=== PATIENT | male | born 1985 | race Caucasian/White ===

== ENCOUNTER → 2016-06-12 | Outpatient (CLI) | payer OTHER ==
[~2016-06-12] MED LIST: AMIT100T2 PO; AMIT25TA9 PO; AMT100 PO; AZITTAB PO; CMP/10 PO; DICY20TA10 PO; FLM4 PO; HYDR1CAP85 PO; LXP10 PO; MELO15TA4 PO; OMEP40CA41 PO; OXYC1TAB3 PO; PRED20TA PO; PROM25TA9 PO; PROP10TA7 PO; PRT/40 PO; TRAM-10 PO; VNTHFA/IN INH; XNX25 PO
[2016-06-12 18:51] LABS: THYROID STIMULATING HORMONE 0.351 uIu/ml (0.300-4.500)
== END | disposition home or self-care (01) ==
LOC: C.LAB 17:46
PROVIDERS: ATTEND Family Medicine
DX: R63.5 Abnormal weight gain (principal)

== ENCOUNTER 2016-07-05 07:12 | Emergency (ER) | payer OTHER ==
[~2016-07-05] VITALS: Ht 177.8 cm; Wt 118.7 kg
[~2016-07-05 07:12] MED LIST changes: -AMIT100T2 PO; -AMIT25TA9 PO; -AZITTAB PO; -OXYC1TAB3 PO; -PRED20TA PO; -PROM25TA9 PO; -TRAM-10 PO; -VNTHFA/IN INH
[2016-07-05 07:16] VITALS: TEMP 36.8; Ht 177.8 cm; Wt 118.7 kg
--- NOTE | 2016-07-05 07:59 | EMERGENCY ROOM VISIT NOTE ---
ED Visit Note First contact with patient: 07:20 Chief Complaint: Fall Injury, Back RIGHT Knee Pain History of Present Illness: Patient is a 30-year-old male who presents to the emergency room this morning for evaluation of pain in his lower back and RIGHT knee. He reports that he slipped on ice this morning while shoveling off the sidewalk. He felt a pop in his knee prior to falling to the ground. He struck his lower back on the ground. He did not strike his head. He did not lose consciousness. He reports persistent pain to lateral aspect of the RIGHT knee. He denies numbness or tingling into the distal tremor. He denies any loss of control bowel/bladder saddle anesthesia. He rates his current discomfort as a 6 /10. He is tried one ibuprofen for symptoms to this point. He denies any headaches, dizziness, chest pain, abdominal pain, or other extremity injury. Medications: Reviewed in discussed with the patient. Allergies: Multiple allergies listed above. PMH: No pertinent past medical history. SHx: Patient is a 30-year-old male who lives locally. ROS: All pertinent positive and negative review of systems are appropriately documented in the History of Present Illness. Physical Exam: VITAL SIGNS - Vital signs and nursing notes were reviewed. GENERAL - 30-year-old male appearing his stated age and in noticeable discomfort throughout the exam. NECK - FROM of the cervical spine. ABDOMEN - Abdominal contour obese without pulsations or visible masses. BS normoactive all four quadrants. No tenderness, palpable masses, hepatosplenomegaly, or ascites noted. MUSCULOSKELETAL - ROM of the lumbar spine region was assessed as full. Pt was seated on the exam table. Pt made fluent movements when asked to change position. No step-off deformities were palpated down the thoracolumbar spines. Mild Tenderness to Palpation experienced at the level of the lumbar paraspinal muscle distribution. No reproducible tenderness to palpation across the iliac spine. NEUROLOGIC - REFLEXES: +3/4 patellar reflexes B/L. SENSORY: Spinothalamic tract was found to be intact with ability to discriminate sharp versus dull sensation at the level of hip joint down do the great toe. No sensory defects of the dorsal column were appreciated utilizing light touch for evaluation. CEREBELLAR: Pt able to perform rapid alternating movements of the feet. EXTREMITIES - Range of Motion - No tremors, ticks, or fasciculations of the lower extremities noticed during inspection. Reproducible tenderness to palpation of the lateral aspect of the RIGHT knee. Lateral pain with medial force applied. Limited range of motion in flexion secondary to discomfort. VASCULAR - Capillary refill of the great toe was brisk. No mottling or blanching of the extremities present. +3/5 dorsalis pedis pulses palpated bilaterally. IMAGING: RIGHT KNEE 3 VIEWS HISTORY: Right knee pain/sprain s/p fall Right COMPARISON: None. FINDINGS: There is no fracture or dislocation. Soft tissues are unremarkable. No radiopaque foreign bodies. No knee effusion. IMPRESSION: No fractures. LUMBAR SPINE 5 VIEWS HISTORY: Trauma. Pain. back pain s/p fall COMPARISON: None. FINDINGS: There is no fracture. No subluxation. Disc spaces are preserved. IMPRESSION: No fracture or subluxation within the lumbar spine. ED Course: Patient was seen and evaluated by myself. X-ray of the lumbar spine and RIGHT knee were obtained. Imaging results above. Imaging results were reviewed with the patient who acknowledges understanding. Patient was provided a knee immobilizer for comfort. He was provided one Ultram for breakthrough pain. The patient was encouraged to follow-up with his primary care provider from today's visit. The patient declines the use of crutches. The patient was educated on worrisome symptoms for return visit to the emergency department. Patient discharged home in good condition. In the evaluation and treatment of this patient, the following differential diagnoses were considered: Patellar Fracture, Tibial Plateau Fracture, Distal Femur Fracture, ACL Injury, PCL Injury, Collateral Ligament Injury, Pes Anserine Bursitis, Maisonneuve Fracture. Impression: RIGHT Knee Sprain, Lumbar Contusion, Mechanical Fall Discharge Instructions: You have been treated in the Emergency Department for Knee Sprain. You have received pain medicine in the emergency department which impairs your ability to operate a vehicle. It is illegal for you to drive after receiving these medicines. You have been prescribed Ultram to be used for pain control. You cannot drive or consume alcohol while on this medicine. This medicine should only be used for pain that cannot be controlled with ecbt-xdh-[id number] pain medicines. For pain control, you can use the following qojk-vgz-wgwhetj medicines (if >12 yo): - Regular strength (325mg/tab) Tylenol (acetaminophen) 2 tabs every 4-6 hours as needed. Do not exceed 12 tablets in a 24 hour period. Avoid taking more than 4 grams (4000 mg) of Tylenol per day. This includes any other sources of acetaminophen you may take on a regular basis. - Regular strength (200 mg/tab) Advil (ibuprofen) 1-2 tabs every 4-6 hours as needed. Do not exceed a dose of 3200 mg per day. If this is a recent injury (<24 hrs), ice can be applied to the area of pain for the first 3 days to help decrease pain and inflammation. Ice massages can be performed by freezing water in a paper cup, peeling back the cup to expose the ice and then massaging over the affected area. You have been provided the number for an Orthopaedic Surgeon. You should call this number as soon as possible to establish a follow-up visit from today's Emergency Department visit. Use the knee brace for comfort for the next week. Return to the Emergency Department if your current symptoms worsen despite treatment course outlined above. Problem List Medical Problems: (1) Asperger's disorder Status: Chronic (2) Asthma Status: Chronic (3) Chronic abdominal pain Status: Chronic (4) Colitis Status: Resolved (5) Complete tear, knee, anterior cruciate ligament Status: Resolved (6) History of reconstruction of anterior cruciate ligament tear Status: Resolved (7) IBS (irritable bowel syndrome) Status: Chronic (8) Irritable colon Status: Chronic (9) Migraines Status: Chronic (10) Neck strain Status: Resolved (11) UNSP GASTRITIS & GASTRODUODENITIS W/O MENTN HEMORG Status: Chronic Current/Historical Medications Scheduled Amitriptyline HCl (Amitriptyline HCl), 100 MG PO HS Escitalopram Oxalate (Escitalopram Oxalate), 10 MG PO DAILY Omeprazole (Prilosec), 40 MG PO DAILY Pantoprazole (Pantoprazole Sodium), 40 MG PO BID Tamsulosin HCl (Tamsulosin HCl), 0.4 MG PO DAILY Scheduled PRN Alprazolam (Alprazolam), 0.25 MG PO TID PRN for Anxiety Dicyclomine Hcl (Dicyclomine Hcl), 20 MG PO Q6H PRN for Abdominal Pain Hydroxyzine Pamoate (Vistaril), 25-50 MG PO Q8 PRN for Anxiety/Insomnia Meloxicam (Meloxicam), 15 MG PO DAILY PRN for Pain Prochlorperazine Maleate (Prochlorperazine Maleate), 10 MG PO Q6H PRN for Nausea or Vomiting Propranolol (Inderal), 10 MG PO TID PRN for Panic Attack Tramadol (Ultram), 1-2 TAB PO Q4H PRN for Pain Allergies Coded Allergies: Mold (Blue) Cheese (Verified Allergy, Severe, "BLUE CHEESE" -- ANAPHYLAXIS , 05/22/16) BEE STING (Verified Allergy, Mild, 05/22/16) Latex1 -Allergic Contact Dermititis (Verified Allergy, Mild, 05/22/16) Dust (Verified Allergy, Unknown, MILD RESP DISCOMFORT, 05/22/16) POLLEN (Verified Allergy, Unknown, MILD RESP DISCOMFORT, 05/22/16) Olives (Verified Adverse Reaction, Mild, Black olives trigger IBS, ) Hydromorphone (Verified Adverse Reaction, Unknown, Headache, 06/17/16) Uncoded Allergies: ONIONS (Allergy, Intermediate, N/V/DIARRHEA, 11/19/15) MUSHROOMS (Adverse Reaction, Intermediate, N/V/DIARRHEA, 11/19/15) Vital Signs Date Time Temp Pulse Resp B/P Pulse Ox O2 Delivery O2 Flow Rate FiO2 07/05/16 09:47 88 16 146/105 99 07/05/16 07:16 36.8 130 18 143/91 97 Room Air Medications Administered Medications (Trade) Dose Ordered Sig/Jaycob Route Start Time Stop Time Status Last Admin Dose Admin Tramadol HCl (Ultram Tab) 50 mg ONE STAT PO 07/05/16 09:14 07/05/16 09:16 DC 07/05/16 09:33 50 MG Departure Information Impression Primary Impression: Knee sprain Additional Impressions: Lumbar contusion Fall Dispostion Home / Self-Care Condition GOOD Prescriptions Tramadol (Ultram) 50 Mg Tab 1-2 TAB PO Q4H Y for Pain, #14 TAB For Initial Treatment Prov: Sourav Hollis, JOEY 07/05/16 Referrals Jhon [place]uel[facility]onsuelo (PCP) Patient Instructions ED Sprain Knee, My [facility] Additional Instructions You have been treated in the Emergency Department for Knee Sprain. You have received pain medicine in the emergency department which impairs your ability to operate a vehicle. It is illegal for you to drive after receiving these medicines. You have been prescribed Ultram to be used for pain control. You cannot drive or consume alcohol while on this medicine. This medicine should only be used for pain that cannot be controlled with zine-fan-irwhphd pain medicines. For pain control, you can use the following wsev-xzc-qgazyrm medicines (if >12 yo): - Regular strength (325mg/tab) Tylenol (acetaminophen) 2 tabs every 4-6 hours as needed. Do not exceed 12 tablets in a 24 hour period. Avoid taking more than 4 grams (4000 mg) of Tylenol per day. This includes any other sources of acetaminophen you may take on a regular basis. - Regular strength (200 mg/tab) Advil (ibuprofen) 1-2 tabs every 4-6 hours as needed. Do not exceed a dose of 3200 mg per day. If this is a recent injury (<24 hrs), ice can be applied to the area of pain for the first 3 days to help decrease pain and inflammation. Ice massages can be performed by freezing water in a paper cup, peeling back the cup to expose the ice and then massaging over the affected area. You have been provided the number for an Orthopaedic Surgeon. You should call this number as soon as possible to establish a follow-up visit from today's Emergency Department visit. Use the knee brace for comfort for the next week. Return to the Emergency Department if your current symptoms worsen despite treatment course outlined above. Problem Qualifiers Primary Impression: Knee sprain Encounter type: initial encounter Involved ligament of knee: lateral collateral ligament Laterality: right Qualified Codes: S83.421A - Sprain of lateral collateral ligament of right knee, initial encounter Additional Impressions: Lumbar contusion Encounter type: initial encounter Qualified Codes: S30.0XXA - Contusion of lower back and pelvis, initial encounter Fall Encounter type: initial encounter Qualified Codes: W19.XXXA - Unspecified fall, initial encounter
--- NOTE | 2016-07-05 08:56 | DIAGNOSTIC IMAGING REPORT ---
RIGHT KNEE 3 VIEWS HISTORY: Right knee pain/sprain s/p fall Right COMPARISON: None. FINDINGS: There is no fracture or dislocation. Soft tissues are unremarkable. No radiopaque foreign bodies. No knee effusion. IMPRESSION: No fractures. Electronically signed by: Conrad Carlson M.D. 07/05/2016 8:55 AM Dictated Date/Time: 07/05/2016 8:54 AM
--- NOTE | 2016-07-05 09:01 | DIAGNOSTIC IMAGING REPORT ---
LUMBAR SPINE 5 VIEWS HISTORY: Trauma. Pain. back pain s/p fall COMPARISON: None. FINDINGS: There is no fracture. No subluxation. Disc spaces are preserved. IMPRESSION: No fracture or subluxation within the lumbar spine. Electronically signed by: Austin Acosta M.D. 07/05/2016 8:59 AM Dictated Date/Time: 07/05/2016 8:59 AM
[2016-07-05] MEDS ORDERED: TRAMADOL HCL 50 MG TAB PO STA (09:14)
[2016-07-05] MEDS ORDERED: TRAM-10 PO (09:21)
[2016-07-05 09:47] VITALS: BP 146/105; PULSE 88; O2SAT 99
== END 2016-07-05 09:40 | disposition home or self-care (01) ==
LOC: C.EDB 07:14
DX: S30.0XXA Contusion of lower back and pelvis, initial encounter (principal); S83.91XA Sprain of unspecified site of right knee, initial encounter; W00.0XXA Fall on same level due to ice and snow, initial encounter; E66.9 Obesity, unspecified; Z68.37 Body mass index [BMI] 37.0-37.9, adult; F84.5 Asperger's syndrome; J45.909 Unspecified asthma, uncomplicated; K58.9 Irritable bowel syndrome, unspecified; Z79.899 Other long term (current) drug therapy

== ENCOUNTER 2016-07-13 12:17 | Emergency (ER) | payer OTHER ==
[~2016-07-13] VITALS: Ht 177.8 cm; Wt 117.7 kg
[~2016-07-13 12:17] MED LIST changes: +TRAM-10 PO
[2016-07-13 12:22] VITALS: TEMP 36.5; Ht 177.8 cm; Wt 117.7 kg
[2016-07-13 13:34] LABS: BASO % 0.3 %; BASO ABS # 0.02 K/uL (0-0.2); COMPLETE YES; HEMATOCRIT 45.7 % (42-52); IG% 0.2 %; LYMPH % 31.9 %; LYMPH ABS # 2.06 K/uL (1.2-3.4); MEAN CELL VOLUME 82.8 fL (80-100); MEAN CORPUSCULAR HEMOGLOBIN 30.4 pg (25-34); MEAN CORPUSCULAR HGB CONC 36.8 g/dl (32-36); MEAN PLATELET VOLUME 10.3 fL (7.4-10.4); NEUT % 54.6 %; PLATELET COUNT 249 K/uL (130-400); RED BLOOD COUNT 5.52 M/uL (4.7-6.1); WHITE BLOOD COUNT 6.46 K/uL (4.8-10.8)
[2016-07-13 13:37] LABS: BUN/CREATININE RATIO 7.5 (10-20); CALCIUM 8.6 mg/dl (8.5-10.1); CREATININE 0.99 mg/dl (0.60-1.40); POTASSIUM 3.7 mmol/L (3.5-5.1)
[2016-07-13] MEDS ORDERED: TRAMADOL/ACETAMINOPHEN 37.5/325MG TAB PO ONE (13:45)
[2016-07-13 13:47] LABS: URINE APPEARANCE CLEAR (CLEAR); URINE BILIRUBIN NEG (NEG); URINE COLOR YELLOW; URINE EPITHELIAL CELL AUTO 0-5 /lpf (0-5); URINE NITRITE NEG (NEG); URINE PH 6.5 (4.5-7.5); URINE SPECIFIC GRAVITY 1.015 (1.000-1.030); UROBILINOGEN NEG (NEG); ZZUR CULT IF INDIC CLEAN CATCH NO
--- NOTE | 2016-07-13 13:47 | EMERGENCY ROOM VISIT NOTE ---
History Report prepared by Padma: Michael Cortez Under the Supervision of: Dr. Paolo Gage M.D. First contact with patient: 13:25 Chief Complaint: URINARY SYMPTOMS Stated Complaint: STOMACH PAIN Nursing Triage Summary: PT C/O URINARY FREQUENCY AND BURNING. REPORTS HX OF IBS BUT "IT DOESN'T FEEL LIKE THAT", LAST BM LAST EVENING. PT C/O LOWER ABDOMINAL PAIN WHEN STRAINING OR LAUGHING .PT ALSO REPORTS RECENT NEW GYM USE. PT SEEN AT PCP FOR LOWER ABDOMINAL PAIN. PT ALSO REPORTS HX OF KIDNEY STONES. History of Present Illness The patient is a 30 year old male who presents to the Emergency Room with complaints of worsening lower bilateral abdominal pain for the past three weeks. The pain shoots into the groin area, and is mostly on the left side. The pain is rated 8/10 in severity. The patient's pain is exacerbated with coughing , movement, defecation, and urination. He has taken Ibuprofen for pain. The patient also complains of urinary frequency and burning. He has a history of IBS , and notes that his current pain is unlike any pain he has felt before. The patient started going to the gym this year. Source of History: patient Onset: three weeks Position: abdomen (bilateral lower) Symptom Intensity: 8/10 Timing: worsening Modifying Factors (Worsening): movement, urination, defecation, other ( coughing) Associated Symptoms: + urinary symptoms Review of Systems All systems have been listed, reviewed, and are negative other than those previously mentioned. Please see Additional Medical History Sheet. Past Medical & Surgical Medical Problems: (1) Asperger's disorder (2) Asthma (3) Chronic abdominal pain (4) Colitis (5) Complete tear, knee, anterior cruciate ligament (6) History of reconstruction of anterior cruciate ligament tear (7) IBS (irritable bowel syndrome) (8) Irritable colon (9) Migraines (10) Neck strain (11) UNSP GASTRITIS & GASTRODUODENITIS W/O MENTN HEMORG Family History Heart disease Social History Smoking Status: Current Every Day Smoker Alcohol Use: occasionally Drug Use: none Marital Status: single Housing Status: lives with family Occupation Status: employed Current/Historical Medications Scheduled Amitriptyline HCl (Amitriptyline HCl), 100 MG PO HS Escitalopram Oxalate (Escitalopram Oxalate), 10 MG PO DAILY Omeprazole (Prilosec), 40 MG PO DAILY Pantoprazole (Pantoprazole Sodium), 40 MG PO BID Tamsulosin HCl (Tamsulosin HCl), 0.4 MG PO DAILY Scheduled PRN Alprazolam (Alprazolam), 0.25 MG PO TID PRN for Anxiety Dicyclomine Hcl (Dicyclomine Hcl), 20 MG PO Q6H PRN for Abdominal Pain Hydroxyzine Pamoate (Vistaril), 25-50 MG PO Q8 PRN for Anxiety/Insomnia Meloxicam (Meloxicam), 15 MG PO DAILY PRN for Pain Prochlorperazine Maleate (Prochlorperazine Maleate), 10 MG PO Q6H PRN for Nausea or Vomiting Propranolol (Inderal), 10 MG PO TID PRN for Panic Attack Tramadol (Ultram), 50 MG PO Q4H PRN for Pain Allergies Coded Allergies: Mold (Blue) Cheese (Verified Allergy, Severe, "BLUE CHEESE" -- ANAPHYLAXIS , 07/13/16) BEE STING (Verified Allergy, Mild, 07/13/16) Latex1 -Allergic Contact Dermititis (Verified Allergy, Mild, 07/13/16) Dust (Verified Allergy, Unknown, MILD RESP DISCOMFORT, 07/13/16) POLLEN (Verified Allergy, Unknown, MILD RESP DISCOMFORT, 05/22/16) Olives (Verified Adverse Reaction, Mild, Black olives trigger IBS, ) Hydromorphone (Verified Adverse Reaction, Unknown, Headache, 06/17/16) Uncoded Allergies: ONIONS (Allergy, Intermediate, N/V/DIARRHEA, 11/19/15) MUSHROOMS (Adverse Reaction, Intermediate, N/V/DIARRHEA, 11/19/15) Physical Exam Vital Signs Date Time Temp Pulse Resp B/P Pulse Ox O2 Delivery O2 Flow Rate FiO2 07/13/16 15:00 98 20 146/93 96 Room Air 07/13/16 12:22 36.5 128 18 144/88 95 Room Air Physical Exam GENERAL: Patient awake, alert, oriented x 3. Patient appears to be in moderate distress. Patient follows commands. Patient does not appear toxic. Patient is adequately hydrated and well-nourished. SKIN: No erythema, pallor, cyanosis or rash HEENT: Normal head, pupils equal, reactive to light and accommodation. Ears normal. Oral cavity and posterior pharynx appear normal. Neck: Without adenopathy, no neck vein distention. LUNGS: Clear to auscultation. No wheezes, no rales, no rhonchi. HEART: No murmurs. No gallops. No rubs ABDOMEN: Tenderness along the left lower quadrant and suprapubically. No hernias or masses palpated. No rebound or guarding. : No hernias palpated. EXTREMITIES: No signs of trauma or infection. NEUROLOGIC: Cranial nerves II-XII within normal limits. No gross motor sensory function deficits. Medical Decision & Procedures Laboratory Results 07/13/16 13:18 Red Blood Count 5.52, Mean Corpuscular Volume 82.8, Mean Corpuscular Hemoglobin 30.4, Mean Corpuscular Hemoglobin Concent 36.8, Mean Platelet Volume 10.3, Neutrophils (%) (Auto) 54.6, Lymphocytes (%) (Auto) 31.9, Monocytes (%) (Auto) 11.0, Eosinophils (%) (Auto) 2.0, Basophils (%) (Auto) 0.3, Neutrophils # (Auto ) 3.53, Lymphocytes # (Auto) 2.06, Monocytes # (Auto) 0.71, Eosinophils # (Auto ) 0.13, Basophils # (Auto) 0.02 07/13/16 13:18 Test 07/13/16 13:15 07/13/16 13:18 Urine Color YELLOW Urine Appearance CLEAR (CLEAR) Urine pH 6.5 (4.5-7.5) Urine Specific [place] 1.015 (1.000-1.030) Urine Protein NEG (NEG) Urine Glucose (UA) NEG (NEG) Urine Ketones NEG (NEG) Urine Occult Blood NEG (NEG) Urine Nitrite NEG (NEG) Urine Bilirubin NEG (NEG) Urine Urobilinogen NEG (NEG) Urine Leukocyte Esterase SMALL (NEG) Urine WBC (Auto) 1-5 /hpf (0-5) Urine RBC (Auto) 0-4 /hpf (0-4) Urine Hyaline Casts (Auto) 0 /lpf (0-5) Urine Epithelial Cells (Auto) 0-5 /lpf (0-5) Urine Bacteria (Auto) NEG (NEG) White Blood Count 6.46 K/uL (4.8-10.8) Red Blood Count 5.52 M/uL (4.7-6.1) Hemoglobin 16.8 g/dL (14.0-18.0) Hematocrit 45.7 % (42-52) Mean Corpuscular Volume 82.8 fL (80-100) Mean Corpuscular Hemoglobin 30.4 pg (25-34) Mean Corpuscular Hemoglobin Concent 36.8 g/dl (32-36) Platelet Count 249 K/uL (130-400) Mean Platelet Volume 10.3 fL (7.4-10.4) Neutrophils (%) (Auto) 54.6 % Lymphocytes (%) (Auto) 31.9 % Monocytes (%) (Auto) 11.0 % Eosinophils (%) (Auto) 2.0 % Basophils (%) (Auto) 0.3 % Neutrophils # (Auto) 3.53 K/uL (1.4-6.5) Lymphocytes # (Auto) 2.06 K/uL (1.2-3.4) Monocytes # (Auto) 0.71 K/uL (0.11-0.59) Eosinophils # (Auto) 0.13 K/uL (0-0.5) Basophils # (Auto) 0.02 K/uL (0-0.2) RDW Standard Deviation 37.6 fL (36.4-46.3) RDW Coefficient of Variation 12.5 % (11.5-14.5) Immature Granulocyte % (Auto) 0.2 % Immature Granulocyte # (Auto) 0.01 K/uL (0.00-0.02) Anion Gap 10.0 mmol/L (3-11) Est Creatinine Clear Calc Drug Dose 141.5 ml/min Estimated GFR () 118.8 Estimated GFR (Non- 102.5 BUN/Creatinine Ratio 7.5 (10-20) Calcium Level 8.6 mg/dl (8.5-10.1) Total Bilirubin 0.5 mg/dl (0.2-1) Aspartate Amino Transf (AST/SGOT) 23 U/L (15-37) Alanine Aminotransferase (ALT/SGPT) 54 U/L (12-78) Alkaline Phosphatase 106 U/L (45-117) Total Protein 7.3 gm/dl (6.4-8.2) Albumin 3.6 gm/dl (3.4-5.0) Globulin 3.7 gm/dl (2.5-4.0) Albumin/Globulin Ratio 1.0 (0.9-2) Lipase 76 U/L (73-393) Laboratory results as stated above per my review. Medications Administered Medications (Trade) Dose Ordered Sig/Jaycob Route Start Time Stop Time Status Last Admin Dose Admin Tramadol/ Acetaminophen (Ultracet Tab) 1 tab ONE ONCE PO 07/13/16 13:45 07/13/16 13:46 DC 07/13/16 13:49 1 TAB ED Course 1327: Past medical records reviewed. The patient was evaluated in room C4. A complete history and physical examination was performed. 1345: Ultracet tab PO. 1451: Upon reevaluation, the patient appeared to have improvement of his symptoms. I discussed today's findings with him. He verbalized agreement of the treatment plan. He was discharged home. 1500: The [place] Prescription Drug Monitoring Program was reviewed regarding this patient. Medical Decision I considered multiple diagnoses including abdominal muscular strain, hernia, UTI , IBS, testicular torsion, kidney stone. Blood work and urinalysis were evaluated. The patient has no elevation of his white count. He does not appear to have a urinary tract infection. I do not think he has a kidney stone or testicular torsion. Pain seems most consistent with musculoskeletal origin. [place] Drug Monitoring Program Search Results: patient reviewed within database, no issues identified Impression Primary Impression: Muscular abdominal pain in left lower quadrant Scribe Attestation The scribe's documentation has been prepared under my direction and personally reviewed by me in its entirety. I confirm that the note above accurately reflects all work, treatment, procedures, and medical decision making performed by me. Departure Information Dispostion Home / Self-Care Prescriptions Tramadol (Ultram) 50 Mg Tab 50 MG PO Q4H Y for Pain, #20 TAB Prov: Paolo Gage M.D. 07/13/16 Referrals Jhon [place] D.O. (PCP) Forms HOME CARE DOCUMENTATION FORM, IMPORTANT VISIT INFORMATION Patient Instructions My [facility] Additional Instructions 1 tramadol every 4 hours as needed for pain. Follow-up with your family physician within the next 2 weeks. Avoid any lifting greater than 10 pounds for the next 2 weeks.
[2016-07-13 13:52] LABS: MANUAL MICROSCOPIC REQUIRED? NO; REVIEW REQ? NO
[2016-07-13] MEDS ORDERED: TRAM-10 PO (14:56)
[2016-07-13 15:44] VITALS: BP 133/91; PULSE 78; O2SAT 98
== END 2016-07-13 15:46 | disposition home or self-care (01) ==
LOC: C.EDB 12:18 → C.EDC 15:46
DX: R10.32 Left lower quadrant pain (principal); J45.909 Unspecified asthma, uncomplicated; K58.9 Irritable bowel syndrome, unspecified; F17.210 Nicotine dependence, cigarettes, uncomplicated; Z79.899 Other long term (current) drug therapy

== ENCOUNTER 2016-09-01 23:02 | Emergency (ER) | payer OTHER ==
[~2016-09-01] VITALS: Ht 177.8 cm; Wt 115.2 kg
[~2016-09-01 23:02] MED LIST changes: +PANT40TA2 PO; -PRT/40 PO
[2016-09-01 23:23] VITALS: TEMP 37.1; Ht 177.8 cm; Wt 115.2 kg
[2016-09-01] MEDS ORDERED: DiphenhydrAMINE HCL 50 MG/ML VIAL IV STA (23:34)
[2016-09-01] MEDS ORDERED: KETOROLAC TROMETHAMINE 30 MG/ML VIAL IV STA (23:34)
[2016-09-01] MEDS ORDERED: SODIUM CHLORIDE 0.9% 1000ML 1,000 ML IV STA (23:34)
[2016-09-01] MEDS ORDERED: PROCHLORPERAZINE 5 MG/ML 2 ML VIAL IV STA (23:34)
[2016-09-01 23:59] LABS: URINE APPEARANCE CLEAR (CLEAR); URINE BILIRUBIN NEG (NEG); URINE COLOR YELLOW; URINE NITRITE NEG (NEG); URINE PH 5.5 (4.5-7.5); URINE SPECIFIC GRAVITY 1.024 (1.000-1.030); UROBILINOGEN NEG (NEG); ZZUR CULT IF INDIC CLEAN CATCH NO
[2016-09-02 00:02] LABS: MANUAL MICROSCOPIC REQUIRED? NO; REVIEW REQ? NO
[2016-09-02 00:02] LABS: BASO % 0.4 %; BASO ABS # 0.03 K/uL (0-0.2); COMPLETE YES; EOS % 1.5 %; HEMATOCRIT 48.3 % (42-52); IG% 0.3 %; LYMPH % 31.3 %; LYMPH ABS # 2.45 K/uL (1.2-3.4); MEAN CELL VOLUME 82.4 fL (80-100); MEAN CORPUSCULAR HEMOGLOBIN 30.4 pg (25-34); MEAN CORPUSCULAR HGB CONC 36.9 g/dl (32-36); MEAN PLATELET VOLUME 10.2 fL (7.4-10.4); MONO % 9.1 %; NEUT % 57.4 %; PLATELET COUNT 263 K/uL (130-400); RED BLOOD COUNT 5.86 M/uL (4.7-6.1); WHITE BLOOD COUNT 7.82 K/uL (4.8-10.8)
[2016-09-02 00:18] LABS: BENZODIAZEPINE, URINE NEG (NEG); COCAINE,URINE NEG (NEG); PHENCYCLIDINE, URINE NEG (NEG)
[2016-09-02 00:36] LABS: CALCIUM 8.7 mg/dl (8.5-10.1); CREATININE 0.92 mg/dl (0.60-1.40); MAGNESIUM 2.1 mg/dl (1.8-2.4); POTASSIUM 3.8 mmol/L (3.5-5.1)
[2016-09-02] MEDS ORDERED: PROM25TA9 PO (00:57)
--- NOTE | 2016-09-02 00:58 | EMERGENCY ROOM VISIT NOTE ---
History First contact with patient: 23:26 Chief Complaint: ABDOMINAL PAIN Stated Complaint: STOMACH PAIN, NAUSEA, DIARRHEA Nursing Triage Summary: pt states he has been sick for one week. reports abd pain, diarrhea, nausea, and vomiting. states he ran out of nausea medication tonight. was treating at home with ibuprofen. reports tonight pain and nausea became worse. vomited 1x "since I got to the ER." reports pain "comes in waves." hx IBS. alert and oriented x4. breathing WNL. abd soft, nontender. ambulatory independently History of Present Illness The patient is a 30 year old male who presents to the Emergency Department by private vehicle for evaluation of his nausea, vomiting, diarrhea, abdominal pain. He reports his symptoms have been ongoing for approximately one week. He reports that his abdominal pain has worsened tonight with associated vomiting as he ran out of his Phenergan. He is treated for IBS by Dr. Reyez. He rates his current discomfort as a 5/10. He denies a previous abdominal surgeries. He denies any fevers, chills, headaches, dizziness, numbness, chest pain, palpitations, short of breath, hematemesis, hematochezia, melena, hematuria, or dysuria. Review of Systems A complete 10-point Review of Systems was discussed with the patient, with pertinent positives and negatives listed in the History of Present Illness. All remaining Review of Systems questions can be considered negative unless otherwise specified. Past Medical/Surgical History Medical Problems: (1) Asperger's disorder (2) Asthma (3) Chronic abdominal pain (4) Colitis (5) Complete tear, knee, anterior cruciate ligament (6) History of reconstruction of anterior cruciate ligament tear (7) IBS (irritable bowel syndrome) (8) Irritable colon (9) Migraines (10) Neck strain (11) UNSP GASTRITIS & GASTRODUODENITIS W/O MENTN HEMORG Family History Heart disease Social History Smoking Status: Current Every Day Smoker Smokeless Tobacco Use: No Alcohol Use: occasionally Drug Use: none Marital Status: single Housing Status: lives with family Occupation Status: employed Current/Historical Medications Scheduled Amitriptyline HCl (Amitriptyline HCl), 100 MG PO HS Escitalopram Oxalate (Escitalopram Oxalate), 10 MG PO DAILY Omeprazole (Prilosec), 40 MG PO DAILY Pantoprazole (Pantoprazole Sodium), 40 MG PO BID Tamsulosin HCl (Tamsulosin HCl), 0.4 MG PO DAILY Scheduled PRN Alprazolam (Alprazolam), 0.25 MG PO TID PRN for Anxiety Dicyclomine Hcl (Dicyclomine Hcl), 20 MG PO Q6H PRN for Abdominal Pain Hydroxyzine Pamoate (Vistaril), 25-50 MG PO Q8 PRN for Anxiety/Insomnia Meloxicam (Meloxicam), 15 MG PO DAILY PRN for Pain Prochlorperazine Maleate (Prochlorperazine Maleate), 10 MG PO Q6H PRN for Nausea or Vomiting Promethazine Hcl (Phenergan), 25 MG PO Q6H PRN for Nausea Propranolol (Inderal), 10 MG PO TID PRN for Panic Attack Allergies Coded Allergies: Mold (Blue) Cheese (Verified Allergy, Severe, "BLUE CHEESE" -- ANAPHYLAXIS , 09/01/16) BEE STING (Verified Allergy, Mild, 09/01/16) Latex1 -Allergic Contact Dermititis (Verified Allergy, Mild, 09/01/16) Dust (Verified Allergy, Unknown, MILD RESP DISCOMFORT, 09/01/16) POLLEN (Verified Allergy, Unknown, MILD RESP DISCOMFORT, 09/01/16) Olives (Verified Adverse Reaction, Mild, Black olives trigger IBS, 09/01/16 ) Hydromorphone (Verified Adverse Reaction, Unknown, Headache, 09/01/16) Uncoded Allergies: ONIONS (Allergy, Intermediate, N/V/DIARRHEA, 11/19/15) MUSHROOMS (Adverse Reaction, Intermediate, N/V/DIARRHEA, 11/19/15) Physical Exam Vital Signs Date Time Temp Pulse Resp B/P Pulse Ox O2 Delivery O2 Flow Rate FiO2 09/02/16 01:07 90 18 127/83 96 09/02/16 00:11 104 18 131/91 95 Room Air 09/01/16 23:23 37.1 126 20 148/96 95 Room Air Pain Rating (0-10): 5 Physical Exam VITAL SIGNS - Vital signs and nursing notes were reviewed. GENERAL - 30-year-old male appearing his stated age who is in no acute distress. Communicates well with provider and answers questions appropriately. LUNGS - Chest wall symmetric without accessory muscle use, intercostals retractions, or central cyanosis. Normal vesicular breath sounds CTA B/L. No wheezes, rales, or rhonchi appreciated. CARDIAC - RRR with S1/S2. No murmur, rubs, or gallops appreciated. ABDOMEN - Abdominal contour flat and without pulsations or visible masses. BS normoactive all four quadrants. Mild tenderness to palpation appreciated in the epigastrium. No guarding. No Rebound Tenderness. Negative Rovsing's. Negative Palacio's. No palpable masses, hepatosplenomegaly, or ascites noted. PSYCH - A&Ox3 and cooperates fully with examiner. Pt is very pleasant and interacts well with examiner. Medical Decision & Procedures Laboratory Results 09/01/16 23:48 Red Blood Count 5.86, Mean Corpuscular Volume 82.4, Mean Corpuscular Hemoglobin 30.4, Mean Corpuscular Hemoglobin Concent 36.9, Mean Platelet Volume 10.2, Neutrophils (%) (Auto) 57.4, Lymphocytes (%) (Auto) 31.3, Monocytes (%) (Auto) 9.1, Eosinophils (%) (Auto) 1.5, Basophils (%) (Auto) 0.4, Neutrophils # (Auto) 4.49, Lymphocytes # (Auto) 2.45, Monocytes # (Auto) 0.71, Eosinophils # (Auto) 0.12, Basophils # (Auto) 0.03 09/01/16 23:48 Test 09/01/16 23:40 09/01/16 23:48 Urine Color YELLOW Urine Appearance CLEAR (CLEAR) Urine pH 5.5 (4.5-7.5) Urine Specific [place] 1.024 (1.000-1.030) Urine Protein NEG (NEG) Urine Glucose (UA) NEG (NEG) Urine Ketones NEG (NEG) Urine Occult Blood NEG (NEG) Urine Nitrite NEG (NEG) Urine Bilirubin NEG (NEG) Urine Urobilinogen NEG (NEG) Urine Leukocyte Esterase NEG (NEG) Urine Opiates Screen NEG (NEG) Urine Methadone, Qualitative NEG (NEG) Urine Barbiturates NEG (NEG) Urine Phencyclidine (PCP) Level NEG (NEG) Ur Amphetamine/Methamphetamine NEG (NEG) MDMA (Ecstasy) Screen NEG (NEG) Urine Benzodiazepines Screen NEG (NEG) Urine Cocaine Metabolite NEG (NEG) Urine Marijuana (THC) NEG (NEG) White Blood Count 7.82 K/uL (4.8-10.8) Red Blood Count 5.86 M/uL (4.7-6.1) Hemoglobin 17.8 g/dL (14.0-18.0) Hematocrit 48.3 % (42-52) Mean Corpuscular Volume 82.4 fL (80-100) Mean Corpuscular Hemoglobin 30.4 pg (25-34) Mean Corpuscular Hemoglobin Concent 36.9 g/dl (32-36) Platelet Count 263 K/uL (130-400) Mean Platelet Volume 10.2 fL (7.4-10.4) Neutrophils (%) (Auto) 57.4 % Lymphocytes (%) (Auto) 31.3 % Monocytes (%) (Auto) 9.1 % Eosinophils (%) (Auto) 1.5 % Basophils (%) (Auto) 0.4 % Neutrophils # (Auto) 4.49 K/uL (1.4-6.5) Lymphocytes # (Auto) 2.45 K/uL (1.2-3.4) Monocytes # (Auto) 0.71 K/uL (0.11-0.59) Eosinophils # (Auto) 0.12 K/uL (0-0.5) Basophils # (Auto) 0.03 K/uL (0-0.2) RDW Standard Deviation 37.4 fL (36.4-46.3) RDW Coefficient of Variation 12.5 % (11.5-14.5) Immature Granulocyte % (Auto) 0.3 % Immature Granulocyte # (Auto) 0.02 K/uL (0.00-0.02) Anion Gap 8.0 mmol/L (3-11) Est Creatinine Clear Calc Drug Dose 150.6 ml/min Estimated GFR () 129.8 Estimated GFR (Non- 112.0 BUN/Creatinine Ratio 13.0 (10-20) Calcium Level 8.7 mg/dl (8.5-10.1) Magnesium Level 2.1 mg/dl (1.8-2.4) Total Bilirubin 0.4 mg/dl (0.2-1) Aspartate Amino Transf (AST/SGOT) 23 U/L (15-37) Alanine Aminotransferase (ALT/SGPT) 54 U/L (12-78) Alkaline Phosphatase 124 U/L (45-117) Total Protein 7.5 gm/dl (6.4-8.2) Albumin 3.7 gm/dl (3.4-5.0) Globulin 3.8 gm/dl (2.5-4.0) Albumin/Globulin Ratio 1.0 (0.9-2) Lipase 88 U/L (73-393) Medications Administered Medications (Trade) Dose Ordered Sig/Jaycob Route Start Time Stop Time Status Last Admin Dose Admin Sodium Chloride (Nss 1000ml) 1,000 ml @ 999 mls/hr Q1H1M STAT IV 09/01/16 23:34 09/02/16 00:34 DC 09/02/16 00:04 999 MLS/HR Ketorolac Tromethamine (Toradol Inj) 30 mg NOW STAT IV 09/01/16 23:34 09/01/16 23:37 DC 09/02/16 00:08 30 MG Prochlorperazine Edisylate (Compazine Inj) 10 mg NOW STAT IV 09/01/16 23:34 09/01/16 23:37 DC 09/02/16 00:08 10 MG Diphenhydramine HCl (Benadryl Inj) 25 mg NOW STAT IV 09/01/16 23:34 09/01/16 23:37 DC 09/02/16 00:06 25 MG Promethazine HCl (Phenergan 25MG Home Pack) 1 homepack UD ONCE PO 09/02/16 01:00 09/02/16 01:01 DC 09/02/16 01:03 1 HOMEPACK ED Course Patient was seen and evaluated by myself. Labs were drawn, saline lock in place. The patient was hydrated with 1000 mL normal saline bolus. He received 30 mg Toradol, 10 mg Compazine, and 25 mg Benadryl intravenously. Laboratory results demonstrate no acute leukocytosis, worrisome anemia, or bandemia. The patient has no significant electrolyte abnormalities. Urinalysis suggests infection. On review the patient, he reports feeling moderately better at this time. Patient was provided a home pack for Phenergan as well as a short prescription. He was encouraged to follow up with his wiper blender from today's visit. He was educated on worrisome symptoms for return visit to the emergency department. Patient discharged home afebrile and in good condition. Medical Decision Given the patient's presentation and stated complaints, I did elect to perform the above-mentioned workup. The patient presents today with nausea, vomiting, diarrhea as well as abdominal pain. He has a history of IBS. He reports his symptoms feel the exact same. His abdomen is soft and minimally tender to palpation. He is no rebound rigidity or guarding. He has no fever leukocytosis. He responded to the above mentioned cocktail. He feels much better at this time. The patient was provided Phenergan for home. He will follow-up with the specialist. He'll return for changing/worsening symptoms. Patient discharged home afebrile and in good condition. In the evaluation and treatment of this patient, the following differential diagnoses were considered: Appendicitis, Diverticulitis, Diverticulosis, Colitis , Ischemic Colitis, Inflammatory Bowel Disease, Irritable Bowel Disease, Testicular Torsion, Kidney Stone, Pyelonephritis, Hydronephrosis, Cholecystitis , Ascending Cholangitis, Choledocholithiasis, GERD. Impression Primary Impression: Abdominal pain Additional Impressions: IBS (irritable bowel syndrome) Vomiting and diarrhea Departure Information Dispostion Home / Self-Care Condition GOOD Prescriptions Promethazine Hcl (Phenergan) 25 Mg Tab 25 MG PO Q6H Y for Nausea for 3 Days, #12 TAB Prov: Sourav Hollis PA-C 09/02/16 Referrals Jhon [place] D.O. (PCP) Patient Instructions My [facility] Additional Instructions You have been treated in the Emergency Department your Nausea, Vomiting, and Abdominal Pain. You have been prescribed Phenergan to be used for any nausea or vomiting. Take as prescribed. For pain control, you can use the following [id number] medicines (if >12 yo): - Regular strength (325mg/tab) Tylenol (acetaminophen) 2 tabs every 4-6 hours as needed. Do not exceed 12 tablets in a 24 hour period. Avoid taking more than 4 grams (4000 mg) of Tylenol per day. This includes any other sources of acetaminophen you may take on a regular basis. - Regular strength (200 mg/tab) Advil (ibuprofen) 1-2 tabs every 4-6 hours as needed. Do not exceed a dose of 3200 mg per day. Drink plenty of water and stay well hydrated. As with any trip to the Emergency Department, you should follow-up with your Primary Care Provider from today's visit. Return to the emergency department if your symptoms persist despite treatment plan outlined above or if the following symptoms occur: increased fevers, chills , worsening nausea/vomiting, blood in your stool or urine. Problem Qualifiers Primary Impression: Abdominal pain Abdominal location: generalized Qualified Codes: R10.84 - Generalized abdominal pain Additional Impressions: IBS (irritable bowel syndrome) Irritable bowel syndrome type: with diarrhea Qualified Codes: K58.0 - Irritable bowel syndrome with diarrhea
[2016-09-02] MEDS ORDERED: PHENERGAN 25MG HOMEPACK PO ONE (01:00)
[2016-09-02 01:07] VITALS: BP 127/83; PULSE 90; O2SAT 96
== END 2016-09-02 01:10 | disposition home or self-care (01) ==
LOC: C.EDB 23:03 → C.EDC 09-02 01:10
DX: R10.9 Unspecified abdominal pain (principal); K58.9 Irritable bowel syndrome, unspecified; R11.10 Vomiting, unspecified; R19.7 Diarrhea, unspecified; J45.909 Unspecified asthma, uncomplicated; F84.5 Asperger's syndrome; Z86.19 Personal history of other infectious and parasitic diseases; Z87.19 Personal history of other diseases of the digestive system; F17.200 Nicotine dependence, unspecified, uncomplicated; Z79.899 Other long term (current) drug therapy; Z88.5 Allergy status to narcotic agent; Z91.030 Bee allergy status; Z91.040 Latex allergy status

== ENCOUNTER 2016-12-12 19:56 | Emergency (ER) | payer OTHER ==
[~2016-12-12] VITALS: Ht 177.8 cm; Wt 118.6 kg
[~2016-12-12 19:56] MED LIST changes: -PANT40TA2 PO; +PRT/40 PO; -TRAM-10 PO
[2016-12-12 20:03] VITALS: TEMP 37.4; Ht 177.8 cm; Wt 118.6 kg
[2016-12-12] MEDS ORDERED: VNTHFA/IN INH (20:22)
[2016-12-12] MEDS ORDERED: AMIT100T2 PO (20:22)
[2016-12-12] MEDS ORDERED: AMIT25TA9 PO (20:22)
[2016-12-12] MEDS ORDERED: PRED20TA PO (20:22)
[2016-12-12] MEDS ORDERED: HYDROCODONE/HOMATROPINE SYRUP 5MG/1.5MG 5ML UDP PO STA (20:51)
[2016-12-12] MEDS ORDERED: SODIUM CHLORIDE 0.9% 1000ML 1,000 ML IV STA (20:51)
[2016-12-12] MEDS ORDERED: ALBUT/IPRATROP 3MG/0.5MG NEB 3 ML VIAL INH ONE (21:00)
--- NOTE | 2016-12-12 21:22 | EMERGENCY ROOM VISIT NOTE ---
History Report prepared by Padma: Sukumar Tirado Under the Supervision of: Dr. Kermit Ayon M.D. First contact with patient: 20:46 Chief Complaint: CHEST PAIN Stated Complaint: SHARP PAIN IN LWR R CHEST,BRONCHITIS History of Present Illness The patient is a 31 year old male who presents to the Emergency Room with complaints of intermittent sharp chest pain being yesterday. The patient states that he went to his doctor yesterday and was diagnosis with bronchitis. He reports that he was put on an inhaler and prednisone. The patient notes that his symptoms are present, and worsen upon cough. He states that he used to smoke a pack of cigarettes every 4-5 days, and he decided to quit yesterday. The patient denies recent travel, vomiting, and hematochezia. Source of History: patient Onset: yesterday Position: chest Quality: sharp Timing: intermittent Modifying Factors (Worsening): other (coughing) Associated Symptoms: + cough, No vomiting, No hematochezia Review of Systems See HPI for pertinent positives & negatives. A total of 10 systems reviewed and were otherwise negative. Past Medical & Surgical Medical Problems: (1) Asperger's disorder (2) Asthma (3) Chronic abdominal pain (4) Colitis (5) Complete tear, knee, anterior cruciate ligament (6) History of reconstruction of anterior cruciate ligament tear (7) IBS (irritable bowel syndrome) (8) Irritable colon (9) Migraines (10) Neck strain (11) UNSP GASTRITIS & GASTRODUODENITIS W/O MENTN HEMORG Family History Heart disease Social History Smoking Status: Former Smoker Alcohol Use: occasionally Drug Use: none Marital Status: single Housing Status: lives with family Occupation Status: employed Current/Historical Medications Scheduled Amitriptyline Hcl (Elavil), 25 MG PO HS Amitriptyline Hcl (Elavil), 100 MG PO HS Azithromycin (Zithromax Z-Antony), 1 PKT PO UD Escitalopram Oxalate (Escitalopram Oxalate), 10 MG PO DAILY Omeprazole (Prilosec), 40 MG PO DAILY Pantoprazole (Pantoprazole Sodium), 40 MG PO BID Prednisone (Prednisone), 40 MG PO DAILY Tamsulosin HCl (Tamsulosin HCl), 0.4 MG PO DAILY Scheduled PRN Albuterol Hfa (Ventolin Hfa), 1-2 PUFFS INH Q4H PRN for SOB/Wheezing Alprazolam (Alprazolam), 0.25 MG PO TID PRN for Anxiety Dicyclomine Hcl (Dicyclomine Hcl), 20 MG PO Q6H PRN for Abdominal Pain Hydroxyzine Pamoate (Vistaril), 25-50 MG PO Q8 PRN for Anxiety/Insomnia Meloxicam (Meloxicam), 15 MG PO DAILY PRN for Pain Prochlorperazine Maleate (Prochlorperazine Maleate), 10 MG PO Q6H PRN for Nausea or Vomiting Propranolol (Inderal), 10 MG PO TID PRN for Panic Attack Allergies Coded Allergies: Mold (Blue) Cheese (Verified Allergy, Severe, "BLUE CHEESE" -- ANAPHYLAXIS , 12/12/16) BEE STING (Verified Allergy, Mild, 12/12/16) Latex1 -Allergic Contact Dermititis (Verified Allergy, Mild, 09/01/16) Dust (Verified Allergy, Unknown, MILD RESP DISCOMFORT, 12/12/16) POLLEN (Verified Allergy, Unknown, MILD RESP DISCOMFORT, 12/12/16) Olives (Verified Adverse Reaction, Mild, Black olives trigger IBS, 12/12/16 ) Hydromorphone (Verified Adverse Reaction, Unknown, Headache, 12/12/16) Uncoded Allergies: ONIONS (Allergy, Intermediate, N/V/DIARRHEA, 11/19/15) MUSHROOMS (Adverse Reaction, Intermediate, N/V/DIARRHEA, 11/19/15) Physical Exam Vital Signs Date Time Temp Pulse Resp B/P (MAP) Pulse Ox O2 Delivery O2 Flow Rate FiO2 12/12/16 22:46 119 16 150/85 95 Room Air 12/12/16 22:00 88 16 132/84 96 12/12/16 21:56 100 20 96 Room Air 12/12/16 21:23 98 Room Air 12/12/16 20:03 37.4 110 18 132/78 96 Room Air Physical Exam GENERAL: Patient is anxious appearing and in moderate distress. Persistent cough. HEENT: No acute trauma, normocephalic atraumatic, mucous membranes moist, no nasal congestion, no scleral icterus. NECK: No stridor, no adenopathy, no meningismus, trachea is midline. LUNGS: No dyspnea. Clear to auscultation and equal bilaterally. No wheeze, no rhonchi. HEART: Regular rate and rhythm. No murmurs, rubs, gallops appreciated. ABDOMEN: Soft, right lower ribs are tender to palpation, bowel sounds positive, no masses appreciated, no peritonitis. BACK: No midline tenderness, no CVA tenderness EXTREMITIES: Normal motion all extremities, no cyanosis, no edema. NEUROLOGIC: Alert and oriented, no acute motor or sensory deficits, no focal weakness, cranial nerves grossly intact. SKIN: No rash, no jaundice, no diaphoresis. Medical Decision & Procedures ER Provider Diagnostic Interpretation: X ray results are stated below per my interpretation and the radiologist's interpretation. CHEST ONE VIEW PORTABLE CLINICAL HISTORY: Chest pain and cough. COMPARISON STUDY: Chest radiograph May 22, 2016. FINDINGS: Lung volumes are normal. There is no pneumothorax or pleural effusion. There is no consolidation to suggest pneumonia. Cardiac size is normal. Mediastinal contours are normal. There is no evidence of pulmonary edema. IMPRESSION: No acute cardiopulmonary findings. Electronically signed by: Tj Castillo M.D. 12/12/2016 9:43 PM Dictated Date/Time: 12/12/2016 9:43 PM Laboratory Results 12/12/16 21:15 Red Blood Count 5.70, Mean Corpuscular Volume 84.2, Mean Corpuscular Hemoglobin 29.6, Mean Corpuscular Hemoglobin Concent 35.2, Mean Platelet Volume 9.9, Neutrophils (%) (Auto) 81.6, Lymphocytes (%) (Auto) 12.3, Monocytes (%) (Auto) 5.2, Eosinophils (%) (Auto) 0.5, Basophils (%) (Auto) 0.1, Neutrophils # (Auto) 11.03, Lymphocytes # (Auto) 1.67, Monocytes # (Auto) 0.71, Eosinophils # (Auto) 0.07, Basophils # (Auto) 0.02 12/12/16 21:15 Test 12/12/16 21:15 White Blood Count 13.54 K/uL (4.8-10.8) Red Blood Count 5.70 M/uL (4.7-6.1) Hemoglobin 16.9 g/dL (14.0-18.0) Hematocrit 48.0 % (42-52) Mean Corpuscular Volume 84.2 fL (80-100) Mean Corpuscular Hemoglobin 29.6 pg (25-34) Mean Corpuscular Hemoglobin Concent 35.2 g/dl (32-36) Platelet Count 274 K/uL (130-400) Mean Platelet Volume 9.9 fL (7.4-10.4) Neutrophils (%) (Auto) 81.6 % Lymphocytes (%) (Auto) 12.3 % Monocytes (%) (Auto) 5.2 % Eosinophils (%) (Auto) 0.5 % Basophils (%) (Auto) 0.1 % Neutrophils # (Auto) 11.03 K/uL (1.4-6.5) Lymphocytes # (Auto) 1.67 K/uL (1.2-3.4) Monocytes # (Auto) 0.71 K/uL (0.11-0.59) Eosinophils # (Auto) 0.07 K/uL (0-0.5) Basophils # (Auto) 0.02 K/uL (0-0.2) RDW Standard Deviation 40.8 fL (36.4-46.3) RDW Coefficient of Variation 13.5 % (11.5-14.5) Immature Granulocyte % (Auto) 0.3 % Immature Granulocyte # (Auto) 0.04 K/uL (0.00-0.02) D-Dimer < 190 ug/L FEU (0-500) Anion Gap 9.0 mmol/L (3-11) Est Creatinine Clear Calc Drug Dose 126.7 ml/min Estimated GFR () 103.9 Estimated GFR (Non- 89.6 BUN/Creatinine Ratio 8.0 (10-20) Calcium Level 9.1 mg/dl (8.5-10.1) Troponin I < 0.015 ng/ml (0-0.045) Laboratory results as reviewed by me. Medications Administered Medications (Trade) Dose Ordered Sig/Jaycob Route Start Time Stop Time Status Last Admin Dose Admin Albuterol/ Ipratropium (Duoneb) 12 ml ONE ONCE INH 12/12/16 21:00 12/12/16 21:01 DC 12/12/16 21:00 12 ML Hydrocodone Bit/ Homatropine Methylb (Hycodan Syrup) 10 ml NOW STAT PO 12/12/16 20:51 12/12/16 20:52 DC 12/12/16 20:51 10 ML Sodium Chloride 1,000 ml @ 999 mls/hr Q1H1M STAT IV 12/12/16 20:51 12/12/16 21:51 DC 12/12/16 20:51 999 MLS/HR Azithromycin (Zithromax Tab) 500 mg NOW STAT PO 12/12/16 22:16 12/12/16 22:18 DC 12/12/16 22:51 500 MG Hydrocodone Bit/ Homatropine Methylb (Hycodan Elix Homepack 5/1.5MG/ 5ML) 1 homepack UD ONCE PO 12/12/16 22:30 12/12/16 22:31 DC 12/12/16 22:30 1 HOMEPACK ECG Indication: SOB/dyspnea Rate (beats per minute): 107 Rhythm: sinus tachycardia Findings: no acute ischemic change, no ectopy ED Course 2046: The patient was evaluated in room B12B. A complete history and physical exam was performed. 2050: Ordered Sodium Chloride 1000 ml @ 999 mls/hr IV, Hycodan Syrup 10 ml PO 2099: Ordered Duoneb 12 ml INH 2215: Ordered Zithromax Tab 500 mg PO 2229: Ordered Hydrocodone Bit/Homatropine Methylb 1 homepack PO 2231: Reevaluated the patient. He feels much better and wants to go home. He will follow up with his PCP. Discussed results and discharge instructions: he verbalized understanding and agreement. The patient is ready for discharge. Medical Decision Differential: Infectious, Reactive Airway Disease, Pneumonia, Pneumothorax, COPD , CHF, ACS, Pulmonary Embolism, MSK, GI, Dissection, amongst other etiologies entertained. Medication Reconciliation: I attest that I have personally reviewed the patient 's current medication list. 31 yr old male smoker with persistent cough/bronchitis who just started steroids and inhaler by PCP. Now with right lower rib pain, worse with coughing and deep inspiration. No significant PE risk factors though with pleuritic pain felt dimer reasonable which was fortunately negative. CXR unremarkable. No clear evidence of rib fracture. Suspect he has rib strain from coughing. No evidence this is cardiac. Is going on vacation this weekend thus will go ahead and start abx with him being a smoker. Hycodan for cough and discomfort. Reviewed restrictions of this medication. Stable and feeling much improved after above. RTED if worsening or other concerns. Impression Primary Impression: Persistent cough Additional Impression: Rib pain on right side Scribe Attestation The scribe's documentation has been prepared under my direction and personally reviewed by me in its entirety. I confirm that the note above accurately reflects all work, treatment, procedures, and medical decision making performed by me. Departure Information Dispostion Home / Self-Care Prescriptions Azithromycin (ZITHROMAX Z-ANTONY) 250 Mg Tab 1 PKT PO UD, #1 PKT Prov: Kermit Ayon M.D. 12/12/16 Referrals Jhon [place] D.O. (PCP) Patient Instructions ED Chest Pain Pleurisy, My [facility] Additional Instructions You have received a narcotic cough medication. These medications may cause drowsiness and should not be used with other sedative medications. Do not drive , drink alcohol, perform dangerous activities, nor make important decisions after taking these medications. USP use or inappropriate use may lead to addiction. Problem Qualifiers
[2016-12-12 21:31] LABS: BASO % 0.1 %; BASO ABS # 0.02 K/uL (0-0.2); COMPLETE YES; EOS % 0.5 %; IG% 0.3 %; LYMPH % 12.3 %; LYMPH ABS # 1.67 K/uL (1.2-3.4); MEAN CELL VOLUME 84.2 fL (80-100); MEAN CORPUSCULAR HEMOGLOBIN 29.6 pg (25-34); MEAN CORPUSCULAR HGB CONC 35.2 g/dl (32-36); MEAN PLATELET VOLUME 9.9 fL (7.4-10.4); MONO % 5.2 %; NEUT % 81.6 %; PLATELET COUNT 274 K/uL (130-400); WHITE BLOOD COUNT 13.54 K/uL (4.8-10.8)
--- NOTE | 2016-12-12 21:45 | DIAGNOSTIC IMAGING REPORT ---
CHEST ONE VIEW PORTABLE CLINICAL HISTORY: Chest pain and cough. COMPARISON STUDY: Chest radiograph May 22, 2016. FINDINGS: Lung volumes are normal. There is no pneumothorax or pleural effusion. There is no consolidation to suggest pneumonia. Cardiac size is normal. Mediastinal contours are normal. There is no evidence of pulmonary edema. IMPRESSION: No acute cardiopulmonary findings. Electronically signed by: Tj Castillo M.D. 12/12/2016 9:43 PM Dictated Date/Time: 12/12/2016 9:43 PM
[2016-12-12 21:49] LABS: BLOOD UREA NITROGEN 9 mg/dl (7-18); CALCIUM 9.1 mg/dl (8.5-10.1); CARBON DIOXIDE 24 mmol/L (21-32); CHLORIDE 107 mmol/L (98-107); GLUCOSE 141 mg/dl (70-99); POTASSIUM 3.9 mmol/L (3.5-5.1); SODIUM 140 mmol/L (136-145)
[2016-12-12 21:56] VITALS: PULSE 100; O2SAT 96
[2016-12-12] MEDS ORDERED: AZITHROMYCIN 250 MG TAB PO STA (22:16)
[2016-12-12] MEDS ORDERED: AZITTAB PO (22:19)
[2016-12-12] MEDS ORDERED: HYCODAN 60ML BOTTLE HOMEPACK PO ONE (22:30)
[2016-12-12 22:46] VITALS: BP 150/85; PULSE 119; O2SAT 95
== END 2016-12-12 22:54 | disposition home or self-care (01) ==
LOC: C.EDB 19:59
DX: R07.81 Pleurodynia (principal); R05 Cough; R00.0 Tachycardia, unspecified; J45.909 Unspecified asthma, uncomplicated; K58.9 Irritable bowel syndrome, unspecified; Z87.19 Personal history of other diseases of the digestive system; Z87.828 Personal history of other (healed) physical injury and trauma; Z87.891 Personal history of nicotine dependence; Z79.899 Other long term (current) drug therapy; Z88.5 Allergy status to narcotic agent; Z88.8 Allergy status to other drugs, medicaments and biological substances; Z91.018 Allergy to other foods; Z91.030 Bee allergy status; Z91.040 Latex allergy status; Z91.09 Other allergy status, other than to drugs and biological substances; Z82.49 Family history of ischemic heart disease and other diseases of the circulatory system

== ENCOUNTER 2017-01-20 00:55 | Emergency (ER) | payer OTHER ==
[~2017-01-20] VITALS: Ht 177.8 cm; Wt 110.9 kg
[~2017-01-20 00:55] MED LIST changes: +AMIT100T2 PO; +AMIT25TA9 PO; -AMT100 PO; +PRED20TA PO; +VNTHFA/IN INH
[2017-01-20 01:01] VITALS: TEMP 36.6; Ht 177.8 cm; Wt 110.9 kg
[2017-01-20] MEDS ORDERED: HYDROCODONE/ACETAMOPHEN 5/325MG TAB PO ONE (01:30)
[2017-01-20 03:15] VITALS: BP 138/82; PULSE 94; O2SAT 98
[2017-01-20] MEDS ORDERED: NORCO 5/325MG HOME PACK PO ONE (03:15)
--- NOTE | 2017-01-20 05:55 | EMERGENCY ROOM VISIT NOTE ---
History First contact with patient: 01:15 Chief Complaint: FALL Stated Complaint: BACK PAIN DUE TO FALL History of Present Illness The patient is a 31 year old male who presents to the Emergency Room with complaints of head and back pain after falling down several steps at a friend's house 3 or 4 hours ago. The patient states that he has a history of back pain and injury. Patient was going down stairs, when he tripped over a cat, and lost his balance. The patient did not lose consciousness in the fall. He does not report extremity pain, numbness, or paresthesias. He went home, showered, and attempted to ice his head and back. This did not significantly improve his symptoms. The patient now presents to the emergency department for evaluation. He rates his overall pain an 8/10. Review of Systems More than 10 systems were reviewed and otherwise negative with the exception of history of present illness. Past Medical/Surgical History Medical Problems: (1) Asperger's disorder (2) Asthma (3) Chronic abdominal pain (4) Colitis (5) Complete tear, knee, anterior cruciate ligament (6) History of reconstruction of anterior cruciate ligament tear (7) IBS (irritable bowel syndrome) (8) Irritable colon (9) Migraines (10) Neck strain (11) UNSP GASTRITIS & GASTRODUODENITIS W/O MENTN HEMORG Family History Heart disease Social History Smoking Status: Former Smoker Alcohol Use: occasionally Drug Use: none Marital Status: single Housing Status: lives with family Occupation Status: employed Current/Historical Medications Scheduled Amitriptyline Hcl (Elavil), 25 MG PO HS Amitriptyline Hcl (Elavil), 100 MG PO HS Escitalopram Oxalate (Escitalopram Oxalate), 10 MG PO DAILY Omeprazole (Prilosec), 40 MG PO DAILY Pantoprazole (Pantoprazole Sodium), 40 MG PO BID Prednisone (Prednisone), 40 MG PO DAILY Tamsulosin HCl (Tamsulosin HCl), 0.4 MG PO DAILY Scheduled PRN Albuterol Hfa (Ventolin Hfa), 1-2 PUFFS INH Q4H PRN for SOB/Wheezing Alprazolam (Alprazolam), 0.25 MG PO TID PRN for Anxiety Dicyclomine Hcl (Dicyclomine Hcl), 20 MG PO Q6H PRN for Abdominal Pain Hydroxyzine Pamoate (Vistaril), 25-50 MG PO Q8 PRN for Anxiety/Insomnia Meloxicam (Meloxicam), 15 MG PO DAILY PRN for Pain Prochlorperazine Maleate (Prochlorperazine Maleate), 10 MG PO Q6H PRN for Nausea or Vomiting Propranolol (Inderal), 10 MG PO TID PRN for Panic Attack Physical Exam Vital Signs Date Time Temp Pulse Resp B/P (MAP) Pulse Ox O2 Delivery O2 Flow Rate FiO2 01/20/17 03:15 94 18 138/82 98 01/20/17 03:01 104 18 140/85 97 Room Air 01/20/17 01:01 36.6 129 20 139/93 98 Room Air Pain Rating (0-10): 4.0 Physical Exam VITALS: Vitals are noted on the nurse's note and reviewed by myself. Vital signs stable. GENERAL: Well-developed, well-nourished, white male who is moderately uncomfortable but cooperative HEAD: Normocephalic atraumatic. EARS: External ear normal. External auditory canals clear, tympanic membranes pearly braswell without erythema or effusion bilaterally. No hemotympanum EYES: Pupils equal round and reactive to light and accommodation. Conjunctivae without injection, sclerae without icterus. Extraocular movements intact. No hyphema NOSE: Patent, turbinates without inflammation or discharge. No epistaxis or septal hematoma MOUTH: Mucous membranes moist. Tonsils are not enlarged. Pharynx without erythema, blood, or exudate. Uvula midline. Airway patent. NECK: Supple without nuchal rigidity. No lymphadenopathy. No thyromegaly. Cervical spine is nontender. HEART: Regular rate and rhythm without murmurs gallops or rubs. LUNGS: Clear to auscultation bilaterally without wheezes, rales or rhonchi. No retractions or accessory muscle use. ABDOMEN: Positive normal bowel sounds x 4. Soft, nontender, without masses or organomegaly. No guarding or rebound tenderness. MUSCULOSKELETAL: No muscle atrophy, erythema, or edema noted. Full range of motion without joint tenderness in all extremities. Positive lower lumbar tenderness without step-off or significant paravertebral spasm. Negative straight leg raise bilateral. Medical Decision & Procedures ER Provider Diagnostic Interpretation: Preliminary Findings Only See Final Report For Complete Findings CT HEAD: Compared to 11/11/16 No acute brain or skull injury. CT C SPINE: No fracture CT L SPINE: No fracture Medications Administered Medications (Trade) Dose Ordered Sig/Jaycob Route Start Time Stop Time Status Last Admin Dose Admin Acetaminophen/ Hydrocodone Bitart ([place] 5/325 Tab) 2 tab NOW ONCE PO 01/20/17 01:30 01/20/17 01:31 DC 01/20/17 01:34 2 TAB Acetaminophen/ Hydrocodone Bitart ([place] 5/325mg Home Pack) 1 homepack UD ONCE PO 01/20/17 03:15 01/20/17 03:16 DC 01/20/17 03:09 1 HOMEPACK ED Course Physical exam and history were performed. Nursing notes, EMR, and Medication List were personally reviewed. Patient appears to have fallen down steps with reported head and back pain. On examination the patient does not appear toxic. He does not appear to have extremity injury or significant signs of trauma. There is no neurologic deficit. I discussed options of care with the patient, and elected to provide him [address] scans of the head, neck, and back were performed. The patient CT scans are as above and do not show evidence of acute traumatic findings. The patient did have relief with Vicodin here in the department. He was able to rest much more comfortably and did feel well for discharge home. I suspect much of his injuries are related to the contusions and a fall. The patient will be given a home pack of Vicodin and instructions to follow with his PCP in the next 2-3 days. He may otherwise use [id number] analgesics and was invited back to the emergency department with any new or worsening, or concerning symptoms. The chart was completed utilizing [employer] Speech Voice Recognition Software. Grammatical errors, random word insertions, pronoun errors, and incomplete sentences are an occasional consequence of this system due to software limitations, ambient noise, and hardware issues. Any formal questions or concerns about the content, text, or information contained within the body of this dictation should be directly addressed to the provider for clarification. . Medical Decision Differential diagnosis includes, but is not limited to: Sprain, strain, fracture , dislocation, subluxation, contusion, and other traumatic etiologies were considered Medication Reconcilliation Current Medication List: was personally reviewed by me Blood Pressure Screening Blood pressure disposition: Elevated BP felt to be situational Impression Primary Impression: Fall down stairs Additional Impression: Contusion of multiple sites Departure Information Dispostion Home / Self-Care Condition GOOD Forms HOME CARE DOCUMENTATION FORM, IMPORTANT VISIT INFORMATION Patient Instructions My [facility] Additional Instructions You were seen and evaluated today on an emergency basis only. This is not a substitute for, or an effort to provide, complete comprehensive medical care. It is not possible to recognize and treat all injuries or illnesses in a single emergency department visit. For this reason it is recommended that you followup with your primary care physician on Sunday or Sunday for recheck of your injuries. For baseline pain relief you may alternate ibuprofen and acetaminophen every 4 hours for pain control. Take 600 mg ibuprofen (Advil) and then 4 hours later take 1000 mg acetaminophen (Tylenol). Do not take more than 3000 mg acetaminophen in a single day. [place] (hydrocodone/acetaminophen) 5/325 mg (homepack). Take one by mouth every 6 hours as needed for worsening breakthrough pain. Do not drink or drive on [place]. This medication will likely make you tired. Do not take [place] and Tylenol at the same time as both contain acetaminophen. [place] may cause constipation. You may wish to take an [id number]-ciimaee stool softener like Colace if this occurs. You are welcome to return to the emergency department anytime with new, worsening, or concerning symptoms. Problem Qualifiers
--- NOTE | 2017-01-20 08:55 | DIAGNOSTIC IMAGING REPORT ---
CT OF THE HEAD WITHOUT CONTRAST CLINICAL HISTORY: Fall down stairs COMPARISON STUDY: Head CT April 14, 2016. CT DOSE: 1145.70 mGy.cm TECHNIQUE: Helical axial images of the head were obtained without IV contrast. Automated exposure control was utilized for the study. A dose lowering technique was utilized adhering to the principles of ALARA. FINDINGS: No acute intracranial hemorrhage, midline shift or mass effect is present. Ventricular system is normal. Basilar cisterns are patent. There are no extra-axial collections. Rios-white differentiation is maintained. There is no calvarial fracture. There is minimal mucosal thickening of the ethmoid sinuses. IMPRESSION: 1. No acute intracranial findings. 2. No calvarial fracture. Electronically signed by: Tj Castillo M.D. 01/20/2017 8:53 AM Dictated Date/Time: 01/20/2017 8:52 AM
--- NOTE | 2017-01-20 08:57 | DIAGNOSTIC IMAGING REPORT ---
CT OF THE CERVICAL SPINE WITHOUT CONTRAST CLINICAL HISTORY: Fall down stairs. COMPARISON STUDY: Cervical spine CT April 14, 2016. TECHNIQUE: Helical axial images of the cervical spine were obtained without IV contrast. Sagittal and coronal reconstructions were viewed. A dose lowering technique was utilized adhering to the principles of ALARA. FINDINGS: Craniocervical junction is intact. There is slight reversal of the normal cervical lordosis. There is no acute cervical spine fracture. There is mild multilevel disc space narrowing and anterior osteophytosis. No prevertebral edema is noted. IMPRESSION: No acute cervical spine fracture or subluxation. Electronically signed by: Tj Castillo M.D. 01/20/2017 8:56 AM Dictated Date/Time: 01/20/2017 8:54 AM
--- NOTE | 2017-01-20 09:02 | DIAGNOSTIC IMAGING REPORT ---
LUMBAR SPINE WITHOUT CLINICAL HISTORY: Fall down stairs. COMPARISON STUDY: Lumbar spine radiographs July 05, 2016. FINDINGS: Alignment of the lumbar spine is anatomic. Vertebral body heights are maintained. There is no acute fracture. Central canal and neural foramen are suboptimally assessed by CT. Paravertebral soft tissues are unremarkable. Disc spaces are preserved. Facet joints are intact. There is minimal multilevel facet arthrosis and endplate osteophytosis. IMPRESSION: No acute lumbar spine fracture or subluxation. Electronically signed by: Tj Castillo M.D. 01/20/2017 9:00 AM Dictated Date/Time: 01/20/2017 8:58 AM
== END 2017-01-20 03:16 | disposition home or self-care (01) ==
LOC: C.EDB 00:57
DX: T14.8 Other injury of unspecified body region (principal); W10.9XXA Fall (on) (from) unspecified stairs and steps, initial encounter; Y92.89 Other specified places as the place of occurrence of the external cause; F84.5 Asperger's syndrome; J45.909 Unspecified asthma, uncomplicated; K58.9 Irritable bowel syndrome, unspecified; G43.909 Migraine, unspecified, not intractable, without status migrainosus; Z82.49 Family history of ischemic heart disease and other diseases of the circulatory system; Z87.891 Personal history of nicotine dependence; Z79.899 Other long term (current) drug therapy

== ENCOUNTER → 2017-01-23 | Outpatient (CLI) | payer OTHER ==
[~2017-01-23] MED LIST changes: +CLON0.5T PO
--- NOTE | 2017-01-25 10:58 | PULMONARY FUNCTION TEST ---
Spirometry and flow volume loops are normal.
== END | disposition home or self-care (01) ==
LOC: C.RC 13:42
PROVIDERS: ATTEND Family Medicine
DX: Z72.0 Tobacco use (principal); J39.3 Upper respiratory tract hypersensitivity reaction, site unspecified

== ENCOUNTER 2017-03-18 06:15 | Emergency (ER) | payer OTHER ==
[~2017-03-18] VITALS: Ht 177.8 cm; Wt 121.8 kg
[~2017-03-18 06:15] MED LIST changes: -CLON0.5T PO
[2017-03-18 06:22] VITALS: TEMP 36.9; Ht 177.8 cm; Wt 121.8 kg
[2017-03-18] MEDS ORDERED: ACETAMINOPHEN 325 MG TAB PO STA (06:47)
--- NOTE | 2017-03-18 07:20 | EMERGENCY ROOM VISIT NOTE ---
History Report prepared by Padma: Jose Aragon Under the Supervision of: Dr. Meryl Sharp M.D. First contact with patient: 06:34 Chief Complaint: FALL Stated Complaint: FALL AT WORK RT ANKLE,KNEE AND BACK PAIN History of Present Illness The patient is a 31 year old male who presents to the Emergency Room with complaints of constant back pain following a fall last night. 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 He notes that he is also experiencing symptoms of right knee and right ankle pain. He reports that his knee pain worsens with walking. The patient states that he also has constant neck pain due to bone spurs and spinal stenosis in his neck. He notes taking Ibuprofen three hours ago with no relief to his symptoms. Source of History: patient Onset: constant Position: back Timing: constant Note: he notes right ankle and right knee pain that worsens with walking as well as neck pain Review of Systems See HPI for pertinent positives & negatives. A total of 10 systems reviewed and were otherwise negative. Past Medical & Surgical Medical Problems: (1) Asperger's disorder (2) Asthma (3) Chronic abdominal pain (4) Colitis (5) Complete tear, knee, anterior cruciate ligament (6) History of reconstruction of anterior cruciate ligament tear (7) IBS (irritable bowel syndrome) (8) Irritable colon (9) Migraines (10) Neck strain (11) UNSP GASTRITIS & GASTRODUODENITIS W/O MENTN HEMORG Family History Heart disease Social History Smoking Status: Former Smoker Alcohol Use: occasionally Drug Use: none Marital Status: single Housing Status: lives with family Occupation Status: employed Current/Historical Medications Scheduled Amitriptyline Hcl (Elavil), 25 MG PO HS Amitriptyline Hcl (Elavil), 100 MG PO HS Clonazepam (Klonopin), 1 TAB PO PRN Escitalopram Oxalate (Escitalopram Oxalate), 10 MG PO DAILY Omeprazole (Prilosec), 40 MG PO DAILY Pantoprazole (Pantoprazole Sodium), 40 MG PO BID Prednisone (Prednisone), 40 MG PO DAILY Tamsulosin HCl (Tamsulosin HCl), 0.4 MG PO DAILY Scheduled PRN Albuterol Hfa (Ventolin Hfa), 1-2 PUFFS INH Q4H PRN for SOB/Wheezing Alprazolam (Alprazolam), 0.25 MG PO TID PRN for Anxiety Dicyclomine Hcl (Dicyclomine Hcl), 20 MG PO Q6H PRN for Abdominal Pain Hydroxyzine Pamoate (Vistaril), 25-50 MG PO Q8 PRN for Anxiety/Insomnia Meloxicam (Meloxicam), 15 MG PO DAILY PRN for Pain Prochlorperazine Maleate (Prochlorperazine Maleate), 10 MG PO Q6H PRN for Nausea or Vomiting Propranolol (Inderal), 10 MG PO TID PRN for Panic Attack Allergies Coded Allergies: Mold (Blue) Cheese (Verified Allergy, Severe, "BLUE CHEESE" -- ANAPHYLAXIS , 03/18/17) BEE STING (Verified Allergy, Mild, 03/18/17) Latex1 -Allergic Contact Dermititis (Verified Allergy, Mild, 03/18/17) Dust (Verified Allergy, Unknown, MILD RESP DISCOMFORT, 03/18/17) POLLEN (Verified Allergy, Unknown, MILD RESP DISCOMFORT, 03/18/17) Olives (Verified Adverse Reaction, Mild, Black olives trigger IBS, ) Hydromorphone (Verified Adverse Reaction, Unknown, Headache, 03/18/17) Uncoded Allergies: ONIONS (Allergy, Intermediate, N/V/DIARRHEA, 11/19/15) MUSHROOMS (Adverse Reaction, Intermediate, N/V/DIARRHEA, 11/19/15) Physical Exam Vital Signs Date Time Temp Pulse Resp B/P (MAP) Pulse Ox O2 Delivery O2 Flow Rate FiO2 03/18/17 08:59 83 18 145/86 90 Room Air 03/18/17 07:57 78 20 150/82 98 Room Air 03/18/17 06:22 36.9 93 18 159/111 100 Room Air Physical Exam Vital signs reviewed. General: Well-appearing, in no significant distress. Musculoskeletal: Tenderness diffusely to lumbar spine without stepoff or deformity, tenderness to medial right knee, no significant tenderness to valgus or varus stress, no appreciable ligamentous laxity, no significant swelling or tenderness to right ankle, no peripheral edema. Neurologic: Patient awake alert and oriented x 3 Skin: Warm, dry, no rash Medical Decision & Procedures ER Provider Diagnostic Interpretation: Radiology results as stated below per my review and radiologist interpretation: RIGHT ANKLE 3 VIEWS HISTORY: Right ankle pain after fall COMPARISON: None. FINDINGS: There is no fracture or dislocation. Soft tissues are unremarkable. No radiopaque foreign bodies. IMPRESSION: No fractures. Electronically signed by: Conrad Carlson M.D. 03/18/2017 8:15 AM RIGHT KNEE 2 VIEWS HISTORY: Fall. R knee pain COMPARISON: None. FINDINGS: There is no fracture or dislocation. Soft tissues are unremarkable. No radiopaque foreign bodies. No knee effusion. IMPRESSION: No fractures. Electronically signed by: Conrad Carlson M.D. 03/18/2017 8:16 AM LUMBAR SPINE 5 VIEWS HISTORY: low back pain after fall COMPARISON: Lumbar spine 07/05/2016. FINDINGS: There is no fracture. No subluxation. Disc spaces are preserved. IMPRESSION: No fracture or subluxation within the lumbar spine. Electronically signed by: Conrad Carlson M.D. 03/18/2017 8:14 AM Medications Administered Medications (Trade) Dose Ordered Sig/Jaycob Route Start Time Stop Time Status Last Admin Dose Admin Acetaminophen (Tylenol Tab) 650 mg NOW STAT PO 03/18/17 06:47 03/18/17 06:50 DC 03/18/17 06:55 650 MG Ketorolac Tromethamine (Toradol Inj) 60 mg NOW STAT IM 03/18/17 08:40 03/18/17 08:46 DC 03/18/17 08:57 60 MG ED Course 0647: Past medical records reviewed. The patient was evaluated in room B8. A complete history and physical examination was performed. 0647: Tylenol Tab 650mg PO 0840: Toradol Inj 60mg IM 0927: Upon reevaluation, the patient appeared to have improvement of his symptoms. I discussed findings with him. He verbalized agreement of the treatment plan. He was discharged home. Medical Decision Differential diagnosis: Etiologies such as fracture, dislocation, intra-abdominal, pneumothorax, intrathoracic , intracranial, neurologic, as well as other traumatic pathologies were entertained. This patient was evaluated and appeared to be in no significant distress. Physical examination is fairly unrevealing. She has some mild tenderness along the lumbar back as well as the right knee and right ankle. X-rays were obtained and are negative for acute fracture or dislocation. The patient was informed of the findings. He was given Tylenol 650 mg orally. He will continue to complain of discomfort was given Toradol 60 mg IM. The patient was reassured and discharged follow-up with his PCP. He will return to the ER for worsening of symptoms or any medical concerns. Medication Reconcilliation Current Medication List: was personally reviewed by me Blood Pressure Screening Patient's blood pressure: Elevated blood pressure Blood pressure disposition: Elevated BP felt to be situational Impression Primary Impression: Fall (on)(from) sidewalk curb, initial encounter Additional Impressions: Lumbar back sprain Right ankle strain Scribe Attestation The scribe's documentation has been prepared under my direction and personally reviewed by me in its entirety. I confirm that the note above accurately reflects all work, treatment, procedures, and medical decision making performed by me. Departure Information Dispostion Home / Self-Care Referrals Jhon [place] D.O. (PCP) Forms HOME CARE DOCUMENTATION FORM, IMPORTANT VISIT INFORMATION Patient Instructions My [facility] Additional Instructions Diagnosis: Fall onto the sidewalk, right ankle strain, lumbar back strain Ibuprofen 600mg every 6 hours as needed for pain with food. Warm compresses and gentle stretching. Follow up with your physician this week for reevaluation. Return to the ER for worsening of symptoms or any medical concerns. Problem Qualifiers
[2017-03-18] MEDS ORDERED: CLON0.5T PO (07:26)
--- NOTE | 2017-03-18 08:15 | DIAGNOSTIC IMAGING REPORT ---
LUMBAR SPINE 5 VIEWS HISTORY: low back pain after fall COMPARISON: Lumbar spine 07/05/2016. FINDINGS: There is no fracture. No subluxation. Disc spaces are preserved. IMPRESSION: No fracture or subluxation within the lumbar spine. Electronically signed by: Conrad Carlson M.D. 03/18/2017 8:14 AM Dictated Date/Time: 03/18/2017 8:12 AM
--- NOTE | 2017-03-18 08:16 | DIAGNOSTIC IMAGING REPORT ---
RIGHT ANKLE 3 VIEWS HISTORY: Right ankle pain after fall COMPARISON: None. FINDINGS: There is no fracture or dislocation. Soft tissues are unremarkable. No radiopaque foreign bodies. IMPRESSION: No fractures. Electronically signed by: Conrad Carlson M.D. 03/18/2017 8:15 AM Dictated Date/Time: 03/18/2017 8:14 AM
--- NOTE | 2017-03-18 08:17 | DIAGNOSTIC IMAGING REPORT ---
RIGHT KNEE 2 VIEWS HISTORY: Fall. R knee pain COMPARISON: None. FINDINGS: There is no fracture or dislocation. Soft tissues are unremarkable. No radiopaque foreign bodies. No knee effusion. IMPRESSION: No fractures. Electronically signed by: Conrad Carlson M.D. 03/18/2017 8:16 AM Dictated Date/Time: 03/18/2017 8:15 AM
[2017-03-18] MEDS ORDERED: KETOROLAC TROMETHAMINE 60 MG/2 ML VIAL IM STA (08:40)
[2017-03-18 08:59] VITALS: BP 145/86; PULSE 83; O2SAT 90
== END 2017-03-18 09:31 | disposition home or self-care (01) ==
LOC: C.EDB 06:16
DX: S33.5XXA Sprain of ligaments of lumbar spine, initial encounter (principal); S96.911A Strain of unspecified muscle and tendon at ankle and foot level, right foot, initial encounter; W01.0XXA Fall on same level from slipping, tripping and stumbling without subsequent striking against object, initial encounter; Y92.480 Sidewalk as the place of occurrence of the external cause; Y99.0 Civilian activity done for income or pay; M54.2 Cervicalgia; M46.02 Spinal enthesopathy, cervical region; M48.02 Spinal stenosis, cervical region; F84.5 Asperger's syndrome; J45.909 Unspecified asthma, uncomplicated; R10.9 Unspecified abdominal pain; G89.29 Other chronic pain; K58.9 Irritable bowel syndrome, unspecified

== ENCOUNTER 2017-04-17 03:26 | Emergency (ER) | payer OTHER ==
[~2017-04-17] VITALS: Ht 177.8 cm; Wt 125.3 kg
[~2017-04-17 03:26] MED LIST changes: +CLON0.5T PO; +PANT40TA2 PO; -PRT/40 PO
[2017-04-17 03:29] VITALS: TEMP 36.6; Ht 177.8 cm; Wt 125.3 kg
[2017-04-17] MEDS ORDERED: PENICILLIN HOME PACK 500MG (4 DOSES)BTL PO ONE (03:45)
[2017-04-17] MEDS ORDERED: PENI-82 PO (03:49)
[2017-04-17 03:56] VITALS: BP 155/103; PULSE 90; O2SAT 98
--- NOTE | 2017-04-17 06:27 | EMERGENCY ROOM VISIT NOTE ---
ED Visit Note First contact with patient: 03:33 CHIEF COMPLAINT: Toothache HISTORY OF PRESENT ILLNESS: This 31-year-old male patient presented to the emergency department with a progressive toothache for past one to 2 days. The patient believes it is coming from a right lower molar. The pain is now steady and severe and radiates to the face. The patient contacted, but does not have a dentist appointment set up. They rate their pain a 9/10 and the ibuprofen and Tylenol they have been taking has not relieved the pain. Denies facial swelling or fever. The patient denies any discharge from the mouth. REVIEW OF SYSTEMS: A 6 system review of systems was completed with positives and pertinent negatives listed in the HPI. ALLERGIES: See EMR MEDICATIONS: See EMR PMH: See EMR SOCIAL HISTORY: Lives locally PHYSICAL EXAM: Vitals are noted on the nurse's note and reviewed by myself. Vital signs stable. GENERAL: White male, in no acute distress, nondiaphoretic, well-developed well- nourished. Mouth: The right lower molar #32 tooth is tender and the gum is swollen and tender around it, without any discharge or signs of an abscess. The remainder of the pharynx and tonsils are without erythema, edema, or exudate. The airway is patent. There is no facial swelling, cervical or submandibular lymphadenopathy. The patient appears uncomfortable and in pain. The patient has overall fair dental hygiene. EARS: External auditory canals clear, tympanic membranes pearly braswell without erythema or effusion bilaterally. HEART: Regular rate and rhythm without murmur gallop or rub LUNG: Clear to auscultation bilateral ED COURSE: Physical exam and history were performed. Nursing notes and EMR were reviewed. The patient presented to pain for the past few days. He states that he has contacted his dentist, but does not yet have an appointment. He will be given a home pack of Pen-Vee K and continuation prescription. He is to use wasf-ciq-[id number] analgesics. He was otherwise invited back to the ER with any new, worsening, or concerning symptoms. Problem List Medical Problems: (1) Asperger's disorder Status: Chronic (2) Asthma Status: Chronic (3) Chronic abdominal pain Status: Chronic (4) Colitis Status: Resolved (5) Complete tear, knee, anterior cruciate ligament Status: Resolved (6) History of reconstruction of anterior cruciate ligament tear Status: Resolved (7) IBS (irritable bowel syndrome) Status: Chronic (8) Irritable colon Status: Chronic (9) Migraines Status: Chronic (10) Neck strain Status: Resolved (11) UNSP GASTRITIS & GASTRODUODENITIS W/O MENTN HEMORG Status: Chronic Current/Historical Medications Scheduled Amitriptyline Hcl (Elavil), 25 MG PO HS Amitriptyline Hcl (Elavil), 100 MG PO HS Clonazepam (Klonopin), 1 TAB PO PRN Escitalopram Oxalate (Escitalopram Oxalate), 10 MG PO DAILY Omeprazole (Prilosec), 40 MG PO DAILY Pantoprazole (Pantoprazole Sodium), 40 MG PO BID Penicillin V Potassium (Veetids), 500 MG PO QID Tamsulosin HCl (Tamsulosin HCl), 0.4 MG PO DAILY Scheduled PRN Albuterol Hfa (Ventolin Hfa), 1-2 PUFFS INH Q4H PRN for SOB/Wheezing Alprazolam (Alprazolam), 0.25 MG PO TID PRN for Anxiety Dicyclomine Hcl (Dicyclomine Hcl), 20 MG PO Q6H PRN for Abdominal Pain Hydroxyzine Pamoate (Vistaril), 25-50 MG PO Q8 PRN for Anxiety/Insomnia Meloxicam (Meloxicam), 15 MG PO DAILY PRN for Pain Propranolol (Inderal), 10 MG PO TID PRN for Panic Attack Allergies Coded Allergies: Mold (Blue) Cheese (Verified Allergy, Severe, "BLUE CHEESE" -- ANAPHYLAXIS , 04/17/17) BEE STING (Verified Allergy, Mild, 04/17/17) Latex1 -Allergic Contact Dermititis (Verified Allergy, Mild, 04/17/17) Dust (Verified Allergy, Unknown, MILD RESP DISCOMFORT, 04/17/17) POLLEN (Verified Allergy, Unknown, MILD RESP DISCOMFORT, 04/17/17) Olives (Verified Adverse Reaction, Mild, Black olives trigger IBS, ) Hydromorphone (Verified Adverse Reaction, Unknown, Headache, 04/17/17) Uncoded Allergies: ONIONS (Allergy, Intermediate, N/V/DIARRHEA, 11/19/15) MUSHROOMS (Adverse Reaction, Intermediate, N/V/DIARRHEA, 11/19/15) Vital Signs Date Time Temp Pulse Resp B/P (MAP) Pulse Ox O2 Delivery O2 Flow Rate FiO2 04/17/17 03:56 90 20 155/103 98 04/17/17 03:29 36.6 90 20 155/103 98 Room Air Medications Administered Medications (Trade) Dose Ordered Sig/Jaycob Route Start Time Stop Time Status Last Admin Dose Admin Penicillin V Potassium (Pen-Vk 500MG Home Pack) 1 homepack UD ONCE PO 04/17/17 03:45 04/17/17 03:47 DC 04/17/17 03:54 1 HOMEPACK Departure Information Impression Primary Impression: Pain, dental Dispostion Home / Self-Care Condition GOOD Prescriptions Penicillin V Potassium (Veetids) 500 Mg Tab 500 MG PO QID, #40 TAB Prov: Alfredo Arenas PA-C 04/17/17 Forms HOME CARE DOCUMENTATION FORM, IMPORTANT VISIT INFORMATION Patient Instructions My [facility] Additional Instructions You were seen and evaluated today on an emergency basis only. This is not a substitute for, or an effort to provide, complete comprehensive medical care. It is not possible to recognize and treat all injuries or illnesses in a single emergency department visit. For this reason it is recommended that you followup with your dentist as soon as possible for definitive care. For baseline pain relief you may alternate ibuprofen and acetaminophen every 4 hours for pain control. Take 600 mg ibuprofen (Advil) and then 4 hours later take 1000 mg acetaminophen (Tylenol). Do not take more than 3000 mg acetaminophen in a single day. Take Pen-Vee K 500 mg 4 times daily for the next 10 days You are welcome to return to the emergency department anytime with new, worsening, or concerning symptoms.
== END 2017-04-17 03:58 | disposition home or self-care (01) ==
LOC: C.EDB 03:26
DX: K08.89 Other specified disorders of teeth and supporting structures (principal); J45.909 Unspecified asthma, uncomplicated; K58.9 Irritable bowel syndrome, unspecified; F84.5 Asperger's syndrome; Z87.19 Personal history of other diseases of the digestive system; Z87.828 Personal history of other (healed) physical injury and trauma; Z79.899 Other long term (current) drug therapy; Z88.5 Allergy status to narcotic agent; Z91.018 Allergy to other foods; Z91.030 Bee allergy status; Z91.040 Latex allergy status; Z91.09 Other allergy status, other than to drugs and biological substances

== ENCOUNTER 2017-04-19 04:41 | Emergency (ER) | payer OTHER ==
[~2017-04-19] VITALS: Ht 177.8 cm; Wt 126.6 kg
[~2017-04-19 04:41] MED LIST changes: +PENI-82 PO
[2017-04-19 04:42] VITALS: Ht 177.8 cm; Wt 126.6 kg
[2017-04-19] MEDS ORDERED: BENZOCAINE 20% (ORAJEL) 11.9 GM TUBE MT STA (04:56)
[2017-04-19] MEDS ORDERED: OXYCODONE IR HOME PACK PO ONE (05:00)
[2017-04-19 05:18] VITALS: BP 161/113; PULSE 105; TEMP 36.9; O2SAT 94
--- NOTE | 2017-04-19 05:21 | EMERGENCY ROOM VISIT NOTE ---
History First contact with patient: 04:49 Chief Complaint: DENTAL PAIN Stated Complaint: PAIN IN BACK RIGHT TOOTH Nursing Triage Summary: Pt reports he was here 2 nights ago for dental pain. To dentist yesterday and has to see a specialist for tooth extraction. Dentist to call center recruiter today to schedule appointment for pt. Pt given vicodin and antibiotics here in ER for pain and has more pain medications left at home. Last dose 0330. History of Present Illness The patient is a 31 year old male who presents to the Emergency Room with complaints of ongoing dental pain for the past few days who saw the dentist yesterday and is trying to get in with Dr. Lara who is his oral surgeon who pulled out all his other upper teeth. Patient is currently on penicillin and Vicodin. He states the Vicodin is not helping. Pain: 9 out of 10. Nothing makes it better or worse. Patient denies fevers, facial swelling, sore throat, chest pain, dyspnea. Patient is out of his oral gel. Review of Systems See HPI for pertinent positives & negatives. A total of 10 systems reviewed and were otherwise negative. Past Medical/Surgical History Medical Problems: (1) Asperger's disorder (2) Asthma (3) Chronic abdominal pain (4) Colitis (5) Complete tear, knee, anterior cruciate ligament (6) History of reconstruction of anterior cruciate ligament tear (7) IBS (irritable bowel syndrome) (8) Irritable colon (9) Migraines (10) Neck strain (11) UNSP GASTRITIS & GASTRODUODENITIS W/O MENTN HEMORG Family History Heart disease Social History Smoking Status: Former Smoker Alcohol Use: occasionally Drug Use: none Marital Status: single Housing Status: lives with family Occupation Status: employed Current/Historical Medications Scheduled Amitriptyline Hcl (Elavil), 25 MG PO HS Amitriptyline Hcl (Elavil), 100 MG PO HS Clonazepam (Klonopin), 1 TAB PO PRN Escitalopram Oxalate (Escitalopram Oxalate), 10 MG PO DAILY Omeprazole (Prilosec), 40 MG PO DAILY Pantoprazole (Pantoprazole Sodium), 40 MG PO BID Penicillin V Potassium (Veetids), 500 MG PO QID Tamsulosin HCl (Tamsulosin HCl), 0.4 MG PO DAILY Scheduled PRN Albuterol Hfa (Ventolin Hfa), 1-2 PUFFS INH Q4H PRN for SOB/Wheezing Alprazolam (Alprazolam), 0.25 MG PO TID PRN for Anxiety Dicyclomine Hcl (Dicyclomine Hcl), 20 MG PO Q6H PRN for Abdominal Pain Hydroxyzine Pamoate (Vistaril), 25-50 MG PO Q8 PRN for Anxiety/Insomnia Meloxicam (Meloxicam), 15 MG PO DAILY PRN for Pain Propranolol (Inderal), 10 MG PO TID PRN for Panic Attack Physical Exam Vital Signs Date Time Temp Pulse Resp B/P (MAP) Pulse Ox O2 Delivery O2 Flow Rate FiO2 04/19/17 04:42 36.9 105 18 161/113 94 Room Air Physical Exam VITALS: Vitals are noted on the nurse's note and reviewed by myself. Vital signs hypertensive GENERAL: White male crying with his mother present, in no acute distress, nondiaphoretic, well-developed well-nourished. SKIN: The skin was without rashes, erythema, edema, or bruising. There is no tenting of the skin. Capillary reflex less than 2 seconds. HEAD: Normocephalic atraumatic. EARS: External auditory canals clear, tympanic membranes pearly braswell without erythema or effusion bilaterally. EYES: Pupils equal round and reactive to light and accommodation. Conjunctivae without injection, sclerae without icterus. Extraocular movements intact. NOSE: Patent, turbinates without inflammation or discharge. No sinus tenderness. MOUTH: Mucous membranes moist. No Nate's angina Pharynx without erythema or exudate. Uvula midline. Airway patent. Tongue does not deviate. Dental exam: Multiple missing teeth. Right lower molar with dental decay and gum is erythematous without palpable abscess. Overall dental hygiene fair. NECK: Supple without nuchal rigidity. No lymphadenopathy. No thyromegaly. Cervical spine is nontender. No JVD. HEART: Regular rate and rhythm without murmurs gallops or rubs. LUNGS: Clear to auscultation bilaterally without wheezes, rales or rhonchi. No dullness to percussion. No retractions or accessory muscle use. MUSCULOSKELETAL: No muscle atrophy, erythema, or edema noted. NEURO: Patient was alert and oriented to person place and time. Normal sensation to light and sharp touch. No focal neurological deficits. Medical Decision & Procedures Medications Administered Medications (Trade) Dose Ordered Sig/Jaycob Route Start Time Stop Time Status Last Admin Dose Admin Oxycodone HCl (Roxicodone Immediate Rel 5MG Home Pack) 1 homepack UD ONCE PO 04/19/17 05:00 04/19/17 05:01 DC 04/19/17 05:12 1 HOMEPACK Benzocaine (Orajel 20% Oral Gel) 1 appln NOW STAT MT 04/19/17 04:56 04/19/17 04:59 DC 04/19/17 05:12 1 APPLN ED Course Prior records reviewed and summarized as above. Triage Nursing notes reviewed. Additional history obtained from mother. The patient's history was concerning for dental pain. Differential diagnosis: Etiologies such as cellulitis, abscess, Nate angina, gingivitis eruption, as well as others were entertained.. Physical examination: The physical examination was consistent with dental pain from dental cavity ER treatment provided: Home pack of OxyIR, Orajel On reassessment the patient felt better. Diagnostics interpreted by me: Deferred This appears to be dental pain and dental caries. Patient had no signs of abscess. No signs Nate angina. He was advised to call Dr. Lara's office morning for definitive care for his ongoing dental issues. He was advised to continue medications as prescribed by his dentist. He was advised to return to the ER immediately for fevers, facial swelling, worsening signs or symptoms or as needed. By the evaluation outlined above emergent etiologies such as abscess, Nate angina, as well as others were deemed relatively unlikely. The pt informed about the findings as listed above. All questions were answered and pleased with the treatment. Return instructions were outlined and the patient was discharged in stable condition. Referral: The patient was referred back to his oral surgeon for follow-up in 2 to 3 days for a recheck of the current condition. Medical Decision As above [place] Drug Monitoring Program Search Results: patient reviewed within database, see additional documentation (no recent narcotics dispensed besides the Vicodin that he brought in with him.) Medication Reconcilliation Current Medication List: was personally reviewed by me Blood Pressure Screening Patient's blood pressure: Elevated blood pressure Blood pressure disposition: Elevated BP felt to be situational Impression Primary Impression: Pain, dental Additional Impression: Dental caries Departure Information Dispostion Home / Self-Care Condition GOOD Forms HOME CARE DOCUMENTATION FORM, IMPORTANT VISIT INFORMATION Patient Instructions My [facility] Additional Instructions Continue your antibiotics as prescribed by your dentist. Do not take Vicodin with Tylenol or the OxyIR. Oxycodone (OxyIR) 5mg: Take 1-2 pills every four hours for breakthrough pain. Avoid alcohol, operating machinery or dangerous equipment, working on ladders or roofs, DRIVING, or situations where being under the influence may be dangerous. It is recommended to use an lfkq-vfv-jhvwcqv stool softener such as Colace, 100mg twice daily while taking this medication to avoid constipation. Ibuprofen(Motrin, Advil) may be used for fever or pain. Use 600mg every six hours as needed. Take with food. Avoid using more than 2400mg in a 24 hour period. Do not use 2400mg per day for more than three consecutive days without physician direction. Prolonged inappropriate use can lead to stomach upset or ulcers. This medication can be taken if you need to drive, work, or perform activities which may be dangerous when taking narcotic pain medication. (AND/OR) Acetaminophen(Tylenol) may be used for fever or pain. Use 1000mg every six hours as needed. Avoid using more than 3000mg in a 24 hour period. This medication can be taken if you need to drive, work, or perform activities which may be dangerous when taking narcotic pain medication. [place] teeth twice a day, floss daily and do warm saltwater gargles 3 times a day. See your oral surgeon as soon as possible for definitive care for your dental problem. Return to ER sooner for facial swelling, fever, redness, worsening signs or symptoms or as needed. Problem Qualifiers
== END 2017-04-19 05:18 | disposition home or self-care (01) ==
LOC: C.EDB 04:41 → C.EDA 05:18
DX: K08.89 Other specified disorders of teeth and supporting structures (principal); K02.9 Dental caries, unspecified; J45.909 Unspecified asthma, uncomplicated; F84.5 Asperger's syndrome; Z87.891 Personal history of nicotine dependence; Z98.890 Other specified postprocedural states

== ENCOUNTER 2017-06-02 22:27 | Emergency (ER) | payer OTHER ==
[~2017-06-02] VITALS: Ht 177.8 cm; Wt 107.9 kg
[~2017-06-02 22:27] MED LIST changes: +ALPR0.254 PO; -CMP/10 PO; -DICY20TA10 PO; -FLM4 PO; -MELO15TA4 PO; -OMEP40CA41 PO; -PANT40TA2 PO; -PRED20TA PO; -XNX25 PO
[2017-06-02 22:31] VITALS: TEMP 37; Ht 177.8 cm; Wt 107.9 kg
[2017-06-02] MEDS ORDERED: DiphenhydrAMINE HCL 50 MG/ML VIAL IV STA (22:59)
[2017-06-02] MEDS ORDERED: SODIUM CHLORIDE 0.9% 1000ML 2,000 ML IV STA (22:59)
[2017-06-02] MEDS ORDERED: METOCLOPRAMIDE HCL INJ 5 MG/ML 2 ML VIAL IV STA (22:59)
--- NOTE | 2017-06-02 23:04 | EMERGENCY ROOM VISIT NOTE ---
History Report prepared by Padma: Benito Wagner Under the Supervision of: Dr. Luis Payan M.D. First contact with patient: 22:51 Chief Complaint: HEADACHE Stated Complaint: MIGRAINE HEADACHE,SPOTS BEFORE EYES History of Present Illness The patient is a 31 year old male who presents to the Emergency Room with complaints of a constant headache that began 2 hours ago after the patient finished eating dinner. He describes the pain as "hitting him like a freight train". He feels "like the floor is trying to move out from underneath him". He states associated symptoms of difficulty seeing and dizziness. He denies having nausea. He states he has a history of migraines but has not had one in at least 10 years. Patient notes that his previous migraines did not last as long as the current episode. He states he took 600mg ibuprofen prior to arrival but it did not resolve the symptoms. Patient adds that he had a cold over the holidays. Pertinent medical history of spinal stenosis, back spurs, insomnia, depression, and generalized anxiety. He currently takes Lexapro, Mobic, Protonix, Flomax, Prilosec, and Amitriptyline. Source of History: patient Onset: 2 hours ago Position: head Timing: constant Associated Symptoms: No nausea Note: He has associated symptoms of difficulty seeing and dizziness. Review of Systems See HPI for pertinent positives and negatives. A total of ten systems were reviewed and were otherwise negative. Past Medical & Surgical Medical Problems: (1) Asperger's disorder (2) Asthma (3) Chronic abdominal pain (4) Colitis (5) Complete tear, knee, anterior cruciate ligament (6) History of reconstruction of anterior cruciate ligament tear (7) IBS (irritable bowel syndrome) (8) Irritable colon (9) Migraines (10) Neck strain (11) UNSP GASTRITIS & GASTRODUODENITIS W/O MENTN HEMORG Family History Heart disease Social History Smoking Status: Former Smoker Alcohol Use: occasionally Drug Use: none Marital Status: single Housing Status: lives with family Occupation Status: employed Current/Historical Medications Scheduled Amitriptyline Hcl (Elavil), 25 MG PO HS Amitriptyline Hcl (Elavil), 100 MG PO HS Clonazepam (Klonopin), 1 TAB PO PRN Escitalopram Oxalate (Escitalopram Oxalate), 10 MG PO DAILY Omeprazole (Prilosec), 40 MG PO DAILY Pantoprazole (Pantoprazole Sodium), 40 MG PO BID Tamsulosin HCl (Tamsulosin HCl), 0.4 MG PO DAILY Scheduled PRN Albuterol Hfa (Ventolin Hfa), 1-2 PUFFS INH Q4H PRN for SOB/Wheezing Alprazolam (Alprazolam), 0.25 MG PO TID PRN for Anxiety Dicyclomine Hcl (Dicyclomine Hcl), 20 MG PO Q6H PRN for Abdominal Pain Hydroxyzine Pamoate (Vistaril), 25-50 MG PO Q8 PRN for Anxiety/Insomnia Meloxicam (Meloxicam), 15 MG PO DAILY PRN for Pain Propranolol (Inderal), 10 MG PO TID PRN for Panic Attack Allergies Coded Allergies: Mold (Blue) Cheese (Verified Allergy, Severe, "BLUE CHEESE" -- ANAPHYLAXIS , 06/02/17) BEE STING (Verified Allergy, Mild, 06/02/17) Latex1 -Allergic Contact Dermititis (Verified Allergy, Mild, 06/02/17) Dust (Verified Allergy, Unknown, MILD RESP DISCOMFORT, 06/02/17) POLLEN (Verified Allergy, Unknown, MILD RESP DISCOMFORT, 06/02/17) Olives (Verified Adverse Reaction, Mild, Black olives trigger IBS, ) Hydromorphone (Verified Adverse Reaction, Unknown, Headache, 06/02/17) Uncoded Allergies: ONIONS (Allergy, Intermediate, N/V/DIARRHEA, 11/19/15) MUSHROOMS (Adverse Reaction, Intermediate, N/V/DIARRHEA, 11/19/15) Physical Exam Vital Signs Date Time Temp Pulse Resp B/P (MAP) Pulse Ox O2 Delivery O2 Flow Rate FiO2 06/03/17 01:05 91 25 96 06/03/17 01:00 153/101 06/03/17 00:57 87 22 96 06/03/17 00:32 100 18 176/90 94 Room Air 06/03/17 00:31 150/95 06/03/17 00:00 146/87 06/02/17 23:57 98 22 94 06/02/17 23:47 176/90 06/02/17 23:30 166/98 06/02/17 23:30 104 06/02/17 23:16 139/100 06/02/17 22:31 37.0 130 24 155/94 95 Room Air Physical Exam GENERAL: Awake, alert, uncomfortable-appearing, in no distress HENT: Normocephalic, atraumatic. Oropharynx unremarkable. Dry, cracked mucous membranes. EYES: Normal conjunctiva. Sclera non-icteric. NECK: Supple. No nuchal rigidity. FROM. No JVD. RESPIRATORY: Clear to auscultation. CARDIAC: Regular rate, normal rhythm. Extremities warm and well perfused. Pulses equal. ABDOMEN: Soft, non-distended. No tenderness to palpation. No rebound or guarding. No masses. RECTAL: Deferred. MUSCULOSKELETAL: Chest examination reveals no tenderness. The back is symmetrical on inspection without obvious abnormality. There is no CVA tenderness to palpation. No joint edema. LOWER EXTREMITIES: Calves are equal size bilaterally and non-tender. No edema. No discoloration. NEURO: Neurologically intact. Normal sensorium. No sensory or motor deficits noted. normal cerebellar function with [id number], alternating palms, heel- to-benitez SKIN: No rash or jaundice noted. Medical Decision & Procedures ER Provider Diagnostic Interpretation: Radiology results as stated below per my review and radiologist interpretation: CT HEAD No ICH, mass effect or edema. No evidence of acute cortical stroke. No midline shift or hydrocephalus. Visualized sinuses show a small mucous retention cyst in the right maxillary. Mastoid air cells are clear. Radiologist: Cristopher Elkins M.D. Medications Administered Medications (Trade) Dose Ordered Sig/Jaycob Route Start Time Stop Time Status Last Admin Dose Admin Sodium Chloride 2,000 ml @ 999 mls/hr Q2H1M STAT IV 06/02/17 22:59 06/03/17 00:59 DC 06/02/17 23:09 999 MLS/HR Metoclopramide HCl (Reglan Inj) 10 mg NOW STAT IV 06/02/17 22:59 06/02/17 23:01 DC 06/02/17 23:09 10 MG Diphenhydramine HCl (Benadryl Inj) 25 mg NOW STAT IV 06/02/17 22:59 06/02/17 23:01 DC 06/02/17 23:09 25 MG Dexamethasone Sodium Phosphate (Dexamethasone Inj Pf) 10 mg NOW ONCE IV 06/03/17 00:30 06/03/17 00:32 DC 06/03/17 00:39 10 MG ED Course 2255: The patient was evaluated in room A9. A complete history and physical exam was performed. 0118: I reevaluated the patient. Discussed results and discharge instructions. He verbalized understanding and agreement. The patient is ready for discharge. Medical Decision I reviewed the patient's past medical history, medications, and the nursing notes as described above. 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 On arrival the patient is uncomfortable but in NAD. Neuro intact including normal cerebellar function with finger-to- nose, alternating palms, [id number] CT head negative. Given sx occuring within six hours unlikely to have SAH. Patient given Migraine cocktail with minimal effect. I did explain to the patient that I would not give him narcotics for his migraine and that narcotics are an effective pain medication for acute severe pain such as from a bone fracture or after surgery, however, they are not recommended for chronic pain such as for headaches or back pain as they have the potential to promote rebound hyperalgesia resulting in increased severity of the initial chronic pain when not taking narcotics. Patient was subsequently IV dose of dexamethasone with complete resolution of sx. Patient thankful and OK for d/c. Findings and plan for follow-up reviewed with patient. Patient agreeable and d/c'd per discharge instructions. . Medication Reconcilliation Current Medication List: was personally reviewed by me Blood Pressure Screening Patient's blood pressure: Normal blood pressure Blood pressure disposition: Did not require urgent referral Impression Primary Impression: Migraine headache Scribe Attestation The scribe's documentation has been prepared under my direction and personally reviewed by me in its entirety. I confirm that the note above accurately reflects all work, treatment, procedures, and medical decision making performed by me. Departure Information Dispostion Home / Self-Care Referrals Jhon [place] D.O. (PCP) Forms HOME CARE DOCUMENTATION FORM, IMPORTANT VISIT INFORMATION Patient Instructions ED Headache Migraine, My [facility] Additional Instructions Please follow up with your primary care physician in the next 1-3 days for re- evaluation. Your symptoms are most likely due to a migraine headache. Otherwise, your exam and CT scan did not show signs of an emergent condition at this time. Acetaminophen and Ibuprofen for pain as needed. Drink plenty of fluids to ensure hydration. Return to the emergency department for worsening symptoms as described in the accompanying instructions.
[2017-06-03] MEDS ORDERED: DEXAMETHASONE **PF** INJ 10 MG/ML VIAL IV ONE (00:30)
[2017-06-03 01:00] VITALS: BP 153/101
[2017-06-03 01:05] VITALS: PULSE 91; O2SAT 96
--- NOTE | 2017-06-03 05:21 | DIAGNOSTIC IMAGING REPORT ---
HEAD WITHOUT CONTRAST (CT) CT DOSE: 614.27 mGy.cm HISTORY: Mental status change STOUT, blurred vision TECHNIQUE: Multiaxial CT images of the head were performed without the use of intravenous contrast. A dose lowering technique was utilized adhering to the principles of ALARA. Comparison: 01/20/2017 Findings: The paranasal sinuses and mastoid air cells are clear. The calvarium and skull base are intact. The ventricles and sulci are within normal limits. There is no mass, hematoma, midline shift, or acute infarct. Impression: No acute intracranial abnormality. The above report was generated using voice recognition software. It may contain grammatical, syntax or spelling errors. Electronically signed by: Austin Acosta M.D. 06/03/2017 5:20 AM Dictated Date/Time: 06/03/2017 5:19 AM
[2017-09-25] MEDS ORDERED: OXYC-737 PO (01:43)
[2017-11-09] MEDS ORDERED: ONDA4TAB10 SL (19:53)
[2017-11-11] MEDS ORDERED: NRN300 PO (00:42)
[2017-11-11] MEDS ORDERED: TRAZ50TA35 PO (00:42)
[2017-11-11] MEDS ORDERED: CLON2TAB PO (16:26)
[2017-11-11] MEDS ORDERED: PANT40TA2 PO (22:26)
[2017-11-11] MEDS ORDERED: PRZ1 PO (22:37)
[2017-11-11] MEDS ORDERED: AMT/50 PO (22:37)
[2017-11-11] MEDS ORDERED: OMEP40CA41 PO (22:47)
[2017-11-11] MEDS ORDERED: MELO-83 PO (22:47)
[2017-11-11] MEDS ORDERED: FLM4 PO (23:09)
[2017-11-11] MEDS ORDERED: FLNIN/ NAE (23:50)
[2017-11-12] MEDS ORDERED: DICY10CA55 PO (01:09)
[2017-11-12] MEDS ORDERED: PROM12.57 PO (01:09)
[2017-11-14] MEDS ORDERED: TAMS0.4C38 PO (08:58)
[2017-11-14] MEDS ORDERED: CLON2TAB10 PO (08:58)
[2017-11-14] MEDS ORDERED: PRAZ1CAP PO (08:58)
[2017-11-14] MEDS ORDERED: FLUT50SP45 NAE (08:58)
[2017-11-14] MEDS ORDERED: OMEP40CA41 PO (08:58)
[2017-11-14] MEDS ORDERED: MELO-84 PO (08:58)
[2017-11-14] MEDS ORDERED: PANT40TA PO (08:58)
[2017-11-14] MEDS ORDERED: GABA-113 PO (08:58)
[2017-11-19] MEDS ORDERED: DOXY100C76 PO (09:34)
[2017-11-19] MEDS ORDERED: IBUP200C80 (09:35)
[2017-12-04] MEDS ORDERED: PRED50TA PO (04:09)
== END 2017-06-03 01:43 | disposition home or self-care (01) ==
LOC: C.EDB 22:28 → C.EDA 06-03 01:43
DX: G43.909 Migraine, unspecified, not intractable, without status migrainosus (principal); M48.00 Spinal stenosis, site unspecified; G47.00 Insomnia, unspecified; F32.9 Major depressive disorder, single episode, unspecified; F41.1 Generalized anxiety disorder; F84.5 Asperger's syndrome; J45.909 Unspecified asthma, uncomplicated; K58.9 Irritable bowel syndrome, unspecified; Z87.891 Personal history of nicotine dependence; Z82.49 Family history of ischemic heart disease and other diseases of the circulatory system

== ENCOUNTER → 2017-07-10 | Outpatient (CLI) | payer OTHER ==
[~2017-07-10] MED LIST changes: -ALPR0.254 PO; +DICY20TA10 PO; +FLM4 PO; +MELO-83 PO; +OMEP40CA41 PO; +PANT40TA2 PO; -PENI-82 PO; +XNX25 PO
[2017-07-10 13:05] LABS: BASO % 0.3 %; BASO ABS # 0.03 K/uL (0-0.2); EOS % 2.1 %; EOS ABS # 0.21 K/uL (0-0.5); HEMATOCRIT 47.3 % (42-52); HEMOGLOBIN 17.1 g/dL (14.0-18.0); IG# 0.03 K/uL (0.00-0.02); LYMPH % 38.7 %; LYMPH ABS # 3.87 K/uL (1.2-3.4); MEAN CELL VOLUME 82.3 fL (80-100); MEAN CORPUSCULAR HEMOGLOBIN 29.7 pg (25-34); MEAN CORPUSCULAR HGB CONC 36.2 g/dl (32-36); MEAN PLATELET VOLUME 9.7 fL (7.4-10.4); MONO % 8.7 %; MONO ABS # 0.87 K/uL (0.11-0.59); NEUT % 49.9 %; PLATELET COUNT 243 K/uL (130-400); RED CELL DISTRIBUTION WIDTH CV 12.9 % (11.5-14.5); RED CELL DISTRIBUTION WIDTH SD 38.3 fL (36.4-46.3); WHITE BLOOD COUNT 10.01 K/uL (4.8-10.8)
[2017-07-10 13:39] LABS: ALBUMIN 3.7 gm/dl (3.4-5.0); ALT/SGPT 48 U/L (12-78); AST/SGOT 19 U/L (15-37); BLOOD UREA NITROGEN 14 mg/dl (7-18); CALCIUM 9.3 mg/dl (8.5-10.1); CARBON DIOXIDE 27 mmol/L (21-32); CREATININE 1.11 mg/dl (0.60-1.40); GLUCOSE 142 mg/dl (70-99); LIPASE 84 U/L (73-393); POTASSIUM 4.1 mmol/L (3.5-5.1); SODIUM 136 mmol/L (136-145)
[2017-07-10 13:41] LABS: ALKALINE PHOSPHATASE 109 U/L (45-117); TOTAL PROTEIN 7.8 gm/dl (6.4-8.2)
--- NOTE | 2017-07-10 14:26 | DIAGNOSTIC IMAGING REPORT ---
BILIARY ABDOMEN LIMITED CLINICAL HISTORY: R10.33 Abdominal pain, [id number] Nausea without vomitin pain. Nausea. TECHNIQUE: Ultrasound COMPARISON STUDY: None FINDINGS: Fatty infiltration of the liver. Poor visibility of the pancreas due to overlying bowel content. Mildly contracted gallbladder due to a recent meal. Common bile duct 4 mm. Right kidney is negative for hydronephrosis. IMPRESSION: Fatty infiltration of liver. Mildly contracted gallbladder secondary to a recent meal. Otherwise negative study. The above report was generated using voice recognition software. It may contain grammatical, syntax or spelling errors. Electronically signed by: Austin Acosta M.D. 07/10/2017 2:25 PM Dictated Date/Time: 07/10/2017 2:22 PM
== END | disposition home or self-care (01) ==
LOC: C.ULTRBC 12:05
PROVIDERS: ATTEND Registered Nurse
DX: R10.33 Periumbilical pain (principal); R11.0 Nausea; K76.0 Fatty (change of) liver, not elsewhere classified

== ENCOUNTER 2017-08-20 15:31 | Emergency (ER) | payer OTHER ==
[~2017-08-20] VITALS: Ht 177.8 cm; Wt 131.0 kg
[~2017-08-20 15:31] MED LIST changes: -DICY20TA10 PO; -FLM4 PO; -MELO-83 PO; -OMEP40CA41 PO; -PANT40TA2 PO
[2017-08-20 15:49] VITALS: TEMP 36.9; Ht 177.8 cm; Wt 131.0 kg
[2017-08-20] MEDS ORDERED: ONDANSETRON INJ 2 MG/ML 2 ML VIAL IV PRN (16:15)
[2017-08-20] MEDS ORDERED: DICYCLOMINE HCL 20 MG TAB PO ONE (16:15)
[2017-08-20] MEDS ORDERED: SODIUM CHLORIDE 0.9% 1000ML 1,000 ML IV ONE ×2 (16:15)
[2017-08-20] MEDS ORDERED: DICYCLOMINE HCL 10 MG CAP ONE (16:19)
[2017-08-20] MEDS ORDERED: CLON2TAB PO (16:26)
[2017-08-20] MEDS ORDERED: PROM12.57 PO (16:26)
[2017-08-20] MEDS ORDERED: CYM/60 PO (16:26)
[2017-08-20] MEDS ORDERED: AMT100 PO (16:26)
[2017-08-20] MEDS ORDERED: AMT25 PO (16:26)
[2017-08-20] MEDS ORDERED: NRN100 PO (16:26)
[2017-08-20 16:31] LABS: BASO % 0.2 %; BASO ABS # 0.02 K/uL (0-0.2); EOS % 1.7 %; EOS ABS # 0.16 K/uL (0-0.5); HEMATOCRIT 45.6 % (42-52); HEMOGLOBIN 16.3 g/dL (14.0-18.0); IG# 0.01 K/uL (0.00-0.02); LYMPH % 25.6 %; LYMPH ABS # 2.36 K/uL (1.2-3.4); MEAN CELL VOLUME 80.9 fL (80-100); MEAN CORPUSCULAR HEMOGLOBIN 28.9 pg (25-34); MEAN CORPUSCULAR HGB CONC 35.7 g/dl (32-36); MEAN PLATELET VOLUME 9.3 fL (7.4-10.4); MONO % 7.4 %; MONO ABS # 0.68 K/uL (0.11-0.59); NEUT ABS # 5.98 K/uL (1.4-6.5); PLATELET COUNT 265 K/uL (130-400); RED CELL DISTRIBUTION WIDTH SD 38.6 fL (36.4-46.3); WHITE BLOOD COUNT 9.21 K/uL (4.8-10.8)
[2017-08-20 16:55] LABS: ALBUMIN 3.6 gm/dl (3.4-5.0); CALCIUM 8.8 mg/dl (8.5-10.1); CREATININE 0.93 mg/dl (0.60-1.40); POTASSIUM 3.6 mmol/L (3.5-5.1)
[2017-08-20 16:58] LABS: TOTAL PROTEIN 7.8 gm/dl (6.4-8.2)
--- NOTE | 2017-08-20 16:58 | DIAGNOSTIC IMAGING REPORT ---
ABDOMEN 2VIEW W/PA CHEST RTN CLINICAL HISTORY: Abdominal pain, nausea, vomiting, diarrhea COMPARISON STUDY: 04/27/2016 FINDINGS: The erect chest reveals no free intraperitoneal air. There is stable linear scarring/atelectasis at the left lung base. There is no lobar consolidation. Erect and supine views the abdomen reveal no abnormally dilated loops of large or small bowel. There are no transition zones to indicate bowel obstruction. There is a mild amount stool within the right colon. IMPRESSION: No evidence of bowel obstruction. No evidence of free air. Electronically signed by: Joshua Gan M.D. 08/20/2017 4:57 PM Dictated Date/Time: 08/20/2017 4:55 PM
--- NOTE | 2017-08-20 17:23 | EMERGENCY ROOM VISIT NOTE ---
History First contact with patient: 15:58 Chief Complaint: ABDOMINAL PAIN Stated Complaint: ADB PAIN, DIARREHA,NAUSEA Nursing Triage Summary: patient c/o constant Diarrhea x 5 days, abdominal pain, burping (sulfur taste), nauseated and bloated. patient called GI and was not able to see MD today. Hx IBS. History of Present Illness The patient is a 31 year old male who presents to the Emergency Room with complaints of nausea, vomiting, diarrhea and abdominal cramping for the last 5 days. The patient took his nausea medication at home, which seemed to help. He is still having copious amounts of diarrhea. Patient has a history of IBS. He tried to get him with his GI doctor today. They were unable to see him. He denies any blood in his stool. He did not take his temperature at home. He was on amoxicillin for a tooth procedure 4 weeks ago. Review of Systems 10 system review performed and negative unless noted in HPI or below Past Medical/Surgical History Medical Problems: (1) Asperger's disorder (2) Asthma (3) Chronic abdominal pain (4) Colitis (5) Complete tear, knee, anterior cruciate ligament (6) History of reconstruction of anterior cruciate ligament tear (7) IBS (irritable bowel syndrome) (8) Irritable colon (9) Migraines (10) Neck strain (11) UNSP GASTRITIS & GASTRODUODENITIS W/O MENTN HEMORG Family History Heart disease Social History Smoking Status: Current Every Day Smoker Alcohol Use: occasionally Drug Use: none Marital Status: single Housing Status: lives with family Occupation Status: employed Current/Historical Medications Scheduled Amitriptyline HCl (Amitriptyline HCl), 25 MG PO HS Amitriptyline HCl (Amitriptyline HCl), 100 MG PO HS Clonazepam (Klonopin), 2 MG PO HS Duloxetine HCl (Cymbalta), 60 MG PO DAILY Gabapentin (Gabapentin), 100 MG PO BID Omeprazole (Prilosec), 40 MG PO QAM Pantoprazole (Pantoprazole Sodium), 40 MG PO BID Tamsulosin HCl (Tamsulosin HCl), 0.4 MG PO DAILY Scheduled PRN Dicyclomine Hcl (Dicyclomine Hcl), 20 MG PO Q6H PRN for Abdominal Pain Meloxicam (Meloxicam), 15 MG PO DAILY PRN for Pain Promethazine (Phenergan ), 12.5 MG PO Q6H PRN for Nausea Physical Exam Vital Signs Date Time Temp Pulse Resp B/P (MAP) Pulse Ox O2 Delivery O2 Flow Rate FiO2 08/20/17 19:40 95 20 157/93 96 Room Air 08/20/17 19:29 86 20 157/93 97 Room Air 08/20/17 18:26 91 20 156/95 96 Room Air 08/20/17 17:37 95 20 135/88 97 Room Air 08/20/17 15:49 36.9 124 18 148/92 97 Room Air Physical Exam VITALS: Vitals are noted on the nurse's note and reviewed by myself. Vital signs stable. GENERAL: 31-year-old male, in no acute distress, nondiaphoretic, well-developed well-nourished. SKIN: The skin was without rashes, erythema, edema, or bruising. HEAD: Normocephalic atraumatic. MOUTH: Mucous membranes very dry NECK: Supple without nuchal rigidity. No lymphadenopathy. Cervical spine is nontender. No JVD. HEART: Regular rate and rhythm without murmurs gallops or rubs. LUNGS: Clear to auscultation bilaterally without wheezes, rales or rhonchi. No accessory muscle use. ABDOMEN: Positive bowel sounds x 4.Soft, mild diffuse tenderness noted. No focal tenderness.. No guarding or rebound tenderness. MUSCULOSKELETAL: No muscle atrophy, erythema, or edema noted. Strength 5/5 throughout. NEURO: Patient was alert and oriented to person place and time. Normal sensation to touch. No focal neurological deficits. Medical Decision & Procedures ER Provider Diagnostic Interpretation: Chest and abdominal films IMPRESSION: No evidence of bowel obstruction. No evidence of free air. Electronically signed by: Joshua Gan M.D. 08/20/2017 4:57 PM Dictated Date/Time: 08/20/2017 4:55 PM The status of this report is Signed. Draft = Not yet reviewed or approved by Radiologist. Signed = Reviewed and approved by Radiologist. <AttendingPhy></AttendingPhy> <FamilyPhy>Jhon Colorado D.O.</FamilyPhy> < PrimaryPhy>Jhon Colorado D.O.</PrimaryPhy> <UnitNumber>[id number]</ UnitNumber> <VisitNumber>[id number]</VisitNumber> <PatientName>DOMINICK DE LA O</ PatientName> <DateOfBirth>1985</DateOfBirth> <Location>[facility]</Location> < ServiceDate>08/20/17</ServiceDate> <MNE>ESINDI</MNE> <OrderingPhy>GiovanniKadi Neftaly COOK</OrderingPhy> <OrderingPhyMNE>f rep ord dr wall</OrderingPhyMNE> < DictatingPhyMNE>f rep dict dr wall</DictatingPhyMNE> <CCListMNE>f rep ct mne</ CCListMNE> <AdmittingPhyMNE>f pt admit dr wall</AdmittingPhyMNE> <AttendingPhyMNE >f pt attend dr wall</AttendingPhyMNE> <ConsultingPhyMNE>f pt consult dr wall</ConsultingPhyMNE> <FamilyPhyMNE>f pt fam dr wall</FamilyPhyMNE> <OtherPhyMNE>f pt other dr wall</OtherPhyMNE> < PrimaryPhyMNE>f pt prim care dr wall</PrimaryPhyMNE> <ReferringPhyMNE>f pt referring dr wall</ReferringPhyMNE> Laboratory Results 08/20/17 16:14 Red Blood Count 5.64, Mean Corpuscular Volume 80.9, Mean Corpuscular Hemoglobin 28.9, Mean Corpuscular Hemoglobin Concent 35.7, Mean Platelet Volume 9.3, Neutrophils (%) (Auto) 65.0, Lymphocytes (%) (Auto) 25.6, Monocytes (%) (Auto) 7.4, Eosinophils (%) (Auto) 1.7, Basophils (%) (Auto) 0.2, Neutrophils # (Auto) 5.98, Lymphocytes # (Auto) 2.36, Monocytes # (Auto) 0.68, Eosinophils # (Auto) 0.16, Basophils # (Auto) 0.02 08/20/17 16:14 Test 08/20/17 16:01 08/20/17 16:14 Urine Color YELLOW Urine Appearance CLEAR (CLEAR) Urine pH 7.0 (4.5-7.5) Urine Specific [place] 1.006 (1.000-1.030) Urine Protein NEG (NEG) Urine Glucose (UA) NEG (NEG) Urine Ketones NEG (NEG) Urine Occult Blood NEG (NEG) Urine Nitrite NEG (NEG) Urine Bilirubin NEG (NEG) Urine Urobilinogen NEG (NEG) Urine Leukocyte Esterase TRACE (NEG) Urine WBC (Auto) 1-5 /hpf (0-5) Urine RBC (Auto) 0-4 /hpf (0-4) Urine Hyaline Casts (Auto) 0 /lpf (0-5) Urine Epithelial Cells (Auto) 0-5 /lpf (0-5) Urine Bacteria (Auto) NEG (NEG) White Blood Count 9.21 K/uL (4.8-10.8) Red Blood Count 5.64 M/uL (4.7-6.1) Hemoglobin 16.3 g/dL (14.0-18.0) Hematocrit 45.6 % (42-52) Mean Corpuscular Volume 80.9 fL (80-100) Mean Corpuscular Hemoglobin 28.9 pg (25-34) Mean Corpuscular Hemoglobin Concent 35.7 g/dl (32-36) Platelet Count 265 K/uL (130-400) Mean Platelet Volume 9.3 fL (7.4-10.4) Neutrophils (%) (Auto) 65.0 % Lymphocytes (%) (Auto) 25.6 % Monocytes (%) (Auto) 7.4 % Eosinophils (%) (Auto) 1.7 % Basophils (%) (Auto) 0.2 % Neutrophils # (Auto) 5.98 K/uL (1.4-6.5) Lymphocytes # (Auto) 2.36 K/uL (1.2-3.4) Monocytes # (Auto) 0.68 K/uL (0.11-0.59) Eosinophils # (Auto) 0.16 K/uL (0-0.5) Basophils # (Auto) 0.02 K/uL (0-0.2) RDW Standard Deviation 38.6 fL (36.4-46.3) RDW Coefficient of Variation 13.0 % (11.5-14.5) Immature Granulocyte % (Auto) 0.1 % Immature Granulocyte # (Auto) 0.01 K/uL (0.00-0.02) Anion Gap 9.0 mmol/L (3-11) Est Creatinine Clear Calc Drug Dose 158.0 ml/min Estimated GFR () 127.2 Estimated GFR (Non- 109.8 BUN/Creatinine Ratio 6.8 (10-20) Calcium Level 8.8 mg/dl (8.5-10.1) Magnesium Level 2.2 mg/dl (1.8-2.4) Total Bilirubin 0.4 mg/dl (0.2-1) Aspartate Amino Transf (AST/SGOT) 28 U/L (15-37) Alanine Aminotransferase (ALT/SGPT) 65 U/L (12-78) Alkaline Phosphatase 125 U/L (45-117) Total Protein 7.8 gm/dl (6.4-8.2) Albumin 3.6 gm/dl (3.4-5.0) Globulin 4.2 gm/dl (2.5-4.0) Albumin/Globulin Ratio 0.9 (0.9-2) Lipase 87 U/L (73-393) Date/Time Source Procedure Growth Status 08/20/17 16:01 Stool C.difficile Toxin B Gene (PCR) - Final No C. difficile toxin B gene detected Complete Medications Administered Medications (Trade) Dose Ordered Sig/Jaycob Route Start Time Stop Time Status Last Admin Dose Admin Sodium Chloride 1,000 ml @ 999 mls/hr Q1H1M ONCE IV 08/20/17 16:15 08/20/17 17:15 DC 08/20/17 16:21 999 MLS/HR Sodium Chloride 1,000 ml @ 999 mls/hr Q1H1M ONCE IV 08/20/17 16:15 08/20/17 17:15 DC 08/20/17 16:21 999 MLS/HR Ondansetron HCl (Zofran Inj) 4 mg Q2H PRN IV 08/20/17 16:15 08/20/17 20:43 DC 08/20/17 16:21 4 MG Dicyclomine HCl (Bentyl Cap) 20 mg STK-MED ONCE .ROUTE 08/20/17 16:19 08/20/17 16:20 DC 08/20/17 16:21 20 MG Morphine Sulfate (MoRPHine SULFATE INJ) 4 mg Q1H PRN IV 08/20/17 17:45 08/20/17 20:43 DC 3/19/18 17:47 4 MG Promethazine HCl 25 mg/Sodium Chloride 51 ml @ 204 mls/hr NOW STAT IV 08/20/17 17:34 08/20/17 17:48 DC 08/20/17 17:47 204 MLS/HR Diphenhydramine HCl (Benadryl Inj) 25 mg NOW STAT IV 08/20/17 18:01 08/20/17 18:02 DC 08/20/17 18:22 25 MG Acetaminophen/ Hydrocodone Bitart ([place] 5/325mg Home Pack) 1 homepa UD ONCE PO 08/20/17 19:00 08/20/17 19:01 DC 08/20/17 19:29 1 HOMEPACK ED Course Patient was seen and examined Vital signs including blood pressure were reviewed medications list was verified with patient Labs were obtained, and a saline lock was established The patient was medicated with Zofran 4 mg IV and Bentyl 20 mg by mouth. He was hydrated with 2 L normal saline. Imaging was performed and reviewed The patient was having more pain. He was ordered morphine. Shortly thereafter , he developed a rash. This is treated with Benadryl. The patient was also complaining of nausea. He was medicated with Phenergan 25 mg IV. We discussed his results. He voiced understanding. He was feeling much better and tolerating liquids. He was comfortable being discharged home. He was given a half pack of [place] I reviewed discharge instructions the patient. They voiced understanding and had no further questions. Medical Decision Differential diagnosis: IBS flare, viral GI illness, bacterial GI illness, bowel obstruction This patient is a 31-year-old male presents to the emergency department complaining of nausea, vomiting and diarrhea with abdominal cramping over the last several days. He has a history of IBS. On exam, he was significantly dehydrated. He did not have any focal tenderness or rebound in his abdomen. I do not suspect an acute abdomen. There is no leukocytosis. Abdominal films were obtained. No abnormalities were noted. His LFTs are generally within normal limits in addition to his lipase. I believe this is likely a viral GI illness exacerbating his IBS. The patient had good symptomatic relief in the emergency department, and is tolerating liquids. I believe he is stable to be discharged home. He already has a follow-up appointment scheduled with his GI doctor in the morning. He will continue his Phenergan as prescribed. He was given a home pack of [place] for added pain control overnight. He agrees to return with worsening symptoms. This chart was completed in part utilizing [employer] Speech Voice Recognition software. Attempts were made to minimize the grammatical errors, random word insertions, pronoun errors and incomplete sentences. Any formal questions or concerns about the content, text or information contained within the body of this dictation should be directly addressed to the provider for clarification. Medication Reconcilliation Current Medication List: was personally reviewed by me Blood Pressure Screening Patient's blood pressure: Elevated blood pressure Blood pressure disposition: Did not require urgent referral Impression Primary Impression: Nausea, vomiting, and diarrhea Departure Information Dispostion Home / Self-Care Condition GOOD Referrals Jhon Colorado D.O. (PCP) Joel Reyez D.O. Patient Instructions My [facility] Additional Instructions You were evaluated in the emergency department for nausea, vomiting, abdominal pain and diarrhea. There were no significant abnormalities in your labs today. X-rays were normal. Please follow a clear liquid diet tonight such as chicken broth, water and Gatorade If you are feeling better tomorrow, please advance to a bland diet Please take [place] 1 tab every 4 hours as needed for severe abdominal pain. Please do not drink alcohol or drive while taking this medication. Please take Phenergan as directed for nausea Follow-up with your GI doctor as scheduled tomorrow Please do not hesitate to return to the emergency department with any new, worsening or concerning symptoms It was a pleasure participating in your care this evening Work Instructions Return To Work: 1 day
[2017-08-20] MEDS ORDERED: PROMETHAZINE HCL INJ 25 MG in SODIUM CHLORIDE 0.9% 50ML 50 ML IV STA (17:34)
[2017-08-20] MEDS ORDERED: MoRPHine SULFATE 4 MG/ML 1 ML CARP\\VIAL IV PRN (17:45)
[2017-08-20] MEDS ORDERED: DiphenhydrAMINE HCL 50 MG/ML VIAL IV STA (18:01)
[2017-08-20] MEDS ORDERED: NORCO 5/325MG HOME PACK PO ONE (19:00)
[2017-08-20 19:40] VITALS: BP 157/93; PULSE 95; O2SAT 96
[2017-08-20] MEDS ORDERED: PANT40TA2 PO (22:26)
[2017-08-20] MEDS ORDERED: DICY20TA10 PO (22:26)
[2017-08-20] MEDS ORDERED: OMEP40CA41 PO (22:47)
[2017-08-20] MEDS ORDERED: MELO-83 PO (22:47)
[2017-08-20] MEDS ORDERED: FLM4 PO (23:09)
== END 2017-08-20 19:43 | disposition home or self-care (01) ==
LOC: C.EDB 15:32 → C.EDA 19:43
DX: K58.0 Irritable bowel syndrome with diarrhea (principal); R11.2 Nausea with vomiting, unspecified; R21 Rash and other nonspecific skin eruption; Z98.818 Other dental procedure status; F84.5 Asperger's syndrome; J45.909 Unspecified asthma, uncomplicated; G89.29 Other chronic pain; F17.210 Nicotine dependence, cigarettes, uncomplicated; Z79.899 Other long term (current) drug therapy

== ENCOUNTER 2017-08-24 16:24 | Emergency (ER) | payer OTHER ==
[~2017-08-24] VITALS: Ht 177.8 cm; Wt 131.0 kg
[~2017-08-24 16:24] MED LIST changes: -AMIT100T2 PO; -AMIT25TA9 PO; +AMT100 PO; +AMT25 PO; -CLON0.5T PO; +CLON2TAB PO; +CYM/60 PO; +DICY20TA10 PO; +FLM4 PO; -HYDR1CAP85 PO; -LXP10 PO; +MELO-83 PO; +NRN100 PO; +OMEP40CA41 PO; +PANT40TA2 PO; +PROM12.57 PO; -PROP10TA7 PO; -VNTHFA/IN INH; -XNX25 PO
[2017-08-24 16:41] VITALS: TEMP 37.1; Ht 177.8 cm; Wt 131.0 kg
[2017-08-24] MEDS ORDERED: ONDANSETRON INJ 2 MG/ML 2 ML VIAL IV STA (17:14)
[2017-08-24] MEDS ORDERED: SODIUM CHLORIDE 0.9% 1000ML 1,000 ML IV STA (17:14)
[2017-08-24] MEDS ORDERED: MoRPHine SULFATE 10 MG/ML CARP/VIAL IV STA ×2 (17:17→18:28)
[2017-08-24] MEDS ORDERED: MoRPHine SULFATE 2 MG/ML CARP ONE ×2 (17:25→18:39)
[2017-08-24] MEDS ORDERED: MoRPHine SULFATE 4 MG/ML 1 ML CARP\\VIAL ONE ×2 (17:26→18:40)
[2017-08-24] MEDS ORDERED: OPTIRAY 320 IV PRN (17:30)
[2017-08-24 17:41] LABS: BASO % 0.3 %; BASO ABS # 0.03 K/uL (0-0.2); EOS % 2.6 %; EOS ABS # 0.24 K/uL (0-0.5); HEMATOCRIT 49.9 % (42-52); HEMOGLOBIN 18.4 g/dL (14.0-18.0); IG# 0.02 K/uL (0.00-0.02); LYMPH % 32.2 %; LYMPH ABS # 2.97 K/uL (1.2-3.4); MEAN CELL VOLUME 81.1 fL (80-100); MEAN CORPUSCULAR HEMOGLOBIN 29.9 pg (25-34); MEAN CORPUSCULAR HGB CONC 36.9 g/dl (32-36); MEAN PLATELET VOLUME 9.4 fL (7.4-10.4); MONO % 8.8 %; MONO ABS # 0.81 K/uL (0.11-0.59); NEUT % 55.9 %; NEUT ABS # 5.14 K/uL (1.4-6.5); PLATELET COUNT 257 K/uL (130-400); RED CELL DISTRIBUTION WIDTH CV 12.9 % (11.5-14.5); RED CELL DISTRIBUTION WIDTH SD 38.4 fL (36.4-46.3); WHITE BLOOD COUNT 9.21 K/uL (4.8-10.8)
[2017-08-24 17:47] LABS: ALBUMIN 3.7 gm/dl (3.4-5.0); ALT/SGPT 61 U/L (12-78); AST/SGOT 23 U/L (15-37); BLOOD UREA NITROGEN 11 mg/dl (7-18); CALCIUM 9.5 mg/dl (8.5-10.1); CARBON DIOXIDE 28 mmol/L (21-32); CREATININE 0.96 mg/dl (0.60-1.40); GLUCOSE 107 mg/dl (70-99); LIPASE 73 U/L (73-393); SODIUM 137 mmol/L (136-145)
[2017-08-24 17:50] LABS: ALKALINE PHOSPHATASE 124 U/L (45-117); TOTAL PROTEIN 8.4 gm/dl (6.4-8.2)
--- NOTE | 2017-08-24 18:11 | DIAGNOSTIC IMAGING REPORT ---
ABD/PELVIS IV CONTRAST ONLY CT DOSE: 1896.51 mGy.cm HISTORY: Periumbilical pain Periumbilical abdominal pain TECHNIQUE: Multiaxial CT images of the abdomen and pelvis were performed following the use of intravenous contrast. A dose lowering technique was utilized adhering to the principles of ALARA. COMPARISON STUDY: 01/20/2016 FINDINGS: Lung bases are clear. Mild fatty infiltration of liver. Spleen is uniform. Pancreas is unremarkable. Kidneys enhance uniformly. Bowel pattern is nonobstructive. Several scattered colonic diverticuli with no evidence for diverticulitis. Anterior abdominal wall is intact. No periumbilical pathology is present. Bladder is midline. There is no free fluid within the pelvic cul-de-sac. Inguinal regions are unremarkable. The appendix is normal. IMPRESSION: Negative study The above report was generated using voice recognition software. It may contain grammatical, syntax or spelling errors. Electronically signed by: Austin Acosta M.D. 08/24/2017 6:10 PM Dictated Date/Time: 08/24/2017 6:06 PM
[2017-08-24] MEDS ORDERED: DiphenhydrAMINE HCL 50 MG/ML VIAL ONE (18:55)
[2017-08-24] MEDS ORDERED: NURSING VERBAL MED ORDER ONE (19:00)
[2017-08-24 19:30] VITALS: BP 126/80; PULSE 78; O2SAT 98
--- NOTE | 2017-08-25 00:30 | EMERGENCY ROOM VISIT NOTE ---
ED Visit Note First contact with patient: 16:59 Chief Complaint: Abdominal pain. History of Present Illness: Mr. Schultz is a 31 year-old white male who ambulates into the ED accompanied by his mother complaining of abdominal pain. Historically patient reports has a history of irritable bowel syndrome and chronic abdominal pain for the last 7-8 years. Patient was seen in the emergency department on August 20 for similar symptoms. No cause was identified for his pain and he was encouraged to follow-up with his loss control manager. Today he was at his loss control manager's office and just prior to discharge he had return of abdominal pain with nausea and was encouraged to come to the ED for further evaluation and care. Patient reports a acute onset of diffuse abdominal pain with prominence in the lower abdomen just inferior to the umbilicus. This started approximately 1 hour prior to arrival at the hospital. He describes his pain as a spasm-like pain; indicating he has mild discomfort and then it gradually builds in intensity until it releases. He currently rates his discomfort that started approximately hours ago. Since that time the pain has been . The pain is currently described as 8/10. His pain is nonradiating. He has not identified any aggravating or alleviating factors related to the pain. He has not had a medication for pain prior to arrival at the hospital. Associated with his pain he reports he has been nauseated since its onset today but has not vomited. He does report that he has been having ongoing diarrhea but has not had any since the onset of this pain. Additionally he reports he has been tested for C. difficile and his testing has been negative but his loss control manager will be rechecking his C. difficile. Patient denies fevers, chills, sweats, skin eruptions, skin color changes, upper respiratory tract symptoms, shortness of breath, chest pain, rectal bleeding, black/tarry stools, urinary symptoms, hematuria, back/flank pain. Review of Systems: As noted above in history of present illness. All body systems were reviewed and found to be negative as noted above. Past Medical History: As previously noted (1) Asperger's disorder (2) Asthma (3) Chronic abdominal pain (4) Colitis (5) Complete tear, knee, anterior cruciate ligament (6) History of reconstruction of anterior cruciate ligament tear (7) IBS (irritable bowel syndrome) (8) Irritable colon (9) Migraines (10) Neck strain (11) UNSP GASTRITIS & GASTRODUODENITIS W/O MENTN HEMORG Current Medications: Medications Dose Route/Sig Max Daily Dose Days Date Category Dose Instructions Phenergan (Promethazine HCl) 12.5 Mg Tab 12.5 Mg PO Q6H PRN 08/20/17 Reported Klonopin (Clonazepam) 2 Mg Tab 2 Mg PO HS 08/20/17 Reported Amitriptyline HCl 100 Mg Tab 100 Mg PO HS 08/20/17 Reported TAKE ONE 100 MG TABLET ALONG WITH ONE 125 MG TABLET TO EQUAL BEDTIME DOSE OF 125 MG Amitriptyline HCl 25 Mg Tab 25 Mg PO HS 08/20/17 Reported TAKE ONE 25 MG TABLET ALONG WITH ONE 100 MG TABLET TO EQUAL BEDTIME DOSE OF 125 MG Cymbalta (Duloxetine HCl) 60 Mg Cap 60 Mg PO DAILY 08/20/17 Reported Gabapentin 100 Mg Cap 100 Mg PO BID 08/20/17 Reported TAKE THIS MEDICATION EVERY MORNING AND AFTERNOON Dicyclomine Hcl 20 Mg Tab 20 Mg PO Q6H PRN 05/22/16 Reported Pantoprazole Sodium (Pantoprazole) 40 Mg Tab 40 Mg PO BID 05/22/16 Reported Tamsulosin HCl 0.4 Mg Cap 0.4 Mg PO DAILY 01/28/16 Reported Meloxicam 15 Mg Tab 15 Mg PO DAILY PRN 01/11/16 Reported Prilosec (Omeprazole) 40 Mg Cap 40 Mg PO QAM 01/11/16 Reported Allergies to Medications: Hydromorphone, latex. Social History: Patient is currently employed; he feels safe in his home environment; he denies tobacco and alcohol use. Physical Examination: Vital Signs: Date Time Temp Pulse Resp B/P (MAP) Pulse Ox O2 Delivery O2 Flow Rate FiO2 08/24/17 19:30 78 16 126/80 98 08/24/17 17:54 99 145/101 92 08/24/17 17:46 103 08/24/17 16:41 37.1 106 20 153/104 96 GENERAL: 31-year-old male in mild to moderate distress due to pain, nontoxic- appearing, afebrile and hemodynamically stable. NEUROLOGICAL: Awake, alert and oriented to person, place and time. Answering questions appropriately and following commands. Normal gait. Good hand eye coordination. SKIN: Warm, dry and pink. No soft tissue eruptions or trauma noted. HEENT: Atraumatic and normocephalic. PERRL. Sclera white and conjunctiva pink. Oral cavity moist and pink. Pharynx is nonerythematous or edematous. Speech normal. No lymphadenopathy. Trachea midline. No jugular venous distention. BACK: No tenderness over the bony spine. No CVA tenderness. THORAX: Lungs sounds are clear to auscultation and equal bilaterally with symmetrical chest wall. No wheezing, rales or rhonchi. No crepitus, tenderness , subcutaneous air or deformities noted. HEART: Regular rate and rhythm. No gallops, rubs or murmurs are appreciated. ABDOMEN: Obese and soft with moderate tenderness in the left upper quadrant and right lower quadrant, just superior to McBurney's point. Decreased bowel sounds in all quadrants. No guarding, rigidity or organomegaly. EXTREMITIES: Moves all extremities well on command and with purpose. All distal neurovascular statuses are intact and equal bilaterally. ED Course: Patient is assessed as noted above. Laboratory Testing: Test 08/24/17 17:10 08/24/17 17:35 Range/Units White Blood Count 9.21 4.8-10.8 K/uL Red Blood Count 6.15 4.7-6.1 M/uL Hemoglobin 18.4 14.0-18.0 g/dL Hematocrit 49.9 42-52 % Mean Corpuscular Volume 81.1 80-100 fL Mean Corpuscular Hemoglobin 29.9 25-34 pg Mean Corpuscular Hemoglobin Concent 36.9 32-36 g/dl Platelet Count 257 130-400 K/uL Mean Platelet Volume 9.4 7.4-10.4 fL Neutrophils (%) (Auto) 55.9 % Lymphocytes (%) (Auto) 32.2 % Monocytes (%) (Auto) 8.8 % Eosinophils (%) (Auto) 2.6 % Basophils (%) (Auto) 0.3 % Neutrophils # (Auto) 5.14 1.4-6.5 K/uL Lymphocytes # (Auto) 2.97 1.2-3.4 K/uL Monocytes # (Auto) 0.81 0.11-0.59 K/uL Eosinophils # (Auto) 0.24 0-0.5 K/uL Basophils # (Auto) 0.03 0-0.2 K/uL RDW Standard Deviation 38.4 36.4-46.3 fL RDW Coefficient of Variation 12.9 11.5-14.5 % Immature Granulocyte % (Auto) 0.2 % Immature Granulocyte # (Auto) 0.02 0.00-0.02 K/uL Sodium Level 137 136-145 mmol/L Potassium Level 4.0 3.5-5.1 mmol/L Chloride Level 102 98-107 mmol/L Carbon Dioxide Level 28 21-32 mmol/L Anion Gap 7.0 3-11 mmol/L Blood Urea Nitrogen 11 7-18 mg/dl Creatinine 0.96 0.60-1.40 mg/dl Est Creatinine Clear Calc Drug Dose 153.1 ml/min Estimated GFR () 122.4 Estimated GFR (Non- 105.6 BUN/Creatinine Ratio 11.5 10-20 Random Glucose 107 70-99 mg/dl Calcium Level 9.5 8.5-10.1 mg/dl Total Bilirubin 0.3 0.2-1 mg/dl Direct Bilirubin < 0.1 0-0.2 mg/dl Aspartate Amino Transf (AST/SGOT) 23 15-37 U/L Alanine Aminotransferase (ALT/SGPT) 61 12-78 U/L Alkaline Phosphatase 124 45-117 U/L Total Protein 8.4 6.4-8.2 gm/dl Albumin 3.7 3.4-5.0 gm/dl Lipase 73 73-393 U/L Urine Color YELLOW Urine Appearance CLEAR CLEAR Urine pH 8.0 4.5-7.5 Urine Specific [place] 1.012 1.000-1.030 Urine Protein NEG NEG Urine Glucose (UA) NEG NEG Urine Ketones NEG NEG Urine Occult Blood NEG NEG Urine Nitrite NEG NEG Urine Bilirubin NEG NEG Urine Urobilinogen NEG NEG Urine Leukocyte Esterase NEG NEG C.difficile Toxin B Gene (PCR): No C. difficile toxin B gene detected IV Contrast Abdominal/Pelvic CT: Was reviewed by myself and read by the radiologist showing no acute intra-abdominal processes with a normal-appearing appendix. Patient was hydrated with normal saline and he received a total of 12 mg of morphine IV for pain and 4 mg of Zofran IV. After his first dose of morphine and before his second he reports he noticed a small erythematous itchy patch of skin on his anterior chest and reports this is normal but expresses concerns about possible allergic reaction so he was given 50 mg of Benadryl IV. Patient was reassessed multiple times during his stay in the emergency department. Patient's case was reviewed with Dr. Ayon; we agreed on diagnostic approach , treatment, disposition and plan. Patient and mother were educated about today's findings and instructed on his treatment plan; they verbalized understanding and agreement with this plan. Clinical Impression: Acute on chronic abdominal pain. Decision-Making: Initially my differential diagnosis I considered appendicitis, bowel obstruction, constipation, perforated viscus, pancreatitis and other causes. Disposition: Patient discharged home in stable condition accompanied by his mother; prior to departure he was reassessed and subjectively reported he was feeling better and rated his discomfort 5/10. Plan: Patient was encouraged to continue his current medications as prescribed including his recent prescription for Bentyl. Patient was encouraged alternate ibuprofen and acetaminophen every 3 hours. Patient was encouraged to stay well-hydrated. Patient was encouraged to follow-up with gastroenterology. Patient was encouraged to return the ED for worsening pain, vomiting, bloody vomitus, bloody stools, fevers or any new/concerning symptoms.
== END 2017-08-24 19:31 | disposition home or self-care (01) ==
LOC: C.EDB 16:28 → C.EDA 19:31
DX: R10.0 Acute abdomen (principal); K58.0 Irritable bowel syndrome with diarrhea; F84.5 Asperger's syndrome; G89.29 Other chronic pain; Z79.899 Other long term (current) drug therapy

== ENCOUNTER 2017-08-28 23:13 | Emergency (ER) | payer OTHER ==
[~2017-08-28] VITALS: Ht 177.8 cm; Wt 130.9 kg
[2017-08-28 23:31] VITALS: TEMP 36.2; Ht 177.8 cm; Wt 130.9 kg
[2017-08-28] MEDS ORDERED: FAMOTIDINE 20MG/5ML IV PUSH IV STA (23:45)
[2017-08-28] MEDS ORDERED: DiphenhydrAMINE HCL 50 MG/ML VIAL IV STA (23:45)
[2017-08-28] MEDS ORDERED: METOCLOPRAMIDE HCL INJ 5 MG/ML 2 ML VIAL IV STA (23:45)
[2017-08-28] MEDS ORDERED: SODIUM CHLORIDE 0.9% 1000ML 2,000 ML IV STA (23:45)
[2017-08-28] MEDS ORDERED: FLNIN/ NAE (23:50)
[2017-08-29 00:13] LABS: BASO % 0.3 %; BASO ABS # 0.02 K/uL (0-0.2); EOS % 2.6 %; HEMATOCRIT 47.1 % (42-52); IG# 0.01 K/uL (0.00-0.02); LYMPH % 32.9 %; LYMPH ABS # 2.51 K/uL (1.2-3.4); MEAN CELL VOLUME 80.7 fL (80-100); MEAN CORPUSCULAR HEMOGLOBIN 29.1 pg (25-34); MEAN CORPUSCULAR HGB CONC 36.1 g/dl (32-36); MEAN PLATELET VOLUME 9.3 fL (7.4-10.4); MONO % 7.9 %; NEUT % 56.2 %; NEUT ABS # 4.29 K/uL (1.4-6.5); PLATELET COUNT 215 K/uL (130-400); RED CELL DISTRIBUTION WIDTH CV 13.1 % (11.5-14.5); RED CELL DISTRIBUTION WIDTH SD 37.8 fL (36.4-46.3); WHITE BLOOD COUNT 7.63 K/uL (4.8-10.8)
[2017-08-29 00:17] VITALS: O2SAT 95
[2017-08-29 00:33] LABS: ALBUMIN 3.5 gm/dl (3.4-5.0); CREATININE 0.98 mg/dl (0.60-1.40); POTASSIUM 3.6 mmol/L (3.5-5.1)
[2017-08-29 00:36] LABS: TOTAL PROTEIN 7.7 gm/dl (6.4-8.2)
[2017-08-29] MEDS ORDERED: KETOROLAC TROMETHAMINE 30 MG/ML VIAL IV STA (00:58)
[2017-08-29] MEDS ORDERED: DICYCLOMINE HCL 10 MG/ML 2 ML AMP IM ONE (01:00)
--- NOTE | 2017-08-29 01:58 | EMERGENCY ROOM VISIT NOTE ---
History First contact with patient: 23:36 Chief Complaint: ABDOMINAL PAIN Stated Complaint: STOMACH AND BOWL ISSUES Nursing Triage Summary: abdominal pain, nausea and vomitting, diarrhea X 2 weeks History of Present Illness The patient is a 31 year old male who presents to the Emergency Room with complaints of intermittent abdominal cramping with nausea vomiting and diarrhea for the past 2 weeks. Patient states he is currently being weaned off his Cymbalta. He states he had a similar episode 2 years ago when he was on Cymbalta. Patient is seeing a different therapist and apparently did not know about the problem with the Cymbalta in the past. Patient saw his GI doctor today, PAULA Mendoza and gave him some Bentyl. Patient's been seen here twice this week and had a CAT scan that was negative. He had a C. difficile test that was negative. No recent antibiotics. No well water. Patient denies chest pain, dyspnea, fever, chills, blood or black in the vomit or stool, back pain, urinary symptoms. Review of Systems An 10 system review of systems was completed with positives and pertinent negatives listed in the HPI. Past Medical/Surgical History Medical Problems: (1) Asperger's disorder (2) Asthma (3) Chronic abdominal pain (4) Colitis (5) Complete tear, knee, anterior cruciate ligament (6) History of reconstruction of anterior cruciate ligament tear (7) IBS (irritable bowel syndrome) (8) Irritable colon (9) Migraines (10) Neck strain (11) UNSP GASTRITIS & GASTRODUODENITIS W/O MENTN HEMORG Family History Heart disease Social History Smoking Status: Current Some Day Smoker Alcohol Use: occasionally Drug Use: none Marital Status: single Housing Status: lives with family Occupation Status: employed Current/Historical Medications Scheduled Amitriptyline HCl (Amitriptyline HCl), 25 MG PO HS Amitriptyline HCl (Amitriptyline HCl), 100 MG PO HS Clonazepam (Klonopin), 2 MG PO HS Duloxetine HCl (Cymbalta), 60 MG PO DAILY Fluticasone Propionate (Fluticasone Propionate), 1 SPRAY ROSS DAILY Gabapentin (Gabapentin), 100 MG PO BID Omeprazole (Prilosec), 40 MG PO QAM Pantoprazole (Pantoprazole Sodium), 40 MG PO BID Tamsulosin HCl (Tamsulosin HCl), 0.4 MG PO DAILY Scheduled PRN Dicyclomine Hcl (Dicyclomine Hcl), 20 MG PO Q6H PRN for Abdominal Pain Meloxicam (Meloxicam), 15 MG PO DAILY PRN for Pain Promethazine (Phenergan ), 12.5 MG PO Q6H PRN for Nausea Physical Exam Vital Signs Date Time Temp Pulse Resp B/P (MAP) Pulse Ox O2 Delivery O2 Flow Rate FiO2 08/29/17 00:25 91 08/29/17 00:17 95 Room Air 08/28/17 23:31 36.2 121 20 137/86 97 Room Air Physical Exam VITALS: Vitals are noted on the nurse's note and reviewed by myself. Vital signs mildly tachycardic. GENERAL: White male well known to this ER, in no acute distress, nondiaphoretic , well-developed well-nourished. SKIN: The skin was without rashes, erythema, edema, or bruising. There is no tenting of the skin. Capillary reflex less than 2 seconds. HEAD: Normocephalic atraumatic. EARS: External auditory canals clear, tympanic membranes pearly braswell without erythema or effusion bilaterally. EYES: Pupils equal round and reactive to light and accommodation. Conjunctivae without injection, sclerae without icterus. Extraocular movements intact. NOSE: Patent, turbinates without inflammation or discharge. No sinus tenderness. MOUTH: Mucous membranes mildly dry. Pharynx without erythema or exudate. Uvula midline. Airway patent. Tongue does not deviate. NECK: Supple without nuchal rigidity. No lymphadenopathy. No thyromegaly. Cervical spine is nontender. No JVD. HEART: Regular rate and rhythm without murmurs gallops or rubs. LUNGS: Clear to auscultation bilaterally without wheezes, rales or rhonchi. No retractions or accessory muscle use. ABDOMEN: Positive bowel sounds x 4. Normal tympanic percussion. Soft, nontender, without masses or organomegaly. Palacio sign negative. No guarding or rebound tenderness. No CVA tenderness MUSCULOSKELETAL: No muscle atrophy, erythema, or edema noted. NEURO: Patient was alert and oriented to person place and time. Normal sensation to light and sharp touch. No focal neurological deficits. Medical Decision & Procedures Laboratory Results 08/28/17 23:55 Red Blood Count 5.84, Mean Corpuscular Volume 80.7, Mean Corpuscular Hemoglobin 29.1, Mean Corpuscular Hemoglobin Concent 36.1, Mean Platelet Volume 9.3, Neutrophils (%) (Auto) 56.2, Lymphocytes (%) (Auto) 32.9, Monocytes (%) (Auto) 7.9, Eosinophils (%) (Auto) 2.6, Basophils (%) (Auto) 0.3, Neutrophils # (Auto) 4.29, Lymphocytes # (Auto) 2.51, Monocytes # (Auto) 0.60, Eosinophils # (Auto) 0.20, Basophils # (Auto) 0.02 08/28/17 23:55 Test 08/28/17 23:55 White Blood Count 7.63 K/uL (4.8-10.8) Red Blood Count 5.84 M/uL (4.7-6.1) Hemoglobin 17.0 g/dL (14.0-18.0) Hematocrit 47.1 % (42-52) Mean Corpuscular Volume 80.7 fL (80-100) Mean Corpuscular Hemoglobin 29.1 pg (25-34) Mean Corpuscular Hemoglobin Concent 36.1 g/dl (32-36) Platelet Count 215 K/uL (130-400) Mean Platelet Volume 9.3 fL (7.4-10.4) Neutrophils (%) (Auto) 56.2 % Lymphocytes (%) (Auto) 32.9 % Monocytes (%) (Auto) 7.9 % Eosinophils (%) (Auto) 2.6 % Basophils (%) (Auto) 0.3 % Neutrophils # (Auto) 4.29 K/uL (1.4-6.5) Lymphocytes # (Auto) 2.51 K/uL (1.2-3.4) Monocytes # (Auto) 0.60 K/uL (0.11-0.59) Eosinophils # (Auto) 0.20 K/uL (0-0.5) Basophils # (Auto) 0.02 K/uL (0-0.2) RDW Standard Deviation 37.8 fL (36.4-46.3) RDW Coefficient of Variation 13.1 % (11.5-14.5) Immature Granulocyte % (Auto) 0.1 % Immature Granulocyte # (Auto) 0.01 K/uL (0.00-0.02) Anion Gap 7.0 mmol/L (3-11) Est Creatinine Clear Calc Drug Dose 149.9 ml/min Estimated GFR () 119.4 Estimated GFR (Non- 103.0 BUN/Creatinine Ratio 9.2 (10-20) Calcium Level 9.0 mg/dl (8.5-10.1) Magnesium Level 2.1 mg/dl (1.8-2.4) Total Bilirubin 0.4 mg/dl (0.2-1) Direct Bilirubin 0.1 mg/dl (0-0.2) Aspartate Amino Transf (AST/SGOT) 27 U/L (15-37) Alanine Aminotransferase (ALT/SGPT) 54 U/L (12-78) Alkaline Phosphatase 114 U/L (45-117) Total Protein 7.7 gm/dl (6.4-8.2) Albumin 3.5 gm/dl (3.4-5.0) Lipase 65 U/L (73-393) Medications Administered Medications (Trade) Dose Ordered Sig/Jaycob Route Start Time Stop Time Status Last Admin Dose Admin Sodium Chloride 2,000 ml @ 999 mls/hr Q2H1M STAT IV 08/28/17 23:45 08/29/17 01:45 DC 08/28/17 23:45 999 MLS/HR Metoclopramide HCl (Reglan Inj) 10 mg NOW STAT IV 08/28/17 23:45 08/28/17 23:47 DC 08/28/17 23:45 10 MG Diphenhydramine HCl (Benadryl Inj) 12.5 mg NOW STAT IV 08/28/17 23:45 08/28/17 23:47 DC 08/28/17 23:45 12.5 MG Famotidine (Pepcid 20mg Iv Push) 20 mg ONE STAT IV 08/28/17 23:45 08/28/17 23:47 DC 08/28/17 23:45 20 MG Ketorolac Tromethamine (Toradol Inj) 15 mg NOW STAT IV 08/29/17 00:58 08/29/17 00:59 DC 08/29/17 01:04 15 MG Dicyclomine HCl (Bentyl Inj) 20 mg NOW ONCE IM 08/29/17 01:00 08/29/17 01:01 DC 08/29/17 01:03 20 MG ED Course Prior records/ancillary studies reviewed. Triage Nursing notes reviewed. Additional history obtained from the family. The patient's history was concerning for nausea, vomiting, diarrhea, and abdominal pain. Differential diagnosis: Etiologies such as gastroenteritis, side effect of tapering off Cymbalta, food borne illness, infections, appendicitis, diverticulitis, inflammatory bowel disease, obstruction, GI bleed, biliary pathology, as well as others were entertained. Physical examination findings: As above. Abdominal examination revealed no localized tenderness. Vital signs reviewed and revealed mildly tachycardic. ER treatment provided: IV hydration 2 L NSS. Reglan, Benadryl, Pepcid, Bentyl, Toradol On reassessment the patient felt better. Patient was tolerating p.o. intake. Diagnostics interpretation by me: The labs revealed no worrisome leukocytosis or electrolyte abnormality. C. difficile from a few days ago was negative Imaging studies: ABD/PELVIS IV CONTRAST ONLY CT DOSE: 1896.51 mGy.cm HISTORY: Periumbilical pain Periumbilical abdominal pain TECHNIQUE: Multiaxial CT images of the abdomen and pelvis were performed following the use of intravenous contrast. A dose lowering technique was utilized adhering to the principles of ALARA. COMPARISON STUDY: 01/20/2016 FINDINGS: Lung bases are clear. Mild fatty infiltration of liver. Spleen is uniform. Pancreas is unremarkable. Kidneys enhance uniformly. Bowel pattern is nonobstructive. Several scattered colonic diverticuli with no evidence for diverticulitis. Anterior abdominal wall is intact. No periumbilical pathology is present. Bladder is midline. There is no free fluid within the pelvic cul-de-sac. Inguinal regions are unremarkable. The appendix is normal. IMPRESSION: Negative study The above report was generated using voice recognition software. It may contain grammatical, syntax or spelling errors. Electronically signed by: Austin Acosta M.D. This appears to be consistent with vomiting and diarrhea with abdominal cramping which is a recurrent problem for this patient. Patient is a history of IBS. He states symptoms are similar. He states since his been tapering off his Cymbalta the symptoms have worsened. Patient saw his GI doctor yesterday. He was placed on Bentyl. Patient had a CAT scan a few days ago which was unremarkable. Patient did not have acute abdomen on exam. He was tolerating fluids. He stated he felt much better after being medicated as above. He was advised to rest, stay well hydrated, do a bland diet and to take medications as directed. Patient was advised to follow-up with his family care doctor and GI doctor in a few days or here in the ER sooner for abdominal pain, fevers, vomiting, worsening signs or symptoms or as needed. By the evaluation outlined above emergent etiologies such as appendicitis, diverticulitis, obstruction, cardiac sources, mesenteric ischemia, aortic pathology, inflammatory bowel disease, renal colic, PUD, biliary pathology, UTI, as well as others were deemed relatively unlikely. The pt informed about the findings as listed above. All questions were answered and pleased with the treatment. Return instructions were outlined and the patient was discharged in stable condition. Outpatient prescription management: Phenergan, Bentyl Referral: The patient was referred to their primary care physician for follow-up in 2 to 3 days for a recheck of the current condition. The chart was completed utilizing [employer] voice recognition software. Grammatical errors, random word insertions, pronoun errors, and incomplete sentences are an occassional consequence of this system due to software limitations, ambient noise, and hardware issues. Any formal questions or concerns about the content, text, or information contained within the body of this dictation should be directly addressed to the physician assistant men's lacrosse coach for clarification. Medical Decision As above Medication Reconcilliation Current Medication List: was personally reviewed by me Blood Pressure Screening Patient's blood pressure: Normal blood pressure Impression Primary Impression: Vomiting and diarrhea Additional Impression: Abdominal cramping Departure Information Dispostion Home / Self-Care Condition GOOD Referrals Jhon [place] D.OConsuelo (PCP) Patient Instructions My [facility] Additional Instructions DO NOT drive, drink alcohol, operate machinery, or perform dangerous activities today. You were given medications in the ER that can affect your ability to safely function or operate a vehicle. Phenergan(promethazine) tablets 25mg: Take one every six hours as needed for nausea. Avoid alcohol, operating machinery or dangerous equipment, working on ladders or roofs, DRIVING, or situations where being under the influence may be dangerous. Bentyl 10 mg: Take one tablet every 6-8 hours as needed for abdominal cramping. Rest and drink plenty of fluids as tolerated. Slow sips of water or sports drinks are recommended instead of large amounts all at once. Continue current medications. Once your stomach is settled start with a clear liquid diet (jello, soup broth, etc.) and then advance as tolerated. You should avoid full, heavy meals for about 24 hrs from the time your symptoms resolved. Return to the ER for persistent vomiting, fevers, abdominal pain, chest pains, difficulty breathing, black or bloody stools, worsening of your condition, or as needed. Follow up with your primary physician in 2-3 days for a recheck of your current condition. Problem Qualifiers
[2017-08-29] MEDS ORDERED: DICY10CA55 PO (02:00)
[2017-08-29] MEDS ORDERED: PHENERGAN 25MG HOMEPACK PO ONE (02:00)
[2017-08-29] MEDS ORDERED: PROM1SUP19 PR (02:00)
[2017-08-29] MEDS ORDERED: BENTYL HOME PACK 10 MG VIAL PO ONE (02:00)
[2017-08-29 02:20] VITALS: BP 128/72; PULSE 78; O2SAT 98
== END 2017-08-29 02:22 | disposition home or self-care (01) ==
LOC: C.EDB 23:16 → C.EDA 08-29 02:22
DX: R11.2 Nausea with vomiting, unspecified (principal); R19.7 Diarrhea, unspecified; R10.9 Unspecified abdominal pain; F84.5 Asperger's syndrome; J45.909 Unspecified asthma, uncomplicated; K58.9 Irritable bowel syndrome, unspecified; F17.200 Nicotine dependence, unspecified, uncomplicated

== ENCOUNTER 2017-09-24 23:28 | Emergency (ER) | payer OTHER ==
[~2017-09-24] VITALS: Ht 177.8 cm; Wt 135.0 kg
[~2017-09-24 23:28] MED LIST changes: +DICY10CA55 PO; +FLNIN/ NAE; +PROM1SUP19 PR
[2017-09-24 23:32] VITALS: TEMP 37.1; Ht 177.8 cm; Wt 135.0 kg
[2017-09-25] MEDS ORDERED: TRAMADOL HCL 50 MG TAB PO STA (00:11)
[2017-09-25] MEDS ORDERED: RIFA550T2 PO (00:42)
[2017-09-25] MEDS ORDERED: NRN300 PO (00:42)
[2017-09-25] MEDS ORDERED: TRAZ50TA35 PO (00:42)
[2017-09-25] MEDS ORDERED: PRED50TA PO (01:43)
[2017-09-25] MEDS ORDERED: CYCL10TA6 PO (01:43)
[2017-09-25] MEDS ORDERED: OXYC1TAB3 PO (01:43)
[2017-09-25] MEDS ORDERED: OXYCODONE IR HOME PACK PO ONE (01:45)
[2017-09-25] MEDS ORDERED: FLEXERIL HOME PACK 10 MG VIAL PO ONE (01:45)
[2017-09-25 01:53] VITALS: BP 152/93; PULSE 78; O2SAT 95
--- NOTE | 2017-09-25 06:31 | DIAGNOSTIC IMAGING REPORT ---
LUMBAR SPINE WITHOUT CT DOSE: 2178.44 mGy.cm HISTORY: Trauma. Pain. Fall down stairs. Mid and low back pain. TECHNIQUE: Multiaxial CT images of the lumbar spine were performed and reformatted in the sagittal and coronal plane without the use of contrast. A dose lowering technique was utilized adhering to the principles of ALARA. COMPARISON: None. FINDINGS: No fractures. No subluxation. Paraspinal soft tissues are unremarkable. IMPRESSION: No fractures within the lumbar spine. The above report was generated using voice recognition software. It may contain grammatical, syntax or spelling errors. Electronically signed by: Austin Acosta M.D. 09/25/2017 6:29 AM Dictated Date/Time: 09/25/2017 6:28 AM
--- NOTE | 2017-09-25 06:33 | DIAGNOSTIC IMAGING REPORT ---
THORACIC SPINE WITHOUT CT DOSE: HISTORY: Trauma Fall down stairs. Mid and low back pain. TECHNIQUE: Multiaxial CT images of the thoracic spine were performed and reformatted in the sagittal and coronal plane without the use of contrast. A dose lowering technique was utilized adhering to the principles of ALARA. COMPARISON: None. FINDINGS: No fractures. No subluxation. Paraspinal soft tissues are unremarkable. IMPRESSION: No fractures within the thoracic spine. The above report was generated using voice recognition software. It may contain grammatical, syntax or spelling errors. Electronically signed by: Austin Acosta M.D. 09/25/2017 6:32 AM Dictated Date/Time: 09/25/2017 6:31 AM
--- NOTE | 2017-09-25 07:12 | EMERGENCY ROOM VISIT NOTE ---
History First contact with patient: 23:34 Chief Complaint: FALL Stated Complaint: FELL DOWN STAIRS History of Present Illness The patient is a 32 year old male who presents to the Emergency Room with complaints of mid and low back pain after falling downstairs just prior to arrival. The patient states that he was walking out of his home, slipped, and fell down 4 or 5 stairs. He was able to stand after the injury but states that he has pain in his back. He did not strike his head or neck did not lose consciousness. No numbness or paresthesias. He did not urinate himself. He rates his discomfort a 7/10 without radiation. Review of Systems More than 10 systems were reviewed and otherwise negative with the exception of history of present illness. Past Medical/Surgical History Medical Problems: (1) Asperger's disorder (2) Asthma (3) Chronic abdominal pain (4) Colitis (5) Complete tear, knee, anterior cruciate ligament (6) History of reconstruction of anterior cruciate ligament tear (7) IBS (irritable bowel syndrome) (8) Irritable colon (9) Migraines (10) Neck strain (11) UNSP GASTRITIS & GASTRODUODENITIS W/O MENTN HEMORG Family History Heart disease Social History Smoking Status: Current Every Day Smoker Alcohol Use: occasionally Drug Use: none Marital Status: single Housing Status: lives with family Occupation Status: employed Current/Historical Medications Scheduled Amitriptyline HCl (Amitriptyline HCl), 100 MG PO HS Clonazepam (Klonopin), 2 MG PO HS Cyclobenzaprine Hcl (Flexeril), 10 MG PO TID Fluticasone Propionate (Fluticasone Propionate), 2 SPRAY ROSS BID Gabapentin (Gabapentin), 300 MG PO AMPM Meloxicam (Meloxicam), 15 MG PO QAM Omeprazole (Prilosec), 40 MG PO QPM Oxycodone Immediate Rel Tab (Roxicodone Ir), 5 MG PO Q6H Pantoprazole (Pantoprazole Sodium), 40 MG PO BID Prednisone (Prednisone), 50 MG PO DAILY Rifaximin (Xifaxan), 550 MG PO TID Tamsulosin HCl (Tamsulosin HCl), 0.4 MG PO QAM Trazodone Hcl (Trazodone), 50 MG PO HS Physical Exam Vital Signs Date Time Temp Pulse Resp B/P (MAP) Pulse Ox O2 Delivery O2 Flow Rate FiO2 09/25/17 01:53 78 20 152/93 95 09/25/17 00:46 94 18 152/93 97 Room Air 09/24/17 23:32 37.1 120 18 143/89 95 Room Air Physical Exam VITALS: Vitals are noted on the nurse's note and reviewed by myself. Vital signs stable. GENERAL: White male who appears uncomfortable on examination. HEAD: Normocephalic atraumatic. EARS: External ear normal. External auditory canals clear, tympanic membranes pearly braswell without erythema or effusion bilaterally. EYES: Pupils equal round and reactive to light and accommodation. Conjunctivae without injection, sclerae without icterus. Extraocular movements intact. NOSE: Patent, turbinates without inflammation or discharge. MOUTH: Mucous membranes moist. Tonsils are not enlarged. Pharynx without erythema, blood, or exudate. Uvula midline. Airway patent. NECK: Supple without nuchal rigidity. No lymphadenopathy. No thyromegaly. Cervical spine is nontender. HEART: Regular rate and rhythm without murmurs gallops or rubs. LUNGS: Clear to auscultation bilaterally without wheezes, rales or rhonchi. No retractions or accessory muscle use. ABDOMEN: Positive normal bowel sounds x 4. Soft, nontender, without masses or organomegaly. No guarding or rebound tenderness. MUSCULOSKELETAL: Positive tenderness throughout the mid and low thoracic spine into the upper lumbar spine. No step-off or significant paravertebral spasm noted. No significant bruising. No saddle paresthesias. The patient has full sensation and range of motion to the extremities. NEURO: Patient was alert and oriented to person place and time. CN II through XII grossly intact Medical Decision & Procedures ER Provider Diagnostic Interpretation: LUMBAR SPINE WITHOUT CT DOSE: 2178.44 mGy.cm HISTORY: Trauma. Pain. Fall down stairs. Mid and low back pain. TECHNIQUE: Multiaxial CT images of the lumbar spine were performed and reformatted in the sagittal and coronal plane without the use of contrast. A dose lowering technique was utilized adhering to the principles of ALARA. COMPARISON: None. FINDINGS: No fractures. No subluxation. Paraspinal soft tissues are unremarkable. IMPRESSION: No fractures within the lumbar spine. THORACIC SPINE WITHOUT CT DOSE: HISTORY: Trauma Fall down stairs. Mid and low back pain. TECHNIQUE: Multiaxial CT images of the thoracic spine were performed and reformatted in the sagittal and coronal plane without the use of contrast. A dose lowering technique was utilized adhering to the principles of ALARA. COMPARISON: None. FINDINGS: No fractures. No subluxation. Paraspinal soft tissues are unremarkable. IMPRESSION: No fractures within the thoracic spine. Medications Administered Medications (Trade) Dose Ordered Sig/Jaycob Route Start Time Stop Time Status Last Admin Dose Admin Tramadol HCl (Ultram Tab) 50 mg NOW STAT PO 09/25/17 00:11 09/25/17 00:12 DC 09/25/17 00:18 50 MG Oxycodone HCl (Roxicodone Immediate Rel 5MG Home Pack) 1 homepack UD ONCE PO 09/25/17 01:45 09/25/17 01:46 DC 09/25/17 01:50 1 HOMEPACK Cyclobenzaprine HCl (FLEXERIL 10MG Home Pack) 1 homepack UD ONCE PO 09/25/17 01:45 09/25/17 01:46 DC 09/25/17 01:49 1 HOMEPACK ED Course Physical exam and history were performed. Nursing notes, EMR, and Medication List were personally reviewed. Patient appears to have pain after falling down his steps today. He is tender throughout the midthoracic spine into the superior lumbar spine. He does not appear to have neurologic deficit on examination. Patient was given tramadol here in the department. Because of his injuries I elected to perform CT scan of his thoracolumbar spine. CT scan is as above and was reviewed by myself and radiology showing no acute fracture or additional process. I discussed options of care with the patient, and he continued to have persistent pain despite the tramadol. I will give him a very short course of oxycodone, Flexeril, and prednisone. The patient will need to follow with his primary care physician for further care management. She was otherwise invited back to the ER with any new, worsening, or concerning symptoms. The chart was completed utilizing [employer] Voice Recognition Software. Grammatical errors, random word insertions, pronoun errors, and incomplete sentences are an occasional consequence of this system due to software limitations, ambient noise, and hardware issues. Any formal questions or concerns about the content, text, or information contained within the body of this dictation should be directly addressed to the provider for clarification. . Medical Decision Differential diagnosis includes, but is not limited to: Sprain, strain, fracture , dislocation, subluxation, contusion, spinal cord injury, and others Impression Primary Impression: Fall Additional Impression: Contusion of multiple sites Departure Information Dispostion Home / Self-Care Condition GOOD Prescriptions Prednisone (Prednisone) 50 Mg Tab 50 MG PO DAILY for 4 Days, #4 TAB Prov: Alfredo Arenas PA-C 09/25/17 Cyclobenzaprine Hcl (FLEXERIL) 10 Mg Tab 10 MG PO TID for 5 Days, #15 TAB Prov: Alfredo Arenas PA-C 09/25/17 Oxycodone Immediate Rel Tab (ROXICODONE IR) 5 Mg Tab 5 MG PO Q6H for Pain for 3 Days, #12 TAB Prov: Alfredo Arenas PA-C 09/25/17 Referrals Jhon [place] D.O. (PCP) Forms HOME CARE DOCUMENTATION FORM, IMPORTANT VISIT INFORMATION Patient Instructions My [facility] Additional Instructions You were seen and evaluated today on an emergency basis only. This is not a substitute for, or an effort to provide, complete comprehensive medical care. It is not possible to recognize and treat all injuries or illnesses in a single emergency department visit. For this reason it is recommended that you followup with your primary care physician the next 2-3 days for recheck of your injury. For baseline pain relief you may alternate ibuprofen and acetaminophen every 4 hours for pain control. Take 600 mg ibuprofen (Advil) and then 4 hours later take 1000 mg acetaminophen (Tylenol). Do not take more than 3000 mg acetaminophen in a single day. Oxycodone (OxyIR) 5mg: Take ONE pill every SIX hours for breakthrough pain. Avoid alcohol, operating machinery or dangerous equipment, working on ladders or roofs, DRIVING, or situations where being under the influence may be dangerous. It is recommended to use an [id number] stool softener such as Colace, 100mg twice daily while taking this medication to avoid constipation. Flexeril 1 tablet up to 3 times a day as needed for muscle spasms. No driving, working, or alcohol use with Flexeril. Take prednisone daily for the next 4 days You are welcome to return to the emergency department anytime with new, worsening, or concerning symptoms. Problem Qualifiers
== END 2017-09-25 01:54 | disposition home or self-care (01) ==
LOC: C.EDB 23:28 → C.EDA 09-25 01:54
DX: T14.8XXA Other injury of unspecified body region, initial encounter (principal); W10.9XXA Fall (on) (from) unspecified stairs and steps, initial encounter; Y92.009 Unspecified place in unspecified non-institutional (private) residence as the place of occurrence of the external cause; F84.5 Asperger's syndrome; J45.909 Unspecified asthma, uncomplicated; R10.9 Unspecified abdominal pain; G89.29 Other chronic pain; K58.9 Irritable bowel syndrome, unspecified; F17.200 Nicotine dependence, unspecified, uncomplicated; Z79.52 Long term (current) use of systemic steroids; Z79.1 Long term (current) use of non-steroidal anti-inflammatories (NSAID); Z79.2 Long term (current) use of antibiotics; Z79.899 Other long term (current) drug therapy

== ENCOUNTER 2017-10-18 17:52 | Emergency (ER) | payer OTHER ==
[~2017-10-18] VITALS: Ht 177.8 cm; Wt 132.5 kg
[~2017-10-18 17:52] MED LIST changes: -AMT25 PO; -CYM/60 PO; -DICY10CA55 PO; -DICY20TA10 PO; -NRN100 PO; +NRN300 PO; -PROM12.57 PO; -PROM1SUP19 PR; +RIFA550T2 PO; +TRAZ50TA35 PO
[2017-10-18 17:56] VITALS: TEMP 36.6; Ht 177.8 cm; Wt 132.5 kg
[2017-10-18] MEDS ORDERED: KETOROLAC TROMETHAMINE 30 MG/ML VIAL IV STA (18:00)
[2017-10-18] MEDS ORDERED: ONDANSETRON 4MG OD TAB PO ONE (18:00)
[2017-10-18] MEDS ORDERED: SODIUM CHLORIDE 0.9% 1000ML 500 ML IV STA (18:00)
[2017-10-18] MEDS ORDERED: MoRPHine SULFATE 4 MG/ML 1 ML CARP\\VIAL IV PRN (18:00)
--- NOTE | 2017-10-18 18:30 | EMERGENCY ROOM VISIT NOTE ---
History Report prepared by Padma: Sukumar Tirado Under the Supervision of: Dr. Holger Payan M.D. First contact with patient: 17:59 Chief Complaint: KIDNEY STONE Stated Complaint: KIDNEY STONES History of Present Illness The patient is a 32 year old male who presents to the Emergency Room with complaints of worsening right sided flank and abdominal pain beginning two days ago. He currently rates his discomfort a 6/10 in severity. The patient states he has a history of kidney stones, and this feels very similar to his previous stones. He reports his symptoms started in the right flank and have moved to his abdomen, and he started having difficulty urinating and slight nausea today. The patient notes he also has pain with urination and denies blood with urination. He states he has not required surgery for his kidney stones because he has passed them naturally. The patient reports he tried ibuprofen, and it is not helping. He notes laying down helps his symptoms, and sitting, urinating, or standing worsens his symptoms. The patient notes he thought he tweaked his back while moving furniture the other day. He states he currently takes Flomax for a narrow urethra. The patient denies fevers and vomiting. Source of History: patient Onset: two days ago Position: abdomen (right), other (Right flank) Symptom Intensity: 6/10 Timing: worsening Modifying Factors (Worsening): movement (standing or sitting), urination Modifying Factors (Relieving): other (laying down) Associated Symptoms: + nausea, No fevers, No vomiting Note: Associated symptoms: pain with urination, trouble with urination Denies: blood in urine Review of Systems See HPI for pertinent positives & negatives. A total of 10 systems reviewed and were otherwise negative. Past Medical & Surgical Medical Problems: (1) Asperger's disorder (2) Asthma (3) Chronic abdominal pain (4) Colitis (5) Complete tear, knee, anterior cruciate ligament (6) History of reconstruction of anterior cruciate ligament tear (7) IBS (irritable bowel syndrome) (8) Irritable colon (9) Migraines (10) Neck strain (11) UNSP GASTRITIS & GASTRODUODENITIS W/O MENTN HEMORG Family History Heart disease Social History Smoking Status: Current Every Day Smoker Alcohol Use: occasionally Drug Use: none Marital Status: single Housing Status: lives with family Occupation Status: employed Current/Historical Medications Scheduled Amitriptyline HCl (Amitriptyline HCl), 100 MG PO HS Clonazepam (Klonopin), 2 MG PO HS Fluticasone Propionate (Fluticasone Propionate), 2 SPRAY ROSS BID Gabapentin (Gabapentin), 300 MG PO AMPM Meloxicam (Meloxicam), 15 MG PO QAM Omeprazole (Prilosec), 40 MG PO QPM Pantoprazole (Pantoprazole Sodium), 40 MG PO BID Rifaximin (Xifaxan), 550 MG PO TID Tamsulosin HCl (Tamsulosin HCl), 0.4 MG PO QAM Trazodone Hcl (Trazodone), 50 MG PO HS Scheduled PRN Cyclobenzaprine Hcl (Flexeril), 10 MG PO TID PRN for Muscle Spasms Allergies Coded Allergies: Mold (Blue) Cheese (Verified Allergy, Severe, "BLUE CHEESE" -- ANAPHYLAXIS , 10/18/17) BEE STING (Verified Allergy, Mild, 10/18/17) Latex1 -Allergic Contact Dermititis (Verified Allergy, Mild, 10/18/17) Dust (Verified Allergy, Unknown, MILD RESP DISCOMFORT, 10/18/17) POLLEN (Verified Allergy, Unknown, MILD RESP DISCOMFORT, 10/18/17) Olives (Verified Adverse Reaction, Mild, Black olives trigger IBS, 10/18/17 ) Hydromorphone (Verified Adverse Reaction, Unknown, Headache, 10/18/17) Uncoded Allergies: ONIONS (Allergy, Intermediate, N/V/DIARRHEA, 11/19/15) MUSHROOMS (Adverse Reaction, Intermediate, N/V/DIARRHEA, 11/19/15) Physical Exam Vital Signs Date Time Temp Pulse Resp B/P (MAP) Pulse Ox O2 Delivery O2 Flow Rate FiO2 10/18/17 20:15 84 138/88 94 10/18/17 19:41 89 140/90 95 Room Air 10/18/17 17:56 36.6 111 22 170/106 96 Room Air Physical Exam GENERAL: Patient is in no acute distress. HEENT: No acute trauma, normocephalic atraumatic, mucous membranes moist, no nasal congestion, no scleral icterus. NECK: No stridor, no adenopathy, no meningismus, trachea is midline. LUNGS: Clear to auscultation bilaterally, no wheeze, no rhonchi, breath sounds equal. HEART: Without murmurs gallops or rubs, regular rate and rhythm. ABDOMEN: Soft, moderately tender along the entire right side, bowel sounds positive, no hernias, no peritonitis. BACK: Right flank discomfort with percussion. Right lumbar muscle tenderness to palpation. Pain seems to worsen with movement. EXTREMITIES: No cyanosis or edema, full range of motion of all the joints without pain or difficulty, no signs for acute trauma. NEUROLOGIC: Oriented x 3, no acute motor or sensory deficits, no focal weakness. SKIN: No rash, no jaundice, no diaphoresis. Medical Decision & Procedures ER Provider Diagnostic Interpretation: Radiology results as stated below per my review and radiologist interpretation: ULTRASOUND KIDNEYS AND BLADDER CLINICAL HISTORY: Flank pain. COMPARISON STUDY: Abdominal CT dated 08/24/2017. TECHNIQUE: Real-time, grayscale, and color flow sonography of the kidneys and bladder is performed. Images are reviewed in the transverse and longitudinal planes. FINDINGS: Kidneys: The kidneys are normal in size and echotexture. The right kidney measures 11.4 cm in length and the left kidney measures 11.3 cm in length. There is no hydronephrosis. No shadowing renal calculi are identified. There is no sonographic evidence of contour deforming renal mass lesion. No perinephric fluid is identified. Bladder: The bladder is normal in appearance. Only the left ureteral jet was seen. Upper abdomen: Survey images of the liver show evidence of hepatomegaly and hepatic steatosis. IMPRESSION: 1. Unremarkable sonographic assessment of the kidneys and bladder. 2. Hepatomegaly and hepatic steatosis. Electronically signed by: Holger Sherwood M.D. 10/18/2017 7:40 PM Dictated Date/Time: 10/18/2017 7:39 PM Laboratory Results 10/18/17 18:21 10/18/17 18:21 Test 10/18/17 18:21 10/18/17 18:44 Red Blood Count 5.97 M/uL (4.7-6.1) Mean Corpuscular Volume 79.7 fL (80-100) Mean Corpuscular Hemoglobin 28.8 pg (25-34) Mean Corpuscular Hemoglobin Concent 36.1 g/dl (32-36) RDW Standard Deviation 36.6 fL (36.4-46.3) RDW Coefficient of Variation 12.7 % (11.5-14.5) Mean Platelet Volume 9.7 fL (7.4-10.4) Anion Gap 7.0 mmol/L (3-11) Est Creatinine Clear Calc Drug Dose 157.6 ml/min Estimated GFR () 126.3 Estimated GFR (Non- 109.0 BUN/Creatinine Ratio 9.4 (10-20) Calcium Level 8.7 mg/dl (8.5-10.1) Total Bilirubin 0.2 mg/dl (0.2-1) Aspartate Amino Transf (AST/SGOT) 30 U/L (15-37) Alanine Aminotransferase (ALT/SGPT) 54 U/L (12-78) Alkaline Phosphatase 117 U/L (45-117) Total Protein 7.6 gm/dl (6.4-8.2) Albumin 3.7 gm/dl (3.4-5.0) Globulin 3.9 gm/dl (2.5-4.0) Albumin/Globulin Ratio 1.0 (0.9-2) Lipase 87 U/L (73-393) Urine Color YELLOW Urine Appearance CLEAR (CLEAR) Urine pH 7.5 (4.5-7.5) Urine Specific [place] 1.009 (1.000-1.030) Urine Protein NEG (NEG) Urine Glucose (UA) NEG (NEG) Urine Ketones NEG (NEG) Urine Occult Blood NEG (NEG) Urine Nitrite NEG (NEG) Urine Bilirubin NEG (NEG) Urine Urobilinogen NEG (NEG) Urine Leukocyte Esterase NEG (NEG) Laboratory results reviewed by me. Medications Administered Medications (Trade) Dose Ordered Sig/Jaycob Route Start Time Stop Time Status Last Admin Dose Admin Sodium Chloride 500 ml @ 999 mls/hr Q31M STAT IV 18 18:00 10/18/17 18:30 DC 10/18/17 18:40 999 MLS/HR Ondansetron HCl (Zofran Odt) 4 mg ONE ONCE PO 10/18/17 18:00 10/18/17 18:05 DC 10/18/17 18:41 4 MG Morphine Sulfate (MoRPHine SULFATE INJ) 4 mg Q15M PRN IV 10/18/17 18:00 10/18/17 20:43 DC 10/18/17 18:40 4 MG Ketorolac Tromethamine (Toradol Inj) 30 mg NOW STAT IV 10/18/17 18:00 10/18/17 18:05 DC 10/18/17 18:40 30 MG ED Course 175: The patient was evaluated in room C10. A complete history and physical exam was performed. 1799: Ordered Toradol 30mg IV, Morphine Sulfate 4mg IV, Zofran 4mg PO, Sodium Chloride 500 ml @ 999 mls/hr IV 1953: Reevaluated the patient. Discussed results and discharge instructions: he verbalized understanding and agreement. The patient is ready for discharge when he receives his medication. 1999: Ordered Cyclobenzaprine 1 homepack PO, Oxycodone HCl 1 homepack PO Medical Decision The patient is a 32 year old male who presents to the ED with complaints of worsening right sided flank and abdominal pain. Differential diagnoses considered include renal colic, hydronephrosis, hematuria, renal failure, UTI, pancreatitis, musculoskeletal, hepatitis. There is no leukocytosis or concerning anemia. No significant electrolyte abnormality, kidney failure, hepatitis or pancreatitis. Urinalysis does not show infection or hematuria. Renal ultrasound does not show hydronephrosis or any suggestion of a ureteral stone. The patient received IV Toradol, IV Zofran, IV saline and IV morphine. He still has pain but is feeling improved. The patient appears to have musculoskeletal pain. The pain is worse with palpation and movement. He is being discharged with Flexeril and a few oxycodone. Nonsteroidals, heat, rest were also advised. If worsening, he can return. [place] Drug Monitoring Program Search Results: patient reviewed within database, see additional documentation Drug Monitoring Findings: Pt received a prescription for 12 oxycodone on the 25 of September. Medication Reconcilliation Current Medication List: was personally reviewed by me Blood Pressure Screening Patient's blood pressure: Elevated blood pressure Blood pressure disposition: Elevated BP felt to be situational Impression Primary Impression: Right flank pain Scribe Attestation The scribe's documentation has been prepared under my direction and personally reviewed by me in its entirety. I confirm that the note above accurately reflects all work, treatment, procedures, and medical decision making performed by me. Departure Information Dispostion Home / Self-Care Prescriptions Cyclobenzaprine Hcl (FLEXERIL) 10 Mg Tab 10 MG PO TID Y for Muscle Spasms, #12 TAB Prov: Holger Payan M.D. 10/18/17 Referrals Jhon [place] D.O. (PCP) Forms HOME CARE DOCUMENTATION FORM, IMPORTANT VISIT INFORMATION Patient Instructions My [facility] [email or web address] Additional Instructions use motrin for pain may the oxy ir for severe pain flexeril 1 tab up to 3x per day for muscle relaxation heat to the back will help no heavy lifting rest return for fever, vomiting, uncontrolled pain follow with kary dominguez and urology no evidence for kidney stone today by testing
[2017-10-18 19:04] LABS: HEMATOCRIT 47.6 % (42-52); HEMOGLOBIN 17.2 g/dL (14.0-18.0); MEAN CELL VOLUME 79.7 fL (80-100); MEAN CORPUSCULAR HEMOGLOBIN 28.8 pg (25-34); MEAN CORPUSCULAR HGB CONC 36.1 g/dl (32-36); MEAN PLATELET VOLUME 9.7 fL (7.4-10.4); PLATELET COUNT 266 K/uL (130-400); RED CELL DISTRIBUTION WIDTH CV 12.7 % (11.5-14.5); RED CELL DISTRIBUTION WIDTH SD 36.6 fL (36.4-46.3); WHITE BLOOD COUNT 7.12 K/uL (4.8-10.8)
[2017-10-18 19:17] LABS: ALBUMIN 3.7 gm/dl (3.4-5.0); CALCIUM 8.7 mg/dl (8.5-10.1); CREATININE 0.93 mg/dl (0.60-1.40); POTASSIUM 3.8 mmol/L (3.5-5.1); TOTAL PROTEIN 7.6 gm/dl (6.4-8.2)
--- NOTE | 2017-10-18 19:41 | DIAGNOSTIC IMAGING REPORT ---
ULTRASOUND KIDNEYS AND BLADDER CLINICAL HISTORY: Flank pain. COMPARISON STUDY: Abdominal CT dated 08/24/2017. TECHNIQUE: Real-time, grayscale, and color flow sonography of the kidneys and bladder is performed. Images are reviewed in the transverse and longitudinal planes. FINDINGS: Kidneys: The kidneys are normal in size and echotexture. The right kidney measures 11.4 cm in length and the left kidney measures 11.3 cm in length. There is no hydronephrosis. No shadowing renal calculi are identified. There is no sonographic evidence of contour deforming renal mass lesion. No perinephric fluid is identified. Bladder: The bladder is normal in appearance. Only the left ureteral jet was seen. Upper abdomen: Survey images of the liver show evidence of hepatomegaly and hepatic steatosis. IMPRESSION: 1. Unremarkable sonographic assessment of the kidneys and bladder. 2. Hepatomegaly and hepatic steatosis. Electronically signed by: Holger Sherwood M.D. 10/18/2017 7:40 PM Dictated Date/Time: 10/18/2017 7:39 PM
[2017-10-18] MEDS ORDERED: OXYCODONE IR HOME PACK PO ONE (20:00)
[2017-10-18] MEDS ORDERED: FLEXERIL HOME PACK 10 MG VIAL PO ONE (20:00)
[2017-10-18] MEDS ORDERED: CYCL10TA6 PO (20:02)
[2017-10-18 20:15] VITALS: BP 138/88; PULSE 84; O2SAT 94
== END 2017-10-18 20:15 | disposition home or self-care (01) ==
LOC: C.EDB 17:54 → C.EDC 20:15
DX: R10.9 Unspecified abdominal pain (principal); Z87.442 Personal history of urinary calculi; J45.909 Unspecified asthma, uncomplicated; F84.5 Asperger's syndrome; F17.200 Nicotine dependence, unspecified, uncomplicated; Z98.890 Other specified postprocedural states; Z91.030 Bee allergy status; Z91.040 Latex allergy status; Z91.018 Allergy to other foods; Z88.5 Allergy status to narcotic agent; Z91.09 Other allergy status, other than to drugs and biological substances

== ENCOUNTER 2017-10-20 14:38 | Emergency (ER) | payer OTHER ==
[~2017-10-20] VITALS: Ht 177.8 cm; Wt 132.6 kg
[~2017-10-20 14:38] MED LIST changes: +CYCL10TA6 PO
[2017-10-20 14:43] VITALS: TEMP 36.4; Ht 177.8 cm; Wt 132.6 kg
[2017-10-20] MEDS ORDERED: MoRPHine SULFATE 10 MG/ML CARP/VIAL IV STA (15:00)
[2017-10-20] MEDS ORDERED: ONDANSETRON INJ 2 MG/ML 2 ML VIAL IV STA (15:00)
[2017-10-20 15:51] LABS: BASO % 0.2 %; BASO ABS # 0.02 K/uL (0-0.2); EOS ABS # 0.17 K/uL (0-0.5); HEMATOCRIT 45.8 % (42-52); HEMOGLOBIN 16.7 g/dL (14.0-18.0); IG# 0.02 K/uL (0.00-0.02); LYMPH % 28.7 %; LYMPH ABS # 2.41 K/uL (1.2-3.4); MEAN CELL VOLUME 79.7 fL (80-100); MEAN CORPUSCULAR HGB CONC 36.5 g/dl (32-36); MEAN PLATELET VOLUME 9.6 fL (7.4-10.4); MONO % 9.5 %; NEUT % 59.4 %; NEUT ABS # 4.99 K/uL (1.4-6.5); PLATELET COUNT 258 K/uL (130-400); RED CELL DISTRIBUTION WIDTH CV 12.7 % (11.5-14.5); RED CELL DISTRIBUTION WIDTH SD 36.4 fL (36.4-46.3); WHITE BLOOD COUNT 8.41 K/uL (4.8-10.8)
--- NOTE | 2017-10-20 16:02 | DIAGNOSTIC IMAGING REPORT ---
CT SCAN OF THE ABDOMEN AND PELVIS WITHOUT CONTRAST CLINICAL HISTORY: Severe right flank pain COMPARISON STUDY: 08/24/2017 TECHNIQUE: CT scan of the abdomen and pelvis was performed from the lung bases to the proximal femurs. Images are reviewed in the axial, sagittal, and coronal planes. IV contrast was not administered for this examination. A dose lowering technique was utilized adhering to the principles of ALARA. CT DOSE: 1879.19 mGy.cm FINDINGS: Lower chest: There are dependent atelectatic changes present. Liver: There is hepatic steatosis. No focal masses are visualized. Gallbladder: Unremarkable. Spleen: Normal in size and attenuation. Pancreas: Unremarkable. Adrenal glands: Unremarkable. Kidneys: There is a punctate nonobstructing right renal calculus. No ureteral or bladder calculi are visualized. There is no significant hydronephrosis. Bowel: There are no transition zones indicate bowel obstruction. The appendix appears normal. There is no acute diverticulitis. There are scattered colonic diverticula present. Peritoneum: There is no intraperitoneal free air or abdominal ascites. Vasculature: The abdominal aorta is normal in course and caliber. Adenopathy: None. Pelvic viscera: The bladder, and pelvic viscera are unremarkable. Skeletal structures: No destructive osseous lesions are seen. IMPRESSION: 1. No evidence of bowel obstruction. No evidence of free air 2. Normal appendix. No evidence of diverticulitis 3. Nonobstructing punctate right renal calculus. No ureteral or bladder calculi identified. 4. Hepatic steatosis Electronically signed by: Joshua Gan M.D. 10/20/2017 4:01 PM Dictated Date/Time: 10/20/2017 3:57 PM
[2017-10-20 16:15] LABS: ALBUMIN 3.7 gm/dl (3.4-5.0); CALCIUM 8.8 mg/dl (8.5-10.1); CREATININE 0.93 mg/dl (0.60-1.40); TOTAL PROTEIN 7.8 gm/dl (6.4-8.2)
[2017-10-20] MEDS ORDERED: MoRPHine SULFATE 4 MG/ML 1 ML CARP\\VIAL IV STA (16:42)
--- NOTE | 2017-10-20 18:50 | DIAGNOSTIC IMAGING REPORT ---
BILIARY ULTRASOUND CLINICAL HISTORY: Severe right upper quadrant abdominal pain COMPARISON STUDY: CT scan dated 10/20/2017 FINDINGS: The study is limited from a technical standpoint due to the patient's large body habitus. The pancreas was not visualized. There is hepatic steatosis. No focal hepatic masses are visualized. The gallbladder appears sonographically normal. There is no ductal dilatation. The common bile duct measures 4 mm. There is no right-sided hydronephrosis. IMPRESSION: 1. Nondiagnostic evaluation the pancreas 2. Hepatic steatosis 3. Ultrasonographically normal gallbladder. No evidence of ductal dilatation. Electronically signed by: Joshua Gan M.D. 10/20/2017 6:49 PM Dictated Date/Time: 10/20/2017 6:48 PM
[2017-10-20 19:05] VITALS: BP 165/89; PULSE 86; O2SAT 99
--- NOTE | 2017-10-20 21:27 | EMERGENCY ROOM VISIT NOTE ---
History Report prepared by Scribe: Ade Gonzalez Under the Supervision of: Dr. Caden Lo D.O. First contact with patient: 14:48 Chief Complaint: GI ASSESSMENT Stated Complaint: RIGHT FLANK PAIN,NAUSEA,SOB,PAIN DURING BM & URINA History of Present Illness The patient is a 32 year old male who presents to the Emergency Room with complaints of worsening RLQ abdominal pain for the past 3 days. He rates his discomfort as an 8/10 in severity. Movement worsens his pain. He was seen here in the ED 3 days ago and had an ultrasound of the kidneys that came back unremarkable. The patient states he has a history of kidney stones and his pain originally felt like his usual kidney stone, but "now it doesn't anymore". He admits to nausea but has not vomited. He experienced pain with his last BM that was about 1 hour [employer]. He denies any recent trauma or falls. Pt denies fevers, cough, runny nose, headache, change in vision, fevers, chest pain, shortness of breath, vomiting, diarrhea, pain with urination, and melena. Source of History: patient Onset: 3 days [employer] Position: abdomen (RLQ) Symptom Intensity: 8/10 Timing: worsening Modifying Factors (Worsening): movement Associated Symptoms: + nausea, No fevers, No headache, No cough, No chest pain, No SOB, No vomiting, No melena, No diarrhea, No urinary symptoms Review of Systems See HPI for pertinent positives & negatives. A total of 10 systems reviewed and were otherwise negative. Past Medical & Surgical Medical Problems: (1) Asperger's disorder (2) Asthma (3) Chronic abdominal pain (4) Colitis (5) Complete tear, knee, anterior cruciate ligament (6) History of reconstruction of anterior cruciate ligament tear (7) IBS (irritable bowel syndrome) (8) Irritable colon (9) Migraines (10) Neck strain (11) UNSP GASTRITIS & GASTRODUODENITIS W/O MENTN HEMORG Family History Heart disease Social History Smoking Status: Current Every Day Smoker Alcohol Use: occasionally Drug Use: none Marital Status: single Housing Status: lives with family Occupation Status: employed Current/Historical Medications Scheduled Amitriptyline HCl (Amitriptyline HCl), 100 MG PO HS Clonazepam (Klonopin), 2 MG PO HS Fluticasone Propionate (Fluticasone Propionate), 2 SPRAY ROSS BID Gabapentin (Gabapentin), 300 MG PO AMPM Meloxicam (Meloxicam), 15 MG PO QAM Omeprazole (Prilosec), 40 MG PO QPM Pantoprazole (Pantoprazole Sodium), 40 MG PO BID Rifaximin (Xifaxan), 550 MG PO TID Tamsulosin HCl (Tamsulosin HCl), 0.4 MG PO QAM Trazodone Hcl (Trazodone), 50 MG PO HS Scheduled PRN Cyclobenzaprine Hcl (Flexeril), 10 MG PO TID PRN for Muscle Spasms Allergies Coded Allergies: Mold (Blue) Cheese (Verified Allergy, Severe, "BLUE CHEESE" -- ANAPHYLAXIS , 10/20/17) BEE STING (Verified Allergy, Mild, 10/20/17) Latex1 -Allergic Contact Dermititis (Verified Allergy, Mild, 10/20/17) Dust (Verified Allergy, Unknown, MILD RESP DISCOMFORT, 10/20/17) POLLEN (Verified Allergy, Unknown, MILD RESP DISCOMFORT, 10/20/17) Olives (Verified Adverse Reaction, Mild, Black olives trigger IBS, 10/20/17 ) Hydromorphone (Verified Adverse Reaction, Unknown, Headache, 10/20/17) Uncoded Allergies: ONIONS (Allergy, Intermediate, N/V/DIARRHEA, 11/19/15) MUSHROOMS (Adverse Reaction, Intermediate, N/V/DIARRHEA, 11/19/15) Physical Exam Vital Signs Date Time Temp Pulse Resp B/P (MAP) Pulse Ox O2 Delivery O2 Flow Rate FiO2 10/20/17 19:05 86 16 165/89 99 10/20/17 17:25 90 144/82 93 Room Air 10/20/17 14:43 36.4 107 18 160/99 93 Room Air Physical Exam GENERAL: Sitting up in bed, alert, well nourished, in moderate distress, holding RUQ, non-toxic EYE EXAM: normal conjunctiva. OROPHARYNX: no exudate, no erythema, lips, buccal mucosa, and tongue normal and mucous membranes are moist NECK: supple, no nuchal rigidity, no adenopathy, non-tender LUNGS: Clear to auscultation. Normal chest wall mechanics HEART: Tachycardic heart rate, no murmurs, S1 normal and S2 normal ABDOMEN: abdomen soft, tender to palpation in RUQ, normo-active bowel sounds, no masses, no rebound or guarding. RECTAL: Heme negative. BACK: Back is symmetrical on inspection and there is no deformity, no midline tenderness, no CVA tenderness. SKIN: no rashes and no bruising UPPER EXTREMITIES: upper extremities are grossly normal. LOWER EXTREMITIES: No pitting edema. NEURO EXAM: Normal sensorium, cranial nerves II-XII grossly intact, normal speech, no gross weakness of arms, no gross weakness of legs. Gross sensation intact. Medical Decision & Procedures ER Provider Diagnostic Interpretation: Radiology results as stated below per my review and the radiologist's interpretation: CT SCAN OF THE ABDOMEN AND PELVIS WITHOUT CONTRAST CLINICAL HISTORY: Severe right flank pain COMPARISON STUDY: 08/24/2017 TECHNIQUE: CT scan of the abdomen and pelvis was performed from the lung bases to the proximal femurs. Images are reviewed in the axial, sagittal, and coronal planes. IV contrast was not administered for this examination. A dose lowering technique was utilized adhering to the principles of ALARA. CT DOSE: 1879.19 mGy.cm FINDINGS: Lower chest: There are dependent atelectatic changes present. Liver: There is hepatic steatosis. No focal masses are visualized. Gallbladder: Unremarkable. Spleen: Normal in size and attenuation. Pancreas: Unremarkable. Adrenal glands: Unremarkable. Kidneys: There is a punctate nonobstructing right renal calculus. No ureteral or bladder calculi are visualized. There is no significant hydronephrosis. Bowel: There are no transition zones indicate bowel obstruction. The appendix appears normal. There is no acute diverticulitis. There are scattered colonic diverticula present. Peritoneum: There is no intraperitoneal free air or abdominal ascites. Vasculature: The abdominal aorta is normal in course and caliber. Adenopathy: None. Pelvic viscera: The bladder, and pelvic viscera are unremarkable. Skeletal structures: No destructive osseous lesions are seen. IMPRESSION: 1. No evidence of bowel obstruction. No evidence of free air 2. Normal appendix. No evidence of diverticulitis 3. Nonobstructing punctate right renal calculus. No ureteral or bladder calculi identified. 4. Hepatic steatosis Electronically signed by: Joshua Gan M.D. 10/20/2017 4:01 PM BILIARY ULTRASOUND CLINICAL HISTORY: Severe right upper quadrant abdominal pain COMPARISON STUDY: CT scan dated 10/20/2017 FINDINGS: The study is limited from a technical standpoint due to the patient's large body habitus. The pancreas was not visualized. There is hepatic steatosis. No focal hepatic masses are visualized. The gallbladder appears sonographically normal. There is no ductal dilatation. The common bile duct measures 4 mm. There is no right-sided hydronephrosis. IMPRESSION: 1. Nondiagnostic evaluation the pancreas 2. Hepatic steatosis 3. Ultrasonographically normal gallbladder. No evidence of ductal dilatation. Electronically signed by: Joshua Gan M.D. 10/20/2017 6:49 PM Laboratory Results 10/20/17 15:35 Red Blood Count 5.75, Mean Corpuscular Volume 79.7, Mean Corpuscular Hemoglobin 29.0, Mean Corpuscular Hemoglobin Concent 36.5, Mean Platelet Volume 9.6, Neutrophils (%) (Auto) 59.4, Lymphocytes (%) (Auto) 28.7, Monocytes (%) (Auto) 9.5, Eosinophils (%) (Auto) 2.0, Basophils (%) (Auto) 0.2, Neutrophils # (Auto) 4.99, Lymphocytes # (Auto) 2.41, Monocytes # (Auto) 0.80, Eosinophils # (Auto) 0.17, Basophils # (Auto) 0.02 10/20/17 15:35 Test 10/20/17 15:05 10/20/17 15:35 Urine Color YELLOW Urine Appearance CLEAR (CLEAR) Urine pH 7.0 (4.5-7.5) Urine Specific Boelus 1.008 (1.000-1.030) Urine Protein NEG (NEG) Urine Glucose (UA) NEG (NEG) Urine Ketones NEG (NEG) Urine Occult Blood NEG (NEG) Urine Nitrite NEG (NEG) Urine Bilirubin NEG (NEG) Urine Urobilinogen NEG (NEG) Urine Leukocyte Esterase NEG (NEG) Urine WBC (Auto) 0 /hpf (0-5) Urine RBC (Auto) 0-4 /hpf (0-4) Urine Hyaline Casts (Auto) 0 /lpf (0-5) Urine Epithelial Cells (Auto) 0-5 /lpf (0-5) Urine Bacteria (Auto) NEG (NEG) White Blood Count 8.41 K/uL (4.8-10.8) Red Blood Count 5.75 M/uL (4.7-6.1) Hemoglobin 16.7 g/dL (14.0-18.0) Hematocrit 45.8 % (42-52) Mean Corpuscular Volume 79.7 fL (80-100) Mean Corpuscular Hemoglobin 29.0 pg (25-34) Mean Corpuscular Hemoglobin Concent 36.5 g/dl (32-36) Platelet Count 258 K/uL (130-400) Mean Platelet Volume 9.6 fL (7.4-10.4) Neutrophils (%) (Auto) 59.4 % Lymphocytes (%) (Auto) 28.7 % Monocytes (%) (Auto) 9.5 % Eosinophils (%) (Auto) 2.0 % Basophils (%) (Auto) 0.2 % Neutrophils # (Auto) 4.99 K/uL (1.4-6.5) Lymphocytes # (Auto) 2.41 K/uL (1.2-3.4) Monocytes # (Auto) 0.80 K/uL (0.11-0.59) Eosinophils # (Auto) 0.17 K/uL (0-0.5) Basophils # (Auto) 0.02 K/uL (0-0.2) RDW Standard Deviation 36.4 fL (36.4-46.3) RDW Coefficient of Variation 12.7 % (11.5-14.5) Immature Granulocyte % (Auto) 0.2 % Immature Granulocyte # (Auto) 0.02 K/uL (0.00-0.02) Anion Gap 6.0 mmol/L (3-11) Est Creatinine Clear Calc Drug Dose 157.6 ml/min Estimated GFR () 126.3 Estimated GFR (Non- 109.0 BUN/Creatinine Ratio 8.6 (10-20) Calcium Level 8.8 mg/dl (8.5-10.1) Total Bilirubin 0.3 mg/dl (0.2-1) Direct Bilirubin 0.1 mg/dl (0-0.2) Aspartate Amino Transf (AST/SGOT) 37 U/L (15-37) Alanine Aminotransferase (ALT/SGPT) 67 U/L (12-78) Alkaline Phosphatase 104 U/L (45-117) Total Protein 7.8 gm/dl (6.4-8.2) Albumin 3.7 gm/dl (3.4-5.0) Lipase 66 U/L (73-393) Laboratory results per my review. Medications Administered Medications (Trade) Dose Ordered Sig/Jaycob Route Start Time Stop Time Status Last Admin Dose Admin Morphine Sulfate (MoRPHine SULFATE INJ) 6 mg NOW STAT IV 10/20/17 15:00 10/20/17 15:01 DC 10/20/17 15:41 6 MG Ondansetron HCl (Zofran Inj) 4 mg NOW STAT IV 10/20/17 15:00 10/20/17 15:01 DC 10/20/17 15:41 4 MG Morphine Sulfate (MoRPHine SULFATE INJ) 4 mg NOW STAT IV 10/20/17 16:42 10/20/17 16:43 DC 10/20/17 17:06 4 MG ECG Per My Interpretation Indication: abdominal pain Rate (beats per minute): 125 Rhythm: sinus tachycardia Findings: no ectopy, other (normal axis) ED Course ED COURSE: Vital signs were reviewed and showed the patient is tachycardic and situationally hypertensive. The patients medical record was reviewed The above diagnostic studies were performed and reviewed. ED treatments and interventions as stated above. 1454: The patient was evaluated in room A4. A complete history and physical examination was performed. 1500: Zofran 4 mg IV, Morphine Sulfate 6 mg IV. 1641: I reevaluated the patient. He is resting comfortably. 1642: Morphine Sulfate 4 mg IV. 1850: Upon reevaluation, the patient is feeling much better. I discussed my findings with the patient and he understands and agrees with the treatment plan. Based on the patients age, coexisting illnesses, exam and lab findings the decision to treat as an outpatient was made. The patient remained stable while under my care. The patient appeared well at the time of discharge. Medical Decision Differential diagnoses includes but is not limited to gastritis, peptic ulcer disease, GERD, gallbladder disease, pancreatitis, small bowel obstruction, acute coronary syndrome, pericarditis, ischemic bowel, irritable bowel disease, irritable bowel syndrome, appendicitis, diverticulitis, malignancy, hernia, urinary tract infection, torsion, /ectopic , perforation, trauma, infectious. Patient is a 32-year-old male who presents to ER for right upper quadrant abdominal pain. On exam patient is mildly tender in the right upper quadrant. He was seen here several days ago and had an ultrasound which was unremarkable. CT today shows no acute infectious findings or stones. CBC along with BMP, LFTs, bilirubin lipase is unremarkable. UA was negative. Patient was given 2 doses of IV morphine. He did feel significantly better. Ultrasound gallbladder was negative. They were updated at bedside. He has followed up with GI on multiple occasions. At this point with the benign workup I did recommend following up as an outpatient especially since he was significantly improved pain marsh. Uncertain of the true cause of his pain. Discussed with Pt concerning signs and symptoms to watch out for. Pt was instructed to follow up with their PCP and discussed with the patient their option to return to the ED at anytime for persistent or worsening symptoms. The appropriate anticipatory guidance and out-patient management, including indications for return to the emergency department, were explained at length to the patient and understood. Medication Reconcilliation Current Medication List: was personally reviewed by me Blood Pressure Screening Patient's blood pressure: Elevated blood pressure Blood pressure disposition: Referred to PCP Impression Primary Impression: Epigastric abdominal pain Scribe Attestation The scribe's documentation has been prepared under my direction and personally reviewed by me in its entirety. I confirm that the note above accurately reflects all work, treatment, procedures, and medical decision making performed by me. Departure Information Dispostion Home / Self-Care Referrals Jhon Colorado D.O. (PCP) Patient Instructions Abdominal Pain - [facility], [facility] Additional Instructions Please follow up with your primary care doctor with in the next 24 hours. Any worsening of your symptoms, please return to the ED immediately. This includes any fevers greater than 100.4, worsening pain, chest pain, shortness breath, persistent nausea, vomiting, unable to eat or drink, or any other concerning signs or symptoms from your standpoint.
== END 2017-10-20 19:06 | disposition home or self-care (01) ==
LOC: C.EDB 14:39 → C.EDA 19:06
DX: R10.13 Epigastric pain (principal); F84.5 Asperger's syndrome; J45.909 Unspecified asthma, uncomplicated; F17.200 Nicotine dependence, unspecified, uncomplicated; Z91.040 Latex allergy status; Z91.018 Allergy to other foods

== ENCOUNTER 2017-10-27 03:09 | Emergency (ER) | payer OTHER ==
[~2017-10-27] VITALS: Ht 177.8 cm; Wt 131.0 kg
[2017-10-27 03:10] VITALS: TEMP 36.7; Ht 177.8 cm; Wt 131.0 kg
[2017-10-27] MEDS ORDERED: LORAZEPAM 1 MG TAB PO STA ×2 (03:27→03:57)
[2017-10-27 04:46] VITALS: BP 141/81; PULSE 97; O2SAT 94
--- NOTE | 2017-10-27 08:01 | DIAGNOSTIC IMAGING REPORT ---
LEFT SHOULDER 3 VIEWS HISTORY: left shoulder pain COMPARISON: None. FINDINGS: There is no fracture or dislocation. Soft tissues are unremarkable. No radiopaque foreign bodies. IMPRESSION: No fractures. Electronically signed by: Conrad Carlson M.D. 10/27/2017 8:00 AM Dictated Date/Time: 10/27/2017 7:58 AM
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
== END 2017-10-27 04:49 | disposition home or self-care (01) ==
LOC: C.EDB 03:10
DX: F41.0 Panic disorder [episodic paroxysmal anxiety] (principal); S49.92XA Unspecified injury of left shoulder and upper arm, initial encounter; W22.8XXA Striking against or struck by other objects, initial encounter; F84.5 Asperger's syndrome; J45.909 Unspecified asthma, uncomplicated; F17.200 Nicotine dependence, unspecified, uncomplicated; Z88.8 Allergy status to other drugs, medicaments and biological substances

== ENCOUNTER 2018-01-28 08:05 | Emergency (ER) | payer OTHER ==
[~2018-01-28] VITALS: Ht 177.8 cm; Wt 130.7 kg
[~2018-01-28 08:05] MED LIST changes: +AMT/50 PO; -AMT100 PO; -CLON2TAB PO; +CLON2TAB10 PO; -CYCL10TA6 PO; +DOXY100C76 PO; -FLM4 PO; -FLNIN/ NAE; +FLUT50SP45 NAE; +GABA-113 PO; +IBUP200C80; -MELO-83 PO; +MELO-84 PO; -NRN300 PO; +PANT40TA PO; -PANT40TA2 PO; +PRAZ1CAP PO; -RIFA550T2 PO; +TAMS0.4C38 PO
[2018-01-28 08:09] VITALS: Ht 177.8 cm; Wt 130.7 kg
[2018-01-28] MEDS ORDERED: LORAZEPAM 1 MG TAB SL STA (08:27)
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
[2018-01-28] MEDS ORDERED: OXYCODONE/ACETAMINOPHEN 5-325 TAB PO ONE (08:30)
[2018-01-28] MEDS ORDERED: PERCOCET HOME PACK PO ONE (08:30)
[2018-01-28 08:57] VITALS: BP 155/98; PULSE 90; TEMP 36.7; O2SAT 97
== END 2018-01-28 08:59 | disposition home or self-care (01) ==
LOC: C.EDB 08:07 → C.EDA 08:59
DX: F41.9 Anxiety disorder, unspecified (principal); M54.5 Low back pain; F84.5 Asperger's syndrome; J45.909 Unspecified asthma, uncomplicated; G89.29 Other chronic pain; R10.9 Unspecified abdominal pain; K58.9 Irritable bowel syndrome, unspecified; F17.210 Nicotine dependence, cigarettes, uncomplicated; Z79.899 Other long term (current) drug therapy; Z91.030 Bee allergy status; Z91.048 Other nonmedicinal substance allergy status; Z91.018 Allergy to other foods; Z91.040 Latex allergy status

== ENCOUNTER 2023-06-09 13:05 | Observation (INO) ==
--- OUTSIDE RECORDS SUMMARY | 2023-06-09 13:11 | External Medical Summary | Summary of Care ---
Author Name Unknown Organization [facility] Address [address] [facility] [place] [address] Phone [phone] Care Team Providers Care Licensed Loan Officer Name Role Phone Miroslava Jhon Fuentes DO Primary Care Provider Reason for Visit * Reason Comments EMG Encounter Details Date Type Department Care Team (Late st Contact Info) Description 06/08/2023 2:05 PM EST NeuroDiagnostic Study Neurophysiology [facility] [address] [facility] [place] [address] Chuckie Villalta MD [address] [facility] [address] Arrived Allergies Active Allergy Reactions Criticality Noted Date Comments Bee Venom 12/28/2014 Cheese 04/01/2015 Blue Cheese Duloxetine Abdominal pain 08/05/2015 Latex 12/28/2014 Molds & Smuts 12/28/2014 documented as of this encounter (statuses as of 06/08/2023) Medications Medication Sig Dispensed Refills Start Date End Date Status baclofen (LIORESAL) 10 MG Tablet TAKE 1 TABLET BY MOUTH TWO TIMES A DAY IN THE MORNING AND AFTERNOON 0 01/26/2018 Active Gabapentin (NEURONTIN) 800 MG Tablet 0 02/26/2018 Active LORazepam (ATIVAN) 1 MG Tablet TAKE 1 TABLET BY MOUTH EVERY EVENING AND 1/2 A TAB DURING THE DAY IF NEEDED 0 02/15/2018 Active omeprazole (PRILOSEC) 40 MG CPDR 0 03/02/2018 Active prazosin (MINIPRESS) 1 MG Capsule Take 1 Capsule by mouth at bedtime. 0 01/31/2018 Active tamsulosin (FLOMAX) 0.4 MG Capsule Take 1 Capsule by mouth in the morning. 0 Active carBAMazepine 200 MG Oral Tablet (Tegretol) Take 1 Tablet by mouth in the morning and 1 Tablet before bedtime. 0 05/07/2023 Active Pregabalin 75 MG Oral Capsule (Lyrica) Take 1 Capsule by mouth in the morning and 1 Capsule before bedtime. 0 05/11/2023 Active Cetirizine HCl 10 MG Oral Tablet (ZyrTEC) Take 1 Tablet by mouth in the morning and 1 Tablet before bedtime. 0 Active Nortriptyline HCl 75 MG Oral Capsule (Pamelor) Take 1 Capsule by mouth at bedtime. 0 04/21/2023 Active Famotidine 40 MG Oral Tablet (Pepcid) Take 1 Tablet by mouth in the morning and 1 Tablet before bedtime. 0 Active Topiramate 50 MG Oral Tablet (topAMAX) Take 1 Tablet by mouth in the morning and 1 Tablet before bedtime. 0 Active rOPINIRole HCl 0.25 MG Oral Tablet (Requip) Take 1 Tablet by mouth in the morning and 1 Tablet before bedtime. 0 05/02/2023 Active tiZANidine HCl 4 MG Oral Tablet (Zanaflex) Take 1 Tablet by mouth every evening. 0 05/07/2023 Active traMADol HCl 50 MG Oral Tablet (Ultram) take 2 tablets by mouth every 8 hours if needed for pain 0 Active documented as of this encounter (statuses as of 06/08/2023) Active Problems Problem Noted Date Diagnosed Date Cervical neck pain with evidence of disc disease 12/28/2014 Lumbago 12/28/2014 Tobacco use disorder 12/28/2014 documented as of this encounter (statuses as of 06/08/2023) Social History Tobacco Use Types Packs/Day Years Used Date Smoking Tobacco: Former Cigarettes 0.5 12 Smokeless Tobacco: Never Alcohol Use Standard Drinks/Week Comments Yes 0 (1 standard drink = 0.6 oz pur e alcohol) maybe 1 every 3 months Sex and Gender Information Value Date Recorded Sex Assigned at Not on file Gender Identity Not on file Sexual Orientation Not on file Job Start Date Occupation Industry Not on file Not on file Not on file documented as of this encounter Progress Notes * Chuckie Villalta MD - 06/08/2023 3:01 PM EST Current study is done to evaluate 3 months of increasingly severe pain in the distal right leg and foot accompanied by spasms and in the setting of longstanding restless legs syndrome Nerve conductions done on the right peroneal right tibial and right sural nerves and the right radial nerve searching for evidence of a peripheral neuropathy are essentially normal with the exceptionof some low amplitude muscle action potentials obtained from the extensor digitorum brevis muscle. The motor conduction velocity for the right peroneal nerve is normal and the conduction velocity across the fibular head stimulating the deep branch of the peroneal nerve is normal. Needle EMG of right L3 through S1 innervated muscles is also unremarkable revealing no evidence for denervation of acute or chronic type and no evidence for myopathic process. The right radial sensory study is normal Overall than there has no compelling evidence for large fiber polyneuropathy, a right peroneal or tibial mononeuropathy, a right lumbar plexopathy, a right L3 through S1 motor radiculopathy, a disorder of motor neurons, or a myopathic process Chuckie Villalta MD documented in this encounter Plan of Treatment Health Maintenance Due Date Last Done Comments DTaP,Tdap,and Td Vaccines (6 - Tdap) 1997 09/10/1991, 09/10/1991, 04/13/1988, Additional history exists Depression Screening 1998 HIV Screening 2001 Hepatitis C Screening 2004 Influenza Vaccine (FLU shot) (#1) 2023 Hepatitis B Completed 10/26/1998, 05/05, 05/03/1998 COVID-19 Vaccine Completed 03/14/2023, , 05/16/2021, Additional history exists GARDASIL-HPV IMMUNIZATION SERIES Aged Out No longer eligible based on patient's age to complete this topic MENINGOCOCCAL (MENACTRA/MENVEO) Aged Out No longer eligible based on patient's age to complete this topic Pneumococcal Vaccine: Pediatrics (0 to 5 Years) and At-Risk Patients (6 to 64 Years) Aged Out No longer eligible based on patient's age to complete this topic documented as of this encounter Medical Devices Not on filedocumented as of this encounter Visit Diagnoses Diagnosis Numbness in right leg- Primary Disturbance of skin sensation documented in this encounter Care Teams Licensed Loan Officer Relationship Specialty Start Date End Date Jhon Colorado DO [address] [address] PCP - General Family Medicine 12/28/14 documented as of this encounter
[2023-06-09 14:13] LABS: Basophils # (auto) 0.03 K/uL (0.00-0.20); Basophils % (auto) 0.5 %; Eosinophils # (auto) 0.02 K/uL (0.00-0.50); Eosinophils % (auto) 0.3 %; Hematocrit (blood only) 50.2 % (42.0-52.0); Hemoglobin 17.7 g/dl (14.0-18.0); Immature Granulocytes # (auto) 0.01 K/uL (0.01-0.20); Immature Granulocytes % (auto) 0.2 %; Lymphocytes # (auto) 1.44 K/uL (1.20-3.40); Lymphocytes % (auto) 23.1 %; Mean Corpuscular Hemoglobin 30.9 pg (25.0-34.0); Mean Corpuscular Hgb Conc 35.3 g/dL (32.0-36.0); Mean Corpuscular Volume 87.8 fL (80.0-100.0); Mean Platelet Volume 10.2 fL (9.4-12.4); Monocytes # (auto) 0.73 K/uL (0.11-0.59); Monocytes % (auto) 11.7 %; Neutrophils % (auto) 64.2 %; Platelet Count 260 K/uL (130-400); RDW Coefficient of Variation 13.8 % (11.5-14.5); RDW Standard Deviation 43.8 fL (36.4-46.3); Red Blood Count 5.72 M/uL (4.70-6.10); White Blood Count 6.23 K/ul (4.8-10.8)
[2023-06-09 14:20] LABS: Alanine Aminotransferase 31 U/L (7-52); Albumin Globulin Ratio 1.4 (0.9-2); Albumin Level 4.9 gm/dl (3.4-5.0); Alkaline Phosphatase 136 U/L (34-104); Anion Gap 13 (3-11); Aspartate Aminotransferase 28 U/L (13-39); Bilirubin,Total 0.8 mg/dl (0.2-1.0); Blood Urea Nitrogen 9 mg/dl (6-23); Calcium 9.8 mg/dl (8.6-10.3); Carbon Dioxide 20 mmol/L (21-32); Chloride 105 mmol/L (98-107); Creatine Kinase 85 U/L (30-223); Est GFR (African American) 126.9 ml/min; Est GFR (Non-African American) 109.5 ml/min; Globulin 3.6 gm/dl (2.5-4.0); Glucose 129 mg/dl (70-99(Fasting)); Magnesium 2.1 mg/dl (1.7-2.4); Potassium 3.7 mmol/L (3.5-5.1); Sodium 138 mmol/L (136-145); Total Protein 8.5 gm/dl (6.0-8.3)
--- NOTE | 2023-06-09 14:30 | Emergency Department Note ---
Impression & Plan Ambulatory dysfunction, Lower extremity pain ED Provider Note HISTORY OF PRESENT ILLNESS: Patient is a 37-year-old male presenting with bilateral lower extremity pain and weakness. Patient states that for the last 3 months he has been having significant pain from his bilateral hips down into his feet. He states that his toes tend to curl over and spasm for multiple minutes at a time before they relax. He states that he has been having progressive worsening of his symptoms. Reports he is unable to ambulate secondary to his leg pain and weakness. Reports he is only able to take about 10 steps before he has to sit down. He had nerve testing of his lower extremities done yesterday through [facility]physiology and workup was negative. He was referred by his primary care provider for admission for further workup. Patient denies any injury to his back or falls. Denies any bowel or bladder incontinence. He denies any saddle anesthesia. He reports pins and needle sensation down bilateral legs into his feet. He states significant pain in the bilateral hips and bilateral knees and describes it as "feels like shards of glass during my joints and someone is blowing out it with a blow torch and then hitting it with an anvil." He reports he had a fever of 101 last night. He reports that he has been taking muscle relaxers and pain medication prescribed by his doctor with little relief in his pain and weakness. ROS: as above PHYSICAL EXAM: Constitutional: Patient appears in no acute distress. HENT: Head: Normocephalic and atraumatic. Eyes: EOMI, PERRL Mouth/Throat: Mucous membranes moist. Neck: Trachea midline. Neck supple. Cardiovascular: Tachycardic with regular rhythm. No murmurs, rubs or gallops. Intact distal pulses. Pulmonary/Chest: No respiratory distress. Breath sounds clear and equal bilaterally. No wheezes or rales. Abdominal: Abdomen soft, no tenderness, rebound or guarding. Back: Palpation Tenderness: None Step-Off: None Wounds/Lacerations/Deformities: None Clonus: no beats Babinski: Downgoing bilaterally Sensation Testing: - RLE: SILT L1-S2 - LLE: SILT L1-S2 Motor Testing: Hip Flex (L2): R 5/5; L 5/5 Knee Ext (L3): R 5/5; L 5/5 Ankle DF (L4): R 5/5; L 5/5 GT Ext (L5): R 5/5; L 5/5 Ankle PF (S1): R 5/5; L 5/5 Musculoskeletal: No edema, tenderness or deformity noted. Skin: Warm and dry. No rash, erythema, pallor or cyanosis Psychiatric: Appropriate mood and affect for situation. Neurological: Alert and keenly responsive. CN II-XII grossly intact, moving all extremities equally and fully. MDM: - Vitals signs showed hypertension and tachycardia. - History obtained via patient. Patient presents with lower extremity pain and weakness. Patient reports symptoms have been worsening over the last 3 months. States he has pain from his bilateral hips down to his feet. He reports his toes tend to curl over and spasm for multiple minutes at a time before they can relax. He states that he has been unable to sleep at night secondary to the pain. His family ember reports that she is unable to care for him anymore secondary to him being unable to sleep and him being unable to ambulate. Patient denies any bowel or bladder incontinence. Denies any injury to the back. He denies any saddle anesthesia. Reports pins and needle sensation down his bilateral legs. - Chronic conditions affecting care: IBS; restless leg syndrome; BPH - Differential diagnoses include, but are not limited to: cauda equina; myositis; herniated disc; muscle spasm - Order placed for continuous cardiac monitoring. At this time, monitor showed rate of 110 bpm with normal sinus rhythm, per my interpretation. - External medical records reviewed. Patient presents with neurophysiology documentation from yesterday which showed that he had nerve testing of his peroneal nerves bilaterally and workup was generally unremarkable for any distal nerve lesion. - Laboratory workup interpreted by myself showed normal WBC; stable electrolytes; slightly elevated anion gap (13); normal CK; negative Lyme - COVID/flu/RSV negative - Patient given 0.625 mg IV droperidol for pain and anxiety in obtaining MRI. - MRI wo contrast of the lumbar spine showed 1x1x0.6 cm left paracentral disc extrusion at L1-L2. Patent central canal - On arrival back to ER from MRI, patient still complaining of pain. Given 4 mg IV morphine. - Patient and his family member report patient has not been sleeping secondary to his pain. Report he is unable to ambulate at home. - Discussion was had with social media marketing analyst about patient's case and need for admission - Hospitalist, Dr. Zhou, consulted for admission - [facility] ASSESSMENT AND PLAN: Diagnosis: ambulatory dysfunction; lower extremity pain Plan: admit Past Med/Surg History Medical History Adopted History of cluster headache in high school History of asthma used to use inhaler, no longer having issues History of scarlet fever Osteoarthritis History of anesthesia reaction woke up during tooth removal before; difficulty waking after procedures at times Prediabetes TOLD PREDIABETES IN THE PAST (GLUCOSES WERE TRANSIENTLY ELEVATED IN SETTING OF PREDNISONE) Morbid obesity BPH (benign prostatic hyperplasia) Diverticulitis NO ISSUES X YEARS Hearing difficulty "MILD" HEARING LOSS Arthritis Radicular pain of shoulder resolved Left shoulder pain resolved Anxiety Asperger's disorder AUTISIM; "ANXIETY AROUND PEOPLE" IBS (irritable bowel syndrome) Kidney stone hx-passed on own Surgical History History of tooth extraction History of prostate surgery greenlight vaporization of prostate 09/2018 History of esophagogastroduodenoscopy (EGD) Hx of colonoscopy Hx of hernia repair AGE 5 Hx of anterior cruciate ligament surgery LEFT Family History Other Adopted person Social History Smoking Status: Never smoker Tobacco Type: E-cigarettes / Vaping Cigarettes Per Day: vapes daily; Second Hand Exposure: No; Do You Dip or Chew Tobacco: No; Hx Alcohol Use: No Hx Substance Use: Yes (medical card) Last Used Substance Other:: none for 1 week Preferred Language: Romanian Communication Ability: Effective Visual Impairment: No Limitations Hearing Ability: Normal Belt Loop Cutter Required: No Beliefs That Will Affect Care: None marital status: Single Current Living Situation: Parent current occupational status: disabled Feels Safe at Home: Yes Assistive Devices: Glasses Allergies Allergies Allergy/AdvReac Type Severity Reaction Status Date / Time bee venom protein (honey bee) Allergy Severe Anaphylaxis Verified 06/09/23 16:01 latex Allergy Mild ITCHY Verified 06/09/23 16:01 pollen extracts Allergy Mild RESP Verified 06/09/23 16:01 PROBLEMS mushroom AdvReac Intermediate Nausea Verified 06/09/23 16:01 olive extract AdvReac Mild BLACK Verified 06/09/23 16:01 OLIVES TRIGGERS IBS BLUE CHEESE Allergy Severe Anaphylaxis Uncoded 06/09/23 16:01 DUST Allergy Mild RESP Uncoded 06/09/23 16:01 DISCOMFORT Home Meds Home Medications Medication Instructions Recorded Confirmed tizanidine 4 mg tablet (Zanaflex) 8 mg PO AMPM 08/03/19 06/09/23 carbamazepine 200 mg tablet 200 mg PO BID 10/14/20 06/09/23 (Tegretol) nortriptyline 75 mg capsule 75 mg PO HS 10/14/20 06/09/23 topiramate 50 mg tablet 50 mg PO BID 10/14/20 06/09/23 tramadol 50 mg tablet 50 mg PO Q8H PRN Pain 10/14/20 06/09/23 diazepam 10 mg tablet (Valium) 20 mg PO HS 12/27/20 06/09/23 pumpkin seed extract-soy germ 300 1 cap PO UD PRN bladder issues 12/27/20 06/09/23 mg capsule (Azo Bladder Control) cetirizine 10 mg tablet 10 mg PO BID 11/27/22 06/09/23 famotidine 40 mg tablet 0 mg PO HS 11/27/22 06/09/23 mirabegron 50 mg tablet,extended 50 mg PO QAM 11/27/22 06/09/23 release 24 hr (Myrbetriq) omeprazole 40 mg capsule,delayed 40 mg PO BID GERD, peptic ulcer 11/27/22 06/09/23 release disease prazosin 2 mg capsule (Minipress) 2 mg PO HS 11/27/22 06/09/23 pregabalin 75 mg capsule 75 mg PO BID 11/27/22 06/09/23 methylprednisolone 4 mg tablets in 4 mg PO DIRECTED 06/09/23 06/09/23 a dose pack oxycodone 5 mg capsule 5 mg PO Q6 PRN pain 06/09/23 06/09/23 Results & Data (ED) Vital Signs Vital Signs - 24 hr 06/09/23 13:08 06/09/23 15:42 Temperature 36.6 C Temperature Source Temporal Artery Scan Pulse Rate 138 H Pulse Rate [Apical] 110 H Respiratory Rate 20 20 Respiratory Effort / Characteristics Non-Labored Respiratory Depth Normal Blood Pressure 164/127 H Blood Pressure [Right Arm] 121/96 Blood Pressure Mean 139 Blood Pressure Mean [Right Arm] 104 Pulse Oximetry 98 99 Oxygen Delivery Method Room Air Room Air Sepsis Recent Fever Within 48 Hours No Sepsis New/Unexplained Change in Mental Status No Sepsis Action Taken by Nursing No Action Required Laboratory Data 06/09/23 13:35 06/09/23 13:35 Lab Results 06/09/23 06/09/23 06/09/23 Range/Units 13:35 14:25 16:30 WBC 6.23 (4.8-10.8) K/ul RBC 5.72 (4.70-6.10) M/uL Hgb 17.7 (14.0-18.0) g/dl Hct 50.2 (42.0-52.0) % MCV 87.8 (80.0-100.0) fL MCH 30.9 (25.0-34.0) pg MCHC 35.3 (32.0-36.0) g/dL RDW Std Deviation 43.8 (36.4-46.3) fL RDW Coeff of Salbador 13.8 (11.5-14.5) % Plt Count 260 (130-400) K/uL MPV 10.2 (9.4-12.4) fL Immature Gran % (Auto) 0.2 % Neut % (Auto) 64.2 % Lymph % (Auto) 23.1 % [place] % (Auto) 11.7 % Eos % (Auto) 0.3 % Baso % (Auto) 0.5 % Neut # (Auto) 4.00 (1.40-6.50) K/uL Lymph # (Auto) 1.44 (1.20-3.40) K/uL [place] # (Auto) 0.73 H (0.11-0.59) K/uL Eos # (Auto) 0.02 (0.00-0.50) K/uL Baso # (Auto) 0.03 (0.00-0.20) K/uL Immature Gran # (Auto) 0.01 (0.01-0.20) K/uL Sodium 138 (136-145) mmol/L Potassium 3.7 (3.5-5.1) mmol/L Chloride 105 (98-107) mmol/L Carbon Dioxide 20 L (21-32) mmol/L Anion Gap 13 H (3-11) BUN 9 (6-23) mg/dl Creatinine 0.90 (0.6-1.4) mg/dl Est Cr Clr Drug Dosing Not Reportable Est GFR ( Amer) 126.9 ml/min Est GFR (Non-Af Amer) 109.5 ml/min BUN/Creatinine Ratio 10.0 (10-20) Glucose 129 H (70-99(Fasting)) mg/dl Lactate 1.6 0.9 (0.4-2.0) mmol/L Calcium 9.8 (8.6-10.3) mg/dl Magnesium 2.1 (1.7-2.4) mg/dl Total Bilirubin 0.8 (0.2-1.0) mg/dl AST 28 (13-39) U/L ALT 31 (7-52) U/L Alkaline Phosphatase 136 H (34-104) U/L Total Creatine Kinase 85 (30-223) U/L Total Protein 8.5 H (6.0-8.3) gm/dl Albumin 4.9 (3.4-5.0) gm/dl Globulin 3.6 (2.5-4.0) gm/dl Albumin/Globulin Ratio 1.4 (0.9-2) Lyme Disease IgG Ab Negative (Negative) Lyme Disease IgM Ab Negative (Negative) SARS-CoV-2 (PCR) NEGATIVE (Negative) Administered Medications Discontinued Medications Droperidol (Droperidol 5 Mg/2 Ml Vial) 0.625 mg IV ONE STA Stop: 06/09/23 14:35 Last Admin: 06/09/23 14:46 Dose: 0.625 mg Documented By: NADINE Morphine Sulfate (Morphine Sulfate 4 Mg/Ml 1 Ml Carp\\Vial) 4 mg IV NOW STA Stop: 06/09/23 16:26 Last Admin: 06/09/23 16:28 Dose: 4 mg Documented By: NADINE Imaging Data Radiologist's Impression: Lumbar Spine MRI 06/09/23 14:23 MRI OF THE LUMBAR SPINE WITHOUT CONTRAST CLINICAL HISTORY: Bilateral lower leg weakness and pain. COMPARISON STUDY: Lumbar spine radiographs September 30, 2020. Lumbar spine CT October 18, 2020. Lumbar spine MRI December 19, 2017. TECHNIQUE: Utilizing a 1.5 Neena magnet and dedicated coil, multiplanar, multiecho imaging of the lumbar spine was performed without IV contrast. FINDINGS: For purposes of numbering on this exam, the L5-S1 disc space is assigned to axial image 23 of 26. Alignment of the lumbar spine is anatomic. Vertebral body heights are maintained. There is no lumbar spine fracture. No marrow replacement is present. There is no intracanalicular mass or fluid collection. The conus terminates at the mid L1 level. Paravertebral soft tissues are unremarkable. The bladder is distended. This exam is mildly compromised by motion artifact. L1-2: There is mild disc space narrowing. There is a 1 x 1 x 0.6 cm left paracentral disc extrusion. This results in moderate narrowing of the left lateral recess and moderate narrowing of the proximal left neural foramen. The central canal and right neural foramen are patent. This disc herniation is new since MRI of December 19, 2017. L2-3: The central canal and neural foramen are patent. L3-4: The central canal and neural foramen are patent. L4-5: The central canal and neural foramen are patent. There is mild facet arthrosis. L5-S1: The central canal and neural foramen are patent. There is mild facet arthrosis. There is a suspected tiny left foraminal annular tear with tiny disc protrusion. IMPRESSION: 1. 1 x 1 x 0.6 cm left paracentral disc extrusion at L1-L2 which is new since MRI of December 19, 2017. This results in moderate narrowing of the left lateral recess and proximal aspect of the left neural foramen. 2. Otherwise, patent central canal and neural foramen within the lumbar spine. 3. Patent central canal. 4. No lumbar spine fractures. 5. Exam mildly compromised by motion artifact. ACT 112: Negative or not required by law. Electronically signed by: Tj Castillo M.D. 06/09/2023 3:46 PM Discharge Plan Visit Data Chief Complaint: Leg Weakness, Bilateral Stated Complaint: LOWER EXTREMITY PAIN, WEAKNESS ED Provider: Rosaura Serra Discharge Problem: Ambulatory dysfunction, Lower extremity pain Forms Stand Alone Forms: My [facility] Prescriptions Prescriptions: No Action diazepam [Valium] 10 mg tablet 20 mg PO HS Azo Bladder Control 300 mg capsule 1 cap PO UD PRN (Reason: bladder issues) tizanidine [Zanaflex] 4 mg tablet 8 mg PO AMPM methylprednisolone 4 mg tablets,dose pack 4 mg PO DIRECTED Rx Instructions: QUIT TAKING LAST NIGHT oxycodone 5 mg capsule 5 mg PO Q6 PRN (Reason: pain) tramadol 50 mg Tablet 50 mg PO Q8H PRN (Reason: Pain) carbamazepine [Tegretol] 200 mg Tablet 200 mg PO BID nortriptyline 75 mg Capsule 75 mg PO HS topiramate 50 mg tablet 50 mg PO BID cetirizine 10 mg Tablet 10 mg PO BID famotidine 40 mg tablet 0 mg PO HS Rx Instructions: unsure prazosin [Minipress] 2 mg capsule 2 mg PO HS pregabalin 75 mg capsule 75 mg PO BID omeprazole 40 mg capsule,delayed release(DR/EC) 40 mg PO BID Myrbetriq 50 mg tablet extended release 24 hr 50 mg PO QAM Referrals Referrals: Jhon [place] DO [Primary Care Provider] -
[2023-06-09] MEDS ORDERED: DROPERIDOL 5 MG/2 ML VIAL IV STA (14:34)
[2023-06-09 15:06] LABS: Lyme Ab IgG w/WB Rflx Negative (Negative); Lyme Ab IgM w/WB Rflx Negative (Negative)
--- NOTE | 2023-06-09 15:49 | Magnetic Resonance Report ---
MRI OF THE LUMBAR SPINE WITHOUT CONTRAST CLINICAL HISTORY: Bilateral lower leg weakness and pain. COMPARISON STUDY: Lumbar spine radiographs September 30, 2020. Lumbar spine CT October 18, 2020. Lumbar spin e MRI December 19, 2017. TECHNIQUE: Utilizing a 1.5 Neena magnet and dedicated coil, multiplanar, multiecho imaging of the [facility] spine was performed without IV contrast. FINDINGS: For purposes of numbering on this exam, the L5-S1 disc space is assigned to axial image 23 of 26. Ali gnment of the lumbar spine is anatomic. Vertebral body heights are maintained. There is no lumbar spi ne fracture. No marrow replacement is present. There is no intracanalicular mass or fluid collection. The conus terminates at the mid L1 level. Paravertebral soft tissues are unremarkable. The bladder i s distended. This exam is mildly compromised by motion artifact. L1-2: There is mild disc space narrowing. There is a 1 x 1 x 0.6 cm left paracentral disc extrusion. This results in moderate narrowing of the left lateral recess and moderate narrowing of the proximal left neural foramen. The central canal and right neural foramen are patent. This disc herniation is n ew since MRI of December 19, 2017. L2-3: The central canal and neural foramen are patent. L3-4: The central canal and neural foramen are patent. L4-5: The central canal and neural foramen are patent. There is mild facet arthrosis. L5-S1: The central canal and neural foramen are patent. There is mild facet arthrosis. There is a alfredo pected tiny left foraminal annular tear with tiny disc protrusion. IMPRESSION: 1. 1 x 1 x 0.6 cm left paracentral disc extrusion at L1-L2 which is new since MRI of December 19, 2017. T his results in moderate narrowing of the left lateral recess and proximal aspect of the left neural f oramen. 2. Otherwise, patent central canal and neural foramen within the lumbar spine. 3. Patent central canal. 4. No lumbar spine fractures. 5. Exam mildly compromised by motion artifact. ACT 112: Negative or not required by law. Electronically signed by: Tj Castillo M.D. 06/09/2023 3:46 PM
[2023-06-09] MEDS ORDERED: MoRPHine SULFATE 4 MG/ML 1 ML CARP\\VIAL IV STA (16:25)
--- NOTE | 2023-06-09 17:38 | History & Physical Report ---
Date of Service June 09, 2023 Assessment & Plan (1) Ambulatory dysfunction: Plan: Progressive ambulatory dysfunction and inability to walk in the last few days more than a few feet due to spasm-like pain radiating from the hip down to the feet worse in the right leg No reproducible pain on palpation during exam MRI of the lumbar spine with a disc extrusion at L1-L2 with moderate narrowing of the left lateral recess and proximal left neural foramen, his symptoms are predominantly right-sided Patient does have a distended bladder, this precedes his back pain/symptoms Nerve conduction study 06/08/2023 without abnormality Patient reports he has not had a inflammatory workup, has had extensive other workup. By rec review did have an indu several years ago, repeated along with CRP Was to trial steroids as outpatient but got nauseous and could not keep the first dose down and has not tried since CK is normal no evidence of rhabdo. CRP is acutely elevated at 4.91 without clear cause. IDNU pended last checked several years PT/OT and conservative steroid trial on admit No signs of sepsis/acute infection Lyme negative (2) IBS (irritable bowel syndrome): Plan: No acute change in management (3) BPH (benign prostatic hyperplasia): Plan: History of incomplete bladder emptying, bladder distention, with complex to history including polypharmacy and prostate surgery Continue current medications, no acute change. Bladder scan every shift (4) Anxiety: Plan: Continue home medications Plan DVT PPx: Lovenox CODE: Full Diet: Reg Dispo: M/S History of Present Illness Primary Care Provider: Jhon Colorado DO Ga is a 37-year-old male with a past medical history of 3 months of severe radiating hip pain into his feet with spasms progressively worsening now limiting his ability to ambulate. No injuries. Has a history of prostate surgury due to chronically distended bladder. THis preceded his current back pain. He notes since that procedure 'I don't know I have to pee until I really have to pee, I don't have much of a early warning system' and has some chronic distension, but no retention/incontinence. Does have a history of kidney stones, R sided recently usually L sided. No dysuria. No blood in the urine. Hx of restless leg syndrome Describes the pain as if 'someone took a sledge hammer and broke the toes then put ground up shards of ice and blowtorch to the joints so they are hot and cold at the same time and hurt with pressure.' Walking makes symptoms worse. Pressure/touching makes the pain worse. Is mostly in the RIGHT leg and worsens with weight bearing, recently is not able to ambulate more than 10 feet or so without severe pain. No saddle anesthesia. No bowel incontinence. No history of neuropathy. Pts mother reports she wakes up to him sobbing at night from pain and 'he just can't keep doing thi sany more.' and ambulation is the biggest con cern currently. Had 1x fever last night. No chest pain or chest pressure. No shortness. Outside of the 1 fever last night no other fevers. Has not had chills/rigors. No cough. No shortness of breath. Did have a nerve conduction study yesterday which was normal Diazepam 20mg for anxiety not for his pain, does not affect his pain at all Took 1 dose of steroid but made him nauseus and vomited History of PTSD/anxiety; Med REview: MORNING: cabamazepine 200mg Pregabalin 75mg topamax 50 omeprazole 40 pepcid 40 myrbetriq 50 cetrizine 10 tizanidine 8 EVENING cabamazepine 200 pregabalin 75mg cetirizine 10mg nortriptyline 75mg pepcid 40 omeprazole 40mg topamax 50 irma;ium 20mg prazosin 1mg tizanidine Endorses GERD/IBS and diverticulitis Does use medical marijuana + tramadol 100mg q8h PRN Azo PRN Medical History: Reviewed Medications: Reviewed Surgical History: Reviewed Family history: Reviewed Allergies: Reviewed NKDA Social History: No tobacco/etoh. Code Status:Full Allergies Allergy/AdvReac Type Severity Reaction Status Date / Time bee venom protein (honey bee) Allergy Severe Anaphylaxis Verified 06/09/23 16:01 latex Allergy Mild ITCHY Verified 06/09/23 16:01 pollen extracts Allergy Mild RESP Verified 06/09/23 16:01 PROBLEMS mushroom AdvReac Intermediate Nausea Verified 06/09/23 16:01 olive extract AdvReac Mild BLACK Verified 06/09/23 16:01 OLIVES TRIGGERS IBS BLUE CHEESE Allergy Severe Anaphylaxis Uncoded 06/09/23 16:01 DUST Allergy Mild RESP Uncoded 06/09/23 16:01 DISCOMFORT Home Medications Medication Instructions Recorded Confirmed Type tizanidine 4 mg tablet (Zanaflex) 8 mg PO AMPM 08/03/19 06/09/23 History carbamazepine 200 mg tablet 200 mg PO BID 10/14/20 06/09/23 History (Tegretol) nortriptyline 75 mg capsule 75 mg PO HS 10/14/20 06/09/23 History topiramate 50 mg tablet 50 mg PO BID 10/14/20 06/09/23 History tramadol 50 mg tablet 50 mg PO Q8H PRN Pain 10/14/20 06/09/23 History diazepam 10 mg tablet (Valium) 20 mg PO HS 12/27/20 06/09/23 History pumpkin seed extract-soy germ 300 1 cap PO UD PRN bladder issues 12/27/20 06/09/23 History mg capsule (Azo Bladder Control) cetirizine 10 mg tablet 10 mg PO BID 11/27/22 06/09/23 History famotidine 40 mg tablet 0 mg PO HS 11/27/22 06/09/23 History mirabegron 50 mg tablet,extended 50 mg PO QAM 11/27/22 06/09/23 History release 24 hr (Myrbetriq) omeprazole 40 mg capsule,delayed 40 mg PO BID GERD, peptic ulcer 11/27/22 06/09/23 History release disease prazosin 2 mg capsule (Minipress) 2 mg PO HS 11/27/22 06/09/23 History pregabalin 75 mg capsule 75 mg PO BID 11/27/22 06/09/23 History methylprednisolone 4 mg tablets in 4 mg PO DIRECTED 06/09/23 06/09/23 History a dose pack oxycodone 5 mg capsule 5 mg PO Q6 PRN pain 06/09/23 06/09/23 History Past Med/Surg History Medical History (Updated 06/09/23 @ 17:56 by Johnathon Zhou MD) Adopted History of cluster headache in high school History of asthma used to use inhaler, no longer having issues History of scarlet fever Osteoarthritis History of anesthesia reaction woke up during tooth removal before; difficulty waking after procedures at times Prediabetes TOLD PREDIABETES IN THE PAST (GLUCOSES WERE TRANSIENTLY ELEVATED IN SETTING OF PREDNISONE) Morbid obesity BPH (benign prostatic hyperplasia) Diverticulitis NO ISSUES X YEARS Hearing difficulty "MILD" HEARING LOSS Arthritis Radicular pain of shoulder resolved Left shoulder pain resolved Anxiety Asperger's disorder AUTISIM; "ANXIETY AROUND PEOPLE" IBS (irritable bowel syndrome) Kidney stone hx-passed on own Surgical History History of tooth extraction History of prostate surgery greenlight vaporization of prostate 09/2018 History of esophagogastroduodenoscopy (EGD) Hx of colonoscopy Hx of hernia repair AGE 5 Hx of anterior cruciate ligament surgery LEFT Family History Other Adopted person Social History Smoking Status: Never smoker Tobacco Type: E-cigarettes / Vaping Cigarettes Per Day: vapes daily; Second Hand Exposure: No; Do You Dip or Chew Tobacco: No; Hx Alcohol Use: No Hx Substance Use: Yes (medical card) Last Used Substance Other:: none for 1 week Preferred Language: Upper Sorbian Communication Ability: Effective Visual Impairment: No Limitations Hearing Ability: Normal Retail Event Assistant Required: No Beliefs That Will Affect Care: None marital status: Single Current Living Situation: Parent current occupational status: disabled Feels Safe at Home: Yes Assistive Devices: Glasses Physical Exam Physical Exam: General: A&Ox3. NAD. Cooperative. HEENT: Atraumatic, normocephalic. Pulm: CTAB A&P. -wheezes, -rales, -rhonchi. Symmetrical chest rise. No increased work of breathing. No respiratory distress. Cardiac: RRR, -mrg. Radial pulses intact and symmetrical. Abdominal: Nontender, nondistended, soft. BS present. CRANIAL NERVES: II: Pupils equal and reactive III, IV, : EOM intact, no gaze preference or deviation, no nystagmus. VII: no asymmetry, no nasolabial fold flattening VIII: normal hearing to speech MOTOR: RUE: 5/5 lei maker strength, finger flexion/extens ion, interosseus LUE: 5/5 lei maker strength, finger flexion/extens ion, interosseus RLE: 5/5 to hip flexion, ankle dorsiflexion/p lantarflexion. Hip flexion is somewhat limited by pain and spasm but strength is grossly intact LLE: 5/5 to hip flexion, ankle dorsiflexion/p lantarflexion SENSORY: Normal to touch in upper and lower extremities without deficit or asymmetry Results & Data Results & Data Vital Signs (Past 12 Hours) Vital Signs Temp Pulse Pulse Resp BP BP Pulse Ox 06/09/23 15:42 110 H 20 121/96 99 06/09/23 13:08 36.6 C 138 H 20 164/127 H 98 O2 Del Method 06/09/23 15:42 Room Air 06/09/23 13:08 Room Air PG Care Time/CCT Total # of Minutes Spent Total Time Spent with Patient: Total time spent is greater than 50% in coordination of care (as documented) at patient's floor/unit and/or counseling patient: Coding Level of Care Code 56567 INT INP/OBS CARE 2/55MIN Diagnoses Ambulatory dysfunction R26.2 IBS (irritable bowel syndrome) K58.9 BPH (benign prostatic hyperplasia) N40.0 Anxiety F41.9
[2023-06-09 17:58] LABS: C Reactive Protein 4.91 mg/dl (0-0.5)
[2023-06-09] MEDS ORDERED: methylPREDNISolone 125 MG/2 ML VIAL IV STA (18:06)
[2023-06-09] MEDS: Patient's WEIGHT Needed SCH ×2 (20:30→22:57)
[2023-06-09] MEDS: oxyCODONE HCL IR 5 MG TAB (IMMEDIATE RELEASE) PO PRN (20:42)
[2023-06-09] MEDS: CYANOCOBALAMIN 1000 MCG/ML VIAL IM SCH (22:13)
[2023-06-09] MEDS: PRAZOSIN HCL 1 MG CAP PO SCH (22:13)
[2023-06-09] MEDS: carBAMazepine 200 MG TABLET PO SCH (22:13)
[2023-06-09] MEDS: TOPIRAMATE 50 MG TAB PO SCH (22:15)
[2023-06-09] MEDS: tiZANidine HCL 4 MG TABLET PO SCH (22:15)
[2023-06-09] MEDS: PANTOprazole 40 MG TAB PO SCH (22:16)
[2023-06-09] MEDS: FAMOTIDINE 20 MG TAB PO SCH (22:16)
[2023-06-09] MEDS: CETIRIZINE HCL 10 MG TABLET PO SCH (22:17)
[2023-06-09] MEDS: diazePAM 5 MG TABLET PO SCH (22:17)
[2023-06-09] MEDS: PREGABALIN 75 MG CAP PO SCH (22:18)
[2023-06-09] MEDS: ENOXAPARIN INJ 40 MG/0.4 ML SYR SQ SCH (22:19)
[2023-06-09] MEDS: NORTRIPTYLINE HCL 25 MG CAP PO SCH (22:20)
[2023-06-10] MEDS: traMADol HCL 50 MG TABLET PO PRN ×2 (03:27→11:49)
[2023-06-10 04:39] LABS: C Reactive Protein 4.21 mg/dl (0-0.5)
[2023-06-10] MEDS ORDERED: ONDANSETRON INJ 2 MG/ML 2 ML VIAL IV STA (06:39)
[2023-06-10] MEDS: Patient's WEIGHT Needed SCH ×5 (06:49→19:59)
[2023-06-10] MEDS: carBAMazepine 200 MG TABLET PO SCH ×2 (08:41→20:17)
[2023-06-10] MEDS: methylPREDNISolone 40 MG in SYRINGE 0 ML IV SCH (08:41)
[2023-06-10] MEDS: oxyCODONE HCL IR 5 MG TAB (IMMEDIATE RELEASE) PO PRN ×2 (08:41→16:26)
[2023-06-10] MEDS: PANTOprazole 40 MG TAB PO SCH ×2 (08:41→20:20)
[2023-06-10] MEDS: PREGABALIN 75 MG CAP PO SCH ×2 (08:41→20:24)
[2023-06-10] MEDS: CYANOCOBALAMIN 1000 MCG/ML VIAL IM SCH (08:41)
[2023-06-10] MEDS: CETIRIZINE HCL 10 MG TABLET PO SCH ×2 (08:41→20:17)
[2023-06-10] MEDS: TOPIRAMATE 50 MG TAB PO SCH ×2 (08:41→20:20)
[2023-06-10] MEDS: tiZANidine HCL 4 MG TABLET PO SCH ×2 (08:42→20:21)
[2023-06-10] MEDS: VIBEGRON 75 MG TAB PO SCH (08:42)
--- NOTE | 2023-06-10 14:12 | Hospitalist Progress Note ---
Date of Service June 10, 2023 Assessment & Plan (1) Ambulatory dysfunction: Plan: Hx of Restless legs. Progressive ambulatory dysfunction in the last 3 months with inability to walk in the last few days more than a few feet due to spasm- like pain radiating from the hip down to the feet worse in the right leg MRI of the lumbar spine with a disc extrusion at L1-L2 with moderate narrowing of the left lateral recess and proximal left neural foramen, his symptoms are predominantly right-sided Patient does have a distended bladder, this precedes his back pain/symptoms (on going since prostate surgery) Nerve conduction study 06/08/2023 without abnormality - IV Solumedrol taper - has not tolerated PO steroids outpatient -PT/OT WNL: CPK, Lyme, Iron studies/ferritin, Mag, Calcium CRP is acutely elevated at 4.91 without clear cause. JED pending -Addtional workup ordered today: MRI brain, Copper level, RPR (given mother hx), B1 level, ESR, TSH (pt reports has had abnormal levels, but close monitoring, no medications) -Neurology consult for tomorrow morning Of note - patient on multiple sedating medications (Carbamazepine, diazepam 20mg, nortriptyline, pregabalin, Zanaflex, topamax, tramadol) and states still unable to sleep from pain (2) IBS (irritable bowel syndrome): Plan: No acute change in management (3) BPH (benign prostatic hyperplasia): Plan: History of incomplete bladder emptying, bladder distention, with complex to history including polypharmacy and prostate surgery Continue current medications, no acute change. Bladder scan every shift (4) Anxiety: Plan: Continue home medications Plan DVT PPx: Lovenox Dispo: continued inpatient stay Admission and Anticipated Discharge Date Admission Date: June 09, 2023 Supervising Physician Co-Signing Physician Notes Attending Attestation - Chart reviewed, care plan d/w PAULA Jones. I agree w/ the rivas components of her documentation. Etiology of his pains/symptoms in the distal legs, worse on right - uncertain. Sounds like severe muscle spasms/cramps but quite unusual. Would be very atypical for RLS/PLMD given that his symptoms occur frequently during the daytime as well. Agree w/ work-up as outlined by Ms Jones. Agree with neuro consult, imaging, etc. Bong Lazo MD Subjective Patient seen sitting up in bed in the ER, mother present at bedside. Relays to me about the chronicity of his leg pain, right worse than left. States over the last 3 months the pain has become worse and the fact that the spasms that he experiences occur more often. This has limited the amount that he is able to walk, he is having to use his cane more frequently. He denies any new medication changes. About 3 months ago his primary care provider started Requip for his restless legs and symptoms immediately got worse and this was discontinued. Mother is concerned that if the pain continues she and her will not be able to take care of him, would be unable to lift him if he fell. Mother has reports in room from recent EMG, which was negative. States they do not follow closely with a neurologist, was seen once and said that all that neurologist would be able to do for them was arranged with the EMG. No recommendations were given after normal EMG. Of note he is lost 80 pounds in the last year, voluntarily. He has been working on a FODMAP diet and has increased walking with playing Buzz Referrals. Also of note, patient states his normal blood pressure is usually 90/70 He follows with guiding light therapy, Dr. Ledesma for medication management Review of Systems Review of Systems: All systems reviewed & are unremarkable except as noted in Subjective Physical Exam Physical Exam: General: NAD, sitting up in bed, VS as above Resp: normal respiratory effort, lungs clear to auscultation, stating 95% for most of my exam CV: RRR, no murmur, Abd: normal bowel sounds, non tender, no hepatosplenomegaly Extremities: Strength 5/5 at bilateral ankle flexion/extension, knee flexion/extension. Patient did have an "episode" while I was in the room where right toes did seem to curl in pain and patient yelling out in pain, muscles relax within 15 to 20 seconds. Neuro: A&O x3, Skin: intact, no lesions noted Results & Data Results & Data Vital Signs (Past 12 Hours) Vital Signs Pulse Resp BP Pulse Ox 06/10/23 12:00 85 21 88 L 06/10/23 11:00 86 16 90 06/10/23 10:01 95/68 L 06/10/23 10:01 102 H 20 92 01/07/24 10:00 81 21 88 L 06/10/23 09:00 115 H 17 95/68 L 93 06/10/23 08:51 111 H 06/10/23 08:00 91 06/10/23 07:00 91 06/10/23 06:00 18 91 06/10/23 05:09 105 H 24 90 Laboratory Results CBC, chemistry, Iron studies reviewed Diagnostic Findings MRI lumbar reviewed PG Care Time/CCT Total # of Minutes Spent Total Time Spent with Patient: Total time spent is greater than 50% in coordination of care (as documented) at patient's floor/unit and/or counseling patient: Coding Level of Care Code 84282 SUB INP/OBS CARE 3/50MIN Diagnoses Ambulatory dysfunction R26.2 IBS (irritable bowel syndrome) K58.9 BPH (benign prostatic hyperplasia) N40.0 Anxiety F41.9
[2023-06-10 14:31] LABS: Ferritin 169.4 ng/ml (8-388)
[2023-06-10] MEDS ORDERED: LORazepam 1 MG in SYRINGE 0.5 ML IV ONE (17:07)
[2023-06-10] MEDS ORDERED: LORazepam 1 MG in SYRINGE 0.5 ML IV PRN (17:10)
[2023-06-10 19:08] LABS: Appearance Urine Cloudy (Clear); Bacteria Urine Automated Negative (Negative); Bilirubin Urine Negative (Negative); Blood Urine Negative (Negative); Color Urine Yellow; Glucose Urine UA Negative (Negative); Ketones Urine 3+ (Negative); Leukocyte Esterase Urine Negative (Negative); Nitrite Urine Negative (Negative); Protein Urine Negative (Negative); RBC Urine Automated 0-4 /hpf (0-4); Specific Gravity Urine 1.019 (1.000-1.030); Urobilinogen Urine Negative (Negative)
[2023-06-10] MEDS: ENOXAPARIN INJ 40 MG/0.4 ML SYR SQ SCH (20:19)
[2023-06-10] MEDS: FAMOTIDINE 20 MG TAB PO SCH (20:19)
[2023-06-10] MEDS: PRAZOSIN HCL 1 MG CAP PO SCH (20:20)
[2023-06-10] MEDS: NORTRIPTYLINE HCL 25 MG CAP PO SCH (20:20)
[2023-06-10] MEDS: diazePAM 5 MG TABLET PO SCH (20:24)
[2023-06-10] MEDS ORDERED: HYDROmorphone INJ 0.5 MG/0.5 ML SYR IV STA (21:26)
[2023-06-11] MEDS: oxyCODONE HCL IR 5 MG TAB (IMMEDIATE RELEASE) PO PRN ×4 (00:50→23:12)
[2023-06-11] MEDS ORDERED: GADOBUTROL 30ML VIAL IV ONE (02:15)
--- NOTE | 2023-06-11 03:43 | Magnetic Resonance Report ---
Exam(s): MRI HEAD W/WO Contrast IV Amt: 10cc gadavist EXAM: MR Head Without and With Intravenous Contrast CLINICAL HISTORY: Reason for exam: unexplained leg cramps/spams. TECHNIQUE: Magnetic resonance images of the head/brain without and with intravenous contrast in multiple planes. CONTRAST: Patient received 10cc Gadavist of IV contrast COMPARISON: No relevant prior studies available. FINDINGS: Brain: Unremarkable. No mass. No hemorrhage. No acute infarct. Ventricles: No midline shift. No ventriculomegaly. Bones/joints: Unremarkable. No acute fracture. Sinuses: Right maxillary sinus mucus retention cyst.. No acute sinusitis. Mastoid air cells: Unremarkable as visualized. No mastoid effusion. Orbits: Unremarkable as visualized. IMPRESSION: No acute abnormality. Electronically signed by: Aayush Sood M.D. 06/11/23 03:41 AM
[2023-06-11] MEDS: traMADol HCL 50 MG TABLET PO PRN ×2 (05:13→17:24)
[2023-06-11 07:17] LABS: BUN Creatinine Ratio 15.8 (10-20); Calcium 8.9 mg/dl (8.6-10.3); Creatinine Clr Calc Pharmacy 131.1 ml/min; Est GFR (African American) 118.9 ml/min; Est GFR (Non-African American) 102.6 ml/min; Potassium 3.4 mmol/L (3.5-5.1)
[2023-06-11 07:30] LABS: Thyroid Stimulating Hormone 0.17 uIu/ml (0.300-4.500)
[2023-06-11] MEDS ORDERED: POTASSIUM CHLORIDE CRTAB 20 MEQ TABCR PO STA (07:59)
[2023-06-11 08:05] LABS: T4 Free Thyroxine 0.83 ng/dl (0.61-1.60)
[2023-06-11] MEDS: carBAMazepine 200 MG TABLET PO SCH ×2 (09:12→21:25)
[2023-06-11] MEDS: tiZANidine HCL 4 MG TABLET PO SCH ×2 (09:12→21:27)
[2023-06-11] MEDS: CETIRIZINE HCL 10 MG TABLET PO SCH ×2 (09:13→21:26)
[2023-06-11] MEDS: VIBEGRON 75 MG TAB PO SCH (09:14)
[2023-06-11] MEDS: TOPIRAMATE 50 MG TAB PO SCH ×2 (09:14→21:27)
[2023-06-11] MEDS: PANTOprazole 40 MG TAB PO SCH ×2 (09:14→21:28)
[2023-06-11] MEDS: methylPREDNISolone 40 MG in SYRINGE 0 ML IV SCH (09:15)
[2023-06-11] MEDS: CYANOCOBALAMIN 1000 MCG/ML VIAL IM SCH (09:15)
[2023-06-11] MEDS: PREGABALIN 75 MG CAP PO SCH ×2 (09:18→21:33)
--- NOTE | 2023-06-11 10:06 | Neurology Consultation ---
Date of Consultation June 11, 2023 Assessment & Plan (1) Leg cramps: Progressive right > left LE cramping in a 27M with a PMH of RLS, autism sectrum disorder, and anxiety. His exam is benign. he has no clear atrophy or fasciculations and he does move his extremities against gravity. Imaging so far has been unremarkable and recent EMG/NCS is also unremarkable. The cause of these worsening symptoms is unclear and his neuro work up has been benign so far. A varient of PLMD is a possibility. Almost any neurologic disorder (outside of CRPS and structural lesion) that causes this degree of symptoms would be systemic. Plan -- Recommend MRI T-spine with and without contrast (looking for demyelination or structural) -- check ferritin, if not already checked -- outpatient neurology evaluation with neuromuscular or movement (I will arrange) Telehealth Consultation Telehealth Information Telehealth Information: I performed this visit using a real-time telehealth connection between my location and the patients location ([facility]). After connecting through interactive tele-video, patient was identified by name and date of and/or wristband check.Patient (or authorized healthcare support representative) was informed that this was a telemedicine visit and it was being conducted confidentially over secure lines. My office door was closed and no one else was present in the room with me.Patient (or authorized healthcare support representative) provided consent to proceed with the visit, expressed an understanding of privacy and security of the telemedicine visit, and gave permission to have a hospital support representative in the room in order to assist with the visit and to conduct portions of the visit, as needed. I informed the patie nt (or authorized healthcare support representative) that I reviewed their record and presented the opportunity for them to ask any questions regarding the visit today. The patient agreed to participate. History of Present Illness Reason for Consultation: right > left leg spasms Requesting Physician: Dr Lazo Attending Physician: Bong Lazo MD History of Present Illness These symptoms started about 3 months ago. He has a long history of restless leg syndrome and noted that one nigh his right leg started cramping and his toes curled under and his foot cramped. This lasted for a few minutes and then resolved. Over time this has gotten considerably worse and occurs nearly constantly. He reports that the pain starts in his foot and then travels to his ankle, up the leg to the right hip. He also reports that his right foot is tender. No changes in the arms and no changes with urination. He reports an inability to sleep at night due to pain and an inability to ambulate. He denies any skin changes over the leg but has lost some hair. His left leg is affected at a much lower degree. He denies any weakness but is hesitant to move the leg as that can precipitate this pain. he has lost about 80 pounds intentionally over the last year, he denies fevers, chills, chest pain but does endorse SOB with ambulation. He had a neurology evaluation last week and at that time had normal reflexes and an EMG/NCS that was normal without evidence of radiculopathy, neuropathy or myopathy. A spasm was witnessed and during it all toes curled over, the muscles in the leg didn't appear contracted but he reported difficulty moving them. Adopted at and family history of fibromyalgia and RA are in the family Allergies Allergy/AdvReac Type Severity Reaction Status Date / Time bee venom protein (honey bee) Allergy Severe Anaphylaxis Verified 06/09/23 16:01 latex Allergy Mild ITCHY Verified 06/09/23 16:01 pollen extracts Allergy Mild RESP Verified 06/09/23 16:01 PROBLEMS mushroom AdvReac Intermediate Nausea Verified 06/09/23 16:01 olive extract AdvReac Mild BLACK Verified 06/09/23 16:01 OLIVES TRIGGERS IBS BLUE CHEESE Allergy Severe Anaphylaxis Uncoded 06/09/23 16:01 DUST Allergy Mild RESP Uncoded 06/09/23 16:01 DISCOMFORT Home Medications Medication Instructions Recorded Confirmed Type tizanidine 4 mg tablet (Zanaflex) 8 mg PO AMPM 08/03/19 06/09/23 History carbamazepine 200 mg tablet 200 mg PO BID 10/14/20 06/09/23 History (Tegretol) nortriptyline 75 mg capsule 75 mg PO HS 10/14/20 06/09/23 History topiramate 50 mg tablet 50 mg PO BID 10/14/20 06/09/23 History tramadol 50 mg tablet 50 mg PO Q8H PRN Pain 10/14/20 06/09/23 History diazepam 10 mg tablet (Valium) 20 mg PO HS 12/27/20 06/09/23 History pumpkin seed extract-soy germ 300 1 cap PO UD PRN bladder issues 12/27/20 06/09/23 History mg capsule (Azo Bladder Control) cetirizine 10 mg tablet 10 mg PO BID 11/27/22 06/09/23 History famotidine 40 mg tablet 0 mg PO HS 11/27/22 06/09/23 History mirabegron 50 mg tablet,extended 50 mg PO QAM 11/27/22 06/09/23 History release 24 hr (Myrbetriq) omeprazole 40 mg capsule,delayed 40 mg PO BID GERD, peptic ulcer 11/27/22 06/09/23 History release disease prazosin 2 mg capsule (Minipress) 2 mg PO HS 11/27/22 06/09/23 History pregabalin 75 mg capsule 75 mg PO BID 11/27/22 06/09/23 History methylprednisolone 4 mg tablets in 4 mg PO DIRECTED 06/09/23 06/09/23 History a dose pack oxycodone 5 mg capsule 5 mg PO Q6 PRN pain 06/09/23 06/09/23 History Patient History Medical History (Updated 06/11/23 @ 10:49 by Atul Treviño MD) Adopted History of cluster headache in high school History of asthma used to use inhaler, no longer having issues History of scarlet fever Osteoarthritis History of anesthesia reaction woke up during tooth removal before; difficulty waking after procedures at times Prediabetes TOLD PREDIABETES IN THE PAST (GLUCOSES WERE TRANSIENTLY ELEVATED IN SETTING OF PREDNISONE) Morbid obesity BPH (benign prostatic hyperplasia) Diverticulitis NO ISSUES X YEARS Hearing difficulty "MILD" HEARING LOSS Arthritis Radicular pain of shoulder resolved Left shoulder pain resolved Anxiety Asperger's disorder AUTISIM; "ANXIETY AROUND PEOPLE" IBS (irritable bowel syndrome) Kidney stone hx-passed on own Surgical History History of tooth extraction History of prostate surgery greenlight vaporization of prostate 09/2018 History of esophagogastroduodenoscopy (EGD) Hx of colonoscopy Hx of hernia repair AGE 5 Hx of anterior cruciate ligament surgery LEFT Family History Other Adopted person Social History Smoking Status: Current every day smoker Tobacco Type: E-cigarettes / Vaping Cigarettes Per Day: vapes daily; Second Hand Exposure: No; Do You Dip or Chew Tobacco: No; Hx Alcohol Use: No Hx Substance Use: Yes Last Used Substance Other:: none for 1 week Substance Use Type Other:: medical marijuana Preferred Language: Moroccan Communication Ability: Effective Visual Impairment: No Limitations Hearing Ability: Normal Derrickman Helper Required: No Beliefs That Will Affect Care: None marital status: Single Current Living Situation: Parent current occupational status: disabled Feels Safe at Home: Yes Assistive Devices: Cane and Walker Physical Exam Exam: Constitutional: Appearance normally developed Head and face: normocephalic and atraumatic Eyes: no ptosis, no anisocoria, and no dysconjugate gaze Respiratory: normal effort Cardiovascular: regular rhythm and regular rate Abdomen: non distended Skin: no rashes, lesions, or ulcers noted Psychiatric: normal judgement and insight, normal mood, and normal affect NEUROLOGIC EXAMINATION: Mental Status:alert, oriented to time, place, person, normal recent memory, normal remote memory, normal attention span, normal concentration, normal language, and normal fund of knowledge Cranial Nerves: CN 2 - no visual defect on confrontation and pupils round, equal, reactive to light CN 3, 4, 6 - extra-ocular movements intact and no nystagmus CN 5 - facial sensation intact CN 7 - no facial asymmetry CN 8 - intact hearing CN 9, 10 - palate symmetric, normal gag CN 11 - good shoulder shrug CN 12 - tongue midline MOTOR:No atrophy or fasiculations; Strength was at least antigravity throughout, Pronator drift was absent, and There were no abnormal movements SENSATION: intact and symmetric to light touch GAIT: deferred COORDINATION: no ataxia with finger to nose testing and heel to benitez testing REFLEXES: cannot assess over telemedicine (but normal in clinic visit last week) Results & Data Vital Signs (Past 12 Hours) Vital Signs Temp Pulse Resp BP Pulse Ox O2 Del Method 06/11/23 07:27 36.6 C 84 16 119/79 98 Room Air Laboratory Results Abnormal Lab Results 06/10/23 06/10/23 06/11/23 03:54 Unknown 06:21 ESR 7 Sodium 137 Potassium 3.4 L Chloride 103 Carbon Dioxide 25 Anion Gap 9 BUN 15 Creatinine 0.95 Est Cr Clr Drug Dosing 131.1 Est GFR ( Amer) 118.9 Est GFR (Non-Af Amer) 102.6 BUN/Creatinine Ratio 15.8 Glucose 101 H Calcium 8.9 Iron 55 TIBC 253 Unsaturated IBC 198 Transferrin % Sat 22 Ferritin 169.4 C-Reactive Protein 4.21 H TSH 0.170 L Free T4 0.83 Urine Color Yellow Urine Appearance Cloudy A Urine pH 7.0 Ur Specific [place] 1.019 Urine Protein Negative Urine Glucose (UA) Negative Urine Ketones 3+ H Urine Blood Negative Urine Nitrite Negative Urine Bilirubin Negative Urine Urobilinogen Negative Ur Leukocyte Esterase Negative Urine WBC (Auto) 1-5 Urine RBC (Auto) 0-4 U Hyaline Cast (Auto) 1-5 U Epithel Cells (Auto) 5-10 H Urine Bacteria (Auto) Negative Diagnostic Findings Brain MRI 06/11/23 00:01 Exam(s): MRI HEAD W/WO Contrast IV Amt: 10cc gadavist EXAM: MR Head Without and With Intravenous Contrast CLINICAL HISTORY: Reason for exam: unexplained leg cramps/spams. TECHNIQUE: Magnetic resonance images of the head/brain without and with intravenous contrast in multiple planes. CONTRAST: Patient received 10cc Gadavist of IV contrast COMPARISON: No relevant prior studies available. FINDINGS: Brain: Unremarkable. No mass. No hemorrhage. No acute infarct. Ventricles: No midline shift. No ventriculomegaly. Bones/joints: Unremarkable. No acute fracture. Sinuses: Right maxillary sinus mucus retention cyst.. No acute sinusitis. Mastoid air cells: Unremarkable as visualized. No mastoid effusion. Orbits: Unremarkable as visualized. IMPRESSION: No acute abnormality. Electronically signed by: Aayush Sood M.D. 06/11/23 03:41 AM
[2023-06-11] MEDS ORDERED: LORazepam 1 MG in SYRINGE 0.5 ML IV ONE (11:30)
--- NOTE | 2023-06-11 15:03 | Hospitalist Progress Note ---
Date of Service June 11, 2023 Assessment & Plan (1) Ambulatory dysfunction: Plan: Hx of Restless legs. Progressive ambulatory dysfunction in the last 3 months with inability to walk in the last few days more than a few feet due to spasm- like pain radiating from the hip down to the feet worse in the right leg MRI of the lumbar spine with a disc extrusion at L1-L2 with moderate narrowing of the left lateral recess and proximal left neural foramen, his symptoms are predominantly right-sided Outpatient Nerve conduction study 06/08/2023 without abnormality - IV Solumedrol taper - has not tolerated PO steroids outpatient -PT/OT WNL: CPK, Lyme, Iron studies/ferritin, Mag, Calcium CRP is acutely elevated at 4.91 without clear cause. ESR 7. JED pending - TSH 0.17, t4 WNL -MRI brain: no acute abnormality -Pending: Copper level, RPR (given mother hx), B1 level, -Neurology consult - MRI T spine with and without contrast (ordered) - check ferritin, WNL - outpatient neurology evaluation with neuromuscular or movement (arranged by Neuro) Pain Management consulted for custodial regiment given polypharmacy Of note - patient on multiple sedating medications (Carbamazepine, diazepam 20mg, nortriptyline, pregabalin, Zanaflex, topamax, tramadol) and states still unable to sleep from pain (2) IBS (irritable bowel syndrome): Plan: No acute change in management (3) BPH (benign prostatic hyperplasia): Plan: History of incomplete bladder emptying, bladder distention, with complex to history including polypharmacy and prostate surgery Continue current medications, no acute change. Bladder scan every shift (4) Anxiety: Plan: Continue home medications Plan DVT PPx: Lovenox Dispo: continued inpatient stay, hopeful discharge tomorrow pending PT/OT and pain control Admission and Anticipated Discharge Date Admission Date: June 09, 2023 Supervising Physician Co-Signing Physician Notes Attending Attestation - Chart reviewed, care plan d/w PAULA Jones. I agree w/ the rivas components of her documentation. Etiology of his pains/symptoms in the distal legs, worse on right - still uncertain. Appreciate neuro and pain management assistance. Work-up to date and imaging - all reviewed. Pt is vit B12 deficient (level = 145) but not sure it explains all of his symptoms. I agree with replacement. Await additional imaging as suggested by neurology. Bong Lazo MD Subjective Was asked to see patient as he was requesting more pain control. When I arrived to the room, patient was sleeping and spoke with his mother. She is concerned that the opioid medication does not seem to be working as effectively at home over the last few weeks. Revisited the room later in the day, aG was awake. Pain continues to be about the same. States his appetite has improved. Had consult with neurology this morning, leaning towards a systemic process. Discussion with patient and mother that during his stay we are unlikely to find he cause of his pain given that it is leading to a more systemic cause and labs will take days to result and possibly further workup. Goal while inpatient is to have a good pain control regiment to go home with and rule out things that can be easily ruled out during admission. Tried to pin down any aggravating or alleviating factors that cause more frequent spams or episodes of pain, but was not able to determine any. Review of Systems Review of Systems: All systems reviewed & are unremarkable except as noted in Subjective Physical Exam Physical Exam: General: NAD, sitting up in bed, VS as above Resp: normal respiratory effort, lungs clear to auscultation CV: RRR, no murmur, Abd: normal bowel sounds, non tender, no hepatosplenomegaly Extremities: right toes curled, continue to be the area most painful to patient. able to talk through "episodes/flares" Neuro: A&O x3, Skin: intact, no lesions noted Results & Data Results & Data Vital Signs (Past 12 Hours) Vital Signs Temp Pulse Resp BP Pulse Ox O2 Del Method 06/11/23 14:43 36.6 C 88 16 125/77 97 Room Air 06/11/23 07:27 36.6 C 84 16 119/79 98 Room Air Laboratory Results chemistry, Thyroid studies reviewed Diagnostic Findings MRI brain reviewed PG Care Time/CCT Total # of Minutes Spent Total Time Spent with Patient: Total time spent is greater than 50% in coordination of care (as documented) at patient's floor/unit and/or counseling patient: Coding Level of Care Code 15096 SUB INP/OBS CARE 2/35MIN Diagnoses Ambulatory dysfunction R26.2 IBS (irritable bowel syndrome) K58.9 BPH (benign prostatic hyperplasia) N40.0 Anxiety F41.9
[2023-06-11] MEDS ORDERED: ONDANSETRON INJ 2 MG/ML 2 ML VIAL IV PRN (18:09)
[2023-06-11] MEDS: ENOXAPARIN INJ 40 MG/0.4 ML SYR SQ SCH (21:26)
[2023-06-11] MEDS: NORTRIPTYLINE HCL 25 MG CAP PO SCH (21:26)
[2023-06-11] MEDS: PRAZOSIN HCL 1 MG CAP PO SCH (21:27)
[2023-06-11] MEDS: diazePAM 5 MG TABLET PO SCH (21:33)
[2023-06-11] MEDS: FAMOTIDINE 20 MG TAB PO SCH (21:33)
[2023-06-11] MEDS ORDERED: GADOBUTROL 65ML VIAL IV ONE (22:12)
--- NOTE | 2023-06-12 00:33 | Magnetic Resonance Report ---
Exam(s): MRI T SPINE W/WO Contrast IV Amt: 10.5cc gadavist EXAM: MR Thoracic Spine Without and With Intravenous Contrast CLINICAL HISTORY: Reason for exam: progessive leg cramps, ?demylination. TECHNIQUE: Magnetic resonance images of the thoracic spine without and with intravenous contrast in multiple planes. CONTRAST: Patient received 10.5cc gadavist of IV contrast COMPARISON: CT thoracic spine 09/25/2017. 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 Discs/spinal canal/neural foramina: Degenerative change of the cervical spine which appears to result in moderate spinal canal stenosis at C6-C7, incompletely evaluated on this examination. Mild degenerative change in the thoracic spine without significant spinal canal stenosis or foraminal narrowing. Spinal cord: Unremarkable. Normal signal. No abnormal enhancement. Soft tissues: Unremarkable. IMPRESSION: 1. Normal appearance of the thoracic spinal cord. 2. Mild degenerative change in the thoracic spine without significant spinal canal stenosis or foraminal narrowing. 3. Degenerative change of the cervical spine which appears to result in moderate spinal canal stenosis at C6-C7, incompletely evaluated on this examination. Consider dedicated MRI of the cervical spine as clinically warranted. Electronically signed by: Joel Felix MD 06/12/23 00:32 AM
[2023-06-12] MEDS ORDERED: KETOROLAC 30 MG/ML VIAL IV ONE (01:12)
[2023-06-12] MEDS: oxyCODONE HCL IR 5 MG TAB (IMMEDIATE RELEASE) PO PRN ×4 (05:34→23:55)
[2023-06-12 07:59] LABS: BUN Creatinine Ratio 21.2 (10-20); Creatinine Clr Calc Pharmacy 146.5 ml/min; Est GFR (African American) 129.9 ml/min; Est GFR (Non-African American) 112.1 ml/min; Potassium 3.8 mmol/L (3.5-5.1)
--- NOTE | 2023-06-12 08:52 | Pain Management Consultation ---
Date of Consultation June 12, 2023 Assessment & Plan (1) Lower extremity pain: (2) Ambulatory dysfunction: (3) Leg cramps: (4) Polypharmacy: Plan In reviewing medication list we could consider Serotonin syndrome/polypharmacy as a causative factor? We have discussed discontinuing Lyrica, topiramate, and tramadol. I have added Ativan 0.5mg twice daily if needed for agitation/spasm/anxiety for the short term. Will continue carbamazepine, Valium, nortriptyline, tizanidine, and oxycodone. Nortriptyline could be further discontinued to lower dose/discontinue as this medication could worsen prostate issues/difficulty emptying bladder which he does have a history of. I did speak with his mother and discussed this plan and she is understanding. Will follow peripherally while inpatient. Please contact with any questions or concerns and reconsult if needed. Recommend he follow up with neurology and psychiatry when outpatient. History of Present Illness Reason for Consultation: Lower extremity spasm/polypharmacy Attending Physician: David Rollins MD History of Present Illness Mr. Schultz is a 37-year-old male that has been admitted to [facility] for severe spasms in the feet that have been limiting his ability to ambulate over the last 3 months. He has been working with his PCP outpatient on the symptoms but they have been worsening to where he is having difficulty ambulating due to the pain and unable to sleep. He describes this smashing of the feet by hammer when his toes curl and then covered in ice. Denies any involvement of upper extremities or in the thighs or calves. Patient does have a significant history of restless leg syndrome to which she has previously been on ropinirole which did worsen his pain. He has not had any recent medication changes aside from tizanidine being increased from 4 mg to 8 mg twice a day. Appears that his chronic tramadol use has been increasing. He is to follow up with neurology for further workup on an outpatient basis. He is on several of the following medications mood, restless leg syndrome, chronic pain. Carbamazepine 200 mg twice daily Valium 20 mg at bedtime Nortriptyline 75 mg at bedtime Lyrica 75 mg twice daily Tizanidine 8 mg twice daily Topiramate 50 mg twice daily Tramadol 100 mg every 6 hours Allergies Allergy/AdvReac Type Severity Reaction Status Date / Time bee venom protein (honey bee) Allergy Severe Anaphylaxis Verified 06/09/23 16:01 latex Allergy Mild ITCHY Verified 06/09/23 16:01 pollen extracts Allergy Mild RESP Verified 06/09/23 16:01 PROBLEMS mushroom AdvReac Intermediate Nausea Verified 06/09/23 16:01 olive extract AdvReac Mild BLACK Verified 06/09/23 16:01 OLIVES TRIGGERS IBS BLUE CHEESE Allergy Severe Anaphylaxis Uncoded 06/09/23 16:01 DUST Allergy Mild RESP Uncoded 06/09/23 16:01 DISCOMFORT Home Medications Medication Instructions Recorded Confirmed Type tizanidine 4 mg tablet (Zanaflex) 8 mg PO AMPM 08/03/19 06/09/23 History carbamazepine 200 mg tablet 200 mg PO BID 10/14/20 06/09/23 History (Tegretol) nortriptyline 75 mg capsule 75 mg PO HS 10/14/20 06/09/23 History topiramate 50 mg tablet 50 mg PO BID 10/14/20 06/09/23 History tramadol 50 mg tablet 50 mg PO Q8H PRN Pain 10/14/20 06/09/23 History diazepam 10 mg tablet (Valium) 20 mg PO HS 12/27/20 06/09/23 History pumpkin seed extract-soy germ 300 1 cap PO UD PRN bladder issues 12/27/20 06/09/23 History mg capsule (Azo Bladder Control) cetirizine 10 mg tablet 10 mg PO BID 11/27/22 06/09/23 History famotidine 40 mg tablet 0 mg PO HS 11/27/22 06/09/23 History mirabegron 50 mg tablet,extended 50 mg PO QAM 11/27/22 06/09/23 History release 24 hr (Myrbetriq) omeprazole 40 mg capsule,delayed 40 mg PO BID GERD, peptic ulcer 11/27/22 06/09/23 History release disease prazosin 2 mg capsule (Minipress) 2 mg PO HS 11/27/22 06/09/23 History pregabalin 75 mg capsule 75 mg PO BID 11/27/22 06/09/23 History methylprednisolone 4 mg tablets in 4 mg PO DIRECTED 06/09/23 06/09/23 History a dose pack oxycodone 5 mg capsule 5 mg PO Q6 PRN pain 06/09/23 06/09/23 History Patient History Medical History Adopted History of cluster headache in high school History of asthma used to use inhaler, no longer having issues History of scarlet fever Osteoarthritis History of anesthesia reaction woke up during tooth removal before; difficulty waking after procedures at times Prediabetes TOLD PREDIABETES IN THE PAST (GLUCOSES WERE TRANSIENTLY ELEVATED IN SETTING OF PREDNISONE) Morbid obesity BPH (benign prostatic hyperplasia) Diverticulitis NO ISSUES X YEARS Hearing difficulty "MILD" HEARING LOSS Arthritis Radicular pain of shoulder resolved Left shoulder pain resolved Anxiety Asperger's disorder AUTISIM; "ANXIETY AROUND PEOPLE" IBS (irritable bowel syndrome) Kidney stone hx-passed on own Surgical History History of tooth extraction History of prostate surgery greenlight vaporization of prostate 09/2018 History of esophagogastroduodenoscopy (EGD) Hx of colonoscopy Hx of hernia repair AGE 5 Hx of anterior cruciate ligament surgery LEFT Family History Other Adopted person Social History Smoking Status: Current every day smoker Tobacco Type: E-cigarettes / Vaping Cigarettes Per Day: vapes daily; Second Hand Exposure: No; Do You Dip or Chew Tobacco: No; Hx Alcohol Use: No Hx Substance Use: Yes Last Used Substance Other:: none for 1 week Substance Use Type Other:: medical marijuana Preferred Language: Jordanian Communication Ability: Effective Visual Impairment: No Limitations Hearing Ability: Normal Well Servicing Rig Operator Required: No Beliefs That Will Affect Care: None marital status: Single Current Living Situation: Parent current occupational status: disabled Feels Safe at Home: Yes Assistive Devices: Cane and Walker Physical Exam Physical Exam: GENERAL: This is a 37 year old male that does not appear in any acute distress. HEAD/FACE: Normocephalic and atraumatic. EYES: No drainage or conjunctival injection. ENT: Nose without bleeding or discharge. Oral mucosa moist. NECK: Full ROM without apparent pain. No swelling or masses noted. RESPIRATORY: Patient with unlabored breathing. No signs of respiratory distress. CHEST/AXILLA: Chest movement symmetrical. No deformities noted. ABDOMEN/GI: No distension BACK: Moves without difficulty SKIN: [place], warm and dry. No rash noted. MS/EXTREMITY: No swelling, no deformities. Moving extremities appropriately. No kasi spasms noted. NEURO: Alert and appears oriented. Speech is fluent. Cranial Nerves are grossly intact. PSYCH: Alert, pleasant, affect is calm
[2023-06-12] MEDS: methylPREDNISolone 40 MG in SYRINGE 0 ML IV SCH (09:18)
[2023-06-12] MEDS: VIBEGRON 75 MG TAB PO SCH (09:20)
[2023-06-12] MEDS: CYANOCOBALAMIN 1000 MCG/ML VIAL IM SCH (09:21)
[2023-06-12] MEDS: PANTOprazole 40 MG TAB PO SCH ×2 (09:21→20:29)
[2023-06-12] MEDS: tiZANidine HCL 4 MG TABLET PO SCH ×2 (09:22→20:30)
[2023-06-12] MEDS: carBAMazepine 200 MG TABLET PO SCH ×2 (09:25→20:27)
[2023-06-12] MEDS: CETIRIZINE HCL 10 MG TABLET PO SCH ×2 (09:25→20:27)
[2023-06-12] MEDS: LORazepam 0.5 MG TAB PO PRN ×3 (09:33→20:28)
[2023-06-12] MEDS ORDERED: GADOBUTROL 65ML VIAL IV ONE (17:31)
--- NOTE | 2023-06-12 17:36 | Hospitalist Progress Note ---
Date of Service June 12, 2023 Assessment & Plan (1) Ambulatory dysfunction: Plan: Hx of Restless legs. Progressive ambulatory dysfunction in the last 3 months with inability to walk in the last few days more than a few feet due to spasm- like pain radiating from the hip down to the feet worse in the right leg MRI of the lumbar spine with a disc extrusion at L1-L2 with moderate narrowing of the left lateral recess and proximal left neural foramen, his symptoms are predominantly right-sided MRI T-spine showed some moderate cervical spine stenosis. Ordered MRI cervical spine. Consult orthospine Outpatient Nerve conduction study 06/08/2023 without abnormality -Will discontinue IV Solu-Medrol today -PT/OT has cleared him for discharge to home. WNL: CPK, Lyme, Iron studies/ferritin, Mag, Calcium CRP is acutely elevated at 4.91 without clear cause. ESR 7. JED pending - TSH 0.17, t4 WNL -MRI brain: no acute abnormality -Pending: Copper level, RPR (given mother hx), B1 level, Pain Management consulted for retirement regiment given polypharmacy. Pain management discontinued Lyrica, topiramate, tramadol due to fear of serotonin syndrome. Nortriptyline could be further discontinued or dose reduced. Awaiting orthospine consult and MRI cervical spine results (2) IBS (irritable bowel syndrome): Plan: No acute change in management (3) BPH (benign prostatic hyperplasia): Plan: History of incomplete bladder emptying, bladder distention, with complex to history including polypharmacy and prostate surgery Continue current medications, no acute change. Bladder scan every shift (4) Anxiety: Plan: Continue home medications Plan DVT PPx: Lovenox Dispo: continued inpatient stay, hopeful discharge tomorrow pending PT/OT and pain control Admission and Anticipated Discharge Date Admission Date: June 11, 2023 Subjective Patient still complains of bilateral leg pains. He is quite descriptive about his pains. Review of Systems Review of Systems: All systems reviewed & are unremarkable except as noted in Subjective Physical Exam Physical Exam: General: Awake, conversant Heart: S1, S2/regular rate and rhythm, no murmur rubs or gallops Lungs: Clear to auscultation bilaterally. Normal effort Abdomen: Soft/nontender/nondistended. No hepatosplenomegaly Extremities: No clubbing/cyanosis. No edema Behavior: Appropriate, cooperative Results & Data Results & Data Vital Signs (Past 12 Hours) Vital Signs Temp Pulse Resp BP Pulse Ox O2 Del Method 06/12/23 14:44 36.8 C 83 16 142/79 H 96 Room Air 06/12/23 07:41 36.5 C 73 16 119/79 95 Room Air PG Care Time/CCT Total # of Minutes Spent Total Time Spent with Patient: Total time spent is greater than 50% in coordination of care (as documented) at patient's floor/unit and/or counseling patient: Coding Level of Care Code 75039 SUB INP/OBS CARE 2/35MIN Diagnoses Ambulatory dysfunction R26.2 IBS (irritable bowel syndrome) K58.9 BPH (benign prostatic hyperplasia) N40.0 Anxiety F41.9
--- NOTE | 2023-06-12 19:38 | Magnetic Resonance Report ---
CLINICAL HISTORY: crevical stenosis seen on T-spine MRI TECHNIQUE: MRI of the cervical spine is performed utilizing various T1 and T2 sequences in the axial and sagittal planes. IV contrast was administered for this examination. Comparison: Comparison is made to MRI cervical spine 03/27/2011 FINDINGS: The alignment is anatomical. Disks are normal in height and signal. C2-C3: Unremarkable. C3-C4: Unremarkable. C4-C5: Facet arthropathy is seen with mild right neural foraminal stenosis. C5-C6: Facet arthropathy is seen with mild right neural foraminal stenosis. C6-C7: Facet arthropathy is seen with severe bilateral neuroforaminal stenosis. Moderate canal stenos is is also seen, AP diameter 6 mm. C7-T1: Unremarkable. The spinal ligaments are intact, without evidence of disruption or abnormal signal intensity. The spi nal cord is normal in signal intensity and there is no evidence of cord contusion. There is no eviden ce of an extradural, intradural, extramedullary or intramedullary lesion. Visualized soft tissues are normal. Visualized brain parenchyma is normal. IMPRESSION: Degenerative changes but to severe bilateral neuroforaminal stenosis and moderate canal stenosis, AP diameter 6 mm. ACT 112: Negative or not required by law. Electronically signed by: Sushil Lunsford M.D. 06/12/2023 7:35 PM
[2023-06-12] MEDS: ACETAMINOPHEN 500 MG TAB PO PRN (20:28)
[2023-06-12] MEDS: diazePAM 5 MG TABLET PO SCH (20:28)
[2023-06-12] MEDS: ENOXAPARIN INJ 40 MG/0.4 ML SYR SQ SCH (20:28)
[2023-06-12] MEDS: NORTRIPTYLINE HCL 25 MG CAP PO SCH (20:29)
[2023-06-12] MEDS: PRAZOSIN HCL 1 MG CAP PO SCH (20:30)
[2023-06-12] MEDS: FAMOTIDINE 20 MG TAB PO SCH (20:34)
[2023-06-13] MEDS: oxyCODONE HCL IR 5 MG TAB (IMMEDIATE RELEASE) PO PRN ×2 (06:55→18:10)
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
[2023-06-13] MEDS: VIBEGRON 75 MG TAB PO SCH (08:41)
[2023-06-13] MEDS: tiZANidine HCL 4 MG TABLET PO SCH ×2 (08:44→20:56)
[2023-06-13] MEDS: PANTOprazole 40 MG TAB PO SCH ×2 (08:45→20:56)
[2023-06-13] MEDS: CETIRIZINE HCL 10 MG TABLET PO SCH ×2 (08:45→20:57)
[2023-06-13] MEDS: carBAMazepine 200 MG TABLET PO SCH ×2 (08:46→20:55)
[2023-06-13] MEDS: CYANOCOBALAMIN 1000 MCG/ML VIAL IM SCH (08:46)
[2023-06-13] MEDS: THIAMINE HCL 100 MG TAB PO SCH ×2 (09:30→20:56)
[2023-06-13 10:21] LABS: BUN Creatinine Ratio 15.6 (10-20); Calcium 8.8 mg/dl (8.6-10.3); Creatinine Clr Calc Pharmacy 138.3 ml/min; Est GFR (African American) 126.9 ml/min; Est GFR (Non-African American) 109.5 ml/min; Magnesium 2.1 mg/dl (1.7-2.4); Potassium 3.7 mmol/L (3.5-5.1); Uric Acid 7.1 mg/dl (2.6-7.2)
[2023-06-13 10:50] LABS: Lyme Ab IgG w/WB Rflx Negative (Negative); Lyme Ab IgM w/WB Rflx Negative (Negative)
--- NOTE | 2023-06-13 11:01 | XRay Report ---
RIGHT ANKLE 3 VIEWS CLINICAL HISTORY: Right leg weakness. Cramps. Ambulatory dysfunction. FINDINGS: 3 views of the right ankle are compared to study dated 03/18/2017. The skeletal structures are well mineralized. No fracture is seen. The ankle mortise is intact. There is no joint effusion. T he overlying soft tissues are normal as imaged. There is a tiny dorsal heel spur. IMPRESSION: No acute bony abnormality is identified. Electronically signed by: Holger Sherwood M.D. 06/13/2023 11:00 AM
[2023-06-13] MEDS: PREGABALIN 75 MG CAP PO SCH ×2 (11:10→21:04)
--- NOTE | 2023-06-13 11:12 | XRay Report ---
XR foot RT min 3V routine CLINICAL HISTORY: ambulatory dysfunction. Right foot cramping. COMPARISON STUDY: None. FINDINGS: No fracture or dislocation within the right foot. The Lisfranc joint is intact. No erosive changes. Small marginal osteophytes at the first MTP joint consistent with early degenerative change. IMPRESSION: No fracture or dislocation within the right foot. ACT 112: Negative or not required by law. Electronically signed by: Conrad Carlson M.D. 06/13/2023 11:10 AM
[2023-06-13] MEDS ORDERED: dexAMETHasone 6 MG in SYRINGE 0 ML IV SCH (12:00)
[2023-06-13] MEDS: KETOROLAC TROMETHAMINE 15 MG/ML VIAL IV PRN (13:55)
--- NOTE | 2023-06-13 14:21 | Orthopedic Consultation ---
Date of Service June 13, 2023 Assessment & Plan (1) Lower extremity pain: (2) Ambulatory dysfunction: (3) Cervical stenosis of spine: (4) Thoracic degenerative disc disease: (5) Lumbar degenerative disc disease: Plan Patient presentation and exam discussed with Dr. Joya and plan was formulated from this. I had a long discussion today with the patient about his spinal pathology in great detail with ample amount of time for him to ask any questions or state any concerns. All questions and concerns for answered to the patient's satisfaction. At this point, he does not have any signs or symptoms of cervical pathology that he would be experiencing with his neuroforaminal stenosis and moderate canal stenosis at the level C6-C7. He does have direct tenderness over this level but I think this may be secondary to positional in nature due to him saying he did not start feeling this until he was in the hospital here. As for the lumbar spine MRI, he does not have any signs or symptoms of lumbosacral pathology which would be expected from the disc extrusion from the left paracentral disc of the L1-L2 region. I did discuss that we feel that his leg symptoms that he has been experiencing on the right lower extremity are neurologic in nature. We did recommend following up with neurology to discuss further treatments. He may also benefit from seeing pain management as an outpatient to help with some of his chronic pain issues. At this point, there is no orthopedic spine intervention needed. Please see Dr. Joya addendum for further recommendations. Please Gregory text or reach out to [facility] orthopedics if this patient's situation is to change. Patient seen and examined, discussed findings on MRIs with patient's mother noting that there is a minimal disc bulge at L1-2 and some very subtle changes involving the L5-S1 disc with loss of signal intensity. Though some back pain can be exhibited from the structural changes, would not cause any neural compressive type symptoms in the lower extremities, there is abundant room in the canal and the foraminal regions. I related that the structures can cause low back pain on intermittent basis, she related to me that the symptoms have been around for 3 to 4 months but does not recall an inciting incident. I also discussed the C6-7 disc protrusion causing some moderate canal narrowing and also foraminal narrowing, but I did not think that this is contributing to his symptomatology explaining though that at some point it might be an issue down the line if he complains of any neural compressive symptoms in the upper extremities and these were reviewed. History of Present Illness Reason for Consultation: . MRI results of spine. Requesting Physician: . Attending Physician: David Rollins MD . Ga is a 37-year-old male who was seen and evaluated this morning resting comfortably at bedside in no apparent distress. He does have a significant past medical history as listed below. We were asked to see him today due to some abnormal MRI results of both his thoracic, cervical, and lumbar spine. Today, he states that he has chronic pain diffusely throughout the body. He notes that he has been dealing with pain for years. He notes that about 3 months ago, he was diagnosed with restless leg syndrome and has recently gotten worse. He notes that whenever he is at rest, he began to plantarflex and incur a limp all 5 of his toes and which causes extreme pain. He does follow with neurology. He is currently on a neurology management for his restless leg syndrome. He states that he constantly lives at a 10 out of 10 pain throughout his spine. He is unable to pinpoint exact locations of where his pain is. He notes that his pain is just burst evenly throughout his body. He denies any other issues today. Allergies Allergy/AdvReac Type Severity Reaction Status Date / Time bee venom protein (honey bee) Allergy Severe Anaphylaxis Verified 06/09/23 16:01 latex Allergy Mild ITCHY Verified 06/09/23 16:01 pollen extracts Allergy Mild RESP Verified 06/09/23 16:01 PROBLEMS mushroom AdvReac Intermediate Nausea Verified 06/09/23 16:01 olive extract AdvReac Mild BLACK Verified 06/09/23 16:01 OLIVES TRIGGERS IBS BLUE CHEESE Allergy Severe Anaphylaxis Uncoded 06/09/23 16:01 DUST Allergy Mild RESP Uncoded 06/09/23 16:01 DISCOMFORT Home Medications Medication Instructions Recorded Confirmed Type tizanidine 4 mg tablet (Zanaflex) 8 mg PO AMPM 08/03/19 06/09/23 History carbamazepine 200 mg tablet 200 mg PO BID 10/14/20 06/09/23 History (Tegretol) nortriptyline 75 mg capsule 75 mg PO HS 10/14/20 06/09/23 History topiramate 50 mg tablet 50 mg PO BID 10/14/20 06/09/23 History tramadol 50 mg tablet 50 mg PO Q8H PRN Pain 10/14/20 06/09/23 History diazepam 10 mg tablet (Valium) 20 mg PO HS 12/27/20 06/09/23 History pumpkin seed extract-soy germ 300 1 cap PO UD PRN bladder issues 12/27/20 06/09/23 History mg capsule (Azo Bladder Control) cetirizine 10 mg tablet 10 mg PO BID 11/27/22 06/09/23 History famotidine 40 mg tablet 0 mg PO HS 11/27/22 06/09/23 History mirabegron 50 mg tablet,extended 50 mg PO QAM 11/27/22 06/09/23 History release 24 hr (Myrbetriq) omeprazole 40 mg capsule,delayed 40 mg PO BID GERD, peptic ulcer 11/27/22 06/09/23 History release disease prazosin 2 mg capsule (Minipress) 2 mg PO HS 11/27/22 06/09/23 History pregabalin 75 mg capsule 75 mg PO BID 11/27/22 06/09/23 History methylprednisolone 4 mg tablets in 4 mg PO DIRECTED 06/09/23 06/09/23 History a dose pack oxycodone 5 mg capsule 5 mg PO Q6 PRN pain 06/09/23 06/09/23 History Past Med/Surg History Medical History Adopted History of cluster headache in high school History of asthma used to use inhaler, no longer having issues History of scarlet fever Osteoarthritis History of anesthesia reaction woke up during tooth removal before; difficulty waking after procedures at times Prediabetes TOLD PREDIABETES IN THE PAST (GLUCOSES WERE TRANSIENTLY ELEVATED IN SETTING OF PREDNISONE) Morbid obesity BPH (benign prostatic hyperplasia) Diverticulitis NO ISSUES X YEARS Hearing difficulty "MILD" HEARING LOSS Arthritis Radicular pain of shoulder resolved Left shoulder pain resolved Anxiety Asperger's disorder AUTISIM; "ANXIETY AROUND PEOPLE" IBS (irritable bowel syndrome) Kidney stone hx-passed on own Surgical History History of tooth extraction History of prostate surgery greenlight vaporization of prostate 09/2018 History of esophagogastroduodenoscopy (EGD) Hx of colonoscopy Hx of hernia repair AGE 5 Hx of anterior cruciate ligament surgery LEFT Family History Other Adopted person Social History Smoking Status: Current every day smoker Tobacco Type: E-cigarettes / Vaping Cigarettes Per Day: vapes daily; Second Hand Exposure: No; Do You Dip or Chew Tobacco: No; Hx Alcohol Use: No Hx Substance Use: Yes Last Used Substance Other:: none for 1 week Substance Use Type Other:: medical marijuana Preferred Language: Maltese Communication Ability: Effective Visual Impairment: No Limitations Hearing Ability: Normal Joint Special Operations Required: No Beliefs That Will Affect Care: None marital status: Single Current Living Situation: Parent current occupational status: disabled Feels Safe at Home: Yes Assistive Devices: Cane and Walker Review of Systems All systems reviewed & are unremarkable except as noted in HPI & below. Physical Exam . Constitutional: WD/WN, vitals as above Neck: trachea midline, no thyromegaly Respiratory: normal respiratory effort, lungs clear to auscultation Cardiovascular: RRR, no murmur, no edema Gastrointestinal (Abdomen): normal bowel sounds, soft, nontender, no hepatosplenomegaly Musculoskeletal On physical examination of the spine as well as lower extremities, he does have tenderness around the C7 spinal process. He does not have any pain to palpation throughout the remaining spine. He has no tenderness at the hips. He does have some tenderness in the toes on/around the tarsometatarsal joint. He has normal but painful range of motion of both the right and left hips. Strength is equal bilaterally. Normal range of motion at the knee, ankle, and all 5 toes bilaterally. Calf soft nontender to palpation. Negative Homans' sign. +2 DP and PT pulses. Less than 2-second capillary refill. Normal sensation. Neurovascular intact. Results & Data Results & Data Laboratory Results . Diagnostic Findings . Lumbar Spine MRI 06/09/23 14:23 MRI OF THE LUMBAR SPINE WITHOUT CONTRAST CLINICAL HISTORY: Bilateral lower leg weakness and pain. COMPARISON STUDY: Lumbar spine radiographs September 30, 2020. Lumbar spine CT October 18, 2020. Lumbar spine MRI December 19, 2017. TECHNIQUE: Utilizing a 1.5 Neena magnet and dedicated coil, multiplanar, multiecho imaging of the lumbar spine was performed without IV contrast. FINDINGS: For purposes of numbering on this exam, the L5-S1 disc space is assigned to axial image 23 of 26. Alignment of the lumbar spine is anatomic. Vertebral body heights are maintained. There is no lumbar spine fracture. No marrow replacement is present. There is no intracanalicular mass or fluid collection. The conus terminates at the mid L1 level. Paravertebral soft tissues are unremarkable. The bladder is distended. This exam is mildly compromised by motion artifact. L1-2: There is mild disc space narrowing. There is a 1 x 1 x 0.6 cm left par acentral disc extrusion. This results in moderate narrowing of the left lateral recess and moderate narrowing of the proximal left neural foramen. The central canal and right neural foramen are patent. This disc herniation is new since MRI of December 19, 2017. L2-3: The central canal and neural foramen are patent. L3-4: The central canal and neural foramen are patent. L4-5: The central canal and neural foramen are patent. There is mild facet arthrosis. L5-S1: The central canal and neural foramen are patent. There is mild facet arthrosis. There is a suspected tiny left foraminal annular tear with tiny disc protrusion. IMPRESSION: 1. 1 x 1 x 0.6 cm left paracentral disc extrusion at L1-L2 which is new since MRI of December 19, 2017. This results in moderate narrowing of the left lateral recess and proximal aspect of the left neural foramen. 2. Otherwise, patent central canal and neural foramen within the lumbar spine. 3. Patent central canal. 4. No lumbar spine fractures. 5. Exam mildly compromised by motion artifact. ACT 112: Negative or not required by law. Electronically signed by: Tj Castillo M.D. 06/09/2023 3:46 PM Brain MRI 06/11/23 00:01 Exam(s): MRI HEAD W/WO Contrast IV Amt: 10cc gadavist EXAM: MR Head Without and With Intravenous Contrast CLINICAL HISTORY: Reason for exam: unexplained leg cramps/spams. TECHNIQUE: Magnetic resonance images of the head/brain without and with intravenous contrast in multiple planes. CONTRAST: Patient received 10cc Gadavist of IV contrast COMPARISON: No relevant prior studies available. FINDINGS: Brain: Unremarkable. No mass. No hemorrhage. No acute infarct. Ventricles: No midline shift. No ventriculomegaly. Bones/joints: Unremarkable. No acute fracture. Sinuses: Right maxillary sinus mucus retention cyst.. No acute sinusitis. Mastoid air cells: Unremarkable as visualized. No mastoid effusion. Orbits: Unremarkable as visualized. IMPRESSION: No acute abnormality. Electronically signed by: Aayush Sood M.D. 06/11/23 03:41 AM Thoracic Spine MRI 06/11/23 11:29 Exam(s): MRI T SPINE W/WO Contrast IV Amt: 10.5cc gadavist EXAM: MR Thoracic Spine Without and With Intravenous Contrast CLINICAL HISTORY: Reason for exam: progessive leg cramps, ?demylination. TECHNIQUE: Magnetic resonance images of the thoracic spine without and with intravenous contrast in multiple planes. CONTRAST: Patient received 10.5cc gadavist of IV contrast COMPARISON: CT thoracic spine 09/25/2017. 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 Discs/spinal canal/neural foramina: Degenerative change of the cervical spine which appears to result in moderate spinal canal stenosis at C6-C7, incompletely evaluated on this examination. Mild degenerative change in the thoracic spine without significant spinal canal stenosis or foraminal narrowing. Spinal cord: Unremarkable. Normal signal. No abnormal enhancement. Soft tissues: Unremarkable. IMPRESSION: 1. Normal appearance of the thoracic spinal cord. 2. Mild degenerative change in the thoracic spine without significant spinal canal stenosis or foraminal narrowing. 3. Degenerative change of the cervical spine which appears to result in moderate spinal canal stenosis at C6-C7, incompletely evaluated on this examination. Consider dedicated MRI of the cervical spine as clinically warranted. Electronically signed by: Joel Felix MD 06/12/23 00:32 AM Cervical Spine MRI 06/12/23 10:10 CLINICAL HISTORY: crevical stenosis seen on T-spine MRI TECHNIQUE: MRI of the cervical spine is performed utilizing various T1 and T2 sequences in the axial and sagittal planes. IV contrast was administered for this examination. Comparison: Comparison is made to MRI cervical spine 03/27/2011 FINDINGS: The alignment is anatomical. Disks are normal in height and signal. C2-C3: Unremarkable. C3-C4: Unremarkable. C4-C5: Facet arthropathy is seen with mild right neural foraminal stenosis. C5-C6: Facet arthropathy is seen with mild right neural foraminal stenosis. C6-C7: Facet arthropathy is seen with severe bilateral neuroforaminal stenosis. Moderate canal stenosis is also seen, AP diameter 6 mm. C7-T1: Unremarkable. The spinal ligaments are intact, without evidence of disruption or abnormal signal intensity. The spinal cord is normal in signal intensity and there is no evidence of cord contusion. There is no evidence of an extradural, intradural, extramedullary or intramedullary lesion. Visualized soft tissues are normal. Visualized brain parenchyma is normal. IMPRESSION: Degenerative changes but to severe bilateral neuroforaminal stenosis and moderate canal stenosis, AP diameter 6 mm. ACT 112: Negative or not required by law. Electronically signed by: Sushil Lunsford M.D. 06/12/2023 7:35 PM Ankle X-Ray 06/13/23 09:46 RIGHT ANKLE 3 VIEWS CLINICAL HISTORY: Right leg weakness. Cramps. Ambulatory dysfunction. FINDINGS: 3 views of the right ankle are compared to study dated 03/18/2017. The skeletal structures are well mineralized. No fracture is seen. The ankle mortise is intact. There is no joint effusion. The overlying soft tissues are normal as imaged. There is a tiny dorsal heel spur. IMPRESSION: No acute bony abnormality is identified. Electronically signed by: Holger Sherwood M.D. 06/13/2023 11:00 AM Foot X-Ray 06/13/23 09:46 XR foot RT min 3V routine CLINICAL HISTORY: ambulatory dysfunction. Right foot cramping. COMPARISON STUDY: None. FINDINGS: No fracture or dislocation within the right foot. The Lisfranc joint is intact. No erosive changes. Small marginal osteophytes at the first MTP joint consistent with early degenerative change. IMPRESSION: No fracture or dislocation within the right foot. ACT 112: Negative or not required by law. Electronically signed by: Conrad Carlson M.D. 06/13/2023 11:10 AM PG Care Time/CCT Total # of Minutes Spent Total Time Spent with Patient: Total time spent is greater than 50% in coordination of care (as documented) at patient's floor/unit and/or counseling patient: Coding Level of Care Code 67861 IN/OBS CONSULT LVL 3,45M Diagnoses Lower extremity pain M79.606 Ambulatory dysfunction R26.2 Cervical stenosis of spine M48.02 Thoracic degenerative disc disease M51.34 Lumbar degenerative disc disease M51.36
[2023-06-13 14:44] LABS: Appearance Urine Clear (Clear); Bilirubin Urine Negative (Negative); Blood Urine Negative (Negative); Color Urine Yellow; Glucose Urine UA Negative (Negative); Ketones Urine Negative (Negative); Leukocyte Esterase Urine Negative (Negative); Nitrite Urine Negative (Negative); Protein Urine Negative (Negative); Specific Gravity Urine 1.014 (1.000-1.030); Urobilinogen Urine Negative (Negative); pH Urine 6.5 (4.5-7.5)
[2023-06-13] MEDS: PRAZOSIN HCL 1 MG CAP PO SCH (20:56)
[2023-06-13] MEDS: NORTRIPTYLINE HCL 25 MG CAP PO SCH (20:57)
[2023-06-13] MEDS: ENOXAPARIN INJ 40 MG/0.4 ML SYR SQ SCH (20:58)
[2023-06-13] MEDS: diazePAM 5 MG TABLET PO SCH (21:04)
[2023-06-13] MEDS: FAMOTIDINE 20 MG TAB PO SCH (21:04)
[2023-06-13] MEDS: MEDICAL MARIJUANA PO SCH (21:32)
[2023-06-14] MEDS: KETOROLAC TROMETHAMINE 15 MG/ML VIAL IV PRN ×2 (04:16→10:08)
[2023-06-14 06:14] LABS: Basophils # (auto) 0.04 K/uL (0.00-0.20); Basophils % (auto) 0.7 %; Eosinophils # (auto) 0.08 K/uL (0.00-0.50); Eosinophils % (auto) 1.4 %; Hematocrit (blood only) 40.9 % (42.0-52.0); Hemoglobin 14.6 g/dl (14.0-18.0); Immature Granulocytes # (auto) 0.01 K/uL (0.01-0.20); Immature Granulocytes % (auto) 0.2 %; Lymphocytes # (auto) 2.78 K/uL (1.20-3.40); Lymphocytes % (auto) 48.1 %; Mean Corpuscular Hemoglobin 31.3 pg (25.0-34.0); Mean Corpuscular Hgb Conc 35.7 g/dL (32.0-36.0); Mean Corpuscular Volume 87.8 fL (80.0-100.0); Monocytes # (auto) 0.49 K/uL (0.11-0.59); Monocytes % (auto) 8.5 %; Neutrophils # (auto) 2.38 K/uL (1.40-6.50); Neutrophils % (auto) 41.1 %; Platelet Count 256 K/uL (130-400); RDW Coefficient of Variation 13.6 % (11.5-14.5); RDW Standard Deviation 43.5 fL (36.4-46.3); Red Blood Count 4.66 M/uL (4.70-6.10); White Blood Count 5.78 K/ul (4.8-10.8)
[2023-06-14 06:46] LABS: Albumin Globulin Ratio 1.4 (0.9-2); Albumin Level 3.7 gm/dl (3.4-5.0); BUN Creatinine Ratio 16.2 (10-20); Bilirubin,Total 0.3 mg/dl (0.2-1.0); Calcium 8.4 mg/dl (8.6-10.3); Creatinine Clr Calc Pharmacy 168.3 ml/min; Est GFR (African American) 137.5 ml/min; Est GFR (Non-African American) 118.7 ml/min; Globulin 2.6 gm/dl (2.5-4.0); Magnesium 2.3 mg/dl (1.7-2.4); Total Protein 6.3 gm/dl (6.0-8.3)
[2023-06-14 06:55] LABS: T3 Free 3.94 pg/ml (2.3-4.2)
[2023-06-14 07:03] LABS: T4 Free Thyroxine 0.8 ng/dl (0.61-1.60)
[2023-06-14 07:06] LABS: Ferritin 88.1 ng/ml (8-388)
[2023-06-14] MEDS: oxyCODONE HCL IR 5 MG TAB (IMMEDIATE RELEASE) PO PRN (07:13)
[2023-06-14 07:14] LABS: Vitamin D, 25 Hydrox < 7.0 ng/ml (30-100)
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
[2023-06-14] MEDS ORDERED: POTASSIUM CHLORIDE CRTAB 20 MEQ TABCR PO STA (07:49)
[2023-06-14] MEDS ORDERED: ERGOCALCIFEROL 50,000 UNITS 1250 MCG CAP PO SCH (08:00)
[2023-06-14] MEDS: PREGABALIN 75 MG CAP PO SCH ×2 (08:46→20:03)
[2023-06-14] MEDS: VIBEGRON 75 MG TAB PO SCH (08:47)
[2023-06-14] MEDS: tiZANidine HCL 4 MG TABLET PO SCH ×2 (08:47→20:06)
[2023-06-14] MEDS: CYANOCOBALAMIN 1000 MCG/ML VIAL IM SCH (08:47)
[2023-06-14] MEDS: CETIRIZINE HCL 10 MG TABLET PO SCH ×2 (08:47→20:04)
[2023-06-14] MEDS: THIAMINE HCL 100 MG TAB PO SCH ×2 (08:47→20:05)
[2023-06-14] MEDS: PANTOprazole 40 MG TAB PO SCH ×2 (08:47→20:04)
[2023-06-14] MEDS: carBAMazepine 200 MG TABLET PO SCH ×2 (08:47→20:04)
[2023-06-14] MEDS ORDERED: BACLOFEN 10 MG TAB PO ONE (12:00)
[2023-06-14] MEDS: MEDICAL MARIJUANA PO SCH ×3 (12:09→20:04)
[2023-06-14] MEDS: POLYETHYLENE (MIRALAX) 17 GM PACK PO SCH ×2 (13:47→20:03)
[2023-06-14] MEDS ORDERED: BACLOFEN 10 MG TAB PO PRN (14:32)
[2023-06-14] MEDS: KETOROLAC TROMETHAMINE 10 MG TABLET PO PRN (16:46)
[2023-06-14] MEDS: diazePAM 5 MG TABLET PO SCH (20:03)
[2023-06-14] MEDS: NORTRIPTYLINE HCL 25 MG CAP PO SCH (20:05)
[2023-06-14] MEDS: PRAZOSIN HCL 1 MG CAP PO SCH (20:05)
[2023-06-14] MEDS: FAMOTIDINE 40 MG TABLET PO SCH (20:05)
[2023-06-14] MEDS: ENOXAPARIN INJ 40 MG/0.4 ML SYR SQ SCH (20:06)
[2023-06-15] MEDS: oxyCODONE HCL IR 5 MG TAB (IMMEDIATE RELEASE) PO PRN ×2 (02:09→16:42)
[2023-06-15] MEDS: KETOROLAC TROMETHAMINE 10 MG TABLET PO PRN (05:35)
[2023-06-15 06:04] LABS: Calcium 8.2 mg/dl (8.6-10.3); Magnesium 2.3 mg/dl (1.7-2.4); Potassium 3.7 mmol/L (3.5-5.1)
[2023-06-15 06:08] LABS: BUN Creatinine Ratio 11.1 (10-20); Creatinine Clr Calc Pharmacy 138.3 ml/min; Est GFR (African American) 126.9 ml/min; Est GFR (Non-African American) 109.5 ml/min
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
[2023-06-15] MEDS: VIBEGRON 75 MG TAB PO SCH (09:11)
[2023-06-15] MEDS: tiZANidine HCL 4 MG TABLET PO SCH ×2 (09:12→20:05)
[2023-06-15] MEDS: THIAMINE HCL 100 MG TAB PO SCH ×2 (09:12→20:04)
[2023-06-15] MEDS: PANTOprazole 40 MG TAB PO SCH ×2 (09:13→20:06)
[2023-06-15] MEDS: carBAMazepine 200 MG TABLET PO SCH ×2 (09:13→20:05)
[2023-06-15] MEDS: FAMOTIDINE 40 MG TABLET PO SCH ×2 (09:13→20:04)
[2023-06-15] MEDS: CYANOCOBALAMIN 1000 MCG/ML VIAL IM SCH (09:13)
[2023-06-15] MEDS: CETIRIZINE HCL 10 MG TABLET PO SCH ×2 (09:13→20:05)
[2023-06-15] MEDS: PREGABALIN 75 MG CAP PO SCH ×2 (09:14→20:03)
[2023-06-15] MEDS: POLYETHYLENE (MIRALAX) 17 GM PACK PO SCH ×3 (09:15→20:03)
[2023-06-15] MEDS ORDERED: BACLOFEN 10 MG TAB PO PRN (10:53)
[2023-06-15] MEDS: KETOROLAC TROMETHAMINE 15 MG/ML VIAL IV PRN ×2 (12:06→18:43)
[2023-06-15 14:21] LABS: Copper, Serum 110 mcg/dL (70-175)
[2023-06-15] MEDS: DICLOFENAC SOD 1% GEL 100 GM TUBE EXT SCH ×3 (15:13→20:05)
[2023-06-15] MEDS: MEDICAL MARIJUANA PO SCH ×3 (15:13→20:03)
[2023-06-15 17:47] LABS: Anti Nuclear Antibody Screen NEGATIVE (NEGATIVE); Rheumatoid Factor <14 IU/mL (<14)
[2023-06-15] MEDS: ENOXAPARIN INJ 40 MG/0.4 ML SYR SQ SCH (20:02)
[2023-06-15] MEDS: diazePAM 5 MG TABLET PO SCH (20:03)
[2023-06-15] MEDS: NORTRIPTYLINE HCL 25 MG CAP PO SCH (20:04)
[2023-06-15] MEDS: PRAZOSIN HCL 1 MG CAP PO SCH (20:04)
[2023-06-16] MEDS: oxyCODONE HCL IR 5 MG TAB (IMMEDIATE RELEASE) PO PRN ×3 (01:54→17:17)
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
[2023-06-16] MEDS ORDERED: THIAMINE HCL 100 MG TAB PO SCH (09:00)
[2023-06-16] MEDS: carBAMazepine 200 MG TABLET PO SCH ×2 (09:27→20:21)
[2023-06-16] MEDS: CETIRIZINE HCL 10 MG TABLET PO SCH ×2 (09:27→20:20)
[2023-06-16] MEDS: CYANOCOBALAMIN 1000 MCG/ML VIAL IM SCH (09:27)
[2023-06-16] MEDS: DICLOFENAC SOD 1% GEL 100 GM TUBE EXT SCH ×4 (09:28→20:18)
[2023-06-16] MEDS: FAMOTIDINE 40 MG TABLET PO SCH ×2 (09:28→20:20)
[2023-06-16] MEDS: POLYETHYLENE (MIRALAX) 17 GM PACK PO SCH ×3 (09:28→20:18)
[2023-06-16] MEDS: PANTOprazole 40 MG TAB PO SCH ×2 (09:28→20:20)
[2023-06-16] MEDS: PREGABALIN 75 MG CAP PO SCH ×2 (09:28→20:18)
[2023-06-16] MEDS: tiZANidine HCL 4 MG TABLET PO SCH ×2 (09:28→20:20)
[2023-06-16] MEDS: VIBEGRON 75 MG TAB PO SCH (09:29)
[2023-06-16] MEDS: MEDICAL MARIJUANA PO SCH ×3 (09:33→20:17)
[2023-06-16] MEDS ORDERED: bisacodyL 10 MG SUPP PR PRN (11:25)
[2023-06-16] MEDS: KETOROLAC TROMETHAMINE 10 MG TABLET PO PRN ×2 (12:45→20:23)
[2023-06-16] MEDS: DOCUSATE SODIUM 100 MG CAP PO SCH ×2 (12:45→20:18)
[2023-06-16] MEDS: diazePAM 5 MG TABLET PO SCH (20:18)
[2023-06-16] MEDS: PRAZOSIN HCL 1 MG CAP PO SCH (20:20)
[2023-06-16] MEDS: ENOXAPARIN INJ 40 MG/0.4 ML SYR SQ SCH (20:21)
[2023-06-16] MEDS: NORTRIPTYLINE HCL 25 MG CAP PO SCH (20:21)
[2023-06-16] MEDS: THIAMINE HCL 200 MG in SODIUM CHLORIDE 0.9% 50 ML IV SCH (20:27)
[2023-06-17] MEDS: oxyCODONE HCL IR 5 MG TAB (IMMEDIATE RELEASE) PO PRN ×2 (01:49→12:58)
[2023-06-17] MEDS: ACETAMINOPHEN 500 MG TAB PO PRN (06:30)
[2023-06-17 06:31] LABS: BUN Creatinine Ratio 9.6 (10-20); Calcium 8.3 mg/dl (8.6-10.3); Creatinine Clr Calc Pharmacy 132.5 ml/min; Est GFR (African American) 120.4 ml/min; Est GFR (Non-African American) 103.9 ml/min; Potassium 3.8 mmol/L (3.5-5.1)
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
[2023-06-17] MEDS: PREGABALIN 75 MG CAP PO SCH (08:16)
[2023-06-17] MEDS: KETOROLAC TROMETHAMINE 10 MG TABLET PO PRN (08:16)
[2023-06-17] MEDS: CETIRIZINE HCL 10 MG TABLET PO SCH (08:16)
[2023-06-17] MEDS: THIAMINE HCL 200 MG in SODIUM CHLORIDE 0.9% 50 ML IV SCH (08:17)
[2023-06-17] MEDS: VIBEGRON 75 MG TAB PO SCH (08:17)
[2023-06-17] MEDS: carBAMazepine 200 MG TABLET PO SCH (08:17)
[2023-06-17] MEDS: PANTOprazole 40 MG TAB PO SCH (08:17)
[2023-06-17] MEDS: tiZANidine HCL 4 MG TABLET PO SCH (08:17)
[2023-06-17] MEDS: DICLOFENAC SOD 1% GEL 100 GM TUBE EXT SCH (08:24)
[2023-06-17] MEDS: DOCUSATE SODIUM 100 MG CAP PO SCH (08:25)
[2023-06-17] MEDS: MEDICAL MARIJUANA PO SCH (08:25)
[2023-06-17] MEDS: POLYETHYLENE (MIRALAX) 17 GM PACK PO SCH (08:25)
[2023-06-17] MEDS ORDERED: FAMOTIDINE 20 MG TAB PO SCH (09:00)
--- NOTE | 2023-06-17 10:17 | Discharge Summary ---
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 extended release 24 hr 50 mg PO QAM Changed tizanidine [Zanaflex] 4 mg tablet 4 mg PO AMPM Qty: 14 0RF Discontinued methylprednisolone 4 mg tablets,dose pack 4 mg PO DIRECTED Rx Instructions: QUIT TAKING LAST NIGHT oxycodone 5 mg capsule 5 mg PO Q6 PRN (Reason: pain) tramadol 50 mg Tablet 50 mg PO Q8H PRN (Reason: Pain) topiramate 50 mg tablet 50 mg PO BID Discharge Orders: Discharge Order (Routine); Ordered 06/17/23 Ordered By: Michelle Hernandez Admission Data Admit Date/Time: 06/11/23 14:52 Attending Provider: David Rollins Admit Provider: Johnathon Zhou Primary Care Provider: Jhon Colorado Other Providers: Johnathon Zhou; Williams Mejias; Nicolás Hahn; Donnie Joya Coding Level of Care Code 52251 INP/OBS DISCH >30 MIN Diagnoses Ambulatory dysfunction R26.2 IBS (irritable bowel syndrome) K58.9 BPH (benign prostatic hyperplasia) N40.0 Anxiety F41.9 B12 deficiency E53.8 Leg cramps R25.2 Cervical stenosis of spine M48.02 Lumbar degenerative disc disease M51.36 Thoracic degenerative disc disease M51.34 Vitamin D deficiency E55.9
== END 2023-06-17 13:16 | disposition home health service (06) ==
LOC: ED 13:05 → EDINP 13:05 → SUATTDRO 18:06 → EDINP 19:46 → 3E 06-10 17:40 → SUATTDRO 06-11 14:52

== ENCOUNTER 2023-06-21 09:38 | Observation (INO) ==
--- NOTE | 2023-06-21 10:30 | Emergency Department Note ---
Impression & Plan Arthralgia ADMIT ED Provider Note HPI: History obtained from patient. The patient is a 37-year-old gentleman with history of Asperger syndrome, anxiety, recent generalized pain and arthralgias, who presents emergency department with a chief complaint of arthralgias. Patient states that the pain started in his feet several days ago and now it spread to his bilateral knees, hips, as well as wrist and elbows bilaterally. Patient states he also has muscular pain in his bilateral thighs. Patient was just admitted to the hospital for the same issue and discharged home on 06/17/2023 following a largely unremarkable workup, he was found to be deficient in B1 and vitamin B12 and was placed on supplementation. Patient states that despite this he has been continuing to have the same pain, he states that is getting to the point where he does not feel that he can ambulate very well at home or go to the bathroom. Patient presents with his mother at the bedside who is requesting admission. ROS: - Per HPI Differential Diagnosis: Rhabdomyolysis, autoimmune condition, Lyme disease, fibromyalgia, vitamin deficiencies, critical electrolyte abnormalities, somatoform disorder, amongst other potential pathologies. *Outpatient medications and allergy history reviewed. PE: General: Alert HEENT: Normocephalic, trachea midline Eyes: Extraocular eye movement is intact, no scleral erythema Pulmonary: Clear to auscultation bilaterally, no wheezing Cardio: Regular rate and rhythm GI: Abdomen is soft to palpation : No suprapubic tenderness MSK: No evidence of trauma or malformation of the extremities, no edema Skin: No evidence of rash Neuro: Alert, no focal deficits Psychiatric: Cooperative INDEPENDENT INTERPRETATIONS: media monitor: (As interpreted by myself): - An order was placed for continuous cardiac monitoring - Patient was noted to be in sinus rhythm with a rate of 95 Interventions provided in ED: -IV morphine, IV Zofran Medical Decision Making: Patient overall appears well on my exam, he does not have any evidence of any joint effusions, he is hemodynamically stable on arrival. Lab work shows no leukocytosis, hemoglobin is normal, platelet count is normal, ESR is normal, CMP does not show any critical findings, C-reactive protein is mildly elevated at 2.25 however this is down trended from 4.91 earlier this month. Lyme testing is negative. Patient did just receive an extensive inpatient workup and was discharged on 06/17. Patient did have MRI imaging of the brain, cervical spine, thoracic spine, lumbar spine, as well as x-ray imaging of multiple joints and blood work obtained while he was here in the hospital as an inpatient. He was ultimately discharged home with vitamin supplementation and advised on outpatient follow- up. Patient states that he is not comfortable with discharge home at this time and his mother states that she cannot take care of him at home. Patient is requesting inpatient admission for physical therapy and possibly placement/rehab. [facility] hospitalist service was consulted for admission and the patient was placed for admission in stable condition. Case was discussed with Dr. Zhou Consultants/Discussions held with other healthcare providers: -Hospitalist, Dr. Zhou Disposition discussion held by myself with: -Patient and mother at bedside Diagnosis: 1. Arthralgias, subacute, nonspecific 2. Myalgias, subacute, nonspecific 3. Ambulatory dysfunction Disposition: Admission Austin Ambrocio DO Emergency Medicine Past Med/Surg History Medical History Adopted History of cluster headache in high school History of asthma used to use inhaler, no longer having issues History of scarlet fever Osteoarthritis History of anesthesia reaction woke up during tooth removal before; difficulty waking after procedures at times Prediabetes TOLD PREDIABETES IN THE PAST (GLUCOSES WERE TRANSIENTLY ELEVATED IN SETTING OF PREDNISONE) Morbid obesity BPH (benign prostatic hyperplasia) Diverticulitis NO ISSUES X YEARS Hearing difficulty "MILD" HEARING LOSS Arthritis Radicular pain of shoulder resolved Left shoulder pain resolved Anxiety Asperger's disorder AUTISIM; "ANXIETY AROUND PEOPLE" IBS (irritable bowel syndrome) Kidney stone hx-passed on own Surgical History History of tooth extraction History of prostate surgery greenlight vaporization of prostate 09/2018 History of esophagogastroduodenoscopy (EGD) Hx of colonoscopy Hx of hernia repair AGE 5 Hx of anterior cruciate ligament surgery LEFT Family History Other Adopted person Social History Smoking Status: Former smoker Tobacco Type: E-cigarettes / Vaping Cigarettes Per Day: vapes daily; Second Hand Exposure: No; Do You Dip or Chew Tobacco: No; Hx Alcohol Use: No Hx Substance Use: Yes Last Used Substance Other:: none for 1 week Substance Use Type Other:: medical marijuana Preferred Language: Lebanese Communication Ability: Effective Visual Impairment: No Limitations Hearing Ability: Normal Visual Education Teacher Required: No Beliefs That Will Affect Care: None marital status: Single Current Living Situation: Parent current occupational status: disabled Feels Safe at Home: Yes Assistive Devices: Cane and Walker Allergies Allergies Allergy/AdvReac Type Severity Reaction Status Date / Time bee venom protein (honey bee) Allergy Severe Anaphylaxis Verified 06/09/23 16:01 latex Allergy Mild ITCHY Verified 06/09/23 16:01 pollen extracts Allergy Mild RESP Verified 06/09/23 16:01 PROBLEMS mushroom AdvReac Intermediate Nausea Verified 06/09/23 16:01 olive extract AdvReac Mild BLACK Verified 06/09/23 16:01 OLIVES TRIGGERS IBS BLUE CHEESE Allergy Severe Anaphylaxis Uncoded 06/09/23 16:01 DUST Allergy Mild RESP Uncoded 06/09/23 16:01 DISCOMFORT Home Meds Home Medications Medication Instructions Recorded Confirmed carbamazepine 200 mg tablet 200 mg PO BID 10/14/20 06/21/23 (Tegretol) nortriptyline 75 mg capsule 75 mg PO HS 10/14/20 06/21/23 diazepam 10 mg tablet (Valium) 20 mg PO HS 12/27/20 06/21/23 pumpkin seed extract-soy germ 300 1 cap PO UD PRN bladder issues 12/27/20 06/21/23 mg capsule (Azo Bladder Control) cetirizine 10 mg tablet 10 mg PO BID 11/27/22 06/21/23 famotidine 40 mg tablet 0 mg PO HS 11/27/22 06/21/23 mirabegron 50 mg tablet,extended 50 mg PO QAM 11/27/22 06/21/23 release 24 hr (Myrbetriq) omeprazole 40 mg capsule,delayed 40 mg PO BID GERD, peptic ulcer 11/27/22 06/21/23 release disease prazosin 2 mg capsule (Minipress) 2 mg PO HS 11/27/22 06/21/23 pregabalin 75 mg capsule 75 mg PO BID 11/27/22 06/21/23 Previous Rx's Medication Instructions Recorded baclofen 10 mg tablet 10 mg PO BID PRN muscle spasm #20 01/13/24 tabs cyanocobalamin (vitamin B-12) 1,000 mcg PO DAILY #30 tabs 06/16/23 1,000 mcg tablet ergocalciferol (vitamin D2) 1,250 50,000 unit PO Q7D #4 caps 06/16/23 mcg (50,000 unit) capsule ketorolac 10 mg tablet 10 mg PO Q6H PRN pain #16 tabs 06/16/23 thiamine HCl (vitamin B1) 250 mg 250 mg PO BID #60 tabs 06/16/23 tablet tizanidine 4 mg tablet (Zanaflex) 4 mg PO AMPM #14 tabs 06/16/23 oxycodone 5 mg tablet 5 - 10 mg (1 - 2 x 5 mg) PO Q6H 06/17/23 PRN pain #14 tabs Results & Data (ED) Vital Signs Vital Signs - 24 hr 06/21/23 09:39 06/21/23 10:10 06/21/23 10:30 Temperature 36.6 C Temperature Source Temporal Artery Scan Pulse Rate 124 H 112 H 110 H Respiratory Rate 18 12 19 Blood Pressure 131/92 151/103 H Blood Pressure Mean 105 119 Pulse Oximetry 99 98 98 Oxygen Delivery Method Room Air Room Air Sepsis Recent Fever Within 48 Hours No Sepsis New/Unexplained Change in Mental Status N/A Sepsis Action Taken by Nursing No Action Required 06/21/23 10:30 06/21/23 12:01 06/21/23 13:00 Temperature Temperature Source Pulse Rate 116 H 96 H 97 H Respiratory Rate 13 13 Blood Pressure 140/110 H 180/95 H Blood Pressure Mean 120 123 Pulse Oximetry 98 97 Oxygen Delivery Method Room Air Sepsis Recent Fever Within 48 Hours Sepsis New/Unexplained Change in Mental Status Sepsis Action Taken by Nursing 06/21/23 13:20 Temperature Temperature Source Pulse Rate 99 H Respiratory Rate 15 Blood Pressure 180/85 H Blood Pressure Mean 116 Pulse Oximetry 95 Oxygen Delivery Method Room Air Sepsis Recent Fever Within 48 Hours Sepsis New/Unexplained Change in Mental Status Sepsis Action Taken by Nursing Laboratory Data 06/21/23 11:27 06/21/23 11:27 Lab Results 06/21/23 Range/Units 11:27 WBC 8.59 (4.8-10.8) K/ul RBC 5.13 (4.70-6.10) M/uL Hgb 15.8 (14.0-18.0) g/dl Hct 46.1 (42.0-52.0) % MCV 89.9 (80.0-100.0) fL MCH 30.8 (25.0-34.0) pg MCHC 34.3 (32.0-36.0) g/dL RDW Std Deviation 43.7 (36.4-46.3) fL RDW Coeff of Salbador 13.2 (11.5-14.5) % Plt Count 259 (130-400) K/uL MPV 9.3 L (9.4-12.4) fL Immature Gran % (Auto) 0.3 % Neut % (Auto) 61.9 % Lymph % (Auto) 25.3 % [place] % (Auto) 8.6 % Eos % (Auto) 3.3 % Baso % (Auto) 0.6 % Neut # (Auto) 5.32 (1.40-6.50) K/uL Lymph # (Auto) 2.17 (1.20-3.40) K/uL [place] # (Auto) 0.74 H (0.11-0.59) K/uL Eos # (Auto) 0.28 (0.00-0.50) K/uL Baso # (Auto) 0.05 (0.00-0.20) K/uL Immature Gran # (Auto) 0.03 (0.01-0.20) K/uL ESR 14 (0-15) mm/hr Sodium 137 (136-145) mmol/L Potassium 4.5 (3.5-5.1) mmol/L Chloride 103 (98-107) mmol/L Carbon Dioxide 27 (21-32) mmol/L Anion Gap 7 (3-11) BUN 10 (6-23) mg/dl Creatinine 0.79 (0.6-1.4) mg/dl Est Cr Clr Drug Dosing 156.9 ml/min Est GFR ( Amer) 133.9 ml/min Est GFR (Non-Af Amer) 115.5 ml/min BUN/Creatinine Ratio 12.7 (10-20) Glucose 96 (70-99(Fasting)) mg/dl Calcium 9.0 (8.6-10.3) mg/dl Total Bilirubin 0.4 (0.2-1.0) mg/dl AST 16 (13-39) U/L ALT 18 (7-52) U/L Alkaline Phosphatase 114 H (34-104) U/L C-Reactive Protein 2.25 H (0-0.5) mg/dl Total Protein 7.0 (6.0-8.3) gm/dl Albumin 4.0 (3.4-5.0) gm/dl Globulin 3.0 (2.5-4.0) gm/dl Albumin/Globulin Ratio 1.3 (0.9-2) Lyme Disease IgG Ab Negative (Negative) Lyme Disease IgM Ab Negative (Negative) Administered Medications Discontinued Medications Morphine Sulfate (Morphine Sulfate 4 Mg/Ml 1 Ml Carp\\Vial) 4 mg IV NOW STA Stop: 06/21/23 10:39 Last Admin: 06/21/23 11:10 Dose: 4 mg Documented By: VERONICA Ondansetron HCl (Ondansetron Inj 2 Mg/Ml 2 Ml Vial) 4 mg IV NOW STA Stop: 06/21/23 10:39 Last Admin: 06/21/23 11:10 Dose: 4 mg Documented By: VERONICA Discharge Plan Visit Data Chief Complaint: Pain (Generalized) Stated Complaint: PAIN IN ALL JOINS ED Provider: Austin Ambrocio Discharge Problem: Arthralgia Forms Stand Alone Forms: [facility] Prescriptions Prescriptions: No Action diazepam [Valium] 10 mg tablet 20 mg PO HS Azo Bladder Control 300 mg capsule 1 cap PO UD PRN (Reason: bladder issues) ketorolac 10 mg Tablet 10 mg PO Q6H PRN (Reason: pain) Qty: 16 0RF baclofen 10 mg Tablet 10 mg PO BID PRN (Reason: muscle spasm) Qty: 20 0RF ergocalciferol (vitamin D2) 1,250 mcg (50,000 unit) Capsule 50,000 unit PO Q7D Qty: 4 0RF thiamine HCl (vitamin B1) 250 mg tablet 250 mg PO BID Qty: 60 0RF cyanocobalamin (vitamin B-12) 1,000 mcg tablet 1,000 mcg PO DAILY Qty: 30 0RF tizanidine [Zanaflex] 4 mg tablet 4 mg PO AMPM Qty: 14 0RF oxycodone 5 mg Tablet 5 - 10 mg PO Q6H PRN (Reason: pain) Qty: 14 0RF carbamazepine [Tegretol] 200 mg Tablet 200 mg PO BID nortriptyline 75 mg Capsule 75 mg PO HS cetirizine 10 mg Tablet 10 mg PO BID famotidine 40 mg tablet 0 mg PO HS Rx Instructions: unsure prazosin [Minipress] 2 mg capsule 2 mg PO HS pregabalin 75 mg capsule 75 mg PO BID omeprazole 40 mg capsule,delayed release(DR/EC) 40 mg PO BID Myrbetriq 50 mg tablet extended release 24 hr 50 mg PO QAM Referrals Referrals: Jhon Colorado DO [Primary Care Provider] - Discharge Problem: Arthralgia Qualifiers: Joint pain location: unspecified Qualified Code(s): M25.50 - Pain in unspecified joint
[2023-06-21] MEDS ORDERED: MoRPHine SULFATE 4 MG/ML 1 ML CARP\\VIAL IV STA (10:38)
[2023-06-21] MEDS ORDERED: ONDANSETRON INJ 2 MG/ML 2 ML VIAL IV STA (10:38)
[2023-06-21 11:44] LABS: Basophils # (auto) 0.05 K/uL (0.00-0.20); Basophils % (auto) 0.6 %; Eosinophils # (auto) 0.28 K/uL (0.00-0.50); Eosinophils % (auto) 3.3 %; Hematocrit (blood only) 46.1 % (42.0-52.0); Hemoglobin 15.8 g/dl (14.0-18.0); Immature Granulocytes # (auto) 0.03 K/uL (0.01-0.20); Immature Granulocytes % (auto) 0.3 %; Lymphocytes # (auto) 2.17 K/uL (1.20-3.40); Lymphocytes % (auto) 25.3 %; Mean Corpuscular Hemoglobin 30.8 pg (25.0-34.0); Mean Corpuscular Hgb Conc 34.3 g/dL (32.0-36.0); Mean Corpuscular Volume 89.9 fL (80.0-100.0); Mean Platelet Volume 9.3 fL (9.4-12.4); Monocytes # (auto) 0.74 K/uL (0.11-0.59); Monocytes % (auto) 8.6 %; Neutrophils # (auto) 5.32 K/uL (1.40-6.50); Neutrophils % (auto) 61.9 %; Platelet Count 259 K/uL (130-400); RDW Coefficient of Variation 13.2 % (11.5-14.5); RDW Standard Deviation 43.7 fL (36.4-46.3); Red Blood Count 5.13 M/uL (4.70-6.10); White Blood Count 8.59 K/ul (4.8-10.8)
[2023-06-21 11:55] LABS: Bilirubin,Total 0.4 mg/dl (0.2-1.0); Potassium 4.5 mmol/L (3.5-5.1)
[2023-06-21 12:01] LABS: Albumin Globulin Ratio 1.3 (0.9-2); BUN Creatinine Ratio 12.7 (10-20); C Reactive Protein 2.25 mg/dl (0-0.5); Creatinine Clr Calc Pharmacy 156.9 ml/min; Est GFR (African American) 133.9 ml/min; Est GFR (Non-African American) 115.5 ml/min
--- OUTSIDE RECORDS SUMMARY | 2023-06-21 12:36 | External Medical Summary | Summary of Care ---
Author Name Unknown Organization [facility] Address [address] [place] [address] Phone [phone] Care Team Providers Care Route Delivery Service Driver Name Role Phone Jhon Colorado DO Primary Care Provider Reason for Visit * Reason Onset Date Comments Appointment 06/19/2023 Encounter Details Date Type Department Care Team (Late st Contact Info) Description 06/19/2023 Telephone [facility] [place] [address] [place] [address] Services, Scheduling [address] [place] [address] Appointment Allergies Active Allergy Reactions Criticality Noted Date Comments Bee Venom 12/28/2014 Cheese 04/01/2015 Blue Cheese Duloxetine Abdominal pain 08/05/2015 Latex 12/28/2014 Molds & Smuts 12/28/2014 documented as of this encounter (statuses as of 06/19/2023) Medications Medication Sig Dispensed Refills Start Date [...] as of this encounter (statuses as of 06/19/2023) Active Problems Problem Noted Date Diagnosed Date Cervical neck pain with evidence of disc disease 12/28/2014 Lumbago 12/28/2014 Tobacco use disorder 12/28/2014 documented as of this encounter (statuses as of 06/19/2023) Social History Tobacco Use Types Packs/Day Years [...] on file documented as of this encounter Miscellaneous Notes * Telephone Encounter - Opal Santiago OSA - 06/19/2023 11:22 AM EST Mother is requesting appointment in [place]. * Telephone Encounter - Albertina Victoria OSA - 06/19/2023 11:18 AM EST Pt mother called to schedule an appt with a Dr. Atul Treviño and stated it was neurology for a intranet specialist. I was unable to find this provider within neurology for appts. Please verify if this is the correct provider pt is to see and if he is to be seen in by a neuromuscular provider. Please contact pt mother at number in chart. Thank you documented in this encounter Plan of Treatment [...] Not on filedocumented as of this encounter Care Teams Route Delivery Service Driver Relationship Specialty Start Date End Date Jhon Colorado DO [address] [place] [address] PCP - General Family Medicine 12/28/14 documented as of this encounter
[2023-06-21 12:51] LABS: Lyme Ab IgG w/WB Rflx Negative (Negative); Lyme Ab IgM w/WB Rflx Negative (Negative)
--- NOTE | 2023-06-21 13:56 | History & Physical Report ---
Date of Service June 21, 2023 Assessment & Plan (1) Generalized pain: Plan: Due to continued pain patient is unable to ambulate; no reversible cause of weakness/pain identified Plan is for [facility] Generalized pain mainly in the joints, and lower extremities has been ongoing x 3 months Conduction study on 06/08/2023 without abnormality Recent [facility] 06/09-06/17 for ambulatory dysfunction and generalized pain; full work up done at this time (please review notes) No leukocytosis; afebrile CRP mildly elevated at 2.25 Lyme negative For pain management: Continue pregabalin BID Baclofen/tizanidine for muscle spasm For breakthrough pain as needed: Acetaminophen for pain 13 Oxycodone 5 mg p.o. q6h for pain 46 Oxycodone 10 mg p.o. q6h for pain 7-10 Thiamine 500 mg IV given in ED Continue thiamine 100 mg IV daily, as deficiency can cause myalgias Muscle biopsy recommended for progressing ascending weakness; will need to discuss with rheumatology PT/OT consulted A.m. CBC, BMP, CRP (2) IBS (irritable bowel syndrome): Plan: No acute change in management (3) Anxiety: Plan: Continue nortriptyline (4) BPH (benign prostatic hyperplasia): Plan: Continue Myrbetriq (5) Polypharmacy: Plan: Chronic; noted Patient would likely benefit from thorough review of his med list Plan Disposition: Obs -admit to [facility] Full code Regular diet (gluten-free) VTE PPx: Lovenox 40mg SQ q24h History of Present Illness Chief Complaint: Pain (generalized) Primary Care Provider: DO Ga Garay is a 37-year-old male with PMH of anxiety, Asperger's disorder, IBS, arthritis, overactive bladder, allergic rhinitis, asthma, GERD, BPH, polypharmacy, and leg cramps. Patient's mother is at the bedside and provides additional history. He presented at the behest of his PCP for 10/10 pain on 06/21. Recent [facility] hospitalization from 06/09 - 06/17 for ambulatory dysfunction and generalized pain; patient had MRI of the lumbar, thoracic, and cervical spine; nerve conduction study on 06/08/2023 without abnormality. Patient reports that he starts his day at 10/10 pain every morning. The pain is constant, and he describes it in his muscles and bones, with the worst pain being in his lower extremities. Patient describes the pain as sharp. The pain started about 3 months ago and his right foot, and has only progressed. Pain is worse with movement and pressure. He has a history of joint pain and saw a supervisor testing 15 years ago, but does not currently follow with rheumatology. He has been taking ibuprofen, oxycodone, and Toradol at home, but reports that this did not help; unable to provide an exact amount. He does take baclofen which helps with his muscle spasms. He denies recent falls, injuries or traumas. He also endorses intermittent muscle spasms, which have lessened recently. No recent rashes or tick bites. Patient reports the last couple weeks because of unbearable pain. Patient is hypertensive at 180/85 at time of admission. ED course: Morphine sulfate 4 mg IV Zofran 4 mg IV ROS: Patient endorses generalized pain, intentional weight loss (80 pounds over the past year), STOUT, night sweats, joint pain, muscle pain, abdominal pain, and nausea. Patient denies fever, chills, dizziness, lightheadedness, rashes, tick-bites, vomiting, diarrhea, chest pain, chest palpitations, pleuritic CP, SOB, or numbness in the legs. Allergies Allergy/AdvReac Type Severity Reaction Status Date / Time bee venom protein (honey bee) Allergy Severe Anaphylaxis Verified 06/09/23 16:01 latex Allergy Mild ITCHY Verified 06/09/23 16:01 pollen extracts Allergy Mild RESP Verified 06/09/23 16:01 PROBLEMS mushroom AdvReac Intermediate Nausea Verified 06/09/23 16:01 olive extract AdvReac Mild BLACK Verified 06/09/23 16:01 OLIVES TRIGGERS IBS BLUE CHEESE Allergy Severe Anaphylaxis Uncoded 06/09/23 16:01 DUST Allergy Mild RESP Uncoded 06/09/23 16:01 DISCOMFORT Home Medications Medication Instructions Recorded Confirmed Type carbamazepine 200 mg tablet 200 mg PO BID 10/14/20 06/21/23 History (Tegretol) nortriptyline 75 mg capsule 75 mg PO HS 10/14/20 06/21/23 History diazepam 10 mg tablet (Valium) 20 mg PO HS 12/27/20 06/21/23 History pumpkin seed extract-soy germ 300 1 cap PO UD PRN bladder issues 12/27/20 06/21/23 History mg capsule (Azo Bladder Control) cetirizine 10 mg tablet 10 mg PO BID 11/27/22 06/21/23 History famotidine 40 mg tablet 0 mg PO HS 11/27/22 06/21/23 History mirabegron 50 mg tablet,extended 50 mg PO QAM 11/27/22 06/21/23 History release 24 hr (Myrbetriq) omeprazole 40 mg capsule,delayed 40 mg PO BID GERD, peptic ulcer 11/27/22 06/21/23 History release disease prazosin 2 mg capsule (Minipress) 2 mg PO HS 11/27/22 06/21/23 History pregabalin 75 mg capsule 75 mg PO BID 11/27/22 06/21/23 History baclofen 10 mg tablet 10 mg PO BID PRN muscle spasm #20 06/16/23 06/21/23 Rx tabs cyanocobalamin (vitamin B-12) 1,000 mcg PO DAILY #30 tabs 06/16/23 06/21/23 Rx 1,000 mcg tablet ergocalciferol (vitamin D2) 1,250 50,000 unit PO Q7D #4 caps 06/16/23 06/21/23 Rx mcg (50,000 unit) capsule ketorolac 10 mg tablet 10 mg PO Q6H PRN pain #16 tabs 06/16/23 06/21/23 Rx thiamine HCl (vitamin B1) 250 mg 250 mg PO BID #60 tabs 06/16/23 06/21/23 Rx tablet tizanidine 4 mg tablet (Zanaflex) 4 mg PO AMPM #14 tabs 06/16/23 06/21/23 Rx oxycodone 5 mg tablet 5 - 10 mg (1 - 2 x 5 mg) PO Q6H 06/17/23 06/21/23 Rx PRN pain #14 tabs Past Med/Surg History Medical History Adopted History of cluster headache in high school History of asthma used to use inhaler, no longer having issues History of scarlet fever Osteoarthritis History of anesthesia reaction woke up during tooth removal before; difficulty waking after procedures at times Prediabetes TOLD PREDIABETES IN THE PAST (GLUCOSES WERE TRANSIENTLY ELEVATED IN SETTING OF PREDNISONE) Morbid obesity BPH (benign prostatic hyperplasia) Diverticulitis NO ISSUES X YEARS Hearing difficulty "MILD" HEARING LOSS Arthritis Radicular pain of shoulder resolved Left shoulder pain resolved Anxiety Asperger's disorder AUTISIM; "ANXIETY AROUND PEOPLE" IBS (irritable bowel syndrome) Kidney stone hx-passed on own Surgical History History of tooth extraction History of prostate surgery greenlight vaporization of prostate 09/2018 History of esophagogastroduodenoscopy (EGD) Hx of colonoscopy Hx of hernia repair AGE 5 Hx of anterior cruciate ligament surgery LEFT Family History Other Adopted person Social History Smoking Status: Current every day smoker Tobacco Type: E-cigarettes / Vaping Cigarettes Per Day: vapes daily; Second Hand Exposure: No; Do You Dip or Chew Tobacco: No; Tobacco Cessation Education Requested by Patient: No Hx Alcohol Use: Yes Alcohol type: beer Alcohol type Comment: 1-2 beer/year special occasions Hx Substance Use: Yes Last Used Substance Other:: none for 1 week Substance Use Type Other:: medical marijuana Preferred Language: [place] Communication Ability: Effective Visual Impairment: No Limitations Hearing Ability: Normal Floatlight Powder Mixer Required: No Beliefs That Will Affect Care: None marital status: Single Current Living Situation: Parent current occupational status: disabled Other Information That Helps Us Care for You: No Feels Safe at Home: Yes Assistive Devices: Cane and Glasses Review of Systems Review of Systems: See HPI above Physical Exam Physical Exam: General: Acute physical distress; non-toxic appearing; well-nourished; cooperative HEENT: normocephalic, atraumatic; no scleral icterus; PERRLA w/ EOMs intact; moist mucus membrane; vision and hearing grossly intact Neck: supple; no JVD; no lymphadenopathy; trachea midline Skin: warm, dry without signs of tenting; no cyanosis; no rashes, bruising, lesions, or erythema noted CV: chest wall NTP; RRR; S1/S2 normal; no murmurs/rubs/gallops; pulses intact and symmetric at radial, DP, and PT Lungs: no acute respiratory distress; symmetrical chest wall expansion; clear breath sounds across all lung crews w/o adventitious sounds; no wheezing ABD: Soft, NTP; BS present; no rebound/guarding MSK: no tics or fasciculations; no edema noted in the LEs b/l, nonerythematous; patient demonstrates ability to wiggle toes (but reports pain with movement) Neuro: A&Ox3; flight of ideas; fluent speech; no focal deficits; sensation grossly intact in the LEs b/l Results & Data Results & Data Vital Signs (Past 12 Hours) Vital Signs Temp Pulse Resp BP Pulse Ox O2 Del Method 06/21/23 13:20 99 H 15 180/85 H 95 Room Air 06/21/23 13:00 97 H 13 180/95 H 97 Room Air 06/21/23 12:01 96 H 06/21/23 10:30 116 H 13 140/110 H 98 06/21/23 10:30 110 H 19 98 Room Air 06/21/23 10:10 112 H 12 151/103 H 98 Room Air 06/21/23 09:39 36.6 C 124 H 18 131/92 99 Laboratory Results Abnormal lab results 06/21/23 Range/Units 11:27 MPV 9.3 L (9.4-12.4) fL Cottle # (Auto) 0.74 H (0.11-0.59) K/uL Alkaline Phosphatase 114 H (34-104) U/L C-Reactive Protein 2.25 H (0-0.5) mg/dl Code Status & VTE Plan Code Status Full code VTE Prophylaxis Plan VTE Prophylaxis will be ordered: Yes Supervising Physician Co-Signing Physician Notes Patient seen and examined, chart reviewed, case discussed with Conrad Xiong PA-C and I agree with the assessment and plan as above except as otherwise noted Labs and images reviewed 37-year-old male with hx aspergers, leg pain, myalgias progressive myalgias ascending from his lower extremities which have continued to worsen now limiting his ability to ambulate with spasms and pain causing him to be unable to ambulate at home. Extensive prior workup including MRI of the spine without explanation for his progressive symptoms. C-spine showed degenerative changes and bilateral neural for aminal stenosis with moderate canal stenosis, but no evidence of cord compression. Lumbar spine MRI did have a L1-L2 paracentric disc extrusion with moderate narrowing of the left recess but patient had a patent central canal and otherwise normal foramen. EMG which has been negative, broad infectious and tickborne workup which has been negative. He has not had a leukocytosis has been afebrile. He has had an elevated CRP in the past which is downtrending at 2 with a normal ESR. JED has been negative. At prior workup patient has had undetectable thiamine levels, this was ordered for repletion however patient had not yet filled this medication. No Wernicke encephalopathy symptoms; thiamine deficiency can cause myalgias with CK negative muscle edema--> 06/13 was on 100mg PO daily BID until 06/15 and then 06/16 was increased to 200mg daily PO and was subsequently switched to IV until discharge 06/17. Will treat potential contribution with high-dose thiamine this admission and give by IV ?absorption. Patient has extensive workup other than this which has so far been negative, however he has continued to have progressive disease ascending and now involving the proximal hip flexors and limiting his ability to ambulate. 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 Sensation to soft touch is intact in hands and feet without deficit. 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 Discussed w pts PCP, Muscle biopsy is recommended due to progressive ascending weakness and pain and ongoing sx. Recommend surgical consultation for biopsy however will need to discuss with rheumatology during daytime hours to ensure appropriate testing is ordered with sample. Agree with assessment and management otherwise as above. N.p.o. at midnight. PG Care Time/CCT Total # of Minutes Spent Total Time Spent with Patient: Total time spent is greater than 50% in coordination of care (as documented) at patient's floor/unit and/or counseling patient: C[place] [address] INT INP/OBS CARE 3/75MIN Patient Type Established Medical Decision Making High Complexity Diagnoses Generalized pain R52 IBS (irritable bowel syndrome) K58.9 Anxiety F41.9 BPH (benign prostatic hyperplasia) N40.0 Polypharmacy Z79.899
[2023-06-21] MEDS ORDERED: THIAMINE HCL 500 MG in SODIUM CHLORIDE 0.9% 50 ML IV STA (16:00)
[2023-06-21] MEDS ORDERED: ONDANSETRON INJ 2 MG/ML 2 ML VIAL IV PRN (16:51)
[2023-06-21] MEDS ORDERED: oxyCODONE HCL IR 5 MG TAB (IMMEDIATE RELEASE) PO PRN (16:51)
[2023-06-21] MEDS ORDERED: NALOXONE HCL 0.4 MG/1 ML VIAL/CARP IV PRN (16:51)
[2023-06-21] MEDS: oxyCODONE HCL IR 5 MG TAB (IMMEDIATE RELEASE) PO PRN (17:30)
[2023-06-21] MEDS: ENOXAPARIN INJ 40 MG/0.4 ML SYR SQ SCH (18:48)
[2023-06-21] MEDS: CETIRIZINE HCL 10 MG TABLET PO SCH (20:55)
[2023-06-21] MEDS: PANTOprazole 40 MG TAB PO SCH (20:55)
[2023-06-21] MEDS: carBAMazepine 200 MG TABLET PO SCH (20:55)
[2023-06-21] MEDS: tiZANidine HCL 4 MG TABLET PO SCH (20:55)
[2023-06-21] MEDS: diazePAM 5 MG TABLET PO SCH (20:56)
[2023-06-21] MEDS: FAMOTIDINE 20 MG TAB PO SCH (20:56)
[2023-06-21] MEDS: NORTRIPTYLINE HCL 25 MG CAP PO SCH (20:56)
[2023-06-21] MEDS: PREGABALIN 75 MG CAP PO SCH (20:56)
[2023-06-21] MEDS: PRAZOSIN HCL 1 MG CAP PO SCH (20:56)
[2023-06-21] MEDS ORDERED: THIAMINE HCL 50 MG TABLET PO SCH (21:00)
[2023-06-21] MEDS: BACLOFEN 10 MG TAB PO PRN (21:02)
[2023-06-21] MEDS ORDERED: KETOROLAC TROMETHAMINE 15 MG/ML VIAL IV ONE (22:21)
[2023-06-22 07:15] LABS: Basophils # (auto) 0.03 K/uL (0.00-0.20); Basophils % (auto) 0.4 %; Eosinophils # (auto) 0.23 K/uL (0.00-0.50); Eosinophils % (auto) 3.4 %; Hematocrit (blood only) 42.9 % (42.0-52.0); Hemoglobin 15.2 g/dl (14.0-18.0); Immature Granulocytes # (auto) 0.01 K/uL (0.01-0.20); Immature Granulocytes % (auto) 0.1 %; Lymphocytes # (auto) 2.12 K/uL (1.20-3.40); Lymphocytes % (auto) 31.3 %; Mean Corpuscular Hemoglobin 31.1 pg (25.0-34.0); Mean Corpuscular Hgb Conc 35.4 g/dL (32.0-36.0); Mean Corpuscular Volume 87.7 fL (80.0-100.0); Mean Platelet Volume 9.4 fL (9.4-12.4); Monocytes # (auto) 0.75 K/uL (0.11-0.59); Monocytes % (auto) 11.1 %; Neutrophils # (auto) 3.64 K/uL (1.40-6.50); Neutrophils % (auto) 53.7 %; Platelet Count 237 K/uL (130-400); RDW Coefficient of Variation 13.1 % (11.5-14.5); Red Blood Count 4.89 M/uL (4.70-6.10); White Blood Count 6.78 K/ul (4.8-10.8)
[2023-06-22 07:37] LABS: BUN Creatinine Ratio 14.9 (10-20); C Reactive Protein 3.26 mg/dl (0-0.5); Calcium 8.6 mg/dl (8.6-10.3); Creatinine Clr Calc Pharmacy 142.5 ml/min; Est GFR (African American) 128.7 ml/min; Potassium 4.8 mmol/L (3.5-5.1)
[2023-06-22] MEDS: PANTOprazole 40 MG TAB PO SCH ×2 (08:11→20:26)
[2023-06-22] MEDS: carBAMazepine 200 MG TABLET PO SCH ×2 (08:12→20:25)
[2023-06-22] MEDS: CETIRIZINE HCL 10 MG TABLET PO SCH ×2 (08:12→20:25)
[2023-06-22] MEDS: VIBEGRON 75 MG TAB PO SCH (08:12)
[2023-06-22] MEDS: tiZANidine HCL 4 MG TABLET PO SCH ×2 (08:12→20:24)
[2023-06-22] MEDS: PREGABALIN 75 MG CAP PO SCH (08:13)
[2023-06-22] MEDS ORDERED: VIBEGRON 75 MG TAB PO SCH (09:00)
[2023-06-22] MEDS ORDERED: CYANOCOBALAMIN (B-12) 500 MCG TABLET PO SCH (09:00)
[2023-06-22] MEDS: CYANOCOBALAMIN 1000 MCG/ML VIAL IM SCH (10:14)
[2023-06-22] MEDS: THIAMINE HCL 500 MG in SODIUM CHLORIDE 0.9% 50 ML IV SCH ×2 (10:14→17:08)
[2023-06-22] MEDS: oxyCODONE HCL IR 5 MG TAB (IMMEDIATE RELEASE) PO PRN (12:51)
[2023-06-22] MEDS ORDERED: PREGABALIN 25 MG CAP PO ONE (14:40)
--- NOTE | 2023-06-22 14:41 | Hospitalist Progress Note ---
Date of Service June 22, 2023 Assessment & Plan (1) Peripheral neuropathy: Plan: Patient with persistent severe neuropathic type pain in all 4 extremities With extensive workup last admission to include numerous imaging studies of the brain and spinal cord. He had EMG as an outpatient of the right lower extremity which was supposedly negative. Found to have severe B1, B12, vitamin D, and folate deficiencies-all been repleted-this is likely the cause of his neuropathic symptoms Given right lower extremity poor pedal pulses-checked arterial Doppler-negative He has had JED and rheumatoid factor twice in his workup which were both negative CK is normal, aldolase ordered and pending ESR is normal at 14 and CRP only minimally elevated at 2-3-does not seem like autoimmune in nature Lyme negative -Plan to continue to replete B vitamins and vitamin D and advised patient and his mother that it will take weeks to months likely for this to improve -Increase Lyrica to 100 Mg p.o. twice daily -Discontinue oxycodone as it is not helping anyway and to avoid further polypharmacy -Continue baclofen/tizanidine for muscle spasm -Continue acetaminophen for pain 13 -Continue nortriptyline -Consider muscle biopsy if not improving -PT/OT consulted-recommends rehab -Consult neurology for second opinion (2) B12 deficiency: Plan: Severe, level low at 150 last admission. Likely because of his severe neuropathy potentially Will give further IM B12 1000 mcg daily x 3 doses then resume p.o. B12 Follow levels in the future (3) Folic acid deficiency: Plan: Folate level checked today and also low at 3.5 Give IV folic acid today and tomorrow and then start oral folic acid 1 mg daily (4) IBS (irritable bowel syndrome): Plan: Follows a FODMAPs diet and has lost 80 pounds, symptoms have completely resolved (5) Anxiety: Plan: Follows with psychiatry for generalized anxiety disorder Continue home diazepam, carbamazepine, nortriptyline, prazosin, Lyrica (6) Vitamin D deficiency: Plan: Severely low and undetectable at less than 7 last admission Start vitamin D3 5000 units once daily He was prescribed vitamin D2 50,000 units once weekly previously but vitamin D3 likely will replete his levels quicker This is likely secondary to never going out in the sun (7) Thiamine deficiency: Plan: Thiamine level was undetectable last admission and 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 twice daily (8) BPH (benign prostatic hyperplasia): Plan: Continue Myrbetriq Plan Disposition: Continued stay on MedSurg, but needs rehab placement-Auth for insurance applied for by [facility]possible discharge this weekend if approved Full code Regular diet (gluten-free) VTE PPx: Lovenox 40mg SQ q24h Spent 60 minutes in total with this patient today Admission and Anticipated Discharge Date Admission Date: June 21, 2023 Subjective Patient continues to have fairly severe pain throughout his bilateral legs and arms which is now becoming more proximal up to the hips and somewhat up into the elbows and upper arms. Pain is mostly/the greatest in the right foot and leg and he has noticed decreased hair growth on the right foot. He describes the pain as sharp stabbing burning and ACL at the same time I discussed his case with on-call neurology I discussed his care with his mom at the bedside at length. Spent 45 minutes in discussion with the patient and his mother today. Physical Exam Constitutional: WD/WN, vitals as above Respiratory: normal respiratory effort, lungs clear to auscultation Cardiovascular: RRR, no murmur, no edema Barely palpable dorsalis pedis pulse right foot but 1+ posterior tibialis pulse on the right 2+ pedal pulses on the left Gastrointestinal (Abdomen): normal bowel sounds, soft, nontender, no hepatosplenomegaly Skin: Some decreased hair growth in the distal right leg and foot Neurologic: 5/5 strength throughout all extremities Psychiatric: Orientation: alert, oriented x 3 and cooperative Results & Data Results & Data Vital Signs (Past 12 Hours) Vital Signs Temp Pulse Resp BP Pulse Ox Pulse Ox O2 Del Method 06/22/23 13:34 98 06/22/23 07:50 36.5 C 86 17 119/72 95 Room Air O2 Flow Rate 06/22/23 13:34 0 06/22/23 07:50 Laboratory Results CBC, BMP, ESR, CRP, PTH, Lyme titer, CK, folate all reviewed Diagnostic Findings Right lower extremity arterial Doppler reviewed PG Care Time/CCT Total # of Minutes Spent Total Time Spent with Patient: Total time spent is greater than 50% in coordination of care (as documented) at patient's floor/unit and/or counseling patient: Coding Level of Care Code 82673 SUB INP/OBS CARE 350MIN Diagnoses Peripheral neuropathy G62.9 B12 deficiency E53.8 Folic acid deficiency E53.8 IBS (irritable bowel syndrome) K58.9 Anxiety F41.9 Vitamin D deficiency E55.9 Thiamine deficiency E51.9 BPH (benign prostatic hyperplasia) N40.0
[2023-06-22] MEDS: CHOLECALCIFEROL 5,000 UNITS 125 MCG TAB PO SCH (14:44)
[2023-06-22] MEDS: FOLIC ACID 1 MG in SYRINGE 9.8 ML IV SCH (17:08)
--- NOTE | 2023-06-22 17:24 | Ultrasound Report ---
US arterial duplex right lower extremity CLINICAL HISTORY: poor pedal pulses RLE, right leg pain COMPARISON STUDY: None. FINDINGS: Normal triphasic waveforms and velocities seen throughout the right lower extremity arteria l system. No significant stenosis or occlusion identified. Normal bilateral ankle brachial indices me asuring 1.0. IMPRESSION: No significant stenosis or occlusion within the right lower extremity arterial system. ACT 112: Negative or not required by law. Electronically signed by: Conrad Carlson M.D. 06/22/2023 5:22 PM
[2023-06-22] MEDS: ENOXAPARIN INJ 40 MG/0.4 ML SYR SQ SCH (20:10)
[2023-06-22] MEDS: diazePAM 5 MG TABLET PO SCH (20:25)
[2023-06-22] MEDS: FAMOTIDINE 20 MG TAB PO SCH (20:25)
[2023-06-22] MEDS: NORTRIPTYLINE HCL 25 MG CAP PO SCH (20:25)
[2023-06-22] MEDS: PRAZOSIN HCL 1 MG CAP PO SCH (20:26)
[2023-06-22] MEDS: PREGABALIN 100 MG CAP PO SCH (20:26)
[2023-06-22] MEDS: BACLOFEN 10 MG TAB PO PRN (21:19)
[2023-06-22] MEDS: KETOROLAC TROMETHAMINE 15 MG/ML VIAL IV PRN (21:19)
[2023-06-23] MEDS: ACETAMINOPHEN 325 MG TAB PO PRN ×3 (01:16→20:42)
[2023-06-23] MEDS: THIAMINE HCL 500 MG in SODIUM CHLORIDE 0.9% 50 ML IV SCH (01:18)
[2023-06-23] MEDS: KETOROLAC TROMETHAMINE 15 MG/ML VIAL IV PRN ×4 (03:02→20:41)
[2023-06-23 07:13] LABS: Basophils # (auto) 0.03 K/uL (0.00-0.20); Basophils % (auto) 0.4 %; Eosinophils # (auto) 0.21 K/uL (0.00-0.50); Hematocrit (blood only) 43.4 % (42.0-52.0); Hemoglobin 14.7 g/dl (14.0-18.0); Immature Granulocytes # (auto) 0.02 K/uL (0.01-0.20); Immature Granulocytes % (auto) 0.3 %; Lymphocytes # (auto) 2.42 K/uL (1.20-3.40); Lymphocytes % (auto) 34.8 %; Mean Corpuscular Hemoglobin 30.2 pg (25.0-34.0); Mean Corpuscular Hgb Conc 33.9 g/dL (32.0-36.0); Mean Corpuscular Volume 89.3 fL (80.0-100.0); Mean Platelet Volume 9.7 fL (9.4-12.4); Monocytes # (auto) 0.53 K/uL (0.11-0.59); Monocytes % (auto) 7.6 %; Neutrophils # (auto) 3.74 K/uL (1.40-6.50); Neutrophils % (auto) 53.9 %; Platelet Count 234 K/uL (130-400); RDW Coefficient of Variation 12.9 % (11.5-14.5); RDW Standard Deviation 42.5 fL (36.4-46.3); Red Blood Count 4.86 M/uL (4.70-6.10); White Blood Count 6.95 K/ul (4.8-10.8)
[2023-06-23 07:27] LABS: BUN Creatinine Ratio 16.9 (10-20); Calcium 8.9 mg/dl (8.6-10.3); Creatinine Clr Calc Pharmacy 149.3 ml/min; Est GFR (African American) 131.2 ml/min; Est GFR (Non-African American) 113.2 ml/min; Potassium 3.9 mmol/L (3.5-5.1)
[2023-06-23] MEDS ORDERED: THIAMINE HCL 100 MG in SYRINGE 9 ML IV SCH (09:00)
[2023-06-23] MEDS: PANTOprazole 40 MG TAB PO SCH ×2 (09:28→20:44)
[2023-06-23] MEDS: THIAMINE HCL 100 MG TAB PO SCH ×2 (09:28→20:44)
[2023-06-23] MEDS: carBAMazepine 200 MG TABLET PO SCH ×2 (09:28→20:43)
[2023-06-23] MEDS: CHOLECALCIFEROL 5,000 UNITS 125 MCG TAB PO SCH (09:28)
[2023-06-23] MEDS: CETIRIZINE HCL 10 MG TABLET PO SCH ×2 (09:28→20:44)
[2023-06-23] MEDS: VIBEGRON 75 MG TAB PO SCH (09:28)
[2023-06-23] MEDS: tiZANidine HCL 4 MG TABLET PO SCH ×2 (09:28→20:44)
[2023-06-23] MEDS: BACLOFEN 10 MG TAB PO PRN ×2 (09:29→22:10)
[2023-06-23] MEDS: FOLIC ACID 1 MG in SYRINGE 9.8 ML IV SCH (09:29)
[2023-06-23] MEDS: PREGABALIN 100 MG CAP PO SCH (09:29)
[2023-06-23] MEDS: CYANOCOBALAMIN 1000 MCG/ML VIAL IM SCH (09:30)
--- NOTE | 2023-06-23 10:26 | Neurology Consultation ---
Date of Consultation June 23, 2023 Assessment & Plan (1) Leg cramps: (2) Leg muscle spasm: (3) Arthralgia: (4) Restless legs syndrome (RLS): (5) PLMD (periodic limb movement disorder): (6) B12 deficiency: (7) Vitamin D deficiency: (8) Thiamine deficiency: (9) Folic acid deficiency: (10) Cervical stenosis of spine: (11) Lumbar degenerative disc disease: (12) Asperger's disorder: Plan 37-year-old male with a history of Asperger's/autism spectrum disorder, history of restless leg syndrome, probable periodic limb movement disorder, irritable bowel syndrome, managed with restrictive diet, cervical and lumbar degenerative disc disease without significant central canal stenosis, presenting with escalating distal lower extremity cramps and dystonic spasms of the feet as well as associated arthralgias. He appears to have multiple nutrient deficiencies including thiamine, folate, vitamin B12, and vitamin D. He has an intact neurological examination, he is not ataxic, myelopathic, or weak. He does not have sensory loss for the lower limbs. He also complains of mild intermittent distal lower extremity numbness and paresthesias and could have a mild peripheral neuropathy in spite of normal EMG recently and normal neurological examination. Agree with vitamin supplementation with folate, vitamin B12, thiamine, and vitamin D. Patient may benefit from more aggressive vitamin D3 supplementation, 50,000 IU/week for 2 months, then follow with 5000 IU/day. Would also consider parenteral B12 supplementation, 1000 mcg subcu or IM weekly for 6 weeks, followed by continued oral supplementation. Would increase patient's dosage of Lyrica further, 150 mg twice daily, and would consider 3 times daily dosing going forward if necessary. Would also consider increasing patient's dosage of tizanidine to 4 mg 3 times daily. Would avoid another trial of a dopamine agonist as ropinirole was not tolerated in the past. Consider checking additional rheumatologic labs for arthralgias although I note a recent normal rheumatoid factor and JED. Consider a uric acid level. (Postinfectious reactive arthritis, gout, pseudogout?) Patient may follow-up in outpatient neurology clinic. History of Present Illness Reason for Consultation: muscle cramps, spasms Requesting Physician: Lex Attending Physician: David Rollins MD History of Present Illness The patient is a 37-year-old male with a history of Asperger's/autism spectrum disorder, anxiety, IBS, arthritis, and stated history of restless leg syndrome which was diagnosed many years ago. He has presented to the [facility] on multiple occasions over the past 2 months complaining of lower extremity pain. He was previously admitted to the [facility] on June 09, 2023 for lower extremity pain and difficulty ambulating and was seen by teleneurology on June 11, 2023 for leg cramps. He had an unremarkable outpatient EMG completed at [facility] recently. He has had a thorough evaluation including MRI of the brain, cervical, thoracic, and lumbar spine. I did independently review these images. No significant abnormalities identified other than mild degenerative disc disease at C6-7 resulting in bilateral neuroforaminal stenosis and moderate central canal stenosis, no myelopathy, and a left paracentral disc extrusion at L1-2 resulting in moderate narrowing of the left lateral recess. He did have an orthospine consultation on June 13, 2023, surgical intervention was not recommended. He was discharged on June 17, 2023, but presented again to the emergency department June 21, 2023 complaining of joint and lower extremity pain. The patient endorses a history of lower extremity cramps and intermittent involuntary movement of the lower limbs which goes back many years. He was apparently diagnosed with restless leg syndrome and recalls a trial of ropinirole although this medication apparently aggravated his symptoms and was discontinued. Over the past 2 to 3 months, he has noted a significant increase in symptomatology, especially distal lower extremity cramps involving the calves with associated dystonic spasms of the toes, right greater than left, associated painful flexion of the toes. The symptoms tend to occur while at rest and have been severe and quite distressing. He also complains of diffuse arthralgias, notably the joints of toes and feet, as well as the knees, and sometimes the hands. No associated rash or swelling. He recalls a rheumatology evaluation many years ago. He follows regularly with psychiatry and is prescribed a variety of medications and has had some adjustments recently. He is also using medical marijuana which seems to mitigate some of his symptoms. He was recently started on Lyrica and baclofen. He has been on tizanidine for a while but indicates that this medication has not been very helpful recently. Recent iron studies are grossly normal. She does appear to have some nutrient deficiencies including a low thiamine level, low vitamin B12 level, low folate, and very low vitamin D level. Creatine kinase normal. An ESR was normal recently although his CRP was elevated. He had a low TSH and low normal free T4 recently, normal T3. He informs me that he is on a gluten-free/FODMAP diet to address IBS, as directed by his musculoskeletal physiotherapist. He does not drink alcohol. He has also had a negative JED screen and negative rheumatoid factor recently. Allergies Allergy/AdvReac Type Severity Reaction Status Date / Time bee venom protein (honey bee) Allergy Severe Anaphylaxis Verified 06/09/23 16:01 latex Allergy Mild ITCHY Verified 06/09/23 16:01 pollen extracts Allergy Mild RESP Verified 06/09/23 16:01 PROBLEMS mushroom AdvReac Intermediate Nausea Verified 06/09/23 16:01 olive extract AdvReac Mild BLACK Verified 06/09/23 16:01 OLIVES TRIGGERS IBS BLUE CHEESE Allergy Severe Anaphylaxis Uncoded 06/09/23 16:01 DUST Allergy Mild RESP Uncoded 06/09/23 16:01 DISCOMFORT Home Medications Medication Instructions Recorded Confirmed Type carbamazepine 200 mg tablet 200 mg PO BID 10/14/20 06/21/23 History (Tegretol) nortriptyline 75 mg capsule 75 mg PO HS 10/14/20 06/21/23 History diazepam 10 mg tablet (Valium) 20 mg PO HS 12/27/20 06/21/23 History pumpkin seed extract-soy germ 300 1 cap PO UD PRN bladder issues 12/27/20 06/21/23 History mg capsule (Azo Bladder Control) cetirizine 10 mg tablet 10 mg PO BID 11/27/22 06/21/23 History famotidine 40 mg tablet 0 mg PO HS 11/27/22 06/21/23 History mirabegron 50 mg tablet,extended 50 mg PO QAM 11/27/22 06/21/23 History release 24 hr (Myrbetriq) omeprazole 40 mg capsule,delayed 40 mg PO BID GERD, peptic ulcer 11/27/22 06/21/23 History release disease prazosin 2 mg capsule (Minipress) 2 mg PO HS 11/27/22 06/21/23 History pregabalin 75 mg capsule 75 mg PO BID 11/27/22 06/21/23 History baclofen 10 mg tablet 10 mg PO BID PRN muscle spasm #20 06/16/23 06/21/23 Rx tabs cyanocobalamin (vitamin B-12) 1,000 mcg PO DAILY #30 tabs 06/16/23 06/21/23 Rx 1,000 mcg tablet ergocalciferol (vitamin D2) 1,250 50,000 unit PO Q7D #4 caps 06/16/23 06/21/23 Rx mcg (50,000 unit) capsule ketorolac 10 mg tablet 10 mg PO Q6H PRN pain #16 tabs 06/16/23 06/21/23 Rx thiamine HCl (vitamin B1) 250 mg 250 mg PO BID #60 tabs 06/16/23 06/21/23 Rx tablet tizanidine 4 mg tablet (Zanaflex) 4 mg PO AMPM #14 tabs 06/16/23 06/21/23 Rx oxycodone 5 mg tablet 5 - 10 mg (1 - 2 x 5 mg) PO Q6H 06/17/23 06/21/23 Rx PRN pain #14 tabs Patient History Medical History Thiamine deficiency Folic acid deficiency Adopted History of cluster headache in high school History of asthma used to use inhaler, no longer having issues History of scarlet fever Osteoarthritis History of anesthesia reaction woke up during tooth removal before; difficulty waking after procedures at times Prediabetes TOLD PREDIABETES IN THE PAST (GLUCOSES WERE TRANSIENTLY ELEVATED IN SETTING OF PREDNISONE) Morbid obesity BPH (benign prostatic hyperplasia) Diverticulitis NO ISSUES X YEARS Hearing difficulty "MILD" HEARING LOSS Arthritis Radicular pain of shoulder resolved Left shoulder pain resolved Anxiety Asperger's disorder AUTISIM; "ANXIETY AROUND PEOPLE" IBS (irritable bowel syndrome) Kidney stone hx-passed on own Surgical History History of tooth extraction History of prostate surgery greenlight vaporization of prostate 09/2018 History of esophagogastroduodenoscopy (EGD) Hx of colonoscopy Hx of hernia repair AGE 5 Hx of anterior cruciate ligament surgery LEFT Family History Other Adopted person Social History Smoking Status: Current every day smoker Tobacco Type: E-cigarettes / Vaping Cigarettes Per Day: vapes daily; Second Hand Exposure: No; Do You Dip or Chew Tobacco: No; Tobacco Cessation Education Requested by Patient: No Hx Alcohol Use: Yes Alcohol type: beer Alcohol type Comment: 1-2 beer/year special occasions Hx Substance Use: Yes Last Used Substance Other:: none for 1 week Substance Use Type Other:: medical marijuana Preferred Language: Sammarinese Communication Ability: Effective Visual Impairment: No Limitations Hearing Ability: Normal Insurance Loss Assessor Required: No Beliefs That Will Affect Care: None marital status: Single Current Living Situation: Parent current occupational status: disabled Other Information That Helps Us Care for You: No Feels Safe at Home: Yes Assistive Devices: Walker Review of Systems Constitutional: no fever and no chills Eyes: no blind spots and no diplopia Ear, Nose, Mouth, Throat: no hearing loss Respiratory: no cough and no dyspnea Cardiovascular: no chest pain and no palpitations Gastrointestinal: as per Subjective / HPI, + bloating and + cramping Genitourinary: no dysuria or no urinary incontinence Integumentary: no rash and no lesions Neurologic: as per Subjective / HPI and + paresthesia; no tremor(s), no seizure-like activity, no abnormal speech, no confusion and no memory loss Psychiatric: + anxiety Hematologic / Lymphatic: no easy bleeding and no easy bruising Exam (Neuro) Constitutional: well developed and well nourished; no acute distress Eyes: normal visual crews by confrontation, PERRL and EOM intact bilaterally; no nystagmus Neurologic: Oriented to:: Person, Place and Time Memory: Short Term Intact and Remote Intact Attention: Span Intact and Concentration Intact Speech Fluency: negative Dysarthria or Dysfluency Speech Aphasia: negative Aphasia Fund of Knowledge: Current Events, Past History and Vocabulary Cranial Nerves: Normal II, III, IV, , V, VII, VIII, IX, X, XI and XII Motor Strength: Normal Lower Extremities and Normal Upper Extremities Motor Tone: Normal Lower Extremities and Normal Upper Extremities Muscle Bulk/Involuntary Movements: No Involuntary Movements; negative Muscle Atrophy Sensation: Light Touch Intact, Pain/Temperature Intact and Proprioception Intact Coordination: Normal; negative Limited Balance, Dysdiadochokinesia, Finger-Nose Abnormal or Heel-Ladd Abnormal Deep Tendon Reflexes: Rt Triceps: 2+, Lt Triceps: 2+, Rt Biceps: 2+, Lt Biceps: 2+, Rt Brachioradialis: 2+, Lt Brachioradialis: 2+, Rt Patellar: 2+, Lt Patellar: 2+, Rt Ankle: 2+ and Lt Ankle: 2+ Special Tests: negative Babinski Present Gait: Normal Station and Gait Results & Data Vital Signs (Past 12 Hours) Vital Signs Temp Pulse Resp BP Pulse Ox O2 Del Method 06/23/23 06:59 36.6 C 92 H 18 143/79 H 94 Room Air 06/22/23 22:25 Room Air Laboratory Results WBC 6.95, hemoglobin 14.7, hematocrit 43.4, MCV 89.3, platelet count 234, sodium 139, potassium 3.9, BUN 14, creatinine 0.83, glucose 96, calcium 8.9, magnesium 2.3, total CK22, CRP 3.26, folate 3.50, vitamin B12 145, thiamine less than 6, vitamin D less than 7, TSH 0.170, free T40.83, rheumatoid factor less than 14, JED negative, RPR nonreactive, Lyme screen negative, iron 40, TIBC 246, unsaturated IBC 206, transferrin percent saturation 16, ferritin 88.1, AST 16, ALT 18 Diagnostic Findings MRI of the brain, cervical, thoracic, and lumbar spine independently reviewed and as described in the HPI. Notably, normal brain MRI, normal thoracic spine MRI. Mild degenerative changes noted in both the cervical and lumbar spine without significant central canal stenosis, but does have bilateral neuroforaminal stenosis at C6-7 and moderate left lateral recess stenosis at L1- 2. I also note no abnormalities on x-rays of the right foot and ankle. Coding Level of Care Code 07080 INT INP/OBS CARE 375MIN Diagnoses Leg cramps R25.2 Leg muscle spasm M62.838 Arthralgia M25.50 Joint pain location: unspecified Restless legs syndrome (RLS) G25.81 PLMD (periodic limb movement disorder) G47.61 B12 deficiency E53.8 Vitamin D deficiency E55.9 Thiamine deficiency E51.9 Folic acid deficiency E53.8 Cervical stenosis of spine M48.02 Lumbar degenerative disc disease M51.36 Asperger's disorder F84.5 Time Spent (min) 90 (3) Arthralgia Joint pain location: unspecified Qualified Code(s): M25.50 - Pain in unspecified joint
[2023-06-23] MEDS ORDERED: CHOLECALCIFEROL 5,000 UNITS 125 MCG TAB PO SCH (13:45)
--- NOTE | 2023-06-23 13:53 | Hospitalist Progress Note ---
Date of Service June 23, 2023 Assessment & Plan (1) Peripheral neuropathy: Plan: Patient with persistent severe neuropathic type pain in all 4 extremities With extensive workup last admission to include numerous imaging studies of the brain and spinal cord. He had EMG as an outpatient of the right lower extremity which was supposedly negative. Found to have severe B1, B12, vitamin D, and folate deficiencies-all been repleted-this is likely the cause of his neuropathic symptoms Given right lower extremity poor pedal pulses-checked arterial Doppler-negative He has had JED and rheumatoid factor twice in his workup which were both negative CK is normal, aldolase ordered and pending ESR is normal at 14 and CRP only minimally elevated at 2-3-does not seem like autoimmune in nature Lyme negative Continue to replete vitamin B and vitamin D Appreciate neurology input Increased the dose of Lyrica to 150 mg p.o. twice daily per neurology recommendation Continue Toradol IV Continue nortriptyline Consider increasing the dose of tizanidine to 4 mg 3 times daily PT/OT consulted, recommend rehab. Case management on board Spoke to mother on the phone to update her (2) B12 deficiency: Plan: Severe, level low at 150 last admission. Likely because of his severe neuropathy potentially Will give further IM B12 1000 mcg daily x 3 doses then resume p.o. B12 Follow levels in the future (3) Folic acid deficiency: Plan: Folate level checked today and also low at 3.5 Give IV folic acid today and tomorrow and then start oral folic acid 1 mg daily (4) IBS (irritable bowel syndrome): Plan: Follows a FODMAPs diet and has lost 80 pounds, symptoms have completely resolved (5) Anxiety: Plan: Follows with psychiatry for generalized anxiety disorder Continue home diazepam, carbamazepine, nortriptyline, prazosin, Lyrica (6) Vitamin D deficiency: Plan: Severely low and undetectable at less than 7 last admission Start vitamin D3 5000 units once daily He was prescribed vitamin D2 50,000 units once weekly previously but vitamin D3 likely will replete his levels quicker This is likely secondary to never going out in the sun (7) Thiamine deficiency: Plan: Thiamine level was undetectable last admission and he was not able to [employer] the oral thiamine after discharge as 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 twice daily (8) BPH (benign prostatic hyperplasia): Plan: Continue Myrbetriq Plan Disposition: Continued stay on MedSurg, but needs rehab placement-Auth for insurance applied for by [facility]-possible discharge this weekend if approved Full code Regular diet (gluten-free) VTE PPx: Lovenox 40mg SQ q24h Admission and Anticipated Discharge Date Admission Date: June 22, 2023 Subjective Patient was sleeping in the room. I woke him up, he was easily arousable. He stated that he was feeling okay and did not have much questions or concerns. Review of Systems Review of Systems: All systems reviewed & are unremarkable except as noted in Subjective Physical Exam Physical Exam: General: Awake, conversant Heart: S1, S2/regular rate and rhythm, no murmur rubs or gallops Lungs: Clear to auscultation bilaterally. Normal effort Abdomen: Soft/nontender/nondistended. No hepatosplenomegaly Extremities: No clubbing/cyanosis. No edema Behavior: Appropriate, cooperative Results & Data Results & Data Vital Signs (Past 12 Hours) Vital Signs Temp Pulse Resp BP Pulse Ox O2 Del Method 06/23/23 06:59 36.6 C 92 H 18 143/79 H 94 Room Air PG Care Time/CCT Total # of Minutes Spent Total Time Spent with Patient: Total time spent is greater than 50% in coordination of care (as documented) at patient's floor/unit and/or counseling patient: Coding Level of Care Code 57060 SUB INP/OBS CARE 2/35MIN Diagnoses Peripheral neuropathy G62.9 B12 deficiency E53.8 Folic acid deficiency E53.8 IBS (irritable bowel syndrome) K58.9 Anxiety F41.9 Vitamin D deficiency E55.9 Thiamine deficiency E51.9 BPH (benign prostatic hyperplasia) N40.0
[2023-06-23] MEDS ORDERED: oxyCODONE HCL IR 5 MG TAB (IMMEDIATE RELEASE) PO STA (16:24)
[2023-06-23] MEDS: ENOXAPARIN INJ 40 MG/0.4 ML SYR SQ SCH (18:18)
[2023-06-23] MEDS: PREGABALIN 150 MG CAP PO SCH (20:42)
[2023-06-23] MEDS: FAMOTIDINE 20 MG TAB PO SCH (20:43)
[2023-06-23] MEDS: PRAZOSIN HCL 1 MG CAP PO SCH (20:43)
[2023-06-23] MEDS: diazePAM 5 MG TABLET PO SCH (20:43)
[2023-06-23] MEDS: NORTRIPTYLINE HCL 25 MG CAP PO SCH (20:45)
[2023-06-24] MEDS: ACETAMINOPHEN 325 MG TAB PO PRN ×4 (01:40→18:05)
[2023-06-24] MEDS ORDERED: oxyCODONE HCL IR 5 MG TAB (IMMEDIATE RELEASE) PO ONE (01:50)
[2023-06-24] MEDS: KETOROLAC TROMETHAMINE 15 MG/ML VIAL IV PRN ×4 (02:40→18:06)
[2023-06-24] MEDS: PANTOprazole 40 MG TAB PO SCH ×2 (08:35→20:21)
[2023-06-24] MEDS: CETIRIZINE HCL 10 MG TABLET PO SCH ×2 (08:35→20:21)
[2023-06-24] MEDS: CYANOCOBALAMIN 1000 MCG/ML VIAL IM SCH (08:35)
[2023-06-24] MEDS: carBAMazepine 200 MG TABLET PO SCH ×2 (08:35→20:21)
[2023-06-24] MEDS: THIAMINE HCL 100 MG TAB PO SCH ×2 (08:35→20:21)
[2023-06-24] MEDS: CHOLECALCIFEROL 5,000 UNITS 125 MCG TAB PO SCH (08:35)
[2023-06-24] MEDS: PREGABALIN 150 MG CAP PO SCH ×2 (08:35→20:21)
[2023-06-24] MEDS: BACLOFEN 10 MG TAB PO PRN (08:35)
[2023-06-24] MEDS: tiZANidine HCL 4 MG TABLET PO SCH ×2 (08:35→20:21)
[2023-06-24] MEDS: VIBEGRON 75 MG TAB PO SCH (08:35)
[2023-06-24] MEDS: FOLIC ACID 1 MG TAB PO SCH (10:49)
[2023-06-24] MEDS: CYANOCOBALAMIN (B-12) 500 MCG TABLET PO SCH (10:49)
[2023-06-24 11:10] LABS: BUN Creatinine Ratio 16.5 (10-20); Calcium 9.4 mg/dl (8.6-10.3); Creatinine Clr Calc Pharmacy 156.9 ml/min; Est GFR (African American) 133.9 ml/min; Est GFR (Non-African American) 115.5 ml/min; Potassium 3.7 mmol/L (3.5-5.1)
[2023-06-24] MEDS: MEDICAL MARIJUANA PO SCH ×2 (13:06→22:32)
--- NOTE | 2023-06-24 13:39 | Hospitalist Progress Note ---
Date of Service June 24, 2023 Assessment & Plan (1) Peripheral neuropathy: Plan: Patient with persistent severe neuropathic type pain in all 4 extremities With extensive workup last admission to include numerous imaging studies of the brain and spinal cord. He had EMG as an outpatient of the right lower extremity which was supposedly negative. Found to have severe B1, B12, vitamin D, and folate deficiencies-all been repleted-this is likely the cause of his neuropathic symptoms Given right lower extremity poor pedal pulses-checked arterial Doppler-negative He has had JED and rheumatoid factor twice in his workup which were both negative CK is normal, aldolase ordered and pending ESR is normal at 14 and CRP only minimally elevated at 2-3-does not seem like autoimmune in nature Lyme negative Continue to replete vitamin B and vitamin D Appreciate neurology input Increased the dose of Lyrica to 150 mg p.o. twice daily per neurology recommendation Continue Toradol IV Continue nortriptyline Consider increasing the dose of tizanidine to 4 mg 3 times daily Allowed him to use his medical marijuana while in the hospital PT/OT consulted, recommend rehab. Case management on board Spoke to mother at the bedside to update her (2) B12 deficiency: Plan: Severe, level low at 150 last admission. Likely because of his severe neuropathy potentially Will give further IM B12 1000 mcg daily x 3 doses then resume p.o. B12 Follow levels in the future (3) Folic acid deficiency: Plan: Folate level checked today and also low at 3.5 Given IV folic acid and then started oral folic acid 1 mg daily (4) IBS (irritable bowel syndrome): Plan: Follows a FODMAPs diet and has lost 80 pounds, symptoms have completely resolved (5) Anxiety: Plan: Follows with psychiatry for generalized anxiety disorder Continue home diazepam, carbamazepine, nortriptyline, prazosin, Lyrica (6) Vitamin D deficiency: Plan: Severely low and undetectable at less than 7 last admission Start vitamin D3 5000 units once daily He was prescribed vitamin D2 50,000 units once weekly previously but vitamin D3 likely will replete his levels quicker This is likely secondary very limited sun exposure (7) Thiamine deficiency: Plan: Thiamine level was undetectable last admission and 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 twice daily (8) BPH (benign prostatic hyperplasia): Plan: Continue Myrbetriq Plan Disposition: Continued stay on MedSurg, but needs rehab placement-Auth for insurance applied for by [facility]-possible discharge this weekend if approved Full code Regular diet (gluten-free) VTE PPx: Lovenox 40mg SQ q24h Admission and Anticipated Discharge Date Admission Date: June 22, 2023 Subjective Patient complains of severe pain in his bilateral feet. He says that they are going into the spasm. Electrolytes checked and were unremarkable. Review of Systems Review of Systems: All systems reviewed & are unremarkable except as noted in Subjective Physical Exam Physical Exam: General: Awake, conversant. Tearful due to pain. Accompanied by his mother at the bedside. Heart: S1, S2/regular rate and rhythm, no murmur rubs or gallops Lungs: Clear to auscultation bilaterally. Normal effort Abdomen: Soft/nontender/nondistended. No hepatosplenomegaly Extremities: No clubbing/cyanosis. No edema Behavior: Appropriate, cooperative Results & Data Results & Data Vital Signs (Past 12 Hours) Vital Signs Temp Pulse Resp BP BP Pulse Ox O2 Del Method 06/24/23 09:49 36.7 C 91 H 18 148/94 H 99 Room Air 06/24/23 07:35 36.5 C 96 H 16 149/100 H 96 Room Air PG Care Time/CCT Total # of Minutes Spent Total Time Spent with Patient: Total time spent is greater than 50% in coordination of care (as documented) at patient's floor/unit and/or counseling patient: Coding Level of Care Code 98541 SUB INP/OBS CARE 2/35MIN Diagnoses Peripheral neuropathy G62.9 B12 deficiency E53.8 Folic acid deficiency E53.8 IBS (irritable bowel syndrome) K58.9 Anxiety F41.9 Vitamin D deficiency E55.9 Thiamine deficiency E51.9 BPH (benign prostatic hyperplasia) N40.0
[2023-06-24] MEDS: ENOXAPARIN INJ 40 MG/0.4 ML SYR SQ SCH (18:06)
[2023-06-24] MEDS: diazePAM 5 MG TABLET PO SCH (20:20)
[2023-06-24] MEDS: FAMOTIDINE 20 MG TAB PO SCH (20:21)
[2023-06-24] MEDS: NORTRIPTYLINE HCL 25 MG CAP PO SCH (20:21)
[2023-06-24] MEDS: PRAZOSIN HCL 1 MG CAP PO SCH (20:21)
[2023-06-25] MEDS: KETOROLAC TROMETHAMINE 15 MG/ML VIAL IV PRN ×4 (01:49→18:58)
[2023-06-25] MEDS: MEDICAL MARIJUANA PO SCH ×3 (06:06→22:35)
[2023-06-25] MEDS: BACLOFEN 10 MG TAB PO PRN ×2 (07:40→19:39)
[2023-06-25] MEDS: ACETAMINOPHEN 325 MG TAB PO PRN ×4 (07:40→23:07)
[2023-06-25] MEDS: PREGABALIN 150 MG CAP PO SCH ×2 (07:40→20:30)
[2023-06-25] MEDS: CETIRIZINE HCL 10 MG TABLET PO SCH ×2 (07:41→20:34)
[2023-06-25] MEDS: VIBEGRON 75 MG TAB PO SCH (07:41)
[2023-06-25] MEDS: PANTOprazole 40 MG TAB PO SCH ×2 (07:41→20:31)
[2023-06-25] MEDS: THIAMINE HCL 100 MG TAB PO SCH ×2 (07:41→20:31)
[2023-06-25] MEDS: tiZANidine HCL 4 MG TABLET PO SCH ×2 (07:41→20:33)
[2023-06-25] MEDS: CHOLECALCIFEROL 5,000 UNITS 125 MCG TAB PO SCH (07:41)
[2023-06-25] MEDS: FOLIC ACID 1 MG TAB PO SCH (07:42)
[2023-06-25] MEDS: carBAMazepine 200 MG TABLET PO SCH ×2 (07:42→20:34)
[2023-06-25] MEDS: CYANOCOBALAMIN (B-12) 500 MCG TABLET PO SCH (07:42)
--- NOTE | 2023-06-25 14:41 | Hospitalist Progress Note ---
Date of Service June 25, 2023 Assessment & Plan (1) Peripheral neuropathy: Plan: Patient with persistent severe neuropathic type pain in all 4 extremities With extensive workup last admission to include numerous imaging studies of the brain and spinal cord. He had EMG as an outpatient of the right lower extremity which was supposedly negative. Found to have severe B1, B12, vitamin D, and folate deficiencies-all been repleted-this is likely the cause of his neuropathic symptoms Given right lower extremity poor pedal pulses-checked arterial Doppler-negative He has had JDE and rheumatoid factor twice in his workup which were both negative CK is normal, aldolase ordered and pending ESR is normal at 14 and CRP only minimally elevated at 2-3-does not seem like autoimmune in nature Lyme negative Continue to replete vitamin B and vitamin D Appreciate neurology input Increased the dose of Lyrica to 150 mg p.o. twice daily per neurology recommendation Continue Toradol IV Continue nortriptyline Consider increasing the dose of tizanidine to 4 mg 3 times daily Allowed him to use his medical marijuana while in the hospital PT/OT consulted, recommend rehab. Case management on board Patient is very drowsy today. Could be due to increased dose of Lyrica or be cause of using medical marijuana Spoke to mother at the bedside to update her (2) B12 deficiency: Plan: Severe, level low at 150 last admission. Likely because of his severe neuropathy potentially Patient was given IM B12 1000 mcg daily x 3 doses then resumed p.o. B12 Follow levels in the future (3) Folic acid deficiency: Plan: Folate level checked during this hospital stay and also low at 3.5 Given IV folic acid and then started oral folic acid 1 mg daily (4) IBS (irritable bowel syndrome): Plan: Follows a FODMAPs diet and has lost 80 pounds, symptoms have completely resolved (5) Anxiety: Plan: Follows with psychiatry for generalized anxiety disorder Continue home diazepam, carbamazepine, nortriptyline, prazosin, Lyrica (6) Vitamin D deficiency: Plan: Severely low and undetectable at less than 7 last admission Start vitamin D3 5000 units once daily He was prescribed vitamin D2 50,000 units once weekly previously but vitamin D3 likely will replete his levels quicker This is likely secondary very limited sun exposure (7) Thiamine deficiency: Plan: Thiamine level was undetectable last admission and 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 twice daily (8) BPH (benign prostatic hyperplasia): Plan: Continue Myrbetriq Plan Disposition: Continued stay on MedSurg, but needs rehab placement Full code Regular diet (gluten-free) VTE PPx: Lovenox 40mg SQ q24h Admission and Anticipated Discharge Date Admission Date: June 22, 2023 Subjective Patient says that he slept very well overnight. He woke up feeling drowsy. Review of Systems Review of Systems: All systems reviewed & are unremarkable except as noted in Subjective Physical Exam Physical Exam: General: Drowsy, arousable. Heart: S1, S2/regular rate and rhythm, no murmur rubs or gallops Lungs: Clear to auscultation bilaterally. Normal effort Abdomen: Soft/nontender/nondistended. No hepatosplenomegaly Extremities: No clubbing/cyanosis. No edema Behavior: Appropriate, cooperative Results & Data Results & Data Vital Signs (Past 12 Hours) Vital Signs Temp Pulse Resp BP Pulse Ox O2 Del Method 06/25/23 07:19 36.6 C 104 H 18 133/93 93 Room Air PG Care Time/CCT Total # of Minutes Spent Total Time Spent with Patient: Total time spent is greater than 50% in coordination of care (as documented) at patient's floor/unit and/or counseling patient: Coding Level of Care Code 39911 SUB INP/OBS CARE 2/35MIN Diagnoses Peripheral neuropathy G62.9 B12 deficiency E53.8 Folic acid deficiency E53.8 IBS (irritable bowel syndrome) K58.9 Anxiety F41.9 Vitamin D deficiency E55.9 Thiamine deficiency E51.9 BPH (benign prostatic hyperplasia) N40.0
[2023-06-25] MEDS: ENOXAPARIN INJ 40 MG/0.4 ML SYR SQ SCH (17:58)
[2023-06-25] MEDS ORDERED: oxyCODONE HCL IR 5 MG TAB (IMMEDIATE RELEASE) PO ONE (19:54)
[2023-06-25] MEDS: diazePAM 5 MG TABLET PO SCH (20:30)
[2023-06-25] MEDS: NORTRIPTYLINE HCL 25 MG CAP PO SCH (20:32)
[2023-06-25] MEDS: PRAZOSIN HCL 1 MG CAP PO SCH (20:33)
[2023-06-25] MEDS: FAMOTIDINE 20 MG TAB PO SCH (20:37)
[2023-06-26] MEDS: KETOROLAC TROMETHAMINE 15 MG/ML VIAL IV PRN (04:24)
[2023-06-26] MEDS: ACETAMINOPHEN 325 MG TAB PO PRN ×3 (05:30→22:17)
[2023-06-26] MEDS: MEDICAL MARIJUANA PO SCH ×3 (05:31→23:02)
[2023-06-26] MEDS: BACLOFEN 10 MG TAB PO PRN ×2 (06:05→20:44)
[2023-06-26] MEDS: VIBEGRON 75 MG TAB PO SCH (08:07)
[2023-06-26] MEDS: CHOLECALCIFEROL 5,000 UNITS 125 MCG TAB PO SCH (08:07)
[2023-06-26] MEDS: tiZANidine HCL 4 MG TABLET PO SCH ×2 (08:07→20:45)
[2023-06-26] MEDS: CETIRIZINE HCL 10 MG TABLET PO SCH ×2 (08:07→20:41)
[2023-06-26] MEDS: FOLIC ACID 1 MG TAB PO SCH (08:07)
[2023-06-26] MEDS: CYANOCOBALAMIN (B-12) 500 MCG TABLET PO SCH (08:07)
[2023-06-26] MEDS: THIAMINE HCL 100 MG TAB PO SCH ×2 (08:07→20:40)
[2023-06-26] MEDS: carBAMazepine 200 MG TABLET PO SCH ×2 (08:08→20:41)
[2023-06-26] MEDS: PANTOprazole 40 MG TAB PO SCH ×2 (08:08→20:40)
[2023-06-26] MEDS: PREGABALIN 150 MG CAP PO SCH ×2 (08:10→20:44)
[2023-06-26 08:13] LABS: BUN Creatinine Ratio 13.8 (10-20); Calcium 8.9 mg/dl (8.6-10.3); Creatinine Clr Calc Pharmacy 142.5 ml/min; Est GFR (African American) 128.7 ml/min; Potassium 3.6 mmol/L (3.5-5.1)
[2023-06-26 08:16] LABS: Hematocrit (blood only) 41.6 % (42.0-52.0); Hemoglobin 13.8 g/dl (14.0-18.0); Mean Corpuscular Hemoglobin 30.1 pg (25.0-34.0); Mean Corpuscular Hgb Conc 33.2 g/dL (32.0-36.0); Mean Corpuscular Volume 90.8 fL (80.0-100.0); Mean Platelet Volume 10.1 fL (9.4-12.4); Platelet Count 244 K/uL (130-400); RDW Coefficient of Variation 12.8 % (11.5-14.5); RDW Standard Deviation 42.4 fL (36.4-46.3); Red Blood Count 4.58 M/uL (4.70-6.10); White Blood Count 6.96 K/ul (4.8-10.8)
[2023-06-26] MEDS: IBUPROFEN 200 MG TAB PO SCH ×2 (09:13→17:11)
[2023-06-26 11:12] LABS: Aldolase 5.2 U/L (< OR = 8.1)
--- NOTE | 2023-06-26 16:19 | Hospitalist Progress Note ---
Date of Service June 26, 2023 Assessment & Plan (1) Peripheral neuropathy: Plan: Patient with persistent severe neuropathic type pain in all 4 extremities With extensive workup last admission to include numerous imaging studies of the brain and spinal cord. He had EMG as an outpatient of the right lower extremity which was supposedly negative. Found to have severe B1, B12, vitamin D, and folate deficiencies-all been repleted-this is likely the cause of his neuropathic symptoms Given right lower extremity poor pedal pulses-checked arterial Doppler-negative He has had JED and rheumatoid factor twice in his workup which were both negative CK is normal, aldolase ordered and pending ESR is normal at 14 and CRP only minimally elevated at 2-3-does not seem like autoimmune in nature Lyme negative Continue to replete vitamin B and vitamin D Appreciate neurology input Increased the dose of Lyrica to 150 mg p.o. twice daily per neurology recommendation Continue Toradol IV Continue nortriptyline Consider increasing the dose of tizanidine to 4 mg 3 times daily Allowed him to use his medical marijuana while in the hospital PT/OT consulted, recommend rehab. Case management on board Patient is very drowsy today. Could be due to increased dose of Lyrica or be cause of using medical marijuana. Also noted that the patient has been receiving single doses of oxycodone at night. Patient gets very dramatic about his pain. He complains of 10 out of 10 pain but then falls asleep soon after that. Discouraged the use of narcotics by cross cover team Switch from IV Toradol to p.o. ibuprofen Spoke to mother at the bedside to update her (2) B12 deficiency: Plan: Severe, level low at 150 last admission. Likely because of his severe neuropathy potentially Patient was given IM B12 1000 mcg daily x 3 doses then resumed p.o. B12 Follow levels in the future (3) Folic acid deficiency: Plan: Folate level checked during this hospital stay and also low at 3.5 Given IV folic acid and then started oral folic acid 1 mg daily (4) IBS (irritable bowel syndrome): Plan: Follows a FODMAPs diet and has lost 80 pounds, symptoms have completely resolved (5) Anxiety: Plan: Follows with psychiatry for generalized anxiety disorder Continue home diazepam, carbamazepine, nortriptyline, prazosin, Lyrica (6) Vitamin D deficiency: Plan: Severely low and undetectable at less than 7 last admission Start vitamin D3 5000 units once daily He was prescribed vitamin D2 50,000 units once weekly previously but vitamin D3 likely will replete his levels quicker This is likely secondary very limited sun exposure (7) Thiamine deficiency: Plan: Thiamine level was undetectable last admission and 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 twice daily (8) BPH (benign prostatic hyperplasia): Plan: Continue Myrbetriq Plan Disposition: Continued stay on MedSurg, but needs rehab placement Full code Regular diet (gluten-free) VTE PPx: Lovenox 40mg SQ q24h Admission and Anticipated Discharge Date Admission Date: June 22, 2023 Subjective Patient was extremely sleepy this morning. He has been using his medical marijuana. Yesterday he got a dose of oxycodone. Accompanied by his mother at the bedside. Review of Systems Review of Systems: All systems reviewed & are unremarkable except as noted in Subjective Physical Exam Physical Exam: General: Drowsy, arousable with sternal rubs and very loud verbal stimuli. Heart: S1, S2/regular rate and rhythm, no murmur rubs or gallops Lungs: Clear to auscultation bilaterally. Normal effort Abdomen: Soft/nontender/nondistended. No hepatosplenomegaly Extremities: No clubbing/cyanosis. No edema Behavior: Appropriate, cooperative Results & Data Results & Data Vital Signs (Past 12 Hours) Vital Signs Temp Pulse Resp BP Pulse Ox O2 Del Method 06/26/23 15:03 36.6 C 81 20 110/75 94 Room Air 06/26/23 11:00 36.4 C L 75 16 112/71 93 Room Air 06/26/23 07:00 36.3 C L 92 H 20 133/83 96 Room Air Laboratory Results Abnormal lab results 06/26/23 Range/Units 07:08 RBC 4.58 L (4.70-6.10) M/uL Hgb 13.8 L (14.0-18.0) g/dl Hct 41.6 L (42.0-52.0) % Glucose 118 H (70-99(Fasting)) mg/dl PG Care Time/CCT Total # of Minutes Spent Total Time Spent with Patient: Total time spent is greater than 50% in coordination of care (as documented) at patient's floor/unit and/or counseling patient: Coding Level of Care Code 60223 SUB INP/OBS CARE 2MIN Diagnoses Peripheral neuropathy G62.9 B12 deficiency E53.8 Folic acid deficiency E53.8 IBS (irritable bowel syndrome) K58.9 Anxiety F41.9 Vitamin D deficiency E55.9 Thiamine deficiency E51.9 BPH (benign prostatic hyperplasia) N40.0
[2023-06-26] MEDS: ENOXAPARIN INJ 40 MG/0.4 ML SYR SQ SCH (18:43)
[2023-06-26] MEDS: NORTRIPTYLINE HCL 25 MG CAP PO SCH (20:40)
[2023-06-26] MEDS: PRAZOSIN HCL 1 MG CAP PO SCH (20:42)
[2023-06-26] MEDS: diazePAM 5 MG TABLET PO SCH (20:44)
[2023-06-26] MEDS: FAMOTIDINE 20 MG TAB PO SCH (22:41)
[2023-06-27] MEDS: IBUPROFEN 200 MG TAB PO SCH ×3 (00:27→17:53)
[2023-06-27] MEDS: MEDICAL MARIJUANA PO SCH ×3 (05:00→22:37)
[2023-06-27] MEDS ORDERED: MELATONIN 3 MG TAB PO PRN (05:01)
[2023-06-27] MEDS ORDERED: MELATONIN 3 MG TAB PO ONE (05:02)
[2023-06-27 07:43] LABS: Hematocrit (blood only) 39.1 % (42.0-52.0); Hemoglobin 13.5 g/dl (14.0-18.0); Mean Corpuscular Hemoglobin 30.5 pg (25.0-34.0); Mean Corpuscular Hgb Conc 34.5 g/dL (32.0-36.0); Mean Corpuscular Volume 88.5 fL (80.0-100.0); Mean Platelet Volume 10.3 fL (9.4-12.4); Platelet Count 242 K/uL (130-400); RDW Coefficient of Variation 12.5 % (11.5-14.5); RDW Standard Deviation 40.5 fL (36.4-46.3); Red Blood Count 4.42 M/uL (4.70-6.10); White Blood Count 6.72 K/ul (4.8-10.8)
[2023-06-27 07:50] LABS: Calcium 8.9 mg/dl (8.6-10.3); Potassium 3.4 mmol/L (3.5-5.1)
[2023-06-27 07:56] LABS: BUN Creatinine Ratio 12.2 (10-20); Creatinine Clr Calc Pharmacy 167.5 ml/min; Est GFR (African American) 137.5 ml/min; Est GFR (Non-African American) 118.7 ml/min
[2023-06-27] MEDS: carBAMazepine 200 MG TABLET PO SCH ×2 (09:03→21:01)
[2023-06-27] MEDS: PANTOprazole 40 MG TAB PO SCH ×2 (09:03→21:01)
[2023-06-27] MEDS: CETIRIZINE HCL 10 MG TABLET PO SCH ×2 (09:03→21:01)
[2023-06-27] MEDS: THIAMINE HCL 100 MG TAB PO SCH ×2 (09:03→21:01)
[2023-06-27] MEDS: CHOLECALCIFEROL 5,000 UNITS 125 MCG TAB PO SCH (09:04)
[2023-06-27] MEDS: FOLIC ACID 1 MG TAB PO SCH (09:04)
[2023-06-27] MEDS: CYANOCOBALAMIN (B-12) 500 MCG TABLET PO SCH (09:04)
[2023-06-27] MEDS: tiZANidine HCL 4 MG TABLET PO SCH ×2 (09:04→21:01)
[2023-06-27] MEDS: VIBEGRON 75 MG TAB PO SCH (09:05)
[2023-06-27] MEDS: PREGABALIN 150 MG CAP PO SCH ×2 (09:07→21:01)
--- NOTE | 2023-06-27 14:51 | Hospitalist Progress Note ---
Date of Service June 27, 2023 Assessment & Plan (1) Peripheral neuropathy: Plan: Patient with persistent severe neuropathic type pain in all 4 extremities With extensive workup last admission to include numerous imaging studies of the brain and spinal cord. He had EMG as an outpatient of the right lower extremity which was supposedly negative. Found to have severe B1, B12, vitamin D, and folate deficiencies-all been repleted-this is likely the cause of his neuropathic symptoms Given right lower extremity poor pedal pulses-checked arterial Doppler-negative He has had JED and rheumatoid factor twice in his workup which were both negative CK is normal, aldolase ordered and pending ESR is normal at 14 and CRP only minimally elevated at 2-3-does not seem like autoimmune in nature Lyme negative Continue to replete vitamin B and vitamin D Appreciate neurology input Increased the dose of Lyrica to 150 mg p.o. twice daily per neurology recommendation Continue nortriptyline Consider increasing the dose of tizanidine to 4 mg 3 times daily Allowed him to use his medical marijuana while in the hospital PT/OT consulted, recommend rehab. Case management on board 06/27: Patient is not drowsy today. He is awake and alert and was able to walk to the bathroom and back. He does not appear to be in severe pain either. He was not given oxycodone overnight and he ran out of of medical marijuana. He has been on the same dose of Lyrica and all other sedating medications and yet has been awake and alert today proving that medical marijuana and oxycodone together is making him oversedated. I will continue to discourage narcotics overnight. Unfortunately we cannot control the amount of medical marijuana he uses. Continue to use p.o. ibuprofen and Tylenol for pain. (2) B12 deficiency: Plan: Severe, level low at 150 last admission. Likely because of his severe neuropathy potentially Patient was given IM B12 1000 mcg daily x 3 doses then resumed p.o. B12 Follow levels in the future (3) Folic acid deficiency: Plan: Folate level checked during this hospital stay and also low at 3.5 Given IV folic acid and then started oral folic acid 1 mg daily (4) IBS (irritable bowel syndrome): Plan: Follows a FODMAPs diet and has lost 80 pounds, symptoms have completely resolved (5) Anxiety: Plan: Follows with psychiatry for generalized anxiety disorder Continue home diazepam, carbamazepine, nortriptyline, prazosin, Lyrica (6) Vitamin D deficiency: Plan: Severely low and undetectable at less than 7 last admission Continue vitamin D3 5000 units once daily He was prescribed vitamin D2 50,000 units once weekly previously but vitamin D3 likely will replete his levels quicker This is likely secondary very limited sun exposure (7) Thiamine deficiency: Plan: Thiamine level was undetectable last admission and 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 twice daily (8) BPH (benign prostatic hyperplasia): Plan: Continue Myrbetriq Plan Disposition: Continued stay on MedSurg, but needs rehab placement Full code Regular diet (gluten-free) VTE PPx: Lovenox 40mg SQ q24h Admission and Anticipated Discharge Date Admission Date: June 22, 2023 Subjective Patient is awake today. Per nurse, he had excruciating pain and had asked for pain medicine. The nurse stated that he is not due for his next dose of ibuprofen until a couple of hours later. He had a friend visit him when he was talking and had no issues with pain. Overnight, he again had issues with pain for which no narcotics was offered. He only had 2 doses of his medical marijuana left which he completed. I was informed by the nurse this morning that the patient's mother was concerned that all night he had been texting her his uncontrolled pain. When I visited the patient this morning, he was awake and alert and did not complain of pain. His mother was at the bedside and did not voice any concerns either. The nurse informed me that this morning the patient walked to the bathroom and back without any issues. Today he seems to be in the happiest medium when he is not in severe pain and not hypersomnolent. I am concerned that the patient is dosing himself too much of medical marijuana putting him to a deep sleep. Moreover he has been getting oxycodone during night shifts. The oxycodone together with the medical marijuana has been making him hypersomnolent. Review of Systems Review of Systems: All systems reviewed & are unremarkable except as noted in Subjective Physical Exam Physical Exam: General: Awake, conversant Heart: S1, S2/regular rate and rhythm, no murmur rubs or gallops Lungs: Clear to auscultation bilaterally. Normal effort Abdomen: Soft/nontender/nondistended. No hepatosplenomegaly Extremities: No clubbing/cyanosis. No edema Behavior: Appropriate, cooperative Results & Data Results & Data Vital Signs (Past 12 Hours) Vital Signs Temp Pulse Resp BP Pulse Ox O2 Del Method 06/27/23 07:13 36.5 C 79 18 111/76 93 Room Air Laboratory Results Abnormal lab results 06/27/23 Range/Units 06:32 RBC 4.42 L (4.70-6.10) M/uL Hgb 13.5 L (14.0-18.0) g/dl Hct 39.1 L (42.0-52.0) % Potassium 3.4 L (3.5-5.1) mmol/L Glucose 117 H (70-99(Fasting)) mg/dl PG Care Time/CCT Total # of Minutes Spent Total Time Spent with Patient: Total time spent is greater than 50% in coordination of care (as documented) at patient's floor/unit and/or counseling patient: Coding Level of Care Code 28696 SUB INP/OBS CARE 2/35MIN Diagnoses Peripheral neuropathy G62.9 B12 deficiency E53.8 Folic acid deficiency E53.8 IBS (irritable bowel syndrome) K58.9 Anxiety F41.9 Vitamin D deficiency E55.9 Thiamine deficiency E51.9 BPH (benign prostatic hyperplasia) N40.0
[2023-06-27] MEDS ORDERED: POTASSIUM CHLORIDE CRTAB 20 MEQ TABCR PO STA (15:05)
[2023-06-27] MEDS: ENOXAPARIN INJ 40 MG/0.4 ML SYR SQ SCH (17:54)
[2023-06-27] MEDS: ACETAMINOPHEN 325 MG TAB PO PRN (20:53)
[2023-06-27] MEDS: BACLOFEN 10 MG TAB PO PRN (20:53)
[2023-06-27] MEDS: FAMOTIDINE 20 MG TAB PO SCH (21:01)
[2023-06-27] MEDS: NORTRIPTYLINE HCL 25 MG CAP PO SCH (21:01)
[2023-06-27] MEDS: PRAZOSIN HCL 1 MG CAP PO SCH (21:01)
[2023-06-27] MEDS: diazePAM 5 MG TABLET PO SCH (21:02)
[2023-06-28] MEDS: IBUPROFEN 200 MG TAB PO SCH ×2 (00:29→08:40)
[2023-06-28] MEDS: ACETAMINOPHEN 325 MG TAB PO PRN (05:03)
[2023-06-28] MEDS: MEDICAL MARIJUANA PO SCH (05:04)
[2023-06-28 06:54] LABS: Hemoglobin 14.5 g/dl (14.0-18.0); Mean Corpuscular Hemoglobin 30.4 pg (25.0-34.0); Mean Corpuscular Hgb Conc 33.7 g/dL (32.0-36.0); Mean Corpuscular Volume 90.1 fL (80.0-100.0); Mean Platelet Volume 10.1 fL (9.4-12.4); Platelet Count 260 K/uL (130-400); RDW Coefficient of Variation 12.7 % (11.5-14.5); Red Blood Count 4.77 M/uL (4.70-6.10); White Blood Count 5.79 K/ul (4.8-10.8)
[2023-06-28 07:23] LABS: BUN Creatinine Ratio 14.9 (10-20); Calcium 9.2 mg/dl (8.6-10.3); Est GFR (African American) 143.3 ml/min; Est GFR (Non-African American) 123.6 ml/min; Potassium 4.1 mmol/L (3.5-5.1)
[2023-06-28] MEDS: PREGABALIN 150 MG CAP PO SCH (08:39)
[2023-06-28] MEDS: tiZANidine HCL 4 MG TABLET PO SCH (08:39)
[2023-06-28] MEDS: carBAMazepine 200 MG TABLET PO SCH (08:39)
[2023-06-28] MEDS: PANTOprazole 40 MG TAB PO SCH (08:39)
[2023-06-28] MEDS: CHOLECALCIFEROL 5,000 UNITS 125 MCG TAB PO SCH (08:39)
[2023-06-28] MEDS: CETIRIZINE HCL 10 MG TABLET PO SCH (08:39)
[2023-06-28] MEDS: BACLOFEN 10 MG TAB PO PRN (08:39)
[2023-06-28] MEDS: FOLIC ACID 1 MG TAB PO SCH (08:39)
[2023-06-28] MEDS: THIAMINE HCL 100 MG TAB PO SCH (08:39)
[2023-06-28] MEDS: CYANOCOBALAMIN (B-12) 500 MCG TABLET PO SCH (08:39)
[2023-06-28] MEDS: VIBEGRON 75 MG TAB PO SCH (08:39)
--- NOTE | 2023-06-28 12:10 | Discharge Summary ---
Date of Service June 28, 2023 Admission HPI Per Admitting Provider Ga is a 37-year-old male with PMH of anxiety, Asperger's disorder, IBS, arthritis, overactive bladder, allergic rhinitis, asthma, GERD, BPH, polypharmacy, and leg cramps. Patient's mother is at the bedside and provides additional history. He presented at the behest of his PCP for 10/10 pain on 06/21. Recent [facility] hospitalization from 06/09 - 06/17 for ambulatory dysfunction and generalized pain; patient had MRI of the lumbar, thoracic, and cervical spine; nerve conduction study on 06/08/2023 without abnormality. Patient reports that he starts his day at 10/10 pain every morning. The pain is constant, and he describes it in his muscles and bones, with the worst pain being in his lower extremities. Patient describes the pain as sharp. The pain started about 3 months ago and his right foot, and has only progressed. Pain is worse with movement and pressure. He has a history of joint pain and saw a business services specialist sales 15 years ago, but does not currently follow with rheumatology. He has been taking ibuprofen, oxycodone, and Toradol at home, but reports that this did not help; unable to provide an exact amount. He does take baclofen which helps with his muscle spasms. He denies recent falls, injuries or traumas. He also endorses intermittent muscle spasms, which have lessened recently. No recent rashes or tick bites. Patient reports the last couple weeks because of unbearable pain. Patient is hypertensive at 180/85 at time of admission. ED course: Morphine sulfate 4 mg IV Zofran 4 mg IV ROS: Patient endorses generalized pain, intentional weight loss (80 pounds over the past year), STOUT, night sweats, joint pain, muscle pain, abdominal pain, and nausea. Patient denies fever, chills, dizziness, lightheadedness, rashes, tick-bites, vomiting, diarrhea, chest pain, chest palpitations, pleuritic CP, SOB, or numbness in the legs. Admission Exam Per Admitting Provider General: Acute physical distress; non-toxic appearing; well-nourished; cooperative HEENT: normocephalic, atraumatic; no scleral icterus; PERRLA w/ EOMs intact; moist mucus membrane; vision and hearing grossly intact Neck: supple; no JVD; no lymphadenopathy; trachea midline Skin: warm, dry without signs of tenting; no cyanosis; no rashes, bruising, lesions, or erythema noted CV: chest wall NTP; RRR; S1/S2 normal; no murmurs/rubs/gallops; pulses intact and symmetric at radial, DP, and PT Lungs: no acute respiratory distress; symmetrical chest wall expansion; clear breath sounds across all lung crews w/o adventitious sounds; no wheezing ABD: Soft, NTP; BS present; no rebound/guarding MSK: no tics or fasciculations; no edema noted in the LEs b/l, nonerythematous; patient demonstrates ability to wiggle toes (but reports pain with movement) Neuro: A&Ox3; flight of ideas; fluent speech; no focal deficits; sensation grossly intact in the LEs b/l Principal Diagnosis Uncontrollable pain vitamin deficiencies Ambulatory dysfunction Overuse of medical marijuana Possibly drug-seeking behavior Discharge Exam General: Awake, conversant Heart: S1, S2/regular rate and rhythm, no murmur rubs or gallops Lungs: Clear to auscultation bilaterally. Normal effort Abdomen: Soft/nontender/nondistended. No hepatosplenomegaly Extremities: No clubbing/cyanosis. No edema Behavior: Appropriate, cooperative Discharge Data Allergies Allergy/AdvReac Type Severity Reaction Status Date / Time bee venom protein (honey bee) Allergy Severe Anaphylaxis Verified 06/09/23 16:01 latex Allergy Mild ITCHY Verified 06/09/23 16:01 pollen extracts Allergy Mild RESP Verified 06/09/23 16:01 PROBLEMS cheese Allergy Edilberto Verified 06/25/23 12:54 Cheese = anaphylaxis house dust Allergy dust = Verified 06/25/23 12:59 resp discomfort mushroom AdvReac Intermediate Nausea Verified 06/09/23 16:01 olive extract AdvReac Mild BLACK Verified 06/09/23 16:01 OLIVES [employer]ERS IBS Consultations 06/21/23 13:38 ED Decision to Admit Stat 06/22/23 15:49 Consult Neurology Routine Ordered Studies 06/22/23 14:38 US doppler leg [US arterial duplex LE RT] Urgent Hospital Course (1) Peripheral neuropathy: Patient with persistent severe neuropathic type pain in all 4 extremities With extensive workup last admission to include numerous imaging studies of the brain and spinal cord. He had EMG as an outpatient of the right lower extremity which was supposedly negative. Found to have severe B1, B12, vitamin D, and folate deficiencies-all been repleted-this is likely the cause of his neuropathic symptoms Given right lower extremity poor pedal pulses-checked arterial Doppler-negative He has had JED and rheumatoid factor twice in his workup which were both negative CK is normal, aldolase ordered and pending ESR is normal at 14 and CRP only minimally elevated at 2-3-does not seem like autoimmune in nature Lyme negative Continue to replete vitamin B and vitamin D Appreciate neurology input Increased the dose of Lyrica to 150 mg p.o. twice daily per neurology recommendation Continue nortriptyline Consider increasing the dose of tizanidine to 4 mg 3 times daily Allowed him to use his medical marijuana while in the hospital but concerned that he may be over using it. He uses 400 mg 3 times daily as needed that causes him to be oversedated requiring sternal rub to wake him up during this hospital stay Patient is able to ambulate. Wanting to go home with home health services The patient may have a component of drug-seeking behavior. There has been episodes when he was complaining of 10 out of 10 pain, asked for pain medication s but by the time the nurse came back to give him his pain medicine, he was sleeping as he had already taken his medical marijuana. I have not given him oxycodone during the daytime but he has received oxycodone from the cross cover team overnight. He was not given any oxycodone even by the night team over the past 2 days and today he wants to go home and is able to ambulate. (2) B12 deficiency: Severe, level low at 150 last admission. Likely because of his severe neuropathy potentially Patient was given IM B12 1000 mcg daily x 3 doses then resumed p.o. B12 Follow levels in the future (3) Folic acid deficiency: Folate level checked during this hospital stay and also low at 3.5 Given IV folic acid and then started oral folic acid 1 mg daily (4) IBS (irritable bowel syndrome): Follows a FODMAPs diet and has lost 80 pounds, symptoms have completely resolved (5) Anxiety: Follows with psychiatry for generalized anxiety disorder Continue home diazepam, carbamazepine, nortriptyline, prazosin, Lyrica (6) Vitamin D deficiency: Severely low and undetectable at less than 7 last admission Continue vitamin D3 5000 units once daily He was prescribed vitamin D2 50,000 units once weekly previously but vitamin D3 likely will replete his levels quicker This is likely secondary very limited sun exposure (7) Thiamine deficiency: Thiamine level was undetectable last admission and 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 twice daily (8) BPH (benign prostatic hyperplasia): Continue Myrbetriq Plan Discharge to home with home health services today Total Time Total Time Spent Total Time Spent (In Minutes): 35 Discharge Plan Discharge Items Patient Disposition: Home - Home Health Services Reason For Visit: GENERALIZED PAIN Discharge Diagnosis: Uncontrollable pain vitamin deficiencies Ambulatory dysfunction Activity: Resume your previous activity Non-emergency contact: Primary Care Provider Call non-emergency contact if: you have any medication questions and your symptoms worsen Follow-up/Referrals: Simba Flores MD [Physician] - (SAMANTA WILL SEND MESSAGE TO NEURO OFFICE AND THEY WILL CALL PATIENT WITH A HOSPITAL FOLLOW UP.) Jhon Colorado DO [Primary Care Provider] - 07/02/23 2:45 pm (APPOINTMENT WITH DR CALDERON) Diet: Regular Addtl Attending Provider Instructions: Advised to follow-up with PCP in 1 week Advised to follow-up with neurologist in 1 week Advised to note that you are using too much of medical marijuana. You have been advised to cut down on the dose Advised to use over the counter Ibuprofen and Tylenol for pain. Pending Studies at Discharge: No Stand-Alone Forms: My [facility] Medications and DC Order Prescriptions: New pregabalin [Lyrica] 150 mg Capsule 150 mg PO BID 30 Days Qty: 60 0RF thiamine HCl (vitamin B1) 100 mg Tablet 200 mg PO BID Qty: 60 0RF folic acid 1 mg Tablet 1 mg PO QAM 30 Days Qty: 30 0RF cholecalciferol (vitamin D3) 125 mcg (5,000 unit) Tablet 5,000 unit PO QAM 30 Days Qty: 30 0RF Continued diazepam [Valium] 10 mg tablet 20 mg PO HS Azo Bladder Control 300 mg capsule 1 cap PO UD PRN (Reason: bladder issues) baclofen 10 mg Tablet 10 mg PO BID PRN (Reason: muscle spasm) Qty: 20 0RF cyanocobalamin (vitamin B-12) 1,000 mcg tablet 1,000 mcg PO DAILY Qty: 30 0RF tizanidine [Zanaflex] 4 mg tablet 4 mg PO AMPM Qty: 14 0RF carbamazepine [Tegretol] 200 mg Tablet 200 mg PO BID nortriptyline 75 mg Capsule 75 mg PO HS cetirizine 10 mg Tablet 10 mg PO BID famotidine 40 mg tablet 0 mg PO HS Rx Instructions: unsure prazosin [Minipress] 2 mg capsule 2 mg PO HS omeprazole 40 mg capsule,delayed release(DR/EC) 40 mg PO BID Myrbetriq 50 mg tablet extended release 24 hr 50 mg PO QAM Discontinued ketorolac 10 mg Tablet 10 mg PO Q6H PRN (Reason: pain) Qty: 16 0RF ergocalciferol (vitamin D2) 1,250 mcg (50,000 unit) Capsule 50,000 unit PO Q7D Qty: 4 0RF thiamine HCl (vitamin B1) 250 mg tablet 250 mg PO BID Qty: 60 0RF oxycodone 5 mg Tablet 5 - 10 mg PO Q6H PRN (Reason: pain) Qty: 14 0RF pregabalin 75 mg capsule 75 mg PO BID Discharge Orders: Discharge Order (Routine); Ordered 06/28/23 Ordered By: David Rollins Admission Data Admit Date/Time: 06/22/23 15:24 Attending Provider: David Rollins Admit Provider: Dawn Burnett Primary Care Provider: Jhon Colorado Other Providers: [facility]; Johnathon Zhou; Simba Flores; [facility]; [facility], Other Interventions: Discharge Summary Assessment (RN) Last Done: 06/28/23 13:44 Coding Level of Care Code 97086 INP/OBS DISCH >30 MIN Diagnoses Peripheral neuropathy G62.9 B12 deficiency E53.8 Folic acid deficiency E53.8 IBS (irritable bowel syndrome) K58.9 Anxiety F41.9 Vitamin D deficiency E55.9 Thiamine deficiency E51.9 BPH (benign prostatic hyperplasia) N40.0
== END 2023-06-28 13:45 | disposition home health service (06) | DRG 641 ==
LOC: ED 09:38 → 3N 09:38 → SUATTDRO 14:38 → 3N 16:23 → SUATTDRO 06-22 15:24